=== PATIENT | male | born 1955 | race Caucasian/White ===

== ENCOUNTER 2018-01-04 15:51 | Outpatient (REF) | payer MEDICARE, SELFPAY | END 2018-01-04 16:11 | LOC: NCHCN 15:51 | PROVIDERS: Visit Provider Nurse Practitioner Family | DX: N31.9 Neuromuscular dysfunction of bladder, unspecified (principal); I10 Essential (primary) hypertension; D64.9 Anemia, unspecified; Z87.440 Personal history of urinary (tract) infections | CPT/HCPCS: 87077; 87086; 87186 ==

== ENCOUNTER 2018-03-19 14:40 | Outpatient (REF) | payer MEDICARE, SELFPAY | END 2018-03-19 15:00 | LOC: NCHCN 14:40 | PROVIDERS: Visit Provider Nurse Practitioner Family | DX: R31.9 Hematuria, unspecified (principal); N31.9 Neuromuscular dysfunction of bladder, unspecified; Z87.448 Personal history of other diseases of urinary system | CPT/HCPCS: 87077; 87086; 87186 ==

== ENCOUNTER 2018-03-26 13:24 | Outpatient (REF) | payer MEDICARE, SELFPAY | END 2018-03-26 13:44 | LOC: NCHCN 13:24 | PROVIDERS: PCP Nurse Practitioner Family; Visit Provider Nurse Practitioner Family | DX: R31.9 Hematuria, unspecified (principal) | CPT/HCPCS: 87077; 87086; 87186 ==

== ENCOUNTER 2018-04-10 11:49 | Outpatient (REF) | payer MEDICARE, SELFPAY | END 2018-04-10 12:09 | LOC: NCHCN 11:49 | PROVIDERS: PCP Nurse Practitioner Family; Visit Provider Nurse Practitioner Family | DX: R31.9 Hematuria, unspecified (principal); D69.6 Thrombocytopenia, unspecified; I10 Essential (primary) hypertension; E11.9 Type 2 diabetes mellitus without complications; E78.5 Hyperlipidemia, unspecified; N31.9 Neuromuscular dysfunction of bladder, unspecified; G89.21 Chronic pain due to trauma | CPT/HCPCS: 87086 ==

== ENCOUNTER 2018-11-05 15:34 | Outpatient (REF) | payer MEDICARE, SELFPAY ==
[2018-11-05 21:33] LABS: ALT 40 U/L (12-78); AST 25 U/L (15-37); Albumin 4.2 g/dL (3.4-5.0); Alkaline Phosphatase 123 U/L (46-116); Anion Gap 10.8 mmol/L (3-11); BUN 19 mg/dL (7-18); Bilirubin, Total 0.3 mg/dL (0.2-1.0); CO2 26.2 mmol/L (21.0-32.0); CREATININE 1.02 mg/dL (0.70-1.30); Calcium 9.4 mg/dL (8.5-10.1); Chloride 101 mmol/L (98-107); Glucose 98 mg/dL (70-100); Potassium 4.5 mmol/L (3.5-5.1); Sodium 138 mmol/L (136-145); Total Protein 8.5 g/dL (6.4-8.2)
== END 2018-11-05 15:54 ==
LOC: NCHCN 15:34
PROVIDERS: PCP Nurse Practitioner Family; Visit Provider Nurse Practitioner Family
DX: I10 Essential (primary) hypertension (principal); E11.9 Type 2 diabetes mellitus without complications; E78.5 Hyperlipidemia, unspecified; I51.7 Cardiomegaly; G89.21 Chronic pain due to trauma
CPT/HCPCS: 80053

== ENCOUNTER 2019-05-07 15:35 | Outpatient (REF) | payer MEDICARE, SELFPAY ==
[2019-05-07 22:04] LABS: ALT 53 U/L (16-63); AST 30 U/L (15-37); Albumin 4.3 g/dL (3.4-5.0); Alkaline Phosphatase 121 U/L (46-116); Bilirubin, Direct 0.05 mg/dL (0.00-0.20); Bilirubin, Total 0.2 mg/dL (0.2-1.0); Total Protein 8.1 g/dL (6.4-8.2)
[2019-05-07 22:11] LABS: GGT 63 U/L (15-85)
== END 2019-05-07 15:55 ==
LOC: NCHCN 15:35
PROVIDERS: PCP Nurse Practitioner Family; Visit Provider Nurse Practitioner Family
DX: I10 Essential (primary) hypertension (principal); E11.9 Type 2 diabetes mellitus without complications; E78.5 Hyperlipidemia, unspecified; N31.9 Neuromuscular dysfunction of bladder, unspecified; R74.8 Abnormal levels of other serum enzymes; I51.7 Cardiomegaly; G89.21 Chronic pain due to trauma; E66.9 Obesity, unspecified
CPT/HCPCS: 80076; 82977

== ENCOUNTER 2019-11-05 14:25 | Outpatient (REF) | payer MEDICARE, SELFPAY ==
[2019-11-05 21:58] LABS: ALT 46 U/L (16-63); AST 25 U/L (15-37); Albumin 4.2 g/dL (3.4-5.0); Alkaline Phosphatase 116 U/L (46-116); Anion Gap 10.1 mmol/L (3-11); BUN 18 mg/dL (7-18); Bilirubin, Total 0.3 mg/dL (0.2-1.0); CO2 26.9 mmol/L (21.0-32.0); Calcium 9.8 mg/dL (8.5-10.1); Chloride 103 mmol/L (98-107); Glucose 87 mg/dL (74-106); Potassium 4.5 mmol/L (3.5-5.1); Sodium 140 mmol/L (136-145)
[2019-11-07 05:15] LABS: Vitamin D 25 Total 19.6 ng/ml (30-100)
== END 2019-11-05 14:45 ==
LOC: NCHCN 14:25
PROVIDERS: PCP Nurse Practitioner Family; Visit Provider Nurse Practitioner Family
DX: E11.9 Type 2 diabetes mellitus without complications (principal); E55.9 Vitamin D deficiency, unspecified; R74.8 Abnormal levels of other serum enzymes; I10 Essential (primary) hypertension; I51.7 Cardiomegaly; E66.9 Obesity, unspecified
CPT/HCPCS: 80053; 82306

== ENCOUNTER 2020-01-13 15:06 | Inpatient (IN) | payer MEDICARE, SELFPAY ==
[2020-01-13 15:31] VITALS: BP 133/59; PULSE 106; RESP 20; TEMP 38; O2SAT 92
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
[2020-01-13 16:27] LABS: Absolute Basophil Count 0.05 10^3/uL (0.0-0.2); Absolute Eosinophil Count 0.15 10^3/uL (0.0-0.7); Absolute Monocyte Count 1.05 10^3/uL (0.1-0.8); Basophils % 0.3; Eosinophils % 0.9; HCT 36.9 % (40.0-50.0); Immature Grans % 0.6; Lymphocytes % 5.5; MCH 30.4 pg (27.0-33.0); MCHC 32.5 % (32.0-36.0); MCV 93.4 fL (80-95); MPV 9.2 fL (8.0-11.0); Monocytes % 6.4; Neutrophils % 86.3; Nucleated RBC 0 %; Platelet Count 180 10^3/uL (130-400); RBC 3.95 10^6/uL (4.36-5.78); RDW 13.2 % (11.8-14.1); RDW-SD 45.2 fL; WBC 16.34 10^3/uL (4.4-10.8)
[2020-01-13] MEDS: Normal Saline 1,000 ML 1000 ML IV (16:36)
[2020-01-13] MEDS: Acetaminophen 500 MG TAB 1000 MG PO (16:36)
[2020-01-13 16:41] LABS: ALT 33 U/L (16-63); AST 24 U/L (15-37); Albumin 3.6 g/dL (3.4-5.0); Alkaline Phosphatase 88 U/L (46-116); Anion Gap 6.7 mmol/L (3-11); BUN 36 mg/dL (7-18); Bilirubin, Total 0.3 mg/dL (0.2-1.0); CO2 28.3 mmol/L (21.0-32.0); Calcium 9.2 mg/dL (8.5-10.1); Chloride 97 mmol/L (98-107); Estimated GFR 32.16 (mL/min/1.73m2); Glucose 147 mg/dL (74-106); Potassium 4.9 mmol/L (3.5-5.1); Sodium 132 mmol/L (136-145); Total Protein 8.1 g/dL (6.4-8.2)
--- NOTE | 2020-01-13 16:41 | NUR.NOTE ---
Nursing Note:attempted 2nd BC, unable to obtain. Provider aware, states initiate antibiotic therapy.
[2020-01-13] MEDS: diazePAM 5 MG TAB PO (17:01)
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
[2020-01-13 19:38] VITALS: BP 106/48; PULSE 94; RESP 18; TEMP 36.7; O2SAT 94
[2020-01-13 21:03] VITALS: BP 124/77; PULSE 96; RESP 19; TEMP 36.8; O2SAT 96
[2020-01-13] MEDS: DULoxetine 30 MG CAP PO (21:23)
[2020-01-13] MEDS: oxyCODONE 10 MG TAB PO (21:23)
[2020-01-13] MEDS: Lactated Ringers 1,000 ML 100 ML IV (21:23)
[2020-01-13] MEDS: Baclofen 10 MG TAB PO (21:23)
[2020-01-13] MEDS: Gabapentin 600 MG TAB 1200 MG PO (21:32)
[2020-01-14 00:27] VITALS: BP 116/74; PULSE 97; RESP 18; TEMP 37.5; O2SAT 92
[2020-01-14] MEDS: Zolpidem 5 MG TAB PO ×2 (00:54→23:50)
[2020-01-14] MEDS: Acetaminophen 325 MG TAB 650 MG PO ×3 (00:54→23:49)
[2020-01-14 01:38] LABS: COVID-19 RT-PCR UVMMC Result Negative (Negative)
[2020-01-14 07:00] LABS: HCT 37.5 % (40.0-50.0); MCH 30.1 pg (27.0-33.0); MPV 9.3 fL (8.0-11.0); Platelet Count 164 10^3/uL (130-400); RBC 3.99 10^6/uL (4.36-5.78); RDW 13.4 % (11.8-14.1); RDW-SD 46.3 fL; WBC 11.07 10^3/uL (4.4-10.8)
[2020-01-14 07:34] LABS: Anion Gap 5.6 mmol/L (3-11); BUN 24 mg/dL (7-18); CO2 29.4 mmol/L (21.0-32.0); Calcium 9.1 mg/dL (8.5-10.1); Chloride 102 mmol/L (98-107); Estimated GFR 55.94 (mL/min/1.73m2); Glucose 144 mg/dL (74-106); Potassium 4.7 mmol/L (3.5-5.1); Sodium 137 mmol/L (136-145)
[2020-01-14 08:10] VITALS: BP 141/85; PULSE 99; RESP 17; TEMP 37; O2SAT 93
[2020-01-14] MEDS: Gabapentin 600 MG TAB PO (08:16)
[2020-01-14] MEDS: DULoxetine 30 MG CAP PO ×2 (08:16→20:02)
[2020-01-14] MEDS: Lisinopril 10 MG TAB PO (08:16)
[2020-01-14] MEDS: oxyCODONE 10 MG TAB PO ×3 (08:16→20:03)
[2020-01-14] MEDS: Baclofen 10 MG TAB PO ×3 (08:17→20:02)
[2020-01-14] MEDS: Lactated Ringers 1,000 ML 100 ML IV ×2 (09:11→20:04)
[2020-01-14] MEDS: ceFAZolin 1 GM/50 ML BAG IVPB ×3 (11:34→21:42)
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
[2020-01-14] MEDS: Heparin 5,000 UNITS/ML VIAL 5000 UNITS SC ×2 (13:12→20:02)
[2020-01-14 14:30] LABS: Bilirubin Negative (Negative); Blood Moderate (Negative); Clarity Clear (Clear); Glucose Negative (Negative); Ketones Negative (Negative); Leukocyte Esterase Negative (Negative); Nitrite Negative (Negative); Urobilinogen 0.2 EU/dL (Up TO 0.2); pH 5.5 (5-8)
[2020-01-14 14:40] LABS: RBC 20-50 HPF (0-2)
[2020-01-14 14:41] LABS: Bacteria Few HPF (Negative); C & S Indicated? No; Casts Negative LPF (Negative); Crystals Negative HPF (Negative); Epithelial Cells Few HPF (Negative); Mucus Negative (Negative); Other Cells Negative (Negative)
--- NOTE | 2020-01-14 14:52 | PHA.REVIEW ---
Pharmacy Admission Review - Admission Clinical Review (Last Reviewed 01/13/20 @ 18:31 by Vivek Subramanian MD) Acute kidney injury (Acute) Discharge planning issues (Acute) Hyperlipidemia (Acute) Neurogenic bladder (Acute) Cellulitis (Acute) No Known Allergies Allergy (Unverified 01/13/20 15:36) Height 5 ft 9 in Weight 110.679 kg - Renal Dosing Renal Dosing: BUN 24 mg/dL (7-18) H D 01/14/20 06:35 Creatinine 1.30 mg/dL (0.70-1.30) D 01/14/20 06:35 Medications needing adjustments: Reviewed (Crcl ~72.2 using adjusted body weight. Current meds okay.) - Anticoagulation Anticoagulation: Hgb 12.0 g/dL (13.5-17.5) L 01/14/20 06:35 Hct 37.5 % (40.0-50.0) L 01/14/20 06:35 Plt Count 164 10^3/uL (130-400) 01/14/20 06:35 Creatinine 1.30 mg/dL (0.70-1.30) D 01/14/20 06:35 DVT Prohphylaxis: Reviewed Medications: Heparin Therapeutic Anticoagulation: N/A - Opiate Usage Evaluate Pain Scale/Pains Meds: Reviewed Scheduled Bowel Reg ordered if on Opiates?: No (will mention to provider) - Relevant Labs Sodium 137 mmol/L (136-145) 01/14/20 06:35 Potassium 4.7 mmol/L (3.5-5.1) 01/14/20 06:35 Chloride 102 mmol/L (98-107) 01/14/20 06:35 Electrolytes, C-Reactive P, ESR: Reviewed - DM Control DM Control: Glucose 144 mg/dL (74-106) H 01/14/20 06:35 Insulin Dosing: Intervened (elevated, A1c from 10/06/17 was 6.5 will mention to provider) - Heart Failure/SC EF%, HARSH's, B-Blockers, Diuretics: N/A - BP Control BP Control: Blood Pressure 141/85 If elevated: Reviewed (was elevated before morning BP meds were given) - Qtc Review If Elevated: N/A - IV to PO Switch IV Medications: Reviewed - Home Meds Home Med List reviewed: Reviewed (Multiple MEDICAL AUTHORIZATION SPECIALIST depressants: baclofen, gabapentin, morphine, oxycodone) Relevent Home Meds Not ordered & why?: ascorbic acid, pravastatin - Current meds Current Medication Order Review: Reviewed (asked provider about baclofen as it is scheduled vs. PRN, pt having lots of spasms, continue scheduled for now. Progress note mentions continuing statin, but med not currently ordered, mentioned to provider.) - Comments Comments/Follow Ups: Watch BP, BG, and for med changes (BM meds, baclofen to PRN?, resuming some home meds?). Antibiotic Activity - Pharmacy Antibiotic Review Pharmacy Antibiotic Activity: Reviewed, no change (cefazolin continues (day 2) for cellulitis)
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
[2020-01-14 16:21] VITALS: BP 108/69; PULSE 103; RESP 18; TEMP 37.9; O2SAT 93
[2020-01-14 16:26] VITALS: BP 108/69; PULSE 103
[2020-01-14] MEDS: Pravastatin 20 MG TAB PO (20:03)
[2020-01-14] MEDS: Gabapentin 600 MG TAB 1200 MG PO (21:41)
[2020-01-14 23:20] VITALS: BP 127/77; PULSE 100; RESP 19; TEMP 38.8; O2SAT 94
[2020-01-15] MEDS: Baclofen 10 MG TAB PO ×4 (01:12→20:01)
[2020-01-15] MEDS: oxyCODONE 10 MG TAB PO ×4 (01:12→20:01)
[2020-01-15] MEDS: Heparin 5,000 UNITS/ML VIAL 5000 UNITS SC ×3 (03:21→20:02)
[2020-01-15] MEDS: ceFAZolin 1 GM/50 ML BAG IVPB ×4 (03:22→23:24)
[2020-01-15] MEDS: Acetaminophen 325 MG TAB 650 MG PO ×3 (05:57→16:50)
[2020-01-15] MEDS: diazePAM 2 MG TAB PO (06:12)
[2020-01-15] MEDS: Lactated Ringers 1,000 ML 100 ML IV (06:42)
[2020-01-15 07:09] LABS: Abs Immature Grans 0.05 10^3/uL (0.0-0.06); Absolute Basophil Count 0.03 10^3/uL (0.0-0.2); Absolute Eosinophil Count 0.46 10^3/uL (0.0-0.7); Absolute Lymphocyte Count 1.03 10^3/uL (1.2-3.4); Absolute Monocyte Count 0.73 10^3/uL (0.1-0.8); Absolute Neutrophil Count 4.95 10^3/uL (1.2-6.7); Basophils % 0.4; Eosinophils % 6.3; HCT 36.4 % (40.0-50.0); HGB 11.8 g/dL (13.5-17.5); Immature Grans % 0.7; Lymphocytes % 14.2; MCH 30.5 pg (27.0-33.0); MCHC 32.4 % (32.0-36.0); MCV 94.1 fL (80-95); MPV 9.3 fL (8.0-11.0); Monocytes % 10.1; Neutrophils % 68.3; Nucleated RBC 0 %; Platelet Count 155 10^3/uL (130-400); RBC 3.87 10^6/uL (4.36-5.78); RDW 13.3 % (11.8-14.1); RDW-SD 45.9 fL; WBC 7.25 10^3/uL (4.4-10.8)
[2020-01-15 07:16] LABS: Anion Gap 5.8 mmol/L (3-11); BUN 16 mg/dL (7-18); CO2 29.2 mmol/L (21.0-32.0); CREATININE 1.07 mg/dL (0.70-1.30); Calcium 9.2 mg/dL (8.5-10.1); Chloride 101 mmol/L (98-107); Glucose 134 mg/dL (74-106); Sodium 136 mmol/L (136-145)
[2020-01-15 07:36] LABS: Hemoglobin A1C 6.8 % (<5.7)
[2020-01-15] MEDS: DULoxetine 30 MG CAP PO ×2 (08:49→20:01)
[2020-01-15] MEDS: Ascorbic Acid 500 MG TAB PO (08:50)
[2020-01-15] MEDS: Gabapentin 600 MG TAB PO (08:50)
[2020-01-15] MEDS: Lisinopril 10 MG TAB PO (08:50)
[2020-01-15 10:43] VITALS: BP 130/76; PULSE 96; RESP 16; TEMP 37.4; O2SAT 94
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
[2020-01-15] MEDS: Silver sulfaDIAZINE 1% 25 GM TUBE TP ×2 (11:14→20:02)
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
[2020-01-15 15:42] VITALS: BP 106/67; PULSE 95; RESP 22; TEMP 38.7; O2SAT 95
[2020-01-15] MEDS: Normal Saline Flush 10 ML SYR IVP ×2 (16:51→23:27)
[2020-01-15] MEDS: Docusate Sodium 100 MG CAP PO (16:51)
[2020-01-15] MEDS: Milk of Magnesia 30 ML CUP PO (16:51)
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
[2020-01-15] MEDS: Pravastatin 20 MG TAB PO (20:01)
[2020-01-15] MEDS: Gabapentin 600 MG TAB 1200 MG PO (20:02)
[2020-01-15 23:25] VITALS: BP 135/84; PULSE 90; RESP 20; TEMP 37.8; O2SAT 95
[2020-01-15] MEDS: Zolpidem 5 MG TAB PO (23:26)
[2020-01-16] MEDS: diazePAM 2 MG TAB PO (01:36)
[2020-01-16] MEDS: ceFAZolin 1 GM/50 ML BAG IVPB ×2 (04:39→10:53)
[2020-01-16] MEDS: Heparin 5,000 UNITS/ML VIAL 5000 UNITS SC ×3 (04:40→19:58)
[2020-01-16 06:17] LABS: Abs Immature Grans 0.05 10^3/uL (0.0-0.06); Absolute Basophil Count 0.05 10^3/uL (0.0-0.2); Absolute Eosinophil Count 0.32 10^3/uL (0.0-0.7); Absolute Lymphocyte Count 1.45 10^3/uL (1.2-3.4); Absolute Monocyte Count 1.02 10^3/uL (0.1-0.8); Absolute Neutrophil Count 3.75 10^3/uL (1.2-6.7); Basophils % 0.8; Eosinophils % 4.8; Immature Grans % 0.8; Lymphocytes % 21.8; MCH 30.2 pg (27.0-33.0); MCHC 33.3 % (32.0-36.0); MCV 90.7 fL (80-95); MPV 8.9 fL (8.0-11.0); Monocytes % 15.4; Neutrophils % 56.4; Nucleated RBC 0 %; Platelet Count 176 10^3/uL (130-400); RBC 3.97 10^6/uL (4.36-5.78); WBC 6.64 10^3/uL (4.4-10.8)
[2020-01-16 06:23] LABS: Anion Gap 6.8 mmol/L (3-11); BUN 13 mg/dL (7-18); CO2 29.2 mmol/L (21.0-32.0); Calcium 9.1 mg/dL (8.5-10.1); Chloride 99 mmol/L (98-107); Glucose 136 mg/dL (74-106); Sodium 135 mmol/L (136-145)
[2020-01-16 07:51] VITALS: BP 187/105; PULSE 85; RESP 19; TEMP 37; O2SAT 94
[2020-01-16] MEDS: DULoxetine 30 MG CAP PO ×2 (08:01→19:04)
[2020-01-16] MEDS: Milk of Magnesia 30 ML CUP PO (08:01)
[2020-01-16] MEDS: Normal Saline Flush 10 ML SYR IVP ×2 (08:01→10:54)
[2020-01-16] MEDS: Baclofen 10 MG TAB PO ×3 (08:01→19:04)
[2020-01-16] MEDS: Gabapentin 600 MG TAB PO (08:02)
[2020-01-16] MEDS: Ascorbic Acid 500 MG TAB PO (08:02)
[2020-01-16] MEDS: Lisinopril 10 MG TAB PO (08:02)
[2020-01-16] MEDS: oxyCODONE 10 MG TAB PO ×3 (08:02→19:04)
[2020-01-16] MEDS: Docusate Sodium 100 MG CAP PO (08:03)
--- NOTE | 2020-01-16 08:42 | PDOC.CMDIS ---
LACE Index Scoring Tool - Questions: Length of Stay (in days): 3 Acuity (Admit via E.D.?): Yes E.D. Visits: 1 - Answers: Total Score: 7 Risk of Readmission: Low Risk Care Management Discharge Reason for Hospitalization: Cellulitis Discharge Plan: Toe will return home with new orders of [facility] RN for wound care. He will be staying with his daughter, Ebonie Pearce# [phone] [place] [address] in [place], [place]. [phone]. He will be transported via private vehicle by family when ready. He will follow up with his PCP and discharge plan of care. CM also faxed referral to [facility] for options counseling. Patient/Family Education Needs: Review discharge instructions, discuss Ask Me Three. Services Needed at Discharge: Home Health Care Services (medicare contact specialist)
--- NOTE | 2020-01-16 09:26 | PT.INTREAT ---
Date of service: 01/16/20 Time of Service: 09:26 PT Notes Visit Reasons: Cellulitis Inpatient Physical Therapy Treatment Note [facility] Date: 01/16/2020 PRECAUTIONS:Fall, NWB L SUBJECTIVE: Teo states that he has not slept well, his L LE bothers him and makes it difficult to rest. OBJECTIVE: PAIN: No c/o pain BED MOBILITY/TRANSFERS Supine-sit: I Sit-stand: I Stand-sit: I Bed-Chair: S Chair-bed: S GAIT Assistive Device: FWW Weight bearing: NWB L Assist: SBA Distance: ~100' Deviation: Maintained NWB precautions ASSESSMENT: Patient tolerated session well without complaint. He was able to demonstrate independence with bed mobility and transfers at this time. PLAN: Continue with gait training for improved mobility. TREATMENT CODE/TIME: 20 minutes; 00774
[2020-01-16] MEDS: Silver sulfaDIAZINE 1% 25 GM TUBE TP ×2 (11:09→20:03)
--- NOTE | 2020-01-16 13:07 | DI.RAD_ITS ---
EXAM: XR FOOT LT COMPLETE CLINICAL HISTORY: infection, necrosis, ? osteo TECHNIQUE: COMPARISON: No exams were available for comparison FINDINGS: Three views were obtained and show soft tissue swelling of the forefoot and midfoot. Apart from mild degenerative changes of the joints of the foot no focal bony abnormality is seen. If there is a clinical suspicion of osteomyelitis, additional evaluation with MRI may be considered. IMPRESSION: RADIATION DOSE DELIVERED: Total DLP
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
[2020-01-16] MEDS: Polyethylene Glycol 3350 17 GM PACKET PO (13:18)
[2020-01-16 13:44] LABS: C-Reactive Protein 6.76 mg/dL (0.0-0.3)
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
[2020-01-16 14:26] LABS: ESR 87 mm/hr (1-20)
[2020-01-16 15:33] VITALS: BP 113/78; PULSE 85; RESP 18; TEMP 37.1; O2SAT 95
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
[2020-01-16] MEDS: Pravastatin 20 MG TAB PO (19:04)
[2020-01-16] MEDS: Collagenase 30 GM TUBE TP (20:02)
[2020-01-16] MEDS: Gabapentin 600 MG TAB 1200 MG PO (21:11)
[2020-01-16] MEDS: Acetaminophen 325 MG TAB 650 MG PO (23:11)
[2020-01-16] MEDS: Zolpidem 5 MG TAB PO (23:11)
[2020-01-16 23:40] VITALS: BP 123/83; PULSE 86; RESP 18; TEMP 36.6; O2SAT 92
--- NOTE | 2020-01-17 | DI.MRI_ITS ---
EXAM: MR LOWER EXTREMITY LT WO/W CLINICAL HISTORY: ? osteomyelitis,infection, necrosis. TECHNIQUE: Multiplanar multisequence MRI was performed. COMPARISON: CR XR FOOT LT COMPLETE from 01/16/2020 FINDINGS: MR examination of foot was performed according to the usual protocol with additional pre and post con trast T1 fat sat imaging. There are marked degenerative changes at the tibiotalar and talofibular joints with areas of cysts cy stic signal and deformity of the adjacent joint surfaces.. There are vertical linear areas of abnorm al signal in the talus raising the possibility of a nondisplaced talar fracture extending through the with mild deformity of the articular surface. There is little if any marrow edema associated with t his finding, however, and this could represent an old injury. No other significant bony signal abnormality seen foot or ankle. There is no enhancement of the bone s following administration of contrast material to suggest the presence of osteomyelitis. Specifical ly, the areas mentioned on the requisition including the calcaneus, lateral malleolus, and 5th MTP janusz int are unremarkable in bony signal and show no enhancement. There are mild changes of Achilles tendinosis. Medial and lateral tendons of the ankle poorly visual ized due to motion. No other significant ligamentous or tendinous abnormality seen. IMPRESSION: No evidence of osteomyelitis. Question subacute or old vertical fracture of the talus, marked degene rative changes at the tibiotalar joint. Additional evaluation with CT of the ankle recommended. DATA REPOSITORY:
[2020-01-17] MEDS: Normal Saline Flush 10 ML SYR IVP ×6 (01:53→20:13)
[2020-01-17 04:15] VITALS: BP 121/90; PULSE 82; RESP 18; TEMP 36.2; O2SAT 91
[2020-01-17] MEDS: Heparin 5,000 UNITS/ML VIAL 5000 UNITS SC ×3 (04:18→20:13)
[2020-01-17 06:36] LABS: Absolute Basophil Count 0.06 10^3/uL (0.0-0.2); Absolute Eosinophil Count 0.45 10^3/uL (0.0-0.7); Absolute Monocyte Count 0.88 10^3/uL (0.1-0.8); Absolute Neutrophil Count 2.93 10^3/uL (1.2-6.7); Eosinophils % 7.2; HCT 40.4 % (40.0-50.0); HGB 13.2 g/dL (13.5-17.5); Immature Grans % 1.6; Lymphocytes % 28.9; MCHC 32.7 % (32.0-36.0); MCV 91.8 fL (80-95); MPV 8.8 fL (8.0-11.0); Monocytes % 14.1; Neutrophils % 47.2; Nucleated RBC 0 %; Platelet Count 193 10^3/uL (130-400); RDW-SD 43.8 fL; WBC 6.22 10^3/uL (4.4-10.8)
[2020-01-17 06:53] LABS: ALT 41 U/L (16-63); AST 39 U/L (15-37); Albumin 3.1 g/dL (3.4-5.0); Alkaline Phosphatase 88 U/L (46-116); Anion Gap 6.2 mmol/L (3-11); BUN 17 mg/dL (7-18); Bilirubin, Total 0.3 mg/dL (0.2-1.0); CO2 29.8 mmol/L (21.0-32.0); CREATININE 1.05 mg/dL (0.70-1.30); Calcium 9.4 mg/dL (8.5-10.1); Chloride 101 mmol/L (98-107); Glucose 138 mg/dL (74-106); Potassium 4.1 mmol/L (3.5-5.1); Sodium 137 mmol/L (136-145); Total Protein 7.8 g/dL (6.4-8.2)
[2020-01-17 07:53] VITALS: O2SAT 94
[2020-01-17] MEDS: oxyCODONE 10 MG TAB PO ×3 (08:31→20:12)
[2020-01-17] MEDS: DULoxetine 30 MG CAP PO ×2 (08:31→20:12)
[2020-01-17] MEDS: Ascorbic Acid 500 MG TAB PO (08:32)
[2020-01-17] MEDS: Gabapentin 600 MG TAB PO (08:32)
[2020-01-17] MEDS: Baclofen 10 MG TAB PO ×3 (08:32→20:12)
[2020-01-17] MEDS: Docusate Sodium 100 MG CAP PO (08:32)
[2020-01-17] MEDS: Lisinopril 10 MG TAB PO (08:32)
[2020-01-17] MEDS: Gadoterate meglumine 20 ML VIAL IVP (09:11)
[2020-01-17] MEDS: Silver sulfaDIAZINE 1% 25 GM TUBE TP ×3 (12:16→20:15)
[2020-01-17] MEDS: Collagenase 30 GM TUBE TP ×3 (12:16→20:14)
[2020-01-17] MEDS: VANCOMYCIN/WATER (PEG) 1.25 GM/250 ML BAG IVPB (12:16)
[2020-01-17] MEDS: Normal Saline 500 ML 30 ML IV (12:17)
--- NOTE | 2020-01-17 12:29 | PT.INTREAT ---
Date of service: 01/17/20 Time of Service: 12:29 PT Notes Visit Reasons: Cellulitis Inpatient Physical Therapy Treatment Note [facility] Date: 01/17/2020 PRECAUTIONS: Fall, NWB L SUBJECTIVE: Teo states that he is feeling pretty good. He states that he may go home today depending on the results of his MRI. OBJECTIVE: PAIN: No c/o pain BED MOBILITY/TRANSFERS Sit-stand: I Stand-sit: I Bed-chair: I Chair-bed: I GAIT Assistive Device: FWW Weight bearing: NWB L Assist: SBA-S Distance: 75' STAIRS: Up/down 3x4 using B rails and a hop-to pattern with supervision; up/down 3x4 using B axillary crutches and a hop-to pattern with CGA ASSESSMENT: Patient tolerated session without complaint. He was able to tolerate the addition of stair training with B axillary crutches, although he requires CGA for safety. PLAN: Continue with gait training and stair training for improved safety with mobility TREATMENT CODE/TIME: 20 minutes; [id number]
--- NOTE | 2020-01-17 13:02 | W.PM.PROGNOT ---
Date of Service Date of service: 01/17/20 Time of Service: 13:03 Assessment and Plan Assessment and plan (1) Cellulitis: Status: Acute Assessment and plan: Cellulitis from burn, perhaps from debridement as well. white count normalized. no temps overnight. MRI negative for osteomyelitis. podiatry debrided wound yesterday and gave wound care instructions, will follow outpatient. antibiotic selection discussed with Dr Gamez and plan to change to zosyn through weekend and downstep to augmentin at discharge. (2) Acute kidney injury: Status: Acute Assessment and plan: returned to baseline. avoid nephrotoxic drugs, renal dosing. straight caths regularly so likely prerenal (3) Neurogenic bladder: Status: Acute Assessment and plan: continue straight cath (4) Hyperlipidemia: Status: Acute Assessment and plan: continue statin (5) Chronic pain: Status: Chronic Assessment and plan: stable, continue home medications (6) DVT (deep venous thrombosis): Status: Chronic Assessment and plan: heparin in setting of D[place] (7) Discharge planning issues: Status: Acute Assessment and plan: anticipate discharge to home next week with home health for wound care. case management following discusses with DR Xie who is in agreement. Subjective Subjective Patient reports: no new complaints, tolerating liquids well, tolerating a regular diet, bowel movement and afebrile Interval history since last seen: continues to self-cath Exam Const General: cooperative, healthy appearing, comfortable and no acute distress Nutritional Appearance: overweight Orientation: alert, awake and oriented x3 HENMT Head: normal to inspection, normocephalic and atraumatic Mouth: oral mucosae normal Resp Effort & Inspection: normal respiratory effort Auscultation: clear to auscultation bilaterally Cardio Rate: regular rate Rhythm: regular rhythm GI Inspection: normal to inspection and obesity Palpation: soft Auscultation: normal bowel sounds Skin Lesions: lesion noted Rashes: rashes noted Neuro General: patient alert, patient awake and patient oriented x3 Cognition: normal cognition Speech: speech normal Extrem Right lower extremity: edema Objective Last Vital Signs Temp 36.2 C L 01/17/20 04:15 Pulse 82 01/17/20 04:15 Resp 18 01/17/20 04:15 BP 121/90 01/17/20 04:15 Pulse Ox 94 01/17/20 07:53 Laboratory Results - last 24 hr 01/16/20 01/16/20 01/17/20 13:26 13:26 06:30 WBC RBC Hgb Hct MCV MCH MCHC RDW Plt Count MPV Immature Gran % Neutrophils % Lymphocytes % Monocytes % Eosinophils % Basophils % Nucleated RBC % Absolute Neutrophils Absolute Lymphocytes Absolute Monocytes Absolute Eosinophils Absolute Basophils ESR 87 H Sodium 137 Potassium 4.1 Chloride 101 Carbon Dioxide 29.8 Anion Gap 6.2 BUN 17 Creatinine 1.05 Estimated GFR/1.73 m2 >= 60.00 Glucose 138 H Calcium 9.4 Total Bilirubin 0.3 AST 39 H ALT 41 Alkaline Phosphatase 88 C-Reactive Protein 6.76 H Total Protein 7.8 Albumin 3.1 L 01/17/20 06:30 WBC 6.22 RBC 4.40 Hgb 13.2 L Hct 40.4 MCV 91.8 MCH 30.0 MCHC 32.7 RDW 13.0 Plt Count 193 MPV 8.8 Immature Gran % 1.6 Neutrophils % 47.2 Lymphocytes % 28.9 Monocytes % 14.1 Eosinophils % 7.2 Basophils % 1.0 Nucleated RBC % 0 Absolute Neutrophils 2.93 Absolute Lymphocytes 1.80 Absolute Monocytes 0.88 H Absolute Eosinophils 0.45 Absolute Basophils 0.06 ESR Sodium Potassium Chloride Carbon Dioxide Anion Gap BUN Creatinine Estimated GFR/1.73 m2 Glucose Calcium Total Bilirubin AST ALT Alkaline Phosphatase C-Reactive Protein Total Protein Albumin
--- NOTE | 2020-01-17 14:04 | W.PM.PROGNOT ---
Date of Service Date of service: 01/17/20 Time of Service: 14:04 Subjective Subjective Patient reports: no new complaints and feels better Exam Narrative Exam Narrative: Teo is seen in his room resting comfortably in his chair watching TV. He denies any new pain in general he is feeling better. His vitals were reviewed current labs were reviewed. He did undergo an MRI earlier today and there were no signs of osteomyelitis in his left foot. We continue to treat his infection presumptively as staph aureus, MSSA. Due to the extensive nature of the injuries and complexity of the wound I did ask the hospitalist to expand antibiotic coverage with Zosyn for the weekend. Dressings were removed from his left lower extremity. The wound overlying the fifth MPJ is looking card cleaner than yesterday without recurrent necrotic tissue noted, the blister overlying the lateral malleolus is flaccid, the heel wound looks less angry with a very dense eschar remaining. Cellulitis appears to be slowly improving and his clinical picture overall appears to be stabilizing. Impression: Multiple thermal injuries to the left foot as above Plan: Teo is going to remain in house over the weekend for continued IV antibiotics for another 36 to 48 hours then transition to p.o. meds with potential discharge Monday. He needs ongoing wound care as previously ordered. Teo states that he plans on living with his daughter so he will no longer be alone. I did discuss this case with the hospitalist who concers.. Objective Last Vital Signs Temp 36.2 C L 01/17/20 04:15 Pulse 82 01/17/20 04:15 Resp 18 01/17/20 04:15 BP 121/90 01/17/20 04:15 Pulse Ox 94 01/17/20 07:53 Laboratory Results - last 24 hr 01/16/20 01/17/20 01/17/20 13:26 06:30 06:30 WBC 6.22 RBC 4.40 Hgb 13.2 L Hct 40.4 MCV 91.8 MCH 30.0 MCHC 32.7 RDW 13.0 Plt Count 193 MPV 8.8 Immature Gran % 1.6 Neutrophils % 47.2 Lymphocytes % 28.9 Monocytes % 14.1 Eosinophils % 7.2 Basophils % 1.0 Nucleated RBC % 0 Absolute Neutrophils 2.93 Absolute Lymphocytes 1.80 Absolute Monocytes 0.88 H Absolute Eosinophils 0.45 Absolute Basophils 0.06 ESR 87 H Sodium 137 Potassium 4.1 Chloride 101 Carbon Dioxide 29.8 Anion Gap 6.2 BUN 17 Creatinine 1.05 Estimated GFR/1.73 m2 >= 60.00 Glucose 138 H Calcium 9.4 Total Bilirubin 0.3 AST 39 H ALT 41 Alkaline Phosphatase 88 Total Protein 7.8 Albumin 3.1 L
[2020-01-17] MEDS: PIPERACILLIN/TAZO 3.375 GM in Normal Saline 50 ML IVPB ×2 (14:26→20:13)
--- NOTE | 2020-01-17 16:19 | CMPROGNOTE_ITS ---
Care Management Progress Note S/O: Teo had a podiatry consult today, Dr. Back recommended expanding antibiotic coverage with Zosyn for the weekend. No change to overall plan at this time; discharge was delayed for the weekend. CM continues to follow. A: A: Teo is a 64 year old male admitted to [facility] on 01/13/20 with cellulitis. P: Teo will return home with new orders of VNA RN for wound care. He will be staying with his daughter, Ebonie P# [phone] [place] [address] in [place], [place]. [phone]. He will be transported via private vehicle by family when ready. He will follow up with his PCP and discharge plan of care. CM also faxed referral to [facility] for options counseling and will need to update referral with Ebonie's contact information upon discharge.
[2020-01-17 17:16] VITALS: BP 121/74; PULSE 84; RESP 16; TEMP 36.4; O2SAT 96
[2020-01-17] MEDS: Pravastatin 20 MG TAB PO (20:12)
[2020-01-17 20:42] VITALS: BP 106/64; PULSE 90; RESP 20; TEMP 36.7; O2SAT 95
[2020-01-17] MEDS: Gabapentin 600 MG TAB 1200 MG PO (21:30)
[2020-01-18] MEDS: PIPERACILLIN/TAZO 3.375 GM in Normal Saline 50 ML IVPB ×3 (01:35→14:29)
[2020-01-18] MEDS: Normal Saline Flush 10 ML SYR IVP ×4 (01:36→20:40)
[2020-01-18] MEDS: Heparin 5,000 UNITS/ML VIAL 5000 UNITS SC ×3 (03:51→20:42)
[2020-01-18 04:45] VITALS: BP 120/72; PULSE 79; RESP 15; TEMP 36.5; O2SAT 94
[2020-01-18 07:25] VITALS: BP 123/77; PULSE 76; RESP 19; TEMP 37.2; O2SAT 93
[2020-01-18] MEDS: DULoxetine 30 MG CAP PO ×2 (08:59→20:41)
[2020-01-18] MEDS: oxyCODONE 10 MG TAB PO ×3 (08:59→20:41)
[2020-01-18] MEDS: Lisinopril 10 MG TAB PO (09:00)
[2020-01-18] MEDS: Baclofen 10 MG TAB PO ×3 (09:00→20:42)
[2020-01-18] MEDS: Ascorbic Acid 500 MG TAB PO (09:00)
[2020-01-18] MEDS: Gabapentin 600 MG TAB PO (09:00)
[2020-01-18] MEDS: Collagenase 30 GM TUBE TP ×2 (09:24→22:14)
[2020-01-18] MEDS: Silver sulfaDIAZINE 1% 25 GM TUBE TP ×2 (09:25→22:13)
--- NOTE | 2020-01-18 09:47 | PDOC.CMPRO ---
- If Service Date Differs Date of service: 01/18/20 Time of Service: 09:47 Care Management Progress Note S/O: No change in plan. Teo was witnessed to have sleep apnea by nursing staff last night. An overnight oximetry is ordered for tonight. Per [facility] note, Teo was seen by Dr. Back for wound debridement on 01/16/20. He is remaining inpatient over the weekend for continued IV antibiotics with a plan to change his antibiotic to PO Monday evening. He will be reevaluated by podiatry on Monday and potentially discharged at that time. CM will contniue to follow. A: Teo is a 64 year old male admitted to [facility] on 01/13/20 with cellulitis. P: Plan remains for Teo to return home with new orders of [facility] RN for wound care. He will be staying with his daughter, Ebonie P# [phone] [place] [address] in [place], [place]. JOHN Lux, faxed referral to [facility] F#[phone]. He will be transported via private vehicle by family when ready. He will follow up with his PCP, an outpatient sleep study, and discharge plan of care. JOHN also faxed referral to [facility] for options counseling and will need to update referral with Ebonie's contact information upon discharge. JOHN will continue to follow.
--- NOTE | 2020-01-18 10:57 | W.PM.PROGNOT ---
Date of Service Date of service: 01/18/20 Time of Service: 10:57 Assessment and Plan Assessment and plan (1) Sleep related hypoxia: Status: Acute Assessment and plan: reports of sats 89-93 last night while sleeping, will order overnight oximetry tonight. (2) Cellulitis: Status: Acute Assessment and plan: Cellulitis from burn improving. white count normalized. no further temps. MRI negative for osteomyelitis. s/p wound debridement by podiatry, continue wound care instructions, Podiatry will re-evaluate on Monday and continue to follow outpatient. Continue zosyn through and downstep to augmentin Monday night. (3) Acute kidney injury: Status: Acute Assessment and plan: returned to baseline. avoid nephrotoxic drugs, renal dosing. straight caths regularly so likely prerenal (4) Neurogenic bladder: Status: Acute Assessment and plan: continue straight cath (5) Hyperlipidemia: Status: Acute Assessment and plan: continue statin (6) Chronic pain: Status: Chronic Assessment and plan: stable, continue home medications (7) DVT (deep venous thrombosis): Status: Chronic Assessment and plan: heparin in setting of [place] (8) Discharge planning issues: Status: Acute Assessment and plan: anticipate discharge to home next week, likely Monday, with home health for wound care. case management following discusses with Dr Alvarez who is in agreement. Subjective Subjective Patient reports: no new complaints, tolerating liquids well, tolerating a regular diet, bowel movement and afebrile Interval history since last seen: straight cath with no issues. wound care continues as instructed by podiatry. no new active issues, no further fevers, max temp 37.2 Exam Const General: cooperative, healthy appearing, comfortable and no acute distress Nutritional Appearance: overweight Orientation: alert, awake and oriented x3 HENWI Head: normal to inspection, normocephalic and atraumatic Mouth: oral mucosae normal Resp Effort & Inspection: normal respiratory effort Auscultation: clear to auscultation bilaterally Cardio Rate: regular rate Rhythm: regular rhythm GI Inspection: normal to inspection and obesity Palpation: soft Auscultation: normal bowel sounds Skin Lesions: lesion noted Rashes: rashes noted Neuro General: patient alert, patient awake and patient oriented x3 Cognition: normal cognition Speech: speech normal Extrem Right lower extremity: edema Objective Last Vital Signs Temp 37.2 C 01/18/20 07:25 Pulse 76 10/31/20 07:25 Resp 19 01/18/20 07:25 BP 123/77 01/18/20 07:25 Pulse Ox 93 01/18/20 07:25
--- NOTE | 2020-01-18 12:39 | PT.INTREAT ---
PT Notes Visit Reasons: Cellulitis Inpatient Physical Therapy Treatment Note [facility] Date: 01/18/20 SUBJECTIVE: Teo reports that he is due to go to his daughters home on Monday. He offers no complaints. OBJECTIVE: [] BED MOBILITY/TRANSFERS Sit-stand: I Stand-sit: I GAIT Assistive Device:FWW Weight bearing: NWB L Assist: S Distance: approx 75' STAIRS:ascended/ descended 3x4 steps and 2x6 steps using B rails and hop to pattern. SBA ASSESSMENT: tolerated session well. Is fairly independent with stairs. Independent with transfers and ambulation. PLAN:continue following PT POC TREATMENT CODE/TIME: 20 min. [id number]
[2020-01-18 16:22] VITALS: BP 100/63; PULSE 62; RESP 19; TEMP 36.3; O2SAT 95
[2020-01-18] MEDS: Acetaminophen 325 MG TAB 650 MG PO (19:18)
[2020-01-18] MEDS: Pravastatin 20 MG TAB PO (20:41)
[2020-01-18] MEDS: Amoxicillin 875/Clav. 125 TAB PO (22:14)
[2020-01-18] MEDS: Gabapentin 600 MG TAB 1200 MG PO (22:14)
[2020-01-19 00:05] VITALS: BP 137/81; PULSE 83; RESP 18; TEMP 36.1; O2SAT 95
[2020-01-19] MEDS: diazePAM 2 MG TAB PO (02:45)
[2020-01-19] MEDS: Acetaminophen 325 MG TAB 650 MG PO (02:46)
[2020-01-19] MEDS: Heparin 5,000 UNITS/ML VIAL 5000 UNITS SC ×3 (03:45→20:51)
[2020-01-19 07:33] LABS: Abs Immature Grans 0.33 10^3/uL (0.0-0.06); Absolute Basophil Count 0.06 10^3/uL (0.0-0.2); Absolute Eosinophil Count 0.51 10^3/uL (0.0-0.7); Absolute Lymphocyte Count 2.32 10^3/uL (1.2-3.4); Absolute Monocyte Count 0.67 10^3/uL (0.1-0.8); Absolute Neutrophil Count 4.45 10^3/uL (1.2-6.7); Basophils % 0.7; Eosinophils % 6.1; HCT 39.7 % (40.0-50.0); HGB 13.1 g/dL (13.5-17.5); Lymphocytes % 27.8; MCH 30.6 pg (27.0-33.0); MCV 92.8 fL (80-95); MPV 8.9 fL (8.0-11.0); Neutrophils % 53.4; Nucleated RBC 0 %; Platelet Count 230 10^3/uL (130-400); RBC 4.28 10^6/uL (4.36-5.78); RDW 12.8 % (11.8-14.1); RDW-SD 43.6 fL; WBC 8.34 10^3/uL (4.4-10.8)
[2020-01-19] MEDS: Baclofen 10 MG TAB PO ×3 (08:11→20:52)
[2020-01-19] MEDS: Amoxicillin 875/Clav. 125 TAB PO ×2 (08:11→20:51)
[2020-01-19] MEDS: Gabapentin 600 MG TAB PO (08:11)
[2020-01-19] MEDS: Ascorbic Acid 500 MG TAB PO (08:12)
[2020-01-19] MEDS: DULoxetine 30 MG CAP PO ×2 (08:12→20:51)
[2020-01-19] MEDS: oxyCODONE 10 MG TAB PO ×3 (08:12→20:52)
[2020-01-19] MEDS: Lisinopril 10 MG TAB PO (08:12)
[2020-01-19] MEDS: Silver sulfaDIAZINE 1% 25 GM TUBE TP ×2 (08:13→20:53)
[2020-01-19] MEDS: Collagenase 30 GM TUBE TP ×2 (08:13→20:52)
[2020-01-19 08:15] VITALS: BP 126/80; PULSE 74; RESP 18; TEMP 36.5; O2SAT 94
--- NOTE | 2020-01-19 09:40 | RESPIRATORY ---
Noc ox done last night shows desat events to qualify pt for home o2. Dr. Mcarthur requests pt is placed on o2 tonight and titrated accordingly for o2 order tomorrow. Rn to use continuous pulse ox t/o Noc and RT to place order in the morning
--- NOTE | 2020-01-19 10:54 | W.PM.PROGNOT ---
Date of Service Date of service: 01/19/20 Time of Service: 10:54 Assessment and Plan Assessment and plan (1) Sleep related hypoxia: Status: Acute Assessment and plan: reports of sats 89-93 last night while sleeping, will order overnight oximetry tonight. (2) Cellulitis: Status: Acute Assessment and plan: Cellulitis improving. white count normalized. no further fevers IV infiltrated overnight, switched to augmentin day 6 of antibiotics. MRI negative for osteomyelitis. s/p wound debridement by podiatry, continue wound care instructions, Podiatry will re-evaluate on Monday and continue to follow outpatient. (3) Acute kidney injury: Status: Resolved Assessment and plan: returned to baseline. avoid nephrotoxic drugs, renal dosing. straight caths regularly so likely prerenal (4) Neurogenic bladder: Status: Acute Assessment and plan: continue straight cath (5) Hyperlipidemia: Status: Acute Assessment and plan: continue statin (6) Chronic pain: Status: Chronic Assessment and plan: stable, continue home medications (7) DVT (deep venous thrombosis): Status: Chronic Assessment and plan: heparin sq (8) Discharge planning issues: Status: Acute Assessment and plan: anticipate discharge to home next week, likely Monday, with home health for wound care. case management following discusses with Dr Alvarez who is in agreement. Subjective Subjective Patient reports: no new complaints, feels better and afebrile Interval history since last seen: numerous desat events on overnight oximetry. Exam Const General: cooperative, healthy appearing, comfortable and no acute distress Nutritional Appearance: overweight Orientation: alert, awake and oriented x3 HENMT Head: normal to inspection, normocephalic and atraumatic Mouth: oral mucosae normal Resp Effort & Inspection: normal respiratory effort Auscultation: clear to auscultation bilaterally Cardio Rate: regular rate Rhythm: regular rhythm GI Inspection: normal to inspection and obesity Palpation: soft Auscultation: normal bowel sounds Skin Lesions: lesion noted Rashes: rashes noted Neuro General: patient alert, patient awake and patient oriented x3 Cognition: normal cognition Speech: speech normal Extrem Right lower extremity: edema Objective Last Vital Signs Temp 36.5 C 01/19/20 08:15 Pulse 74 01/19/20 08:15 Resp 18 01/19/20 08:15 BP 126/80 01/19/20 08:15 Pulse Ox 94 01/19/20 08:15 Laboratory Results - last 24 hr 01/19/20 07:15 WBC 8.34 RBC 4.28 L Hgb 13.1 L Hct 39.7 L MCV 92.8 MCH 30.6 MCHC 33.0 RDW 12.8 Plt Count 230 MPV 8.9 Immature Gran % 4.0 Neutrophils % 53.4 Lymphocytes % 27.8 Monocytes % 8.0 Eosinophils % 6.1 Basophils % 0.7 Nucleated RBC % 0 Absolute Neutrophils 4.45 Absolute Lymphocytes 2.32 Absolute Monocytes 0.67 Absolute Eosinophils 0.51 Absolute Basophils 0.06
--- NOTE | 2020-01-19 13:04 | PT.INTREAT ---
PT Notes Visit Reasons: Cellulitis Inpatient Physical Therapy Treatment Note [facility] Date: 01/19/20 SUBJECTIVE: Teo reports that he is doing well. He is due to go to his daughters tomorrow. OBJECTIVE: [] BED MOBILITY/TRANSFERS Supine-sit: I Sit-supine: I Sit-stand: I Stand-sit: I GAIT Assistive Device: B axillary crutches Weight bearing:NWB L Assist: SBA/S Distance: 200' STAIRS:up and down 3x4 steps and 2x6 steps with hip to pattern, bilateral rails. SBA. ASSESSMENT: tolerated session well. No LOB noted. Is independent functionally. PLAN: continue POC TREATMENT CODE/TIME: 20 min [id number]
[2020-01-19 15:56] VITALS: BP 129/86; PULSE 85; RESP 18; TEMP 36.4; O2SAT 94
--- NOTE | 2020-01-19 17:07 | PDOC.CMPRO ---
- If Service Date Differs Date of service: 01/19/20 Time of Service: 17:07 Care Management Progress Note S/O: No change in plan. Per chart review, Teo feels better and remains afebrile. Overnight oximetry revealed numerous desat events. Will continue to monitor his O2 overnight. CM will continue to follow. A: Teo is a 64 year old male admitted to [facility] on 01/13/20 with cellulitis. P: Plan remains for Teo to return home with new orders of [facility] RN for wound care. He will be staying with his daughter, Ebonie P# [phone] [place] [address] in [place], [place]. JOHN Lux, faxed referral to [facility] F#[phone]. He will be transported via private vehicle by family when ready. He will follow up with his PCP, an outpatient sleep study, and discharge plan of care. JOHN also faxed referral to [facility] for options counseling and will need to update referral with Ebonie's contact information upon discharge. JOHN will continue to follow.
[2020-01-19] MEDS: Gabapentin 600 MG TAB 1200 MG PO (20:51)
[2020-01-19] MEDS: Pravastatin 20 MG TAB PO (20:51)
[2020-01-19 22:00] VITALS: RESP 17
[2020-01-20 00:16] VITALS: BP 130/73; PULSE 78; RESP 17; TEMP 37; O2SAT 92
[2020-01-20] MEDS: Heparin 5,000 UNITS/ML VIAL 5000 UNITS SC (03:53)
[2020-01-20 03:59] VITALS: RESP 14
--- NOTE | 2020-01-20 07:37 | W.PM.PROGNOT ---
Date of Service Date of service: 01/20/20 Time of Service: 07:37 Subjective Subjective Patient reports: no new complaints and feels better Interval history since last seen: He is looking forward to going home. Exam Narrative Exam Narrative: Teo is seen in his room resting comfortably in his bed. He denies any new pain, he is feeling better. His vitals were reviewed current labs were reviewed. Dressings were removed from his left lower extremity. The wound overlying the fifth MPJ is clean with signs of infection. The blister overlying the lateral malleolus remains flaccid and dry, the heel wound has dense eschar but the periphery appears to be granulating around the edges. Cellulitis has completely resolved and there is no active signs of infection. His clinical picture has significantly improved. Impression: Multiple thermal injuries to the left foot as above Plan: Teo is going to to be discharged to home with home health today and oral antibiotics.. He needs ongoing wound care which should continue as currently written in his MAR. I would recommend daily home health visits until Teo is able to perform some wound care duties. He will need to remain with limited ambulation preferably toe-touch to his left foot when ambulating. I will see him in the office in approximately 1 week's time for ongoing wound care. He knows to call the office if there is any questions or problems related to his foot. I will discussed the case with the hospitalist. Objective Last Vital Signs Temp 37.0 C 01/20/20 00:16 Pulse 78 01/20/20 00:16 Resp 17 01/20/20 00:16 BP 130/73 01/20/20 00:16 Pulse Ox 92 01/20/20 00:16 Laboratory Results - last 24 hr 01/19/20 07:15 WBC 8.34 RBC 4.28 L Hgb 13.1 L Hct 39.7 L MCV 92.8 MCH 30.6 MCHC 33.0 RDW 12.8 Plt Count 230 MPV 8.9 Immature Gran % 4.0 Neutrophils % 53.4 Lymphocytes % 27.8 Monocytes % 8.0 Eosinophils % 6.1 Basophils % 0.7 Nucleated RBC % 0 Absolute Neutrophils 4.45 Absolute Lymphocytes 2.32 Absolute Monocytes 0.67 Absolute Eosinophils 0.51 Absolute Basophils 0.06
[2020-01-20 07:54] VITALS: BP 141/82; PULSE 84; RESP 18; TEMP 36.5; O2SAT 96
[2020-01-20] MEDS: DULoxetine 30 MG CAP PO (08:11)
[2020-01-20] MEDS: oxyCODONE 10 MG TAB PO (08:11)
[2020-01-20] MEDS: Amoxicillin 875/Clav. 125 TAB PO (08:11)
[2020-01-20] MEDS: Baclofen 10 MG TAB PO (08:11)
[2020-01-20] MEDS: Gabapentin 600 MG TAB PO (08:12)
[2020-01-20] MEDS: Ascorbic Acid 500 MG TAB PO (08:12)
[2020-01-20] MEDS: Lisinopril 10 MG TAB PO (08:12)
--- NOTE | 2020-01-20 10:57 | CMDISCH_ITS ---
LACE Index Scoring Tool - Questions: Length of Stay (in days): 4 - 6 Acuity (Admit via E.D.?): Yes Comorbidities: Mild Liver/Renal Disease E.D. Visits: 1 - Answers: Total Score: 10 Risk of Readmission: High Risk Care Management Discharge Reason for Hospitalization: Cellulitis Discharge Plan: Teo will return home with new orders of VNA RN for wound care. He will be staying with his daughter, Ebonie P# [phone] [place] [address] in [place], [place]. CM[phone]. Teo will be transported via private vehicle by family when ready. He will follow up with his PCP, have an outpatient sleep study, and follow the discharge plan of care. CM provided catheters for home use as well. CM updated [facility] options counseling referral with Ebonie's contact information as well. Patient/Family Education Needs: Review discharge instructions, discuss Ask Me Three. Services Needed at Discharge: Home Health Care Services ([facility] child care development specialist )
--- NOTE | 2020-01-20 11:37 | DSE_ITS ---
Date of service: 01/20/20 Time of Service: 11:37 DS: Diagnosis Discharge Diagnosis (1) Sleep related hypoxia: Status: Acute (2) Cellulitis: Status: Acute (3) Acute kidney injury: Status: Resolved (4) Neurogenic bladder: Status: Acute (5) Hyperlipidemia: Status: Acute (6) Chronic pain: Status: Chronic Discharge Plan Disposition Patient Disposition: HOME W/HOME HEALTH SERVICE Condition: Poor Discharge Details Reason For Visit: CELLULITIS Admit Date/Time: 01/13/20 18:36 Admit Provider: Vivek Subramanian Attending Provider: Vivek Subramanian Primary Care Provider: Yen Diamond [facility] Course Hospital Course: Mr. Arenas is a 64yo M with a history of HTN and chronic neuropathic leg pains (on chronic opiate therapy) who presented to the ED with non- circumferential basurto (some areas with full-thickness basurto) on his left foot. Three days prior to admissionm he had placed a heating pad on his foot, left it there for several hours, and then noticed the basurto. He attempted wound care at home but eventually came to the ED for treatment. An MRI was negative for osteomyelitis. He was given piperacillin-tazobactam and then switched to Augmentin. Podiatry was consulted and provided wound care. He improved steadily and was ready for discharge to home by hospital day #8. His presentation and hospital were complicated by acute kidney injury (with Cr = 2.1) which resolved by hosp day #2 with supportive care, renal dosing of medications, and avoidance of nephrotoxic medications. Home Meds and New Rx's Prescriptions: New amoxicillin-pot clavulanate 875-125 mg Tablet 1 tab PO BID Qty: 16 RF: 0 Continued gabapentin 600 MG tablet 600 mg PO DIRECTED RF: 0 ascorbic acid (vitamin C) [Vitamin C] 500 MG tablet 500 mg PO DAILY RF: 0 baclofen 10 MG tablet 10 mg PO TID PRN PRNRF: 0 lisinopril 10 MG tablet 10 mg PO DAILY RF: 0 morphine 15 MG tablet extended release 15 mg PO BID RF: 0 pravastatin [Pravachol] 20 MG tablet 20 mg PO HS RF: 0 duloxetine [Cymbalta] 30 MG capsule,delayed release(DR/EC) 30 mg PO BID RF: 0 oxycodone 10 MG tablet 10 mg PO TID RF: 0 Discharge Instructions Instructions: Cellulitis (DC) Additional Instructions: You are going to to be discharged to home with home health nursing for daily wound care and medication oversight, will will continue on oral antibiotics for 8 more days. Wound care instructions daily: CLEAN WOUND with soap and water, rinse well, PAT DRY. Apply collagenase Santyl to the left heel wound using a wet dry ns; APPLY 1/16 SILVADENE TO THE WOUND BEDs (the 5th mpj and lateral malleolus).. COVER WITH 3x3 STERILE GAUZE. SECURE WITH KERLIX and flex net.. QD. No tape on skin please. You will need to remain with limited ambulation, preferably toe-touch to left foot when ambulating. call the office if there is any questions or problems related to your foot. You will wear oxygen at night, 1 liter by nasal cannula, for sleep related hypoxia that was observed in the hospital. please follow up outpatient with formal sleep study as per your primary care provider. Referrals: Yen Diamond [Primary Care Provider] - Geovanny Back DPM [[facility] STAFF PHYSICIAN] - (one week) Activity:: toe touch limited to left Equipment/Supplies:: 1 liter at night Diet:: As Tolerated Discharge Orders Discharge Orders: Discharge Order (Routine); Ordered 01/20/20 Ordered By: Leatha Holland DS: Summary Status at Discharge Functional status at discharge: uses cane/walker Overall status at discharge: patient is progressing back to baseline Mental Status: mental status grossly normal Speech and Movement: speech and movement normal Mood: congruent mood Affect: normal affect Exam Const General: cooperative, healthy appearing, comfortable and no acute distress Nutritional Appearance: overweight Orientation: alert, awake and oriented x3 HENMT Head: normal to inspection, normocephalic and atraumatic Mouth: oral mucosae normal Resp Effort & Inspection: normal respiratory effort Auscultation: clear to auscultation bilaterally Cardio Rate: regular rate Rhythm: regular rhythm GI Inspection: normal to inspection and obesity Palpation: soft Auscultation: normal bowel sounds Skin Lesions: other (evaluated earlier today by podiatry, dressing is clean dry and intact) Rashes: no rashes Neuro General: patient alert, patient awake and patient oriented x3 Cognition: normal cognition Speech: speech normal Psych Mental Status: mental status grossly normal Speech and Movement: speech and movement normal Mood: congruent mood Affect: normal affect DS: Data Vitals/I&O Vitals and I&O: Vital Signs Temperature 36.5 C 01/20/20 07:54 Temperature Source Skin 01/20/20 07:54 Pulse 84 01/20/20 07:54 Pulse Rhythm Regular 01/20/20 03:38 Pulse 103 H 01/14/20 16:26 Respiratory Rate 18 01/20/20 07:54 Respiratory Effort 01/20/20 03:38 Respiratory Depth Normal 01/20/20 03:38 Respiratory Pattern Normal 01/20/20 03:38 Blood Pressure 141/82 H 01/20/20 07:54 Pulse Oximetry 96 01/20/20 07:54 Oxygen Delivery Method Nasal Cannula 01/20/20 07:54 Oxygen Flow Rate 2 01/20/20 07:54 Pain Level 0 01/20/20 08:11 Comment 01/18/20 07:25 Intake & Output 01/19/20 01/19/20 01/20/20 11:59 23:59 11:59 Intake Total 640 / 1140 740 / 740 Output Total 550 / 1000 940 / 940 Balance 90 / 140 -200 / -200 Intake: Oral 640 / 1140 740 / 740 Output: Urine 550 / 1000 940 / 940 Other: Urine Color Light Nahomi Straw Urine Appearance Clear Clear Urine Odor Normal Normal Comment Void x1 in the urinal. Stool Size Large Voiding Methods Urinal Urinal [facility] Social History Smoking/Tobacco Use Status: Former Tobacco Use Smoking risk assessment performed?: Yes Alcohol Intake: former Substance use type: does not use Details: quit tobacco 11 years ago has not had a drink in over 10 years Do you feel safe at home: Yes Do you feel safe in your relationship?: Yes
--- NOTE | 2020-01-20 13:41 | PT.INTREAT ---
Date of service: 01/20/20 Time of Service: 10:30 PT Notes Visit Reasons: Cellulitis Inpatient Physical Therapy Treatment Note [facility] Date: 01/20/2020 PRECAUTIONS: Fall SUBJECTIVE: Teo is pleasant and agreeable to participating in PT. He reports that he is happy that he will be discharged later today. OBJECTIVE: PAIN: No c/o pain BED MOBILITY/TRANSFERS Sit-stand: I Stand-sit: I Bed-Chair: I Chair-bed: I GAIT Assistive Device: B axillary crutches Weight bearing: NWB on L heel Assist: SBA Distance: 50' x2 Deviation: Cues for decreased pacing, cues for crutches mechanics STAIRS: Up/down 3x4 and 2x6 using B rails and a hop-to pattern with supervision TOILETING: Patient toileted with assist for set up for toileting. ASSESSMENT: Patient tolerated session well, although requires cueing for safety with gait training with B axillary crutches. PLAN: Continue with progression toward baseline level of function via PT. TREATMENT CODE/TIME: 20 minutes; [id number]
--- NOTE | 2020-01-20 16:00 | PDOC.HHF2F ---
Home Health Certification Home Health Certification: 1. Encounter Date and Reason I certify that LAUREL BLANCO was seen by Leatha Holland on 01/20/20 and that I had a [id number] encounter with this patient that meets the physician face to face encounter requirements. 2. Clinical Findings Supporting Skilled Need and Homebound Status I certify that home health services are medically necessary, include either intermittent intermediate and/or physical/speech therapy, and that this patient is homebound in that absences from the home require considerable and taxing effort and are infrequent or of short duration, or are attributable to the need to receive medical care. [X] (a) Attached documentation from encounter provides clinical findings supporting skilled need and homebound status (including what assistance patient requires to leave the home). The encounter with the patient was in whole, or in part, for the following medical condition, which is the primary reason for home health care: CELLULITIS Halfway: wound care per Dr Back: 01/20/2020 CLEAN WOUND with soap and water, rinse well, PAT DRY. Apply collagenase Santyl to the left heel wound using a wet dry ns; APPLY /16 SILVADENE TO THE WOUND BEDs (the 5th mpj and lateral malleolus).. COVER WITH 3x3 STERILE GAUZE. SECURE WITH KERLIX and flex net.. QD. No tape on skin please. Homebound: patient is minimally weight bearing and walking is restricted d/t wounds on left foot. 3. Certification and Authentication I certify that I composed the above information based on my clinical judgement relating to this patient's medical condition and, if applicable, clinical findings communicated to me by the NPP or inpatient physician who performed the Home Health Referral. All further orders will be obtained through (Community Based Physician - PCP)
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
== END 2020-01-20 13:49 | disposition home health service (06) | DRG 603 ==
LOC: ER 19:10 → MS 19:47
PROVIDERS: Internal Medicine; Nurse Practitioner Acute Care; Physician Assistant; Admitting Provider General Practice; Emergency Provider Physician Assistant; PCP Nurse Practitioner Family; Visit Provider General Practice
DX: L03.115 Cellulitis of right lower limb (principal); N17.9 Acute kidney failure, unspecified; F11.20 Opioid dependence, uncomplicated; Z87.891 Personal history of nicotine dependence; N31.9 Neuromuscular dysfunction of bladder, unspecified; E78.5 Hyperlipidemia, unspecified; G62.89 Other specified polyneuropathies; T25.292A Burn of second degree of multiple sites of left ankle and foot, initial encounter; X16.XXXA Contact with hot heating appliances, radiators and pipes, initial encounter; G89.29 Other chronic pain; G47.34 Idiopathic sleep related nonobstructive alveolar hypoventilation
CPT/HCPCS: 97597; 36415; 80048; 80053; 85027; 85652; 87040; 87077; 90471; 96361; 96365; 96375; 97162; 97530; 99222; 99232; 99233; 99239; 99285; E0191; U0003; 73630; 73720; 81003; 81015; 83036; 85025; 86140; 87070; 87086; 87186; 87205; 94762; E0114; J0690; J1644; J2543; J3370

== ENCOUNTER 2020-01-24 11:43 | Outpatient (REF) | payer MEDICARE, SELFPAY ==
[2020-01-29 11:17] LABS: 2-OH-Ethyl-Flurazepam Negative ng/mL (Cutoff: 100); 7-NH-Clonazepam Negative ng/mL (Cutoff: 100); 7-NH-Flunitrazepam Negative ng/mL (Cutoff: 50); Alpha OH-Alprazolam Negative ng/mL (Cutoff: 100); Alpha-OH-Triazolam Negative ng/mL (Cutoff: 100); Benzodiazepines Interpretation Negative.; Lorazepam Negative ng/mL (Cutoff: 100); Temazepam Negative ng/mL (Cutoff: 100)
== END 2020-01-24 12:03 ==
LOC: NCHCN 11:43
PROVIDERS: PCP Nurse Practitioner Family; Visit Provider Nurse Practitioner Family
DX: Z51.81 Encounter for therapeutic drug level monitoring (principal); G89.21 Chronic pain due to trauma
CPT/HCPCS: 80346

== ENCOUNTER 2020-03-24 01:18 | Outpatient (CLI) | payer MEDICARE, SELFPAY ==
[2020-03-24] MEDS: Gadoterate meglumine 20 ML VIAL IVP (15:08)
[2020-03-24] MEDS: Normal Saline Flush 10 ML SYR IVP (15:12)
--- NOTE | 2020-03-24 15:35 | DI.MRI_ITS ---
EXAM: MR LOWER EXTREMITY LT WO/W CLINICAL HISTORY: CHRONIC ULCER LT HEEL,TRACKS TO BONE. TECHNIQUE: Multiplanar multisequence MRI was performed. CONTRAST MATERIAL: IV Contrast: 20 mL of Dotarem contrast administered. COMPARISON: MRI of the left foot from 01/17/2020. FINDINGS: BONES/JOINTS: The vertically oriented abnormal signal in the talus is unchanged. This may reflect po st-traumatic or postsurgical change. There is now hyperintense signal on the T2 weighted images invo lving the calcaneus particularly posteriorly and laterally. There again seen degenerative changes at the tibial talar joint and the talofibular joint. No joint effusion identified. LIGAMENTS: The medial and lateral collateral ligaments are intact. MUSCULOTENDINOUS STRUCTURES: Visualized portion of the plantar fascia is unremarkable. The Achilles tendon is grossly unremarkable. The medial and lateral ankle tendons are unremarkable. The visualiz ed intrinsic muscles and tendons of the foot are unremarkable. SOFT TISSUES: There is a soft tissue defect at the posterior lateral aspect of the heel consistent wi th the patient's known nonhealing ulcer. There is associated edema in the soft tissues of the foot p articularly the posterior lateral region. No focal fluid collection is seen to suggest an abscess. There is skin thickening along the posterior lateral foot. ENHANCEMENT: Following contrast administration there is enhancement of the marrow of the calcaneus in the subcutaneous tissues of the posterior lateral foot. The findings are suspicious for osteomyelit is of the calcaneus with cellulitis in the is adjacent soft tissues. No evidence of an abscess. OTHER FINDINGS: None. IMPRESSION: 1. Findings suspicious for osteomyelitis of the calcaneus with adjacent cellulitis without evidence o f abscess. 2. Soft tissue defect of the posterolateral aspect of the heel consistent with the patient's known th e nonhealing ulcer. DATA REPOSITORY:
== END 2020-03-24 01:38 ==
PROVIDERS: PCP Nurse Practitioner Family; Visit Provider Podiatrist
DX: L97.426 Non-pressure chronic ulcer of left heel and midfoot with bone involvement without evidence of necrosis (principal)
CPT/HCPCS: 73720

== ENCOUNTER 2020-04-17 11:13 | Day surgery (SDC) | payer MEDICARE, SELFPAY ==
[2020-04-17 12:10] VITALS: BP 113/72; PULSE 91; RESP 20; TEMP 36.1; O2SAT 100
[2020-04-17] MEDS: Normal Saline Flush 10 ML SYR IV (12:56)
--- NOTE | 2020-04-17 14:34 | W.PM.DSUDISC ---
Discharge Plan Disposition Patient Disposition: HOME Condition: Good Discharge Details Reason For Visit: debridement left heel wound/apligraf/lorna wound va Attending Provider: Geovanny Back Primary Care Provider: Yen Diamond Home Meds and New Rx's Prescriptions: Continued gabapentin 600 MG tablet 600 mg PO DIRECTED RF: 0 ascorbic acid (vitamin C) [Vitamin C] 500 MG tablet 500 mg PO DAILY RF: 0 baclofen 10 MG tablet 10 mg PO TID PRN PRNRF: 0 lisinopril 10 MG tablet 10 mg PO DAILY RF: 0 morphine 15 MG tablet extended release 15 mg PO BID RF: 0 pravastatin [Pravachol] 20 MG tablet 20 mg PO HS RF: 0 duloxetine [Cymbalta] 30 MG capsule,delayed release(DR/EC) 30 mg PO BID RF: 0 oxycodone 10 MG tablet 10 mg PO TID RF: 0 amoxicillin-pot clavulanate 875-125 mg Tablet 1 tab PO BID Qty: 16 RF: 0 Discharge Instructions Activity:: Elevate Remove Dressings/Wound Care:: Do Not Remove Shower/Bathe:: Cover Diet:: Normal Diet Discharge Orders Discharge Orders: Discharge Order (Routine); Ordered 04/17/20 Ordered By: Geovanny Back DS: Diagnosis Discharge Diagnosis (1) Ulcer of heel: Status: Acute
--- NOTE | 2020-04-17 14:37 | W.PM.OP ---
Date of service: 04/17/20 Time of Service: 14:37 Operative Note Operative Note DATE OF PROCEDURE: 04/17/20 PRE-OP DIAGNOSIS: Thermal injury with full-thickness ulceration left heel PROCEDURE: Debridement of wound partial thickness, wound prep for application of Apligraf, wound VAC lorna application SURGEON: Geovanny Back ANESTHESIA: none ESTIMATED BLOOD LOSS: 1 PATHOLOGY: none sent TOURNIQUET TIME: 0 COMPLICATIONS: None Patient was transported to: same day Patient's condition: stable Procedure Description: 65-year-old white male who sustained a thermal injury to his left heel being brought to the OR for wound debridement, wound prep for application of an Apligraf with wound VAC. Wound measures 5.5 cm x 6 cm x 4 mm deep. Granulation tissue is appreciated at the base of the wound, hypertrophy around the wound margin is appreciated there is some slough and a little slime on the surface of the wound. With a #10 scalpel the hypertrophic peripheral margin was sharply debrided partial thickness, the slough and slime was removed sharply from the base of the wound. Some free-flowing bleeding did occur which was treated with pressure dressing for several minutes. The foot and wounds were then subsequently washed with normal saline gently and patted dry. The second wound is noted on the lateral aspect of the fifth metatarsal head measuring 6 mm x 6 mm and is partial-thickness as well. Minimal hypertrophy minimal debris appreciated on the wound base. No undermining or active signs of infection are noted on either wound. Apligraf graft was removed from its packaging pH was verified. The graft was removed placed on a saline soaked sponge and pie crust perforated. A small piece was removed from the main graft for the wound over the fifth metatarsal head. The graft was subsequently applied to the base of the wound on the heel, Adaptic was applied over that and a lorna wound VAC placed securely. Good suction was identified once all components were secure and appropriate taping applied. Additional piece of Apligraf was then applied over the fifth metatarsal head and covered with Adaptic and 4 x 4 gauze sponges. The entire lower limb was then wrapped in 2 rolls of Kerlix rolling with care taken to avoid pressure on the skin from the wound VAC tubing. 3 rolls of 4 inch web well was then further applied to ensure that all bony prominences and pressure points were well-padded. A 5 x 30 fiberglass posterior splint was then applied onto the foot and secured with two 4 inch Amado wraps. The foot was held in neutral position while the fiberglass cured. Call left the OR vital signs stable vascular status intact wound VAC intact. He will continue to receive IV Rocephin as previously scheduled.
[2020-04-17] MEDS: cefTRIAXone 2 GM/50 ML BAG IVPB (14:59)
[2020-04-17 15:25] VITALS: BP 126/74; PULSE 85; RESP 18; TEMP 36.7; O2SAT 95
== END 2020-04-17 15:50 | disposition home or self-care (01) ==
PROVIDERS: PCP Nurse Practitioner Family; Visit Provider Podiatrist
PROC: (CPT 15271; principal; 2020-04-17 12:15)
DX: L97.421 Non-pressure chronic ulcer of left heel and midfoot limited to breakdown of skin (principal); T25.2 Burn of second degree of ankle and foot; X16.XXXS Contact with hot heating appliances, radiators and pipes, sequela
CPT/HCPCS: 15271; 15002; 15272; 96365; Q4101

== ENCOUNTER 2020-04-19 01:05 | Outpatient (RCR) | payer MEDICARE, SELFPAY ==
[2020-03-25] MEDS: cefTRIAXone 2 GM/50 ML BAG IVPB (11:55)
[2020-03-25] MEDS: Normal Saline Flush 10 ML SYR IVP (12:06)
[2020-03-25 12:33] LABS: Abs Immature Grans 0.05 10^3/uL (0.0-0.06); Absolute Basophil Count 0.05 10^3/uL (0.0-0.2); Absolute Eosinophil Count 0.37 10^3/uL (0.0-0.7); Absolute Lymphocyte Count 1.87 10^3/uL (1.2-3.4); Absolute Monocyte Count 0.58 10^3/uL (0.1-0.8); Absolute Neutrophil Count 4.41 10^3/uL (1.2-6.7); Basophils % 0.7; HCT 40.5 % (40.0-50.0); HGB 13.1 g/dL (13.5-17.5); Immature Grans % 0.7; Lymphocytes % 25.5; MCH 28.9 pg (27.0-33.0); MCHC 32.3 % (32.0-36.0); MCV 89.2 fL (80-95); MPV 9.1 fL (8.0-11.0); Monocytes % 7.9; Neutrophils % 60.2; Nucleated RBC 0 %; Platelet Count 248 10^3/uL (130-400); RBC 4.54 10^6/uL (4.36-5.78); RDW 12.8 % (11.8-14.1); RDW-SD 42.2 fL; WBC 7.33 10^3/uL (4.4-10.8)
[2020-03-25 12:53] LABS: C-Reactive Protein 2.15 mg/dL (0.0-0.3)
[2020-03-25 13:16] LABS: ESR 61 mm/hr (1-20)
[2020-03-26] MEDS: cefTRIAXone 2 GM/50 ML BAG IVPB (12:40)
[2020-03-26] MEDS: Normal Saline Flush 10 ML SYR IVP (12:42)
[2020-03-27] MEDS: Normal Saline Flush 10 ML SYR IVP (14:06)
[2020-03-27] MEDS: cefTRIAXone 2 GM/50 ML BAG IVPB (14:06)
[2020-03-28] MEDS: cefTRIAXone 2 GM/50 ML BAG IVPB (14:08)
[2020-03-28] MEDS: Normal Saline Flush 10 ML SYR IVP (14:08)
[2020-03-29] MEDS: Normal Saline Flush 10 ML SYR IVP (14:14)
[2020-03-29] MEDS: cefTRIAXone 2 GM/50 ML BAG IVPB (14:14)
[2020-03-30] MEDS: cefTRIAXone 2 GM/50 ML BAG IVPB (14:01)
[2020-03-30] MEDS: Normal Saline Flush 10 ML SYR IVP (14:04)
[2020-03-31] MEDS: Normal Saline Flush 10 ML SYR IVP (13:59)
[2020-03-31] MEDS: cefTRIAXone 2 GM/50 ML BAG IVPB (13:59)
[2020-04-02] MEDS: cefTRIAXone 2 GM/50 ML BAG IVPB (14:03)
[2020-04-02 14:20] LABS: Abs Immature Grans 0.04 10^3/uL (0.0-0.06); Absolute Basophil Count 0.04 10^3/uL (0.0-0.2); Absolute Eosinophil Count 0.65 10^3/uL (0.0-0.7); Absolute Lymphocyte Count 2.87 10^3/uL (1.2-3.4); Absolute Monocyte Count 0.77 10^3/uL (0.1-0.8); Absolute Neutrophil Count 5.64 10^3/uL (1.2-6.7); Basophils % 0.4; Eosinophils % 6.5; HCT 43.8 % (40.0-50.0); HGB 13.9 g/dL (13.5-17.5); Immature Grans % 0.4; Lymphocytes % 28.7; MCH 28.8 pg (27.0-33.0); MCHC 31.7 % (32.0-36.0); MCV 90.9 fL (80-95); Monocytes % 7.7; Neutrophils % 56.3; Nucleated RBC 0 %; Platelet Count 276 10^3/uL (130-400); RBC 4.82 10^6/uL (4.36-5.78); RDW 12.9 % (11.8-14.1); RDW-SD 42.3 fL; WBC 10.01 10^3/uL (4.4-10.8)
[2020-04-02] MEDS: Normal Saline Flush 10 ML SYR IVP (14:37)
[2020-04-02 15:13] LABS: ESR 48 mm/hr (1-20)
[2020-04-03] MEDS: cefTRIAXone 2 GM/50 ML BAG IVPB (13:56)
[2020-04-03] MEDS: Normal Saline Flush 10 ML SYR IVP (14:01)
[2020-04-04] MEDS: cefTRIAXone 2 GM/50 ML BAG IVPB (13:59)
[2020-04-04] MEDS: Normal Saline Flush 10 ML SYR IVP (13:59)
[2020-04-05] MEDS: cefTRIAXone 2 GM/50 ML BAG IVPB (13:57)
[2020-04-05] MEDS: Normal Saline Flush 10 ML SYR IVP (14:01)
[2020-04-05] MEDS: Silver Nitrate Stick 2 EACH TP (15:17)
[2020-04-06] MEDS: cefTRIAXone 2 GM/50 ML BAG IVPB (13:57)
[2020-04-06] MEDS: Normal Saline Flush 10 ML SYR IVP (14:34)
[2020-04-07] MEDS: cefTRIAXone 2 GM/50 ML BAG IVPB (14:10)
[2020-04-07] MEDS: Normal Saline Flush 10 ML SYR IVP (14:13)
[2020-04-08] MEDS: Normal Saline Flush 10 ML SYR IVP (14:17)
[2020-04-08] MEDS: cefTRIAXone 2 GM/50 ML BAG IVPB (14:17)
[2020-04-09] MEDS: cefTRIAXone 2 GM/50 ML BAG IVPB (14:29)
[2020-04-09] MEDS: Normal Saline Flush 10 ML SYR IVP (14:32)
[2020-04-09 14:42] LABS: Abs Immature Grans 0.03 10^3/uL (0.0-0.06); Absolute Basophil Count 0.07 10^3/uL (0.0-0.2); Absolute Eosinophil Count 0.56 10^3/uL (0.0-0.7); Absolute Lymphocyte Count 2.24 10^3/uL (1.2-3.4); Absolute Monocyte Count 0.78 10^3/uL (0.1-0.8); Absolute Neutrophil Count 5.25 10^3/uL (1.2-6.7); Basophils % 0.8; Eosinophils % 6.3; HCT 43.7 % (40.0-50.0); HGB 14.1 g/dL (13.5-17.5); Immature Grans % 0.3; Lymphocytes % 25.1; MCH 28.9 pg (27.0-33.0); MCHC 32.3 % (32.0-36.0); MCV 89.5 fL (80-95); MPV 8.8 fL (8.0-11.0); Monocytes % 8.7; Neutrophils % 58.8; Nucleated RBC 0 %; Platelet Count 265 10^3/uL (130-400); RBC 4.88 10^6/uL (4.36-5.78); RDW 13.1 % (11.8-14.1); WBC 8.93 10^3/uL (4.4-10.8)
[2020-04-09 14:53] LABS: C-Reactive Protein 1.21 mg/dL (0.0-0.3)
[2020-04-09 16:26] LABS: ESR 50 mm/hr (1-20)
[2020-04-10] MEDS: cefTRIAXone 2 GM/50 ML BAG IVPB (13:58)
[2020-04-10] MEDS: Normal Saline Flush 10 ML SYR IVP (13:59)
[2020-04-11] MEDS: cefTRIAXone 2 GM/50 ML BAG IVPB (13:59)
[2020-04-12] MEDS: cefTRIAXone 2 GM/50 ML BAG IVPB (14:14)
[2020-04-12] MEDS: Normal Saline Flush 10 ML SYR IVP (14:14)
[2020-04-13] MEDS: cefTRIAXone 2 GM/50 ML BAG IVPB (14:12)
[2020-04-13] MEDS: Normal Saline Flush 10 ML SYR IVP (14:15)
[2020-04-14] MEDS: cefTRIAXone 2 GM/50 ML BAG IVPB (13:19)
[2020-04-14] MEDS: Normal Saline Flush 10 ML SYR IVP (13:20)
[2020-04-15] MEDS: Normal Saline Flush 10 ML SYR IVP (13:58)
[2020-04-16] MEDS: Normal Saline Flush 10 ML SYR IVP (14:03)
[2020-04-16 14:18] LABS: Abs Immature Grans 0.04 10^3/uL (0.0-0.06); Absolute Basophil Count 0.07 10^3/uL (0.0-0.2); Absolute Eosinophil Count 1.03 10^3/uL (0.0-0.7); Absolute Lymphocyte Count 2.28 10^3/uL (1.2-3.4); Absolute Monocyte Count 0.66 10^3/uL (0.1-0.8); Absolute Neutrophil Count 4.19 10^3/uL (1.2-6.7); Basophils % 0.8; Eosinophils % 12.5; HCT 40.5 % (40.0-50.0); HGB 13.2 g/dL (13.5-17.5); Immature Grans % 0.5; Lymphocytes % 27.6; MCH 29.2 pg (27.0-33.0); MCHC 32.6 % (32.0-36.0); MCV 89.6 fL (80-95); MPV 8.7 fL (8.0-11.0); Neutrophils % 50.6; Nucleated RBC 0 %; Platelet Count 247 10^3/uL (130-400); RBC 4.52 10^6/uL (4.36-5.78); RDW 13.2 % (11.8-14.1); RDW-SD 43.5 fL; WBC 8.27 10^3/uL (4.4-10.8)
[2020-04-16 14:26] LABS: C-Reactive Protein 1.47 mg/dL (0.0-0.3)
[2020-04-16 15:02] LABS: ESR 39 mm/hr (1-20)
[2020-04-18] MEDS: Normal Saline Flush 10 ML SYR IVP (14:33)
== END 2020-04-19 23:59 | disposition home or self-care (01) ==
LOC: INF 01:05
PROVIDERS: Podiatrist; PCP Nurse Practitioner Family; Visit Provider Internal Medicine
DX: M86.9 Osteomyelitis, unspecified (principal); Z48.01 Encounter for change or removal of surgical wound dressing; Z45.2 Encounter for adjustment and management of vascular access device
CPT/HCPCS: 36415; 36573; 36592; 85652; 96365; 99211; E0191; 85025; 86140; J0696

== ENCOUNTER 2020-04-24 08:32 | Day surgery (SDC) | payer MEDICARE, SELFPAY ==
[2020-04-24 08:51] VITALS: BP 117/69; PULSE 91; RESP 20; TEMP 36.2; O2SAT 94
--- NOTE | 2020-04-24 12:06 | W.PM.DSUDISC ---
Discharge Plan Disposition Patient Disposition: HOME Condition: Good Discharge Details Reason For Visit: wound debridement left LE Attending Provider: Geovanny Back Primary Care Provider: Yen Diamond Home Meds and New Rx's Prescriptions: Continued ceftriaxone 2 gram Piggyback 2 g IV DAILY RF: 0 gabapentin 600 MG tablet 600 mg PO DIRECTED RF: 0 ascorbic acid (vitamin C) [Vitamin C] 500 MG tablet 500 mg PO DAILY RF: 0 baclofen 10 MG tablet 10 mg PO TID PRN PRNRF: 0 lisinopril 10 MG tablet 10 mg PO DAILY RF: 0 morphine 15 MG tablet extended release 15 mg PO BID RF: 0 pravastatin [Pravachol] 20 MG tablet 20 mg PO HS RF: 0 duloxetine [Cymbalta] 30 MG capsule,delayed release(DR/EC) 30 mg PO BID RF: 0 oxycodone 10 MG tablet 10 mg PO TID RF: 0 Discharge Instructions Activity:: Elevate Remove Dressings/Wound Care:: Do Not Remove Shower/Bathe:: Cover Diet:: Normal Diet Discharge Orders Discharge Orders: Discharge Order (Routine); Ordered 04/24/20 Ordered By: Geovanny Back
--- NOTE | 2020-04-24 12:08 | ROE_ITS ---
Date of service: 04/24/20 Time of Service: 12:09 Operative Note Operative Note DATE OF PROCEDURE: 04/24/20 PRE-OP DIAGNOSIS: Thermal ulceration left heel PROCEDURE: Wound debridement application Apligraf, wound VAC SURGEON: Geovanny Back ANESTHESIA: none ESTIMATED BLOOD LOSS: 1 PATHOLOGY: none sent TOURNIQUET TIME: 0 COMPLICATIONS: None Patient was transported to: same day Patient's condition: stable Indications: 65-year-old white male with neurologic deficit to the left lower extremity sustained thermal injury to the left heel for ongoing management of wound debridement, Apligraf application and wound VAC. Procedure Description: Teo was brought to the operative suite on a stretcher. The left foot was washed copiously with normal saline and dried. The wound on the plantar lateral left heel measures 5.5 cm x 3.6 cm and is 4 mm deep in a in the central defect area. A thin slime layer is appreciated overlying the wound which is producing moderate drainage. There is no erythema or cellulitis. Hypertrophy around the wound margin is appreciated. The wound overlying the lateral aspect of the foot at the fifth MPJ level is nearly healed and measures 3 mm x 4 mm 1 mm deep. No undermining or signs of infection. He has a blister formation overlying the medial aspect of the left foot just above the arch re gion. There is no drainage or signs of infection. The wound was sharply debrided with a #10 scalpel and further debrided with a dermal curette removing all hypertrophy, devitalized tissue as well as freshening the surface of the wound removing the slime layer and noting some active bleeding. This was controlled with pressure. The periwound area was then painted with Betadine solution and the Apligraf was cut to size and placed on the heel ulcer with proper orientation noted. Adaptic, lorna wound VAC applied good suction identified. An additional piece of the Apligraf was then applied over the wound at the fifth MPJ covered with Adaptic. The foot was subsequently dressed in 4 x 4's, Kerlix roll x2, web roll and a posterior fiberglass splint applied 5 inch x 30 inch secured with two 4 inch Amado wraps. Poor left the OR with vascular status intact.
[2020-04-24 12:58] VITALS: BP 131/78; PULSE 80; RESP 20; TEMP 36.4; O2SAT 95
[2020-04-24] MEDS: Normal Saline Flush 10 ML SYR IV (12:59)
== END 2020-04-24 13:25 | disposition home or self-care (01) ==
PROVIDERS: PCP Nurse Practitioner Family; Visit Provider Podiatrist
PROC: (CPT 15271; principal; 2020-04-24 10:15)
DX: L97.421 Non-pressure chronic ulcer of left heel and midfoot limited to breakdown of skin (principal); T25.2 Burn of second degree of ankle and foot; X16.XXXS Contact with hot heating appliances, radiators and pipes, sequela
CPT/HCPCS: 15271; 15002; 96365; J0696; Q4101

== ENCOUNTER 2020-05-01 08:53 | Day surgery (SDC) | payer MEDICARE, SELFPAY ==
[2020-05-01 08:57] VITALS: BP 142/71; PULSE 90; RESP 18; TEMP 36.1; O2SAT 97
--- NOTE | 2020-05-01 12:22 | W.PM.DSUDISC ---
Discharge Plan Disposition Patient Disposition: HOME Condition: Good Discharge Details Attending Provider: Geovanny Back Primary Care Provider: Yen Diamond Home Meds and New Rx's Prescriptions: Continued ceftriaxone 2 gram Piggyback 2 g IV DAILY RF: 0 gabapentin 600 MG tablet 600 mg PO DIRECTED RF: 0 ascorbic acid (vitamin C) [Vitamin C] 500 MG tablet 500 mg PO DAILY RF: 0 baclofen 10 MG tablet 10 mg PO TID PRN PRNRF: 0 lisinopril 10 MG tablet 10 mg PO DAILY RF: 0 morphine 15 MG tablet extended release 15 mg PO BID RF: 0 pravastatin [Pravachol] 20 MG tablet 20 mg PO HS RF: 0 duloxetine [Cymbalta] 30 MG capsule,delayed release(DR/EC) 30 mg PO BID RF: 0 oxycodone 10 MG tablet 10 mg PO TID RF: 0 aspirin 81 mg Tablet 81 mg PO DAILY RF: 0 Discharge Instructions Equipment/Supplies: Non-Weight Bearing Crutches Activity:: Elevate Remove Dressings/Wound Care:: Do Not Remove Shower/Bathe:: Cover Diet:: Normal Diet Discharge Orders Discharge Orders: Discharge Order (Routine); Ordered 05/01/20 Ordered By: Geovanny Back DS: Diagnosis Discharge Diagnosis (1) Chronic heel ulcer limited to breakdown of skin: Status: Acute
--- NOTE | 2020-05-01 12:29 | W.PM.OP ---
Date of service: 05/01/20 Time of Service: 12:29 Operative Note Operative Note DATE OF PROCEDURE: 05/01/20 PRE-OP DIAGNOSIS: cchronic ulcer left heel POST-OP DIAGNOSIS: same PROCEDURE: debridement, patrial thickness wound , left heel, 5.5cm x 3.1cm 1mm., Application of Apligraf and wound vac (MANISH). SURGEON: Geovanny Back ANESTHESIA: none ESTIMATED BLOOD LOSS: 1 PATHOLOGY: none sent TOURNIQUET TIME: 0 COMPLICATIONS: None Patient was transported to: same day Patient's condition: stable Procedure Description: Teo was brought to the operative suite, placed in the supine position with his left foot was copiously washed with normal saline and dried well. Chronic ulceration is appreciated over the plantar lateral aspect of his left heel. No active signs of cellulitis are appreciated although he continues to put out mild to moderate drainage. The lesion measures 5.5 cm x 3.1 cm and is 1 mm deep. A hypertrophic border is appreciated and a little slime is noted at the base of the wound towards the central region. Otherwise the tissue appears granular. There is no undermining appreciated. The ulcer was sharply debrided partial thickness with a #10 scalpel taking down the hypertrophic margin and removing any devitalized tissue from the base of the wound. Bleeding was controlled with compression. The Apligraf was removed from its packing, noted to be healthy and was cut to size to fit over the wound measuring 5.5 x 3.1 cm. The Apligraf was placed on the wound covered with an Adaptic cut to size and a manish wound VAC dressing applied. Suction was noted to be good, posterior splint was applied and poor left the OR with vital signs stable vascular status intact. Sharp and sponge counts were correct. He will continue to receive IV antibiotics and wound care.
[2020-05-01] MEDS: cefTRIAXone 2 GM/50 ML BAG IVPB (12:30)
[2020-05-01] MEDS: Normal Saline Flush 10 ML SYR IV (13:08)
== END 2020-05-01 13:10 | disposition home or self-care (01) ==
PROVIDERS: PCP Nurse Practitioner Family; Visit Provider Podiatrist
PROC: (CPT 15271; principal; 2020-05-01 09:30)
DX: L97.429 Non-pressure chronic ulcer of left heel and midfoot with unspecified severity (principal)
CPT/HCPCS: 15271; 15002; 96365; J2250; J2405; Q4101

== ENCOUNTER 2020-05-05 01:51 | Outpatient (RCR) | payer MEDICARE, SELFPAY ==
[2020-04-20] MEDS: Normal Saline Flush 10 ML SYR IVP (14:06)
[2020-04-21] MEDS: Normal Saline Flush 10 ML SYR IVP (14:04)
[2020-04-22] MEDS: Normal Saline Flush 10 ML SYR IVP (14:26)
[2020-04-23] MEDS: Normal Saline Flush 10 ML SYR IVP (13:57)
[2020-04-23 14:22] LABS: Abs Immature Grans 0.03 10^3/uL (0.0-0.06); Absolute Basophil Count 0.05 10^3/uL (0.0-0.2); Absolute Eosinophil Count 0.55 10^3/uL (0.0-0.7); Absolute Lymphocyte Count 1.87 10^3/uL (1.2-3.4); Absolute Monocyte Count 0.55 10^3/uL (0.1-0.8); Absolute Neutrophil Count 3.96 10^3/uL (1.2-6.7); Basophils % 0.7; Eosinophils % 7.8; HCT 42.3 % (40.0-50.0); HGB 13.5 g/dL (13.5-17.5); Immature Grans % 0.4; Lymphocytes % 26.7; MCH 28.7 pg (27.0-33.0); MCHC 31.9 % (32.0-36.0); MPV 8.8 fL (8.0-11.0); Monocytes % 7.8; Neutrophils % 56.6; Nucleated RBC 0 %; Platelet Count 214 10^3/uL (130-400); RDW 13.1 % (11.8-14.1); RDW-SD 43.1 fL; WBC 7.01 10^3/uL (4.4-10.8)
[2020-04-23 14:29] LABS: C-Reactive Protein 0.58 mg/dL (0.0-0.3)
[2020-04-24 09:07] LABS: ESR 45 mm/hr (<or=20)
[2020-04-25] MEDS: Normal Saline Flush 10 ML SYR IVP (14:24)
[2020-04-27] MEDS: Normal Saline Flush 10 ML SYR IVP (13:59)
[2020-04-28] MEDS: Normal Saline Flush 10 ML SYR IVP (14:00)
[2020-04-29] MEDS: Normal Saline Flush 10 ML SYR IVP (13:58)
[2020-04-30] MEDS: Normal Saline Flush 10 ML SYR IVP (14:12)
[2020-04-30 14:23] LABS: Abs Immature Grans 0.02 10^3/uL (0.0-0.06); Absolute Basophil Count 0.05 10^3/uL (0.0-0.2); Absolute Eosinophil Count 0.67 10^3/uL (0.0-0.7); Absolute Monocyte Count 0.58 10^3/uL (0.1-0.8); Absolute Neutrophil Count 3.71 10^3/uL (1.2-6.7); Basophils % 0.7; Eosinophils % 9.3; HCT 41.9 % (40.0-50.0); HGB 13.7 g/dL (13.5-17.5); Immature Grans % 0.3; Lymphocytes % 30.4; MCHC 32.7 % (32.0-36.0); MCV 88.8 fL (80-95); MPV 9.2 fL (8.0-11.0); Neutrophils % 51.3; Nucleated RBC 0 %; Platelet Count 203 10^3/uL (130-400); RBC 4.72 10^6/uL (4.36-5.78); RDW 13.4 % (11.8-14.1); RDW-SD 43.8 fL; WBC 7.23 10^3/uL (4.4-10.8)
[2020-04-30 14:39] LABS: C-Reactive Protein 0.42 mg/dL (0.0-0.3)
[2020-05-01 07:12] LABS: ESR 47 mm/hr (<or=20)
[2020-05-02] MEDS: Normal Saline Flush 10 ML SYR IVP (14:00)
[2020-05-03] MEDS: Normal Saline Flush 10 ML SYR IVP (14:13)
[2020-05-04] MEDS: Normal Saline Flush 10 ML SYR IVP (12:03)
[2020-05-05] MEDS: Normal Saline Flush 10 ML SYR IVP (14:18)
== END 2020-05-17 23:59 | disposition home or self-care (01) ==
LOC: INF 01:51
PROVIDERS: Podiatrist; PCP Nurse Practitioner Family; Visit Provider Internal Medicine
DX: M86.9 Osteomyelitis, unspecified (principal); Z45.2 Encounter for adjustment and management of vascular access device
CPT/HCPCS: 36592; 85652; 96365; 85025; 86140; J0696

== ENCOUNTER 2020-05-08 07:13 | Day surgery (SDC) | payer MEDICARE, SELFPAY ==
[2020-05-08 07:24] VITALS: BP 155/89; PULSE 91; RESP 18; TEMP 36.5; O2SAT 97
--- NOTE | 2020-05-08 11:37 | W.PM.DSUDISC ---
Discharge Plan Disposition Patient Disposition: HOME Condition: Good Discharge Details Reason For Visit: apligraf/debridement left heel Attending Provider: Geovanny Back Primary Care Provider: Yen Diamond Home Meds and New Rx's Prescriptions: Continued ceftriaxone 2 gram Piggyback 2 g IV DAILY RF: 0 gabapentin 600 MG tablet 600 mg PO DIRECTED RF: 0 ascorbic acid (vitamin C) [Vitamin C] 500 MG tablet 500 mg PO DAILY RF: 0 baclofen 10 MG tablet 10 mg PO TID PRN PRNRF: 0 lisinopril 10 MG tablet 10 mg PO DAILY RF: 0 morphine 15 MG tablet extended release 15 mg PO BID RF: 0 pravastatin [Pravachol] 20 MG tablet 20 mg PO HS RF: 0 duloxetine [Cymbalta] 30 MG capsule,delayed release(DR/EC) 30 mg PO BID RF: 0 oxycodone 10 MG tablet 10 mg PO TID RF: 0 aspirin 81 mg Tablet 81 mg PO DAILY RF: 0 Discharge Instructions Activity:: Elevate Remove Dressings/Wound Care:: Do Not Remove Shower/Bathe:: Cover Diet:: Normal Diet Discharge Orders Discharge Orders: Discharge Order (Routine); Ordered 05/08/20 Ordered By: Geovanny Back DS: Diagnosis Discharge Diagnosis (1) Chronic heel ulcer limited to breakdown of skin: Status: Acute
--- NOTE | 2020-05-08 11:39 | W.PM.OP ---
Date of service: 05/08/20 Time of Service: 11:39 Operative Note Operative Note Refer to Anesthesia Record Teo was brought to the operative suite placed in the supine position with the left foot was prepped in the usual fashion. Attention was directed to the left heel where the ulceration is visualized. The wound has a pink granular base which is nearly at surface level. The dimensions 4.4 cm x 2.7 cm. Hypertrophic margin is appreciated some slime debris noted in the central portion of the ulcer. No active signs of infection noted. The second wound that over the lateral aspect of the fifth metatarsal head has closed and has a dry scab over it. No erythema no signs of infection. Is a heel ulceration was curettaged in the hypertrophic and/or devitalized tissue removed. The sketchy areas at the base of the wound central aspect were debrided with a #15 scalpel as well as a dermal curette. Some bleeding was appreciated from the debridement which was controlled with pressure. The Apligraf graft was then cut to size and placed on the wound covered with a Adaptic and a lorna wound VAC applied. Multiple rolls of Kerlix and web well applied followed by a posterior splint with multiple Amado wraps. Teo left the OR with vital signs stable vascular status intact he will be followed by myself in the office next week.
== END 2020-05-08 12:00 | disposition home or self-care (01) ==
PROVIDERS: PCP Nurse Practitioner Family; Visit Provider Podiatrist
PROC: (CPT 15271; principal; 2020-05-08 08:45)
DX: L97.421 Non-pressure chronic ulcer of left heel and midfoot limited to breakdown of skin (principal)
CPT/HCPCS: 15271; 15002; Q4101

== ENCOUNTER 2020-05-22 06:15 | Day surgery (SDC) | payer MEDICARE, SELFPAY ==
[2020-05-22 06:28] VITALS: BP 127/84; PULSE 98; RESP 18; TEMP 36.6; O2SAT 100
--- NOTE | 2020-05-22 07:50 | W.PM.DSUDISC ---
Discharge Plan Disposition Patient Disposition: HOME Condition: Good Discharge Details Reason For Visit: debridement left heel wound Attending Provider: Geovanny Back Primary Care Provider: Yen Diamond Home Meds and New Rx's Prescriptions: Continued ceftriaxone 2 gram Piggyback 2 g IV DAILY RF: 0 gabapentin 600 MG tablet 600 mg PO DIRECTED RF: 0 ascorbic acid (vitamin C) [Vitamin C] 500 MG tablet 500 mg PO DAILY RF: 0 baclofen 10 MG tablet 10 mg PO TID PRN PRNRF: 0 lisinopril 10 MG tablet 10 mg PO DAILY RF: 0 morphine 15 MG tablet extended release 15 mg PO BID RF: 0 pravastatin [Pravachol] 20 MG tablet 20 mg PO HS RF: 0 duloxetine [Cymbalta] 30 MG capsule,delayed release(DR/EC) 30 mg PO BID RF: 0 oxycodone 10 MG tablet 10 mg PO TID RF: 0 aspirin 81 mg Tablet 81 mg PO DAILY RF: 0 Discharge Instructions Activity:: Activity as Tolerated Remove Dressings/Wound Care:: Do Not Remove Shower/Bathe:: Cover Diet:: Normal Diet Discharge Orders Discharge Orders: Discharge Order (Routine); Ordered 05/22/20 Ordered By: Geovanny Back DS: Diagnosis Discharge Diagnosis (1) Chronic heel ulcer limited to breakdown of skin: Status: Acute
--- NOTE | 2020-05-22 07:52 | ROE_ITS ---
Date of service: 05/22/20 Time of Service: 07:52 Operative Note Operative Note Teo is brought to the operative suite placed in the supine position with the left foot was prepped in the usual fashion. Timeout was performed for safety surgery. Attention was directed to the left heel where a wound is appreciated. The wound has actually enlarged since his prior examination he now has 2 adjacent wound on the posterior lateral plantar aspect of his heel the larger chronic wound now me asures 4.3 cm x 2 cm and the second wound directly plantar or inferior to the primary wound is 1.6 cm x 1.5 cm. Both wounds are partial thickness. There is no active sign of bacterial infection. There is no erythema cellulitis. There is a little slough around the margins of the wound a little bit of slime overlying the base of the wounds in need of debridement. With a #10 scalpel the devitalized tissue around the base of the wound as well as the periphery was sharply removed. A dermal curette was then further used to remove additional tissue and a round sure was then used to remove some friable tissue. Upon debridement the wound appeared healthy the surrounding tissue healthy and viable. Epifix dressings were then utilized to cover the wound. I used 2 grafts 2x4 to cover the wounds. Vaseline impregnated gauze was applied over the epifix dressings followed by fluffs, Kerlix rolls x2, web well, and a fiberglass posterior splint secured with two 4 inch Amado wrap. Teo left the OR with vital signs stable vascular status intact. The dressings are to remain intact until further notice. 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 I anticipate another round of epifix graft in the upcoming week.
== END 2020-05-22 08:13 | disposition home or self-care (01) ==
PROVIDERS: PCP Nurse Practitioner Family; Visit Provider Podiatrist
PROC: (CPT 15271; principal; 2020-05-22 07:30)
DX: L97.421 Non-pressure chronic ulcer of left heel and midfoot limited to breakdown of skin (principal)
CPT/HCPCS: 15271

== ENCOUNTER 2020-05-29 09:38 | Day surgery (SDC) | payer MEDICARE, SELFPAY ==
[2020-05-29 09:45] VITALS: BP 124/72; PULSE 93; RESP 20; TEMP 36.6; O2SAT 94
--- NOTE | 2020-05-29 11:41 | W.PM.DSUDISC ---
Discharge Plan Disposition Patient Disposition: HOME Condition: Good Discharge Details Reason For Visit: Debridement left foot, sesamoidectomy Attending Provider: Geovanny Back Primary Care Provider: Yen Diamond Home Meds and New Rx's Prescriptions: Continued ceftriaxone 2 gram Piggyback 2 g IV DAILY RF: 0 gabapentin 600 MG tablet 600 mg PO DIRECTED RF: 0 ascorbic acid (vitamin C) [Vitamin C] 500 MG tablet 500 mg PO DAILY RF: 0 baclofen 10 MG tablet 10 mg PO TID PRN PRNRF: 0 lisinopril 10 MG tablet 10 mg PO DAILY RF: 0 morphine 15 MG tablet extended release 15 mg PO BID RF: 0 pravastatin [Pravachol] 20 MG tablet 20 mg PO HS RF: 0 duloxetine [Cymbalta] 30 MG capsule,delayed release(DR/EC) 30 mg PO BID RF: 0 oxycodone 10 MG tablet 10 mg PO TID RF: 0 aspirin 81 mg Tablet 81 mg PO DAILY RF: 0 Discharge Instructions Activity:: Elevate Remove Dressings/Wound Care:: Do Not Remove Shower/Bathe:: Cover Diet:: Carb Counting Discharge Orders Discharge Orders: Discharge Order (Routine); Ordered 05/29/20 Ordered By: Geovanny Back DS: Diagnosis Discharge Diagnosis (1) Osteomyelitis of ankle or foot, left, acute: Status: Acute
--- NOTE | 2020-05-29 11:43 | W.PM.OP ---
Date of service: 05/29/20 Time of Service: 11:43 Operative Note Operative Note Teo was brought to the operative suite placed in the supine position with the left foot was cleansed with normal saline and a sterile field created. Ulceration is noted on the lateral aspect of his left heel measuring 3.6 cm x 1.6 cm and less than 1 mm deep. There is hypertrophy around the wound margin and a little bit of slough in the central portion of the wound. The second wound that had been noted last week which was just plantar and distal to the original has closed. With a #10 scalpel and pickup the hypertrophic margin and debris was sharply removed and a dermal curette then used to further clean up the wound base. Epifix graft was then applied to the wound, covered with Vaseline impregnated gauze, fluffs, Kerlix roll, Amado wraps x2 and a posterior splint applied. The epifix graft was a 2 x 4 cm, tissue ID [id number] expiration 01/18/2025 Teo left the OR with vital signs stable vascular status intact and will be followed by myself next week in the office
--- NOTE | 2020-05-29 13:07 | W.PM.DSUDISC ---
Discharge Plan Disposition Patient Disposition: HOME Condition: Good Discharge Details Reason For Visit: Debridement left foot,epifix application left heel Attending Provider: Geovanny Back Primary Care Provider: Yen Diamond Home Meds and New Rx's Prescriptions: Continued ceftriaxone 2 gram Piggyback 2 g IV DAILY RF: 0 gabapentin 600 MG tablet 600 mg PO DIRECTED RF: 0 ascorbic acid (vitamin C) [Vitamin C] 500 MG tablet 500 mg PO DAILY RF: 0 baclofen 10 MG tablet 10 mg PO TID PRN PRNRF: 0 lisinopril 10 MG tablet 10 mg PO DAILY RF: 0 morphine 15 MG tablet extended release 15 mg PO BID RF: 0 pravastatin [Pravachol] 20 MG tablet 20 mg PO HS RF: 0 duloxetine [Cymbalta] 30 MG capsule,delayed release(DR/EC) 30 mg PO BID RF: 0 oxycodone 10 MG tablet 10 mg PO TID RF: 0 aspirin 81 mg Tablet 81 mg PO DAILY RF: 0 Discharge Instructions Equipment/Supplies: Partial Weight Bearing Crutches Activity:: Elevate Remove Dressings/Wound Care:: Do Not Remove Shower/Bathe:: Cover Diet:: Normal Diet Discharge Orders Discharge Orders: Discharge Order (Routine); Ordered 05/29/20 Ordered By: Geovanny Back DS: Diagnosis Discharge Diagnosis (1) Osteomyelitis of ankle or foot, left, acute: Status: Acute
== END 2020-05-29 13:38 | disposition home or self-care (01) ==
PROVIDERS: PCP Nurse Practitioner Family; Visit Provider Podiatrist
PROC: (CPT 15271; principal; 2020-05-29 12:30)
DX: M86.172 Other acute osteomyelitis, left ankle and foot (principal)
CPT/HCPCS: 15271

== ENCOUNTER 2020-06-12 07:39 | Day surgery (SDC) | payer MEDICARE, SELFPAY ==
[2020-06-12 08:05] VITALS: BP 138/86; PULSE 95; RESP 16; TEMP 36.2; O2SAT 94
--- NOTE | 2020-06-12 10:31 | W.PM.DSUDISC ---
Discharge Plan Disposition Patient Disposition: HOME Condition: Good Discharge Details Reason For Visit: ULCER (L) HEEL Attending Provider: Geovanny Back Primary Care Provider: Yen Diamond Home Meds and New Rx's Prescriptions: Continued ceftriaxone 2 gram Piggyback 2 g IV DAILY RF: 0 gabapentin 600 MG tablet 600 mg PO DIRECTED RF: 0 ascorbic acid (vitamin C) [Vitamin C] 500 MG tablet 500 mg PO DAILY RF: 0 baclofen 10 MG tablet 10 mg PO TID PRN PRNRF: 0 lisinopril 10 MG tablet 10 mg PO DAILY RF: 0 morphine 15 MG tablet extended release 15 mg PO BID RF: 0 pravastatin [Pravachol] 20 MG tablet 20 mg PO HS RF: 0 duloxetine [Cymbalta] 30 MG capsule,delayed release(DR/EC) 30 mg PO BID RF: 0 oxycodone 10 MG tablet 10 mg PO TID RF: 0 aspirin 81 mg Tablet 81 mg PO DAILY RF: 0 Discharge Instructions Equipment/Supplies: Non-Weight Bearing Crutches Activity:: Elevate Remove Dressings/Wound Care:: Do Not Remove Shower/Bathe:: Cover Diet:: Normal Diet Discharge Orders Discharge Orders: Discharge Order (Routine); Ordered 06/12/20 Ordered By: Geovanny Back DS: Diagnosis Discharge Diagnosis (1) Ulcer of heel: Status: Acute
--- NOTE | 2020-06-12 10:33 | W.PM.OP ---
Date of service: 06/12/20 Time of Service: 10:33 Operative Note Operative Note Teo was brought to the operative suite placed in the supine position. Timeout was performed by protocol for safe surgery. The left foot was washed with normal saline and gently dried. Partial thickness ulceration is noted on the plantar lateral aspect of the left heel measuring 1 cm in width 2 cm in length and 1 mm in depth. Hypertrophy around the wound margin and a little bit of slough in the central portion of the wound is appreciated. With a #10 scalpel and pickup the margin of the wound was sharply debrided partial thickness to bleeding edges in the central slough curettaged free of the wound bed.. Bleeding was controlled with pressure. A epifix 2 x 3 cm graft was then applied to the left heel wound with correct orientation. Vaseline impregnated gauze, fluffs, gauze, Kerlix rolls x2 utilized to secure the graft over the foot. Fiberglass posterior below-knee splint was then applied. Post to leave the dressings intact. I did emphasize the importance of remaining nonweightbearing on the left lower extremity and he will be seen in the office in approximately 10 days.
== END 2020-06-12 10:58 | disposition home or self-care (01) ==
PROVIDERS: PCP Nurse Practitioner Family; Visit Provider Podiatrist
PROC: (CPT 15271; principal; 2020-06-12 10:00)
DX: L97.429 Non-pressure chronic ulcer of left heel and midfoot with unspecified severity (principal)
CPT/HCPCS: 15271

== ENCOUNTER 2020-09-14 01:58 | Outpatient (CLI) | payer MEDICARE, SELFPAY ==
--- NOTE | 2020-09-14 | DI.MRI_ITS ---
Exam(s) MR LOWER EXTREMITY LT WO/W EXAM: MR LOWER EXTREMITY LT WO/W CLINICAL HISTORY: CHRONIC ULCER LT HEEL, PRIOR + MRI 04/09 OSTEOMYELITIS FINDINGS TECHNIQUE: Multiplanar multisequence MRI was performed without and with intravenous contrast. 20 mL Dotarem injected intravenously COMPARISON: MR MR LOWER EXTREMITY LT WO/W from 03/24/2020 FINDINGS: SKIN: There is no ulcer over the lateral heel. Subjacent Mart mint noted but no abnormal signal luiza dent within the calcaneus to suggest osteomyelitis. There is no confluent hypo intense signal on the precontrast T1 weighted images. Also no intraosseous enhancement at this level. BONES/JOINTS: There is a fracture of the talus extending from the talar dome to the subtalar joint wh ich is probably subacute-chronic. There is also similar type fracture in the medial half of the raúl cular bone. There is intraosseous edema seen in these bones as well as within the cuboid but without a fracture of the cuboid evident. There are no fractures of the cuneiform bones nor of the visualiz ed metatarsals and main Lisfranc joint and ligament appear intact. There are advanced degenerative c hanges in the ankle-tibiotalar joint, more so anteriorly than posteriorly. No prominent ankle joint effusion. There is an of small effusion in the talonavicular joint and increase intraosseous signal within the talus and navicular. Also within the cuboid and medial cuneiform. Small inferior calcaneal spur. Plantar fascia appears intact. No tear nor nodularity. No gross thi ckening. SINUS TARSI: No significant findings. LISFRANC JOINT: Intact LIGAMENTS: Anterior talofibular ligament is attenuated-probable chronic tearing. Increased signal in the posterior talofibular ligament. Also some abnormal signal evident in the deltoid ligament on th e medial aspect foot MUSCULOTENDINOUS STRUCTURES: Tendinitis signal in the insertional Achilles. Trace fluid in the retro calcaneal bursa. SOFT TISSUES: Abundant soft tissue edema. No ring enhancing abscess evident. IMPRESSION: 1. Inferior lateral heel ulcer with abnormal subcutaneous deep signal but no evidence of osteomyeliti s of the subjacent calcaneus nor other bones of the ankle-foot. 2. Nonacute appearing fractures of the talus and navicular. Surrounding edema within these bones. J oint effusion in the talonavicular joint. Advanced degenerative changes in the tibiotalar joint. 3. Abundant soft tissue edema but no ring enhancing abscess. 4. Plantar arch is maintained. There is no evidence of midfoot collapse. DATA REPOSITORY:
[2020-09-14 14:13] LABS: BUN 13 mg/dL (7-18); CREATININE 1.2 mg/dL (0.70-1.30)
[2020-09-14] MEDS: Normal Saline Flush 10 ML SYR IVP (15:20)
[2020-09-14] MEDS: Gadoterate meglumine 20 ML VIAL IVP (15:21)
--- NOTE | 2020-09-14 16:41 | DI.VRAD_ITS ---
PROCEDURE INFORMATION: Exam: MR Left Lower Extremity Other Than Joint Without and With Contrast; Foot Exam date and time: 09/14/2020 3:27 PM Age: 65 years old Clinical indication: Other: Chronic ulcer lateral heel TECHNIQUE: Imaging protocol: MR of the Left lower extremity without and with intravenous contrast. Exam focused on the foot. Total images: 443 Contrast material: DOTAREM; Contrast volume: 20 ml; Contrast route: INTRAVENOUS (IV); COMPARISON: MR LOWER EXTREMITY LT WO/W 07/18/2020 14:12 FINDINGS: Bones and cartilage: There is a chronic fracture deformity of the talar dome with secondary degenerative changes/bone marrow edema in the tibiotalar joint. There are moderate midfoot degenerative changes. Marrow signal is otherwise preserved. Joint spaces: Unremarkable. No joint effusion. LIGAMENTS: Lisfranc ligament: Unremarkable. No evidence of tear. TENDONS: Flexor tendons of foot: Unremarkable. No evidence of tear. Tibialis posterior tendon: Unremarkable as visualized. Peroneal tendons: Unremarkable as visualized. Extensor tendons of foot: Unremarkable. No evidence of tear. Tibialis anterior tendon: Unremarkable as visualized. Tarsal canal (Sinus tarsi): Unremarkable. Tarsal tunnel: Unremarkable. Soft tissues: Small soft tissue defects are noted along the medial and lateral aspects of the heel consistent superficial ulcers. Plantar fascia: Unremarkable as visualized. IMPRESSION: 1. No evidence of acute osteomyelitis. 2. 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 Dictated and Authenticated by: Burton Blackmon MD. Ordering:ELSI Small MD
== END 2020-09-14 02:18 ==
PROVIDERS: PCP Nurse Practitioner Family; Visit Provider Podiatrist
DX: S92.102A Unspecified fracture of left talus, initial encounter for closed fracture (principal); M19.072 Primary osteoarthritis, left ankle and foot; M25.472 Effusion, left ankle; X58.XXXA Exposure to other specified factors, initial encounter
CPT/HCPCS: 84520; 73720; 82565

== ENCOUNTER 2020-09-25 07:15 | Day surgery (SDC) | payer MEDICARE, SELFPAY ==
[2020-09-25 07:32] VITALS: BP 122/77; PULSE 82; RESP 20; TEMP 36.1; O2SAT 92
[2020-09-25 09:40] VITALS: BP 107/37; PULSE 78; RESP 18; TEMP 36; O2SAT 94
--- NOTE | 2020-09-25 09:42 | W.PM.DSUDISC ---
Discharge Plan Disposition Patient Disposition: HOME Condition: Good Discharge Details Attending Provider: Geovanny Back Primary Care Provider: Yen Diamond Home Meds and New Rx's Prescriptions: Continued ceftriaxone 2 gram Piggyback 2 g IV DAILY RF: 0 gabapentin 600 MG tablet 600 mg PO DIRECTED RF: 0 ascorbic acid (vitamin C) [Vitamin C] 500 MG tablet 500 mg PO DAILY RF: 0 baclofen 10 MG tablet 10 mg PO TID PRN PRNRF: 0 lisinopril 10 MG tablet 10 mg PO DAILY RF: 0 morphine 15 MG tablet extended release 15 mg PO BID RF: 0 pravastatin [Pravachol] 20 MG tablet 20 mg PO HS RF: 0 duloxetine [Cymbalta] 30 MG capsule,delayed release(DR/EC) 30 mg PO BID RF: 0 oxycodone 10 MG tablet 10 mg PO TID RF: 0 aspirin 81 mg Tablet 81 mg PO DAILY RF: 0 Discharge Instructions Activity:: Elevate Remove Dressings/Wound Care:: Do Not Remove Shower/Bathe:: Cover Diet:: Normal Diet Discharge Orders Discharge Orders: Discharge Order (Routine); Ordered 09/25/20 Ordered By: Geovanny Back DS: Diagnosis Discharge Diagnosis (1) Ulcer of heel: Status: Acute
--- NOTE | 2020-09-25 09:46 | W.PM.OP ---
Date of service: 09/25/20 Time of Service: 09:46 Operative Note Operative Note DATE OF PROCEDURE: 09/25/20 PRE-OP DIAGNOSIS: Left heel wound chronic PROCEDURE: Sharp debridement left heel wound partial thickness, epifix application, lorna wound VAC application. SURGEON: Geovanny Back ANESTHESIA TYPE: Other Refer to Anesthesia Record ESTIMATED BLOOD LOSS: 1 TOURNIQUET TIME: 0 COMPLICATIONS: None Patient was transported to: same day Patient's condition: stable Implants: Epifix 2 x 4 cm Indications: 65-year-old male with chronic thermal wounds to the lateral posterior region of his left heel which fails to thrive for sharp debridement, epifix application with lorna wound VAC. He understands multiple debridements and applications of skin substitutes will be required. No promises were made to final outcome of surgery. Informed consents been obtained. Procedure Description: Teo was brought to the operative suite placed in the supine position with the left foot is prepped and draped in the usual sterile podiatric fashion. Timeout was performed by protocol for safe surgery. Attention was directed to the left heel where the wound is appreciated measuring 2.2 x 2.4 cm x 2 mm deep. There is granulation tissue appreciated at the base of the wound with some slime and slough noted over the central portion. Hypertrophic margin is appreciated in need of debridement. No undermining or signs of sepsis noted. No odor was detected. No cellulitis. With a #10 scalpel, The margin and base of the wound was sharply debrided partial thickness. Bleeding was controlled by compression. Once the wound appeared to be appropriately debrided, a 2 mm 2 cm x 4 cm epifix piece was trimmed and applied to the base of the wound. This was covered with Adaptic and a lorna wound VAC secured. Good suction was identified. A fiberglass posterior splint was applied. Teo left the OR vital signs stable vascular status intact
== END 2020-09-25 10:15 | disposition home or self-care (01) ==
PROVIDERS: PCP Nurse Practitioner Family; Visit Provider Podiatrist
PROC: (CPT 15271; principal; 2020-09-25 08:45)
DX: L97.428 Non-pressure chronic ulcer of left heel and midfoot with other specified severity (principal)
CPT/HCPCS: 15271; Q4186

== ENCOUNTER 2020-10-02 06:11 | Day surgery (SDC) | payer MEDICARE, SELFPAY ==
[2020-10-02 06:13] VITALS: BP 123/77; PULSE 75; RESP 19; TEMP 36; O2SAT 96
[2020-10-02 08:10] VITALS: BP 137/93; PULSE 72; RESP 17; TEMP 36.3; O2SAT 97
--- NOTE | 2020-10-02 08:10 | W.PM.DSUDISC ---
Discharge Plan Disposition Patient Disposition: HOME Condition: Good Discharge Details Reason For Visit: CHRONIC ULCER (L) HEEL Attending Provider: Geovanny Back Primary Care Provider: Yen Diamond Home Meds and New Rx's Prescriptions: Continued ceftriaxone 2 gram Piggyback 2 g IV DAILY RF: 0 gabapentin 600 MG tablet 600 mg PO DIRECTED RF: 0 ascorbic acid (vitamin C) [Vitamin C] 500 MG tablet 500 mg PO DAILY RF: 0 baclofen 10 MG tablet 10 mg PO TID PRN PRNRF: 0 lisinopril 10 MG tablet 10 mg PO DAILY RF: 0 morphine 15 MG tablet extended release 15 mg PO BID RF: 0 pravastatin [Pravachol] 20 MG tablet 20 mg PO HS RF: 0 duloxetine [Cymbalta] 30 MG capsule,delayed release(DR/EC) 30 mg PO BID RF: 0 oxycodone 10 MG tablet 10 mg PO TID RF: 0 aspirin 81 mg Tablet 81 mg PO DAILY RF: 0 Discharge Instructions Activity:: Activity as Tolerated Remove Dressings/Wound Care:: Do Not Remove Shower/Bathe:: Cover Diet:: Normal Diet Discharge Orders Discharge Orders: Discharge Order (Routine); Ordered 10/02/20 Ordered By: Geovanny Back DS: Diagnosis Discharge Diagnosis (1) Chronic heel ulcer limited to breakdown of skin: Status: Acute
--- NOTE | 2020-10-02 08:14 | W.PM.OP ---
Date of service: 10/02/20 Time of Service: 08:14 Operative Note Operative Note DATE OF PROCEDURE: 10/02/20 PRE-OP DIAGNOSIS: Chronic wound left heel PROCEDURE: Debridement partial thickness wound left heel with epi fix application and lorna wound VAC SURGEON: Geovanny Back ANESTHESIA TYPE: Other Refer to Anesthesia Record ESTIMATED BLOOD LOSS: 1 PATHOLOGY: none sent TOURNIQUET TIME: 0 COMPLICATIONS: None Patient was transported to: same day Patient's condition: stable Implants: Epifix graft Indications: 65-year-old male with chronic ulceration affecting the left lower extremity lateral heel for ongoing treatment of debridement, epifix application and wound VAC. This is a staged procedure. He understands that multiple procedures may still be required and the potential for ensuing infection and loss of tissue remains. All questions have been answered in detail. Informed consents been obtained. Procedure Description: Teo was brought to the operative suite, timeout was performed by protocol for safe surgery, placed in supine position with the left foot washed with Betadine solution rinse with normal saline. The wound is evaluated measuring 2 x 2.5 cm and is 1 mm deep. It has a good granular base with a little slime and slough as well as hypertrophic margin. There is no undermining no tunneling no active signs of infection. With a #10 scalpel the wound border and base of the wound was sharply debrided removing all slough and hypertrophy. The epifix graft was then removed from its packaging trimmed to size and placed into the wound. This was then covered with a piece of Vaseline impregnated gauze and a lorna wound VAC applied. Excellent suction was identified. Dressings consisting of Kerlix rolls, webwil, fiberglass posterior splint and Amado wraps applied. Teo left the OR with vital signs stable vascular status intact sponge and sharp counts were correct. He will be followed by myself next week.
== END 2020-10-02 08:30 | disposition home or self-care (01) ==
PROVIDERS: PCP Nurse Practitioner Family; Visit Provider Podiatrist
PROC: (CPT 15275; principal; 2020-10-02 07:30)
DX: L97.421 Non-pressure chronic ulcer of left heel and midfoot limited to breakdown of skin (principal)
CPT/HCPCS: 15275; Q4186

== ENCOUNTER 2020-10-09 09:38 | Day surgery (SDC) | payer MEDICARE, SELFPAY ==
[2020-10-09 09:52] VITALS: BP 140/87; PULSE 77; RESP 18; TEMP 36.4; O2SAT 96
--- NOTE | 2020-10-09 12:23 | W.PM.DSUDISC ---
Discharge Plan Disposition Patient Disposition: HOME Condition: Good Discharge Details Reason For Visit: Debridement left heel, epifix, lorna wound VAC Attending Provider: Geovanny Back Primary Care Provider: Yen Diamond Home Meds and New Rx's Prescriptions: Continued ceftriaxone 2 gram Piggyback 2 g IV DAILY RF: 0 gabapentin 600 MG tablet 600 mg PO DIRECTED RF: 0 ascorbic acid (vitamin C) [Vitamin C] 500 MG tablet 500 mg PO DAILY RF: 0 baclofen 10 MG tablet 10 mg PO TID PRN PRNRF: 0 lisinopril 10 MG tablet 10 mg PO DAILY RF: 0 morphine 15 MG tablet extended release 15 mg PO BID RF: 0 pravastatin [Pravachol] 20 MG tablet 20 mg PO HS RF: 0 duloxetine [Cymbalta] 30 MG capsule,delayed release(DR/EC) 30 mg PO BID RF: 0 oxycodone 10 MG tablet 10 mg PO TID RF: 0 aspirin 81 mg Tablet 81 mg PO DAILY RF: 0 Discharge Instructions Activity:: Activity as Tolerated Remove Dressings/Wound Care:: Do Not Remove Shower/Bathe:: Cover Diet:: Normal Diet Discharge Orders Discharge Orders: Discharge Order (Routine); Ordered 10/09/20 Ordered By: Geovanny Back DS: Diagnosis Discharge Diagnosis (1) Chronic heel ulcer limited to breakdown of skin: Status: Acute
--- NOTE | 2020-10-09 12:24 | W.PM.OP ---
Date of service: 10/09/20 Time of Service: 12:25 Operative Note Operative Note DATE OF PROCEDURE: 10/09/20 PRE-OP DIAGNOSIS: Chronic ulceration lateral aspect left heel PROCEDURE: Debridement of ulcer partial thickness with application 18 mm epifix graft and lorna wound VAC ANESTHESIA TYPE: Other Refer to Anesthesia Record ESTIMATED BLOOD LOSS: 1 PATHOLOGY: none sent TOURNIQUET TIME: 0 COMPLICATIONS: None Patient was transported to: same day Patient's condition: stable Implants: 18 mm epifix graft Indications: 65-year-old male who presents for serial debridements with epi fix application for management chronic ulceration left heel. He understands risk and complications of surgery pertaining to the potential for pain, scarring, infection, failure to thrive requiring additional surgical interventions. Procedure Description: Teo was brought to the operative suite placed in the supine position with the left foot was prepped and draped with normal saline in my typical podiatric fashion. With a #10 scalpel the maceration and hypertrophy was sharply debrided from around the wound. With a dermal curette the slime and slough was removed from the base of the wound. The wound is showing excellent granulation tissue and continues to contract. It now measured 1.8 x 1.6 cm and is partial-thickness. Hemostasis was acquired through pressure. Mastisol was applied in the periwound area for skin protection. The epifix graft was removed from its packaging and placed onto the wound with proper orientation noted. The 18 mm disc fit very well. This was covered with Adaptic and a lorna wound VAC applied. A good seal was identified. Kerlix roll x2, webwil and a fiberglass posterior splint was applied. Teo left the OR with vital signs stable vascular status intact.
[2020-10-09 12:28] VITALS: BP 130/86; PULSE 75; RESP 16; TEMP 36; O2SAT 97
== END 2020-10-09 12:45 | disposition home or self-care (01) ==
PROVIDERS: PCP Nurse Practitioner Family; Visit Provider Podiatrist
PROC: (CPT 15275; principal; 2020-10-09 11:00)
DX: L97.421 Non-pressure chronic ulcer of left heel and midfoot limited to breakdown of skin (principal)
CPT/HCPCS: 15275; Q4186

== ENCOUNTER 2020-10-16 07:09 | Day surgery (SDC) | payer MEDICARE, SELFPAY ==
[2020-10-16 07:29] VITALS: BP 106/62; PULSE 84; RESP 20; TEMP 36.1; O2SAT 97
--- NOTE | 2020-10-16 08:57 | W.PM.DSUDISC ---
Discharge Plan Disposition Patient Disposition: HOME Condition: Good Discharge Details Attending Provider: Geovanny Back Primary Care Provider: Yen Diamond Home Meds and New Rx's Prescriptions: Continued gabapentin 600 MG tablet 600 mg PO DIRECTED RF: 0 ascorbic acid (vitamin C) [Vitamin C] 500 MG tablet 500 mg PO DAILY RF: 0 baclofen 10 MG tablet 10 mg PO TID PRN PRNRF: 0 lisinopril 10 MG tablet 10 mg PO DAILY RF: 0 morphine 15 MG tablet extended release 15 mg PO BID RF: 0 pravastatin [Pravachol] 20 MG tablet 20 mg PO HS RF: 0 duloxetine [Cymbalta] 30 MG capsule,delayed release(DR/EC) 30 mg PO BID RF: 0 oxycodone 10 MG tablet 10 mg PO TID RF: 0 aspirin 81 mg Tablet 81 mg PO DAILY RF: 0 Discharge Instructions Activity:: Activity as Tolerated Remove Dressings/Wound Care:: Do Not Remove Shower/Bathe:: Cover Diet:: Normal Diet Discharge Orders Discharge Orders: Discharge Order (Routine); Ordered 10/16/20 Ordered By: Geovanny Back DS: Diagnosis Discharge Diagnosis (1) Chronic heel ulcer limited to breakdown of skin: Status: Acute
--- NOTE | 2020-10-16 08:59 | W.PM.OP ---
Date of service: 10/16/20 Time of Service: 09:00 Operative Note Operative Note DATE OF PROCEDURE: 10/16/20 PRE-OP DIAGNOSIS: chronic ulcer left heel POST-OP DIAGNOSIS: same PROCEDURE: partial thickness debridement of wound with a #10 scalpel, measuring 1.0cm x 1.4cm x 1mm and application of Epi Fix, posterior splint SURGEON: Geovanny Back ANESTHESIA TYPE: Other Refer to Anesthesia Record ESTIMATED BLOOD LOSS: 1 PATHOLOGY: none sent TOURNIQUET TIME: 0 COMPLICATIONS: None Patient was transported to: same day Patient's condition: stable Implants: epifix 18mm disc Indications: chronic ulcer left heel for serial debridement with epifix application and posterior splint, LLE Procedure Description: Teo was brought into the OR on a stretcher, the left heel was washed with NS and dried gently. Time out performed in the usual fashion. The wound was sharply debrided with a #10 scalpel partial thickness. Bleeding controlled with compression. A 18mm Disc Epifix as applied to the wound and covered with adaptic, kerlix roll x 2, webwil and a posterior splint. He tolerated the procedure well and left the OR with VSS, vascular status in tact. he will be seen in the office nect week.
[2020-10-16 09:01] VITALS: BP 106/64; PULSE 76; RESP 18; TEMP 36; O2SAT 94
[2020-10-16 09:17] VITALS: BP 107/58; PULSE 77; RESP 16; TEMP 36.5; O2SAT 94
[2020-10-16 09:34] VITALS: BP 107/56; PULSE 81; RESP 18; TEMP 36.5; O2SAT 95
== END 2020-10-16 09:35 | disposition home or self-care (01) ==
PROVIDERS: PCP Nurse Practitioner Family; Visit Provider Podiatrist
PROC: (CPT 15275; principal; 2020-10-16 08:30)
DX: L97.421 Non-pressure chronic ulcer of left heel and midfoot limited to breakdown of skin (principal)
CPT/HCPCS: 15275; Q4186

== ENCOUNTER 2021-01-31 13:40 | Inpatient (IN) | payer MEDICARE, SELFPAY ==
[2021-01-31] VITALS (54 sets, daily range): BP systolic 68–138; BP diastolic 45–106; PULSE 78–98; RESP 12–37; TEMP 37–38.7; O2SAT 89–100
--- NOTE | 2021-01-31 13:45 | RT.EKG_ITS ---
APPROVED REPORT Exam: Resting ECG Reason for Exam: ALTERED MENTAL STATUS Patient Location: E HR:89 bpm ECG Measurements Heart Rate 89 AXIS ND 148 P 25 QRSd 86 QRS 27 QT 428 T 59 QTc 521 Conclusion Sinus rhythm...normal P axis, V-rate 60- 99 Prolonged QT interval...QTc >500mS
--- NOTE | 2021-01-31 13:49 | NUR.NOTE ---
Nursing Note: Lashae/daughter [phone]
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
[2021-01-31] MEDS: Baclofen 10 MG TAB PO (14:36)
[2021-01-31 14:42] LABS: Source Nasal/Nares
[2021-01-31] MEDS: HYDROmorphone 2 MG/ML VIAL 1 MG IVP (14:45)
[2021-01-31] MEDS: Normal Saline Flush 10 ML SYR IVP (14:45)
[2021-01-31] MEDS: Normal Saline 1,000 ML 150 ML IV (14:45)
[2021-01-31 14:49] LABS: Abs Immature Grans 0.02 10^3/uL (0.0-0.06); Absolute Lymphocyte Count 0.85 10^3/uL (1.2-3.4); Absolute Monocyte Count 0.62 10^3/uL (0.1-0.8); Absolute Neutrophil Count 3.37 10^3/uL (1.2-6.7); HCT 40.5 % (40.0-50.0); HGB 13.3 g/dL (13.5-17.5); Immature Grans % 0.4; Lymphocytes % 17.5; MCH 29.2 pg (27.0-33.0); MCHC 32.8 % (32.0-36.0); MPV 9.3 fL (8.0-11.0); Monocytes % 12.8; Neutrophils % 69.3; Nucleated RBC 0 %; Platelet Count 162 10^3/uL (130-400); RBC 4.55 10^6/uL (4.36-5.78); RDW-SD 42.6 fL; WBC 4.86 10^3/uL (4.4-10.8)
[2021-01-31 15:03] LABS: ALT 54 U/L (16-63); AST 63 U/L (15-37); Albumin 3.8 g/dL (3.4-5.0); Alkaline Phosphatase 106 U/L (46-116); Anion Gap 9.2 mmol/L (3-11); BUN 16 mg/dL (7-18); Bilirubin, Total 0.4 mg/dL (0.2-1.0); CO2 29.8 mmol/L (21.0-32.0); CREATININE 1.1 mg/dL (0.70-1.30); Calcium 9.1 mg/dL (8.5-10.1); Chloride 94 mmol/L (98-107); Glucose 115 mg/dL (74-106); Magnesium 2.1 mg/dL (1.8-2.4); Potassium 3.6 mmol/L (3.5-5.1); Sodium 133 mmol/L (136-145); Total Protein 8.5 g/dL (6.4-8.2)
[2021-01-31 15:26] LABS: COVID-19 PCR POSITIVE (Negative)
--- NOTE | 2021-01-31 15:45 | DI.RAD_ITS ---
Exam(s) XR HEEL LT OS CALCIS EXAM: XR HEEL LT OS CALCIS CLINICAL HISTORY: Ulceration, erythema. TECHNIQUE: 2D digital imaging was performed. COMPARISON: CR RIGHT ANKLE COMPLETE from 05/19/2009 MR MR LOWER EXTREMITY LT WO/W from 09/14/2020 MR MR LOWER EXTREMITY LT WO/W from 09/14/2020 FINDINGS: No evidence of fracture. Inferior calcaneal spur is noted. Advanced degenerative changes in the ant erior aspect of the ankle joint. Recommend ankle films. Incidentally noted is a healed fracture sit e in the tibia. Also noted is some soft tissue swelling over the heel and abnormal density of the Ac hilles tendon which may indicate chronic tearing. IMPRESSION: DATA REPOSITORY: RADIATION DOSE DELIVERED:
[2021-01-31 15:55] LABS: ESR 42 mm/hr (0-20)
[2021-01-31 16:01] LABS: C-Reactive Protein 2.99 mg/dL (0.0-0.3)
[2021-01-31 16:39] LABS: Bilirubin Negative (Negative); Blood Negative (Negative); Clarity Clear (Clear); Glucose Negative (Negative); Ketones Negative (Negative); Leukocyte Esterase Negative (Negative); Nitrite Negative (Negative); Specific Gravity > 1.030 (1.005-1.025); Urobilinogen 0.2 EU/dL (Up TO 0.2)
--- NOTE | 2021-01-31 17:04 | NUR.NOTE ---
pt is resting in bed eating a sandwich . he is getting his MAB infusion. Nursing Note:
--- NOTE | 2021-01-31 17:12 | DI.VRAD_ITS ---
PROCEDURE INFORMATION: Exam: XR Left Calcaneus Exam date and time: 01/31/2021 3:52 PM Age: 65 years old Clinical indication: Pain; Heel; Left; Patient HX: Ulceration, erythema TECHNIQUE: Imaging protocol: XR of the Left calcaneus. Views: 2 or more views. COMPARISON: MR LOWER EXTREMITY LT WO/W 09/14/2020 2:51 PM FINDINGS: Bones/joints: Plantar and Achilles calcaneal spurs. Severe arthritic changes in the ankle mortise with resorptive changes of the anterior talus and anterior tibial plafond and adjacent heterotopic ossification. This appears similar to the MRI of 09/14/2020 Soft tissues: Thickening of the soft tissues posterior to the calcaneus. IMPRESSION: 1. Soft tissue thickening and swelling posterior to the calcaneus 2. Severe arthritic changes with resorptive changes in the anterior ankle mortise Dictated and Authenticated by: Cat Boyle MD. Ordering:ALBAN Natarajan MD
--- NOTE | 2021-01-31 17:17 | NUR.NOTE ---
pt gets spasms in his left leg each time he moves Nursing Note:
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
[2021-01-31] MEDS: AMPICILLIN/SULBACTAM 3 GM in Normal Saline 100 ML IVPB (18:12)
--- NOTE | 2021-01-31 18:30 | DI.RAD_ITS ---
Exam(s) XR PORTABLE CHEST AP EXAM: XR PORTABLE CHEST AP CLINICAL HISTORY: COVID +, leg pain. TECHNIQUE: 2D digital imaging was performed. COMPARISON: CR PORTABLE CHEST ONE VIEW from 01/20/2017 FINDINGS: Heart size is upper normal. Aortic graft is again noted, unchanged position. No abnormal mediastinal widening. Lungs are clear. No infiltrates nor obvious pleural effusions. IMPRESSION: No acute pulmonary findings on this single AP portable view of the chest. DATA REPOSITORY: RADIATION DOSE DELIVERED: All CT scans at this facility use at least one of these dose optimization techniques: automated exposure control; mA and/or kV adjustment per patient size (includes targeted e xams where dose is matched to clinical indication); or iterative reconstruction.
--- NOTE | 2021-01-31 19:40 | DI.VRAD_ITS ---
PROCEDURE INFORMATION: Exam: XR Chest Exam date and time: 01/31/2021 6:31 PM Age: 65 years old Clinical indication: Shortness of breath; Prior surgery; Surgery date: 6+ months; Surgery type: Ascending aorta repair; Patient HX: Covid +, leg pain TECHNIQUE: Imaging protocol: XR of the chest. Views: 1 view. COMPARISON: SC PORTABLE CHEST ONE VIEW 01/20/2017 11:11 PM FINDINGS: Lungs: Lung architecture is similar previous. Lung volumes are low. No specific consolidation. Pulmonary vessels are not congested. Pleural spaces: Unremarkable. No pleural effusion. No pneumothorax. Heart/Mediastinum: Mild cardiomegaly. Aortic stent material noted, stable in position. Bones/joints: Unremarkable. IMPRESSION: No acute cardiopulmonary abnormality. Dictated and Authenticated by: Javier Lewis MD. Ordering:ALBAN Natarajan MD
[2021-01-31] MEDS: Gabapentin 400 MG CAP 1200 MG PO (20:21)
[2021-01-31] MEDS: Acetaminophen 500 MG TAB 1000 MG PO (20:21)
[2021-01-31] MEDS: oxyCODONE 10 MG TAB PO (20:22)
[2021-01-31] MEDS: Enoxaparin 40 MG/0.4 ML SYR SC (20:23)
[2021-01-31] MEDS: DULoxetine 30 MG CAP PO (20:23)
[2021-02-01] VITALS (10 sets, daily range): BP systolic 100–117; BP diastolic 60–80; PULSE 73–93; RESP 12–19; TEMP 36.5–38.8; O2SAT 93–96
[2021-02-01] MEDS: AMPICILLIN/SULBACTAM 3 GM in Normal Saline 100 ML IVPB ×3 (00:30→12:58)
[2021-02-01] MEDS: Normal Saline 1,000 ML 150 ML IV (00:30)
[2021-02-01] MEDS: Normal Saline Flush 10 ML SYR IVP ×3 (00:31→23:29)
[2021-02-01] MEDS: Ibuprofen 600 MG TAB PO (01:15)
[2021-02-01] MEDS: Acetaminophen 500 MG TAB 1000 MG PO ×2 (02:55→17:10)
[2021-02-01] MEDS: oxyCODONE 10 MG TAB PO ×3 (08:12→20:04)
[2021-02-01] MEDS: Aspirin 81 MG CHEW PO (08:12)
[2021-02-01] MEDS: Gabapentin 600 MG TAB 1200 MG PO ×2 (08:12→13:17)
[2021-02-01] MEDS: Ascorbic Acid 500 MG TAB PO (08:13)
[2021-02-01] MEDS: DULoxetine 30 MG CAP PO ×2 (08:13→20:04)
[2021-02-01] MEDS: Lisinopril 10 MG TAB PO (08:13)
--- NOTE | 2021-02-01 12:21 | W.DIABETESNO ---
Date of service: 02/01/21 Time of Service: 12:21 Diabetes Note NOTE: Assessment: 65yo male +covid admitted with cellulitis of L foot/chronic heel ulcer. PMH significant for HLD, DVT prophylaxis, [place]. Meds: Ampicillin, vitamin C, aspirin, dexamethasone, diphenhydramine, duloxetine, enoxaparin, gabapentin, lisinopril, morphine, oxycodone with prn acetaminophen, albuterol, baclofen, derrick and epinephrine. Current BMI (35.5kg/m2) c/w stage II obesity. Bodyweight stable x1year. Unable to meet with Mr. Menezes today, however po intake appears fair/good per chart and nursing staff. Regular diet noted. A1C last year (01/15/20) was 6.8% and indicative of diabetes ? no dx in chart or home oral diabetic meds (noted ? ?impaired fasting glucose? 2018). Estimated nutrition needs: 2187kcals (REEx1.2), 84g protein (1.2g/kg IBW) and 2788mL fluid (adult obese pt method) Diagnosis: Stage II obesity AEB BMI 35-39.9. Intervention: Will encourage good sources of protein to aid in healing of chronic heel ulcer. Suggest follow up with PCP for elevated A1C and diabetes education referral when medically stable. Monitoring/evaluation: Will follow for nutrition related changes in weight, intake, labs and meds. Som Mendez NDTR ? Dog Or Animal Sitter Time Spent in Nutritional Counseling and Treatment: 0
--- NOTE | 2021-02-01 14:35 | PHA.REVIEW ---
Pharmacy Admission Review - Admission Clinical Review (Last Reviewed 01/31/21 @ 18:15 by Vivek Subramanian MD) Cellulitis (Acute) Chronic heel ulcer limited to breakdown of skin (Acute) Ulcer of heel (Acute) No Known Allergies Allergy (Verified 01/31/21 13:58) Resuscitation Status Full Code Height 5 ft 8 in Weight 105.9 kg - Renal Dosing Renal Dosing: BUN 16 mg/dL (7-18) 01/31/21 14:35 Creatinine 1.1 mg/dL (0.70-1.30) 01/31/21 14:35 Medications needing adjustments: Reviewed (Crcl ~81.1 mL/min current meds okay) - Anticoagulation Anticoagulation: Hgb 13.3 g/dL (13.5-17.5) L 01/31/21 14:35 Hct 40.5 % (40.0-50.0) 01/31/21 14:35 Plt Count 162 10^3/uL (130-400) 01/31/21 14:35 Creatinine 1.1 mg/dL (0.70-1.30) 01/31/21 14:35 DVT Prophylaxis: Reviewed Medications: Enoxaparin Therapeutic Anticoagulation: N/A - Opiate Usage Evaluate Pain Scale/Pains Meds: Intervened Scheduled Bowel Reg ordered if on Opiates?: No (will mention to provider.) - Relevant Labs ESR 42 mm/hr (0-20) H 01/31/21 14:35 Sodium 133 mmol/L (136-145) L 01/31/21 14:35 Potassium 3.6 mmol/L (3.5-5.1) 01/31/21 14:35 Chloride 94 mmol/L (98-107) L 01/31/21 14:35 Magnesium 2.1 mg/dL (1.8-2.4) 01/31/21 14:35 C-Reactive Protein 2.99 mg/dL (0.0-0.3) H 01/31/21 14:35 Electrolytes, C-Reactive P, ESR: Reviewed - DM Control DM Control: Glucose 115 mg/dL (74-106) H 01/31/21 14:35 Insulin Dosing: Reviewed (Bg mildly elevated, previous A1c 6.8 from 12/2019. Pt is not on any meds at home for this, will mention to provider.) - Heart Failure/[place] EF%, HARSH's, B-Blockers, Diuretics: N/A - BP Control BP Control: Blood Pressure 104/63 Blood Pressure 100/60 If elevated: Reviewed (Mostly within normal limits so far this admission.) - Qtc Review If Elevated: Reviewed (QTc 521 on admission, current med okay.) - IV to PO Switch IV Medications: Reviewed - Home Meds Home Med List reviewed: Reviewed (Per external med history gabapentin dosing 600 mg po QAM and 1200 mg QPM; PCP's office contacted, per their list pt takes 20 mg lisinopril and also takes loratadine and vitamin D. Will mention this to provider.) - Current meds Current Medication Order Review: Reviewed - Comments Comments/Follow Ups: Watch VS, BG, labs and for med changes (need of BM meds, avoid QT prolonging meds). Antibiotic Activity - Pharmacy Antibiotic Review Pharmacy Antibiotic Activity: C/S review (Unasyn ordered empirically for heel ulcer (cellulitis vs osteo per H&P). Blood culture pending, skin culture gowing scant gram positive shannon.)
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
[2021-02-01] MEDS: Baclofen 10 MG TAB PO (17:10)
[2021-02-01] MEDS: Potassium Chloride 20 MEQ TABCR 40 MEQ PO (17:48)
[2021-02-01] MEDS: Furosemide 20 MG/2 ML VIAL IVP (17:48)
[2021-02-01] MEDS: Cephalexin 500 MG CAP PO (20:04)
[2021-02-01] MEDS: Enoxaparin 40 MG/0.4 ML SYR SC (20:05)
[2021-02-01] MEDS: Normal Saline 500 ML 30 ML IV (20:05)
[2021-02-02] MEDS: Baclofen 10 MG TAB PO (02:00)
[2021-02-02] MEDS: Acetaminophen 500 MG TAB 1000 MG PO (02:00)
[2021-02-02] MEDS: Aspirin 81 MG CHEW PO (08:50)
[2021-02-02] MEDS: DULoxetine 30 MG CAP PO (08:50)
[2021-02-02] MEDS: Cephalexin 500 MG CAP PO ×3 (08:50→16:10)
[2021-02-02] MEDS: Ascorbic Acid 500 MG TAB PO (08:50)
[2021-02-02] MEDS: Gabapentin 600 MG TAB 1200 MG PO (08:51)
[2021-02-02] MEDS: Lisinopril 10 MG TAB PO (08:52)
[2021-02-02] MEDS: Normal Saline Flush 10 ML SYR IVP (08:52)
[2021-02-02] MEDS: oxyCODONE 10 MG TAB PO ×2 (08:52→13:52)
[2021-02-02 08:53] VITALS: BP 128/74; PULSE 72; RESP 12; TEMP 36.4; O2SAT 91
[2021-02-02 09:11] LABS: D-Dimer 941 ng/mlFEU (<500); Procalcitonin 0.1 ng/mL
[2021-02-02 11:32] LABS: Albumin 2.9 g/dL (3.4-5.0); Alkaline Phosphatase 81 U/L (46-116); BUN 12 mg/dL (7-18); Bilirubin, Total 0.2 mg/dL (0.2-1.0); CREATININE 0.9 mg/dL (0.70-1.30); Calcium 8.5 mg/dL (8.5-10.1); Chloride 105 mmol/L (98-107); Glucose 94 mg/dL (74-106); Potassium 3.8 mmol/L (3.5-5.1); Sodium 142 mmol/L (136-145); Total Protein 7.1 g/dL (6.4-8.2)
[2021-02-02 11:33] LABS: ALT 45 U/L (16-63); AST 50 U/L (15-37); Anion Gap 8.2 mmol/L (3-11); C-Reactive Protein 8.29 mg/dL (0.0-0.3); CO2 28.8 mmol/L (21.0-32.0); Ferritin 676 ng/mL (26-388); HCT 36.6 % (40.0-50.0); HGB 11.8 g/dL (13.5-17.5); RBC 4.03 10^6/uL (4.36-5.78); WBC 3.93 10^3/uL (4.4-10.8)
[2021-02-02 11:34] LABS: MCH 29.3 pg (27.0-33.0); MCHC 32.2 % (32.0-36.0); MCV 90.8 fL (80-95); MPV 9.3 fL (8.0-11.0); Platelet Count 132 10^3/uL (130-400); RDW 13.2 % (11.8-14.1); RDW-SD 44.5 fL
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
--- NOTE | 2021-02-02 15:32 | PDOC.CMDIS ---
- If Service Date Differs Date of service: 02/02/21 Time of Service: 15:32 LACE Index Scoring Tool - Questions: Length of Stay (in days): 2 Acuity (Admit via E.D.?): Yes E.D. Visits: 1 - Answers: Total Score: 6 Risk of Readmission: Low Risk Care Management Discharge Reason for Hospitalization: Heel ulcer, chronic pain, COVID positive Discharge Plan: Discharge home via private vehicle with family. Follow up with community providers (PCP and Dr. Back) and have repeat blood work in 1 week. Covid-19 vaccine is recommended in 4 weeks. Patient/Family Education Needs: Review discharge instructions, medications, limitations and plan of care as prescribed. ask me three.
[2021-02-03 09:30] LABS: HIV-1/2 Ag & Ab Screen Negative (Negative)
[2021-02-03 09:55] LABS: HBs Antibody, Qual Negative (See Note); HBs Antibody, Quant <3.1 mIU/mL (See Note); Hepatitis B Core Antibody Negative (Negative); Hepatitis B surface Ag Negative (Negative); Hepatitis C Ab w Rflx HCV PCR Negative (Negative)
== END 2021-02-02 16:00 | disposition home or self-care (01) | DRG 602 ==
LOC: ER 18:44 → MS 19:27
PROVIDERS: Internal Medicine; Admitting Provider General Practice; Emergency Provider Emergency Medicine; PCP Nurse Practitioner Family; Visit Provider General Practice
DX: L03.116 Cellulitis of left lower limb; U07.1 COVID-19; L97.421 Non-pressure chronic ulcer of left heel and midfoot limited to breakdown of skin; I10 Essential (primary) hypertension; E78.00 Pure hypercholesterolemia, unspecified; Z87.891 Personal history of nicotine dependence; G62.89 Other specified polyneuropathies; G89.21 Chronic pain due to trauma
CPT/HCPCS: 36415; 80053; 84145; 85027; 85652; 86704; 86706; 86803; 86850; 86900; 86901; 87040; 87077; 87340; 87389; 87635; 93005; 96361; 96365; 96375; 99285; J1650; 71045; 73650; 81003; 82728; 83735; 85025; 85379; 86140; 87070; 87186; 93010; 99222; 99232; 99238; J0295; J1941

== ENCOUNTER 2021-02-09 04:16 | Outpatient (CLI) | payer MEDICARE, SELFPAY ==
[2021-02-09 15:00] LABS: Anion Gap 7.9 mmol/L (3-11); BUN 21 mg/dL (7-18); CO2 27.1 mmol/L (21.0-32.0); CREATININE 1.7 mg/dL (0.70-1.30); Calcium 9.7 mg/dL (8.5-10.1); Chloride 96 mmol/L (98-107); Estimated GFR 40.91 (mL/min/1.73m2); Glucose 183 mg/dL (74-106); Potassium 4.4 mmol/L (3.5-5.1); Sodium 131 mmol/L (136-145)
== END 2021-02-09 04:17 | disposition home or self-care (01) ==
LOC: LBO 04:17
PROVIDERS: PCP Nurse Practitioner Family; Visit Provider Internal Medicine
DX: L03.90 Cellulitis, unspecified (principal); N17.9 Acute kidney failure, unspecified; U07.1 COVID-19; Z51.81 Encounter for therapeutic drug level monitoring
CPT/HCPCS: 36415; 80048

== ENCOUNTER 2021-02-24 11:12 | Outpatient (CLI) | payer MEDICARE, SELFPAY ==
[2021-02-24 13:03] LABS: Source Nasal/Nares
[2021-02-24 15:53] LABS: COVID-19 PCR Negative (Negative)
== END 2021-02-24 11:13 | disposition home or self-care (01) ==
PROVIDERS: PCP Nurse Practitioner Family; Visit Provider Podiatrist
DX: Z20.822 Contact with and (suspected) exposure to COVID-19 (principal)
CPT/HCPCS: 87635

== ENCOUNTER 2021-02-26 12:55 | Day surgery (SDC) | payer MEDICARE, SELFPAY ==
[2021-02-26 13:15] VITALS: BP 141/64; PULSE 86; RESP 16; TEMP 36.9; O2SAT 96
--- NOTE | 2021-02-26 14:31 | W.PM.DSUDISC ---
Discharge Plan Disposition Patient Disposition: HOME Condition: Good Discharge Details Reason For Visit: Debridement left heel wound, epifix application Attending Provider: Geovanny Back Primary Care Provider: Yen Diamond Home Meds and New Rx's Prescriptions: Continued loratadine 10 mg tablet 10 mg PO DAILY RF: 0 cholecalciferol (vitamin D3) 25 mcg (1,000 unit) tablet 1,000 unit PO BID RF: 0 gabapentin 600 MG tablet 1,200 mg PO BID Qty: 0 RF: 0 ascorbic acid (vitamin C) [Vitamin C] 500 MG tablet 500 mg PO DAILY RF: 0 baclofen 10 MG tablet 10 mg PO TID PRN PRNRF: 0 lisinopril 10 MG tablet 10 mg PO DAILY RF: 0 morphine 15 MG tablet extended release 15 mg PO BID RF: 0 pravastatin [Pravachol] 20 MG tablet 20 mg PO HS RF: 0 duloxetine [Cymbalta] 30 MG capsule,delayed release(DR/EC) 30 mg PO BID RF: 0 oxycodone 10 MG tablet 10 mg PO TID PRN PRNRF: 0 aspirin 81 mg Tablet 81 mg PO DAILY RF: 0 multivitamin Tablet 1 tab PO DAILY RF: 0 Discharge Instructions Activity:: Activity as Tolerated Remove Dressings/Wound Care:: Do Not Remove Shower/Bathe:: Cover Diet:: Normal Diet Discharge Orders Discharge Orders: Discharge Order (Routine); Ordered 02/26/21 Ordered By: Geovanny Back DS: Diagnosis Discharge Diagnosis (1) Ulcer of heel: Status: Acute
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
[2021-02-26 14:35] VITALS: BP 133/61; PULSE 83; RESP 16; TEMP 36.6; O2SAT 94
== END 2021-02-26 14:57 | disposition home or self-care (01) ==
PROVIDERS: PCP Nurse Practitioner Family; Visit Provider Podiatrist
PROC: (CPT 15275; principal; 2021-02-26 14:00)
DX: L97.429 Non-pressure chronic ulcer of left heel and midfoot with unspecified severity (principal)
CPT/HCPCS: 15275; Q4186

== ENCOUNTER 2021-03-03 01:00 | Outpatient (CLI) | payer MEDICARE, SELFPAY ==
[2021-03-03 11:30] LABS: Source Nasal/Nares
[2021-03-03 14:02] LABS: COVID-19 PCR Negative (Negative)
== END 2021-03-03 01:01 | disposition home or self-care (01) ==
LOC: LBO 01:00
PROVIDERS: PCP Nurse Practitioner Family; Visit Provider Podiatrist
DX: Z20.822 Contact with and (suspected) exposure to COVID-19 (principal)
CPT/HCPCS: 87635

== ENCOUNTER 2021-03-05 06:15 | Day surgery (SDC) | payer MEDICARE, SELFPAY ==
[2021-03-05 06:39] VITALS: BP 138/78; PULSE 68; RESP 18; TEMP 36.5; O2SAT 97
[2021-03-05 06:50] VITALS: BP 150/87; PULSE 77; RESP 18; TEMP 36.3; O2SAT 95
--- NOTE | 2021-03-05 07:53 | W.PM.DSUDISC ---
Discharge Plan Disposition Patient Disposition: HOME Condition: Good Discharge Details Reason For Visit: Debridement wound left heel with epi fix applicati Attending Provider: Geovanny Back Primary Care Provider: Yen Diamond Home Meds and New Rx's Prescriptions: Continued loratadine 10 mg tablet 10 mg PO DAILY RF: 0 cholecalciferol (vitamin D3) 25 mcg (1,000 unit) tablet 1,000 unit PO BID RF: 0 gabapentin 600 MG tablet 1,200 mg PO BID Qty: 0 RF: 0 ascorbic acid (vitamin C) [Vitamin C] 500 MG tablet 500 mg PO DAILY RF: 0 baclofen 10 MG tablet 10 mg PO TID PRN PRNRF: 0 lisinopril 10 MG tablet 10 mg PO DAILY RF: 0 morphine 15 MG tablet extended release 15 mg PO BID RF: 0 pravastatin [Pravachol] 20 MG tablet 20 mg PO HS RF: 0 duloxetine [Cymbalta] 30 MG capsule,delayed release(DR/EC) 30 mg PO BID RF: 0 oxycodone 10 MG tablet 10 mg PO TID PRN PRNRF: 0 aspirin 81 mg Tablet 81 mg PO DAILY RF: 0 multivitamin Tablet 1 tab PO DAILY RF: 0 Discharge Instructions Activity:: Activity as Tolerated Remove Dressings/Wound Care:: Do Not Remove Shower/Bathe:: Cover Diet:: Normal Diet Discharge Orders Discharge Orders: Discharge Order (Routine); Ordered 03/05/21 Ordered By: Geovanny Back DS: Diagnosis Discharge Diagnosis (1) 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
--- NOTE | 2021-03-05 07:54 | W.PM.OP ---
Date of service: 03/05/21 Time of Service: 07:54 Operative Note Operative Note DATE OF PROCEDURE: 03/05/21 PRE-OP DIAGNOSIS: Chronic ulcer left heel POST-OP DIAGNOSIS: same PROCEDURE: Sharp debridement partial thickness ulceration lateral left heel with epi fix application SURGEON: Geovanny Back ANESTHESIA TYPE: Other Refer to Anesthesia Record ESTIMATED BLOOD LOSS: 1 PATHOLOGY: none sent TOURNIQUET TIME: 0 COMPLICATIONS: None Patient was transported to: same day Patient's condition: stable Procedure Description: Teo is a 65-year-old white male with a chronic wound affecting the lateral aspect of his left heel for serial debridements with epi fix application. The wound was evaluated it is partial thickness measuring 1.5 cm x 1 cm and is 0 to 1 mm deep. No active signs of infection. Biofilm is appreciated overlying the wound mild hypertrophy surrounding the border. There is no undermining no sinus tracking noted. This wound and wound he healing process is complicated due to his paralytic left lower extremity and cavovarus foot position the wound was now scrubbed clean with normal saline and a gauze sponge. 18 mm epifix graft was then applied to the wound with proper orientation identified. Adaptic fluffs Kerlix rolls applied followed by a well-padded posterior fiberglass splint. These dressings are to remain intact until he is followed by myself in the office in approximately 10 days. Teo left the OR vital signs stable vascular status intact sponge and sharp counts correct thank you
== END 2021-03-05 08:10 | disposition home or self-care (01) ==
PROVIDERS: PCP Nurse Practitioner Family; Visit Provider Podiatrist
PROC: (CPT 15275; principal; 2021-03-05 07:30)
DX: L97.421 Non-pressure chronic ulcer of left heel and midfoot limited to breakdown of skin (principal)
CPT/HCPCS: 15275; Q4186

== ENCOUNTER 2021-05-17 14:35 | Outpatient (REF) | payer MEDICARE, SELFPAY ==
[2021-05-17 21:17] LABS: ALT 42 U/L (16-63); AST 18 U/L (15-37); Albumin 4.1 g/dL (3.4-5.0); Alkaline Phosphatase 115 U/L (46-116); Anion Gap 6.6 mmol/L (3-11); BUN 16 mg/dL (7-18); Bilirubin, Total 0.2 mg/dL (0.2-1.0); CO2 31.4 mmol/L (21.0-32.0); CREATININE 0.9 mg/dL (0.70-1.30); Calcium 9.4 mg/dL (8.5-10.1); Chloride 101 mmol/L (98-107); Glucose 119 mg/dL (74-106); Potassium 4.3 mmol/L (3.5-5.1); Sodium 139 mmol/L (136-145); Total Protein 8.2 g/dL (6.4-8.2)
[2021-05-17 21:37] LABS: Vitamin D 25 Total 26.7 ng/mL (30-100)
[2021-05-17 22:10] LABS: GGT 55 U/L (15-85)
== END 2021-05-17 14:36 | disposition home or self-care (01) ==
LOC: NCHCN 14:35
PROVIDERS: PCP Nurse Practitioner Family; Visit Provider Nurse Practitioner Family
DX: N17.9 Acute kidney failure, unspecified (principal); E55.9 Vitamin D deficiency, unspecified
CPT/HCPCS: 80053; 82306; 82977

== ENCOUNTER → 2021-06-03 11:24 | Outpatient (BNVA) | payer MEDICARE, SELFPAY | PROVIDERS: PCP Nurse Practitioner Family; Referring Provider Nurse Practitioner Family; Visit Provider Physical Therapy Assistant | DX: R19.5 Other fecal abnormalities (principal) | CPT/HCPCS: 99214 ==

== ENCOUNTER 2021-06-07 02:45 | Outpatient (CLI) | payer MEDICARE, SELFPAY ==
[2021-06-07 11:19] LABS: Source Nasal/Nares
[2021-06-07 13:41] LABS: COVID-19 PCR Negative (Negative)
== END 2021-06-07 02:46 | disposition home or self-care (01) ==
PROVIDERS: PCP Nurse Practitioner Family; Visit Provider Surgery
DX: Z20.822 Contact with and (suspected) exposure to COVID-19 (principal); Z01.818 Encounter for other preprocedural examination
CPT/HCPCS: 87635; U0005

== ENCOUNTER 2021-06-08 09:25 | Day surgery (SDC) | payer MEDICARE, SELFPAY ==
--- NOTE | 2021-06-07 12:12 | COLE_ITS ---
Colonoscopy Report Date of procedure: 06/08/21 Pre-op diagnosis general: FIT + Post-op diagnosis procedure note: other (Diverticula) Surgeon: Jolie Márquez Anesthesia Type: General:No Airway Estimated blood loss (mL): 0 Pathology: none sent Complications: None Disposition: same day Prep: Miralax/Dulcolax Retraction Time: 9 mins Procedure Description: After informed consent was obtained the patient was taken to the procedure room and placed in a left decubitous position. Monitors were applied and a time out was done. The patients name, date of , procedure, allergies to medications and metal in their body was reviewed. The patient was then sedated. Once sedat ed and comfortable a rectal exam was done. External exam was normal. Internal exam revealed a normal sphincter tone and no palpable masses. The scope was then introduced and retrofelexed. no is internal hemorrhoids were identified. The scope was then advanced to the cecum w/out difficulty. The TI and appendiceal orifice were identified. The prep was BBPS- 3 in all segments for a total of 9. The scope was then slowly retracted over minutes back into the rectum. There are no AVMs, he does have minor diverticula confined to the sigmoid colon with no signs of active bleeding or infection. No Polyps, or masses noted. The scope was removed and the patient was woken up and taken back to Same day surgery in stable condition. The patient tolerated the procedure well and there were no immediate complications. Follow up: The patient should follow up in 10 years, provided he is still healthy for anesthesia,unless they develop changes in bowel habits or other new gastrointestinal complaints.
--- NOTE | 2021-06-07 12:13 | PDOC.DSDIS_ITS ---
Discharge Plan Disposition Patient Disposition: HOME Condition: Good Discharge Details Reason For Visit: colon scope Attending Provider: Jolie Márquez Primary Care Provider: Yen Diamond Home Meds and New Rx's Prescriptions: Continued hydroxyzine HCl 10 mg tablet 10 mg PO QHS 0RF lisinopril 10 mg tablet 30 mg PO DAILY 0RF loratadine 10 mg tablet 10 mg PO DAILY 0RF Label Comments: TAKE ONE TABLET BY MOUTH EVERY DAY cholecalciferol (vitamin D3) 25 mcg (1,000 unit) tablet 1,000 unit PO BID 0RF Label Comments: TAKE ONE TABLET BY MOUTH TWICE A DAY gabapentin 600 MG tablet 1,200 mg PO BID Qty: 0 0RF Label Comments: take one tab in am and two tabs pm ascorbic acid (vitamin C) [Vitamin C] 500 MG tablet 500 mg PO DAILY 0RF baclofen 10 MG tablet 10 mg PO TID PRN PRN0RF morphine 15 MG tablet extended release 15 mg PO BID 0RF pravastatin [Pravachol] 20 MG tablet 20 mg PO HS 0RF duloxetine [Cymbalta] 30 MG capsule,delayed release(DR/EC) 30 mg PO BID 0RF oxycodone 10 MG tablet 10 mg PO TID PRN PRN0RF aspirin 81 mg Tablet 81 mg PO DAILY 0RF multivitamin Tablet 1 tab PO DAILY 0RF Discontinued bisacodyl [Dulcolax (bisacodyl)] 5 mg tablet,delayed release (DR/EC) 5 mg PO ONCE Qty: 4 0RF Rx Instructions: Take according to provider's instructions for colonoscopy prep. polyethylene glycol 3350 17 gram/dose powder 17 g PO ONCE Qty: 238 0RF Rx Instructions: To be taken as directed by prescriber's office for colonoscopy prep. Discharge Instructions Additional Instructions: DSU Colonoscopy Post- Op Instructions Instructions for Everyone who is given Anest hesia: For your safety, please do the following for the next twenty-four (24) hours: *Do Not operate a motor vehicle (car, truck, motorcycle, etc.) *Do Not drink alcoholic beverages or use any recreational drugs for the first 24 hours or while taking pain medications. The medications in your body may have a reaction that can be dangerous. *Do Not make any important decisions or sign any important papers. Findings:diverticula No polyps or masses Follow up:Repeat scope in 10 yrs time, provided you are still healthy for anesthesia. 1. No lifting over 20 pounds or strenuous activity for the first 24 hours after your procedure. After 24 hours there are no restrictions on your activity but you may feel fatigued for a few days. 2. After you arrive home you may have a light meal and return to your normal diet as you can tolerate it without feeling sick to your stomach. 3. You may have a bloated, gaseous feeling in your belly (abdomen) after a colonoscopy. Passing gas and belching will help. Walking or lying down on your left side with your knees flexed may relieve the discomfort. Call the office at [phone] (Office) or [phone] (Hospital) right away if you notice any of the following: a.Vomiting of blood or ?coffee ground stools?. b.Rectal bleeding 1Tbsp, blood clots or continuous bleeding. c.Severe belly (abdominal) pain. d.A hard distended belly (abdomen) and an inability to pass gas. 4. Please don?t expect to have a normal BM (bowel movement) for 2-3 days after your procedure. 5. If there are questions regarding the findings of your procedure, please contact your doctor 6. If you are unable to contact your doctor with a problem, contact the hospital at [phone]. 7. Continue all your regular medications unless directed otherwise. I understand the above instructions and have no questions. Signature of Patient or Adult Escort Name of Responsible Adult Escort Signature of Nurse Date/Time Activity:: see above Diet:: see above Discharge Orders Discharge Orders: Discharge Order (Routine); Ordered 06/07/21 Ordered By: Jolie Márquez
[2021-06-08 09:42] VITALS: BP 128/77; PULSE 94; RESP 20; TEMP 36.6; O2SAT 96
[2021-06-08] MEDS: Lactated Ringers 1,000 ML 80 ML IV (10:00)
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
[2021-06-08 10:11] VITALS: BMI 34.4
--- NOTE | 2021-06-08 10:48 | W.ANESPOSTOP ---
Postoperative Evaluation Date, Time and Location Date Performed: 06/08/21 Time Performed: 10:48 Patient Location: Day Surgery Unit Vital Signs Most Recent Imported Vital Signs: Most Recent Vital Signs Temp Pulse Resp BP Pulse Ox 36.6 C 94 H 20 128/77 96 06/08/21 09:42 06/08/21 09:42 06/08/21 09:42 06/08/21 09:42 06/08/21 09:42 Most Recent Manually Entered Vital Signs: Adult Blood Pressure: 113/90 Heart Rate: 92 Respirations: 12 Oxygen Saturation (%): 98 Temperature (C): 36.3 C Pain Score (0-10 Scale): 0 Pain Score Most Recent Pain Score: Most Recent Pain Score Pain Level 0 06/08/21 09:42 Assessment Mental Status: Awake (Alert & Oriented to Patient Baseline) Airway and Respiratory Function: Patent airway with normal (patient baseline) respiratory exam Cardiovascular Function: Hemodynamically Stable Hydration Status: Adequately Hydrated Nausea & Vomiting: No Nausea or Vomiting Pain: Pt. Denies Any Pain Peripheral Nerve Block: Patient did not receive a nerve block
[2021-06-08 10:49] VITALS: BP 113/90; PULSE 91; RESP 18; TEMP 36.1; O2SAT 94
[2021-06-08 10:50] VITALS: BP 113/90; PULSE 92; RESP 12; TEMPC 36.3; O2SAT 98
[2021-06-08 11:18] VITALS: BP 112/70; PULSE 89; RESP 16; TEMP 36.8; O2SAT 94
== END 2021-06-08 11:55 | disposition home or self-care (01) ==
LOC: SUR 09:26
PROVIDERS: PCP Nurse Practitioner Family; Visit Provider Surgery
PROC: 0DJD8ZZ Inspection of Lower Intestinal Tract, Via Natural or Artificial Opening Endoscopic (ICD-10-PCS; CPT 45378; principal; 2021-06-08 10:15)
DX: R19.5 Other fecal abnormalities (principal); K57.30 Diverticulosis of large intestine without perforation or abscess without bleeding; G47.33 Obstructive sleep apnea (adult) (pediatric); E11.9 Type 2 diabetes mellitus without complications; E78.5 Hyperlipidemia, unspecified; I10 Essential (primary) hypertension
CPT/HCPCS: 45378; J2001

== ENCOUNTER 2021-06-29 02:16 | Outpatient (CLI) | payer MEDICARE, SELFPAY ==
--- NOTE | 2021-06-29 | DI.US_ITS ---
APPROVED REPORT EXAM: Comprehensive 2D, Doppler, and color-flow Echocardiogram Patient Location: Out-Patient Repair Clerk: Dora Peterson RDCS (AE) Indications: Cardiomegaly Other Information Study Quality: Adequate Conclusion Technically difficult but adequate study Normal left ventricular wall thickness and chamber size. Estimated ejection fraction is 60%. Wall m otion is normal Normal right ventricular size and systolic function Both atria are normal in size Aortic valve is trileaflet and sclerotic without stenosis or regurgitation Normal mitral valve with trace regurgitation Normal tricuspid valve with trace regurgitation. Estimated right ventricular systolic pressure is 38 mmHg Mildly dilated ascending aorta measuring 3.61 cm Wall motion Left Ventricle The left ventricle is normal size. The left ventricular systolic function is normal. The left ventric ular ejection fraction is within the normal range. There is normal left ventricular wall thickness. T here is normal LV segmental wall motion. There is no ventricular septal defect visualized. LVEF is 60 %. Right Ventricle The right ventricle is normal size. The right ventricular systolic function is normal. The RVSP is 37 .8 mmHg. Atria The left atrium size is normal. The right atrium size is normal. Right atrium size is normal. Right a trium is small. Right atrium is not well visualized. Right atrium is borderline dilated. The interatr ial septum is intact with no evidence for an atrial septal defect. Aortic Valve The Aortic valve is sclerotic. There is no aortic valvular stenosis. No aortic regurgitation is prese nt. Mitral Valve The mitral valve is normal in structure. No evidence of mitral valve stenosis. Trace mitral regurgita tion. Bioprosthetic mitral valve is present. Tricuspid Valve The tricuspid valve is normal in structure. There is no tricuspid valve stenosis. Trace tricuspid reg urgitation. Pulmonic Valve The pulmonary valve is normal in structure. There is no pulmonic valvular stenosis. There is no pulmo lyle valvular regurgitation. Great Vessels The aortic root is normal in size. The ascending aorta is mildly dilated. IVC is normal in size and c ollapses >50% with inspiration. Pericardium There is no pericardial effusion. 2D Dimensions IVSD d PLAX 0.97 cm M: 0.6-1.2 LV Vol A2C d MOD 103.1 mL LVPW d PLAX 0.96 cm M: 0.6 - 1.2 LV Vol A4C d MOD 105.9 mL LVID d PLAX 4.47 cm M: 4.2 - 5.8 LA vol/ BSA A2C s A-L 25.8 mL/m2 LVDs 3.05 cm M: 2.5 - 4.0 LA vol/ BSA A4C s A-L 13.8 mL/m2 Ao Root d 3.22 cm M: 3.1 - 3.7 LA Vol/ BSA Biplane s A-L 20.4 mL/m2 RA Area A4C 15.86 cm2 LA Area A4C s MOD 12.61 cm2 RA Vol/ BSA A4C s A-L 17.7 mL/m2 LA Area A2C s MOD 18.65 cm2 Ao Asc Diam d 3.61 cm M: 2.6 - 3.4 LV EF A4C MOD 58.9 % LV EF Teichholz 58.4 % LV EF A2C MOD 57.8 % LVEF (Baez's) 57.51 % M: 52 - 72 LV EF Biplane MOD 57.5 % LV Volume 76.30 mL M: 62 - 150 SV 60.44 mL LV Volume Index 34.52 mL/m2 M: 34 - 74 SV Index 27.32 mL/m2 LV Vol Biplane MOD 105.1 mL FS 30.65 % M-Mode TAPSE 1.96 cm (M/F) >1.7 LV Diastology MV E' medial 0.064 (>0.07 m/s) E/A Ratio 0.8 LV E/e MED 11.35 (<14) MV E Vmax 0.73 (0.4-1.3 m/s) MV E' lateral 0.090 (>0.1 m/s) MV A Vmax 0.95 (0.4-1.3 m/s) LV E/e LAT 8.10 (<14) MV E/A Ratio 0.74 MV E/E' medial 11.36 MV E/E' lateral 8.14 Aortic Valve LVOT Area 3.70 cm2 AoV Area Vmax 3.26 cm2 LVOT Vmax 1.46 m/s AoV Area/ BSA (Vmax) 1.47 cm2/m2 LVOT Mean Jean-Pierre. 0.90 m/s ERMELINDA Mean Jean-Pierre. 2.72 cm2 LVOT Peak Grad 8.5 mmHg ERMELINDA Mean Jean-Pierre. Index 1.23 cm2/m2 LVOT Mean Grad 3.9 mmHg LVOT VTI 0.291 m LVOT Diam s 2.15 cm AoV Vmax 1.66 m/s Velocity Ratio 0.87 AoV Mean Jean-Pierre. 1.22 m/s AoV Peak Grad 11.0 mmHg LVOT SV 107.76 mL AoV Mean Grad 6.6 mmHg AoV VTI 0.320 m AoV Area VTI 3.37 cm2 AoV Area/ BSA (VTI) 1.52 cm/m2 Mitral Valve MV DT 315 (160-240 msec) MV PHT 91 msec MV Area PHT 2.41 cm2 MV VTI 0.304 m MV VTI Annulus 0.313 m MV Area VTI 3.67 (4.0-6.0 cm2) Pulmonary Valve PV Vmax 1.29 (0.5-1.5 m/s) RVOT Peak Gr. 3.49 mmHg PV Peak Grad 6.7 mmHg RVOT Mean Gr. 1.85 mmHg PV Mean Grad 3.6 mmHg RVOT VTI 0.175 m PV VTI 0.228 m RVOT Vmax 0.93 m/s Tricuspid Valve TR Peak Grad 34.8 mmHg TR Vmax 2.95 m/s RA Pressure 3.00 mmHg RVSP (TR) 37.8 mmHg
== END 2021-06-29 02:36 ==
PROVIDERS: PCP Nurse Practitioner Family; Visit Provider Nurse Practitioner Family
DX: I51.7 Cardiomegaly (principal)
CPT/HCPCS: 93306

== ENCOUNTER 2021-07-02 18:51 | Outpatient (REF) | payer MEDICARE, SELFPAY ==
[2021-07-02 21:19] LABS: Abs Immature Grans 0.02 10^3/uL (0.0-0.06); Absolute Basophil Count 0.07 10^3/uL (0.0-0.2); Absolute Eosinophil Count 0.34 10^3/uL (0.0-0.7); Absolute Lymphocyte Count 2.51 10^3/uL (1.2-3.4); Absolute Neutrophil Count 3.93 10^3/uL (1.2-6.7); Basophils % 0.9; Eosinophils % 4.6; HCT 41.2 % (40.0-50.0); HGB 13.2 g/dL (13.5-17.5); Immature Grans % 0.3; Lymphocytes % 34.1; MCH 30.1 pg (27.0-33.0); MCV 93.8 fL (80-95); MPV 9.7 fL (8.0-11.0); Monocytes % 6.8; Neutrophils % 53.3; Platelet Count 223 10^3/uL (130-400); RBC 4.39 10^6/uL (4.36-5.78); RDW 13.1 % (11.8-14.1); WBC 7.37 10^3/uL (4.4-10.8)
[2021-07-02 21:24] LABS: ESR 29 mm/hr (0-20)
[2021-07-02 21:27] LABS: Anion Gap 9.2 mmol/L (3-11); BUN 27 mg/dL (7-18); C-Reactive Protein 0.66 mg/dL (0.0-0.3); CO2 26.8 mmol/L (21.0-32.0); CREATININE 1.2 mg/dL (0.70-1.30); Calcium 9.1 mg/dL (8.5-10.1); Chloride 106 mmol/L (98-107); Glucose 157 mg/dL (74-106); Potassium 4.3 mmol/L (3.5-5.1); Sodium 142 mmol/L (136-145)
== END 2021-07-02 18:52 | disposition home or self-care (01) ==
LOC: NCHCN 18:51
PROVIDERS: PCP Nurse Practitioner Family; Visit Provider Family Medicine
DX: M25.562 Pain in left knee (principal)
CPT/HCPCS: 80048; 85652; 85025; 86140

== ENCOUNTER 2022-04-07 12:48 | Outpatient (REF) | payer MEDICARE, SELFPAY ==
[2022-04-07 15:18] LABS: ALT 49 U/L (16-63); AST 29 U/L (15-37); Alkaline Phosphatase 128 U/L (46-116); Anion Gap 8.9 mmol/L (3-11); BUN 22 mg/dL (7-18); Bilirubin, Total 0.4 mg/dL (0.2-1.0); CO2 28.1 mmol/L (21.0-32.0); CREATININE 1.1 mg/dL (0.70-1.30); Calcium 9.3 mg/dL (8.5-10.1); Chloride 104 mmol/L (98-107); Glucose 198 mg/dL (74-106); Potassium 4.3 mmol/L (3.5-5.1); Sodium 141 mmol/L (136-145); Total Protein 7.9 g/dL (6.4-8.2)
[2022-04-14 11:28] LABS: Codeine Negative ng/mL (Cutoff: 25); Dihydrocodeine Negative ng/mL (Cutoff: 25); Hydrocodone Negative ng/mL (Cutoff: 25); Hydromorphone 101 ng/mL (Cutoff: 25); Morphine 19683 ng/mL (Cutoff: 25); Naloxone Negative ng/mL (Cutoff: 25); Norhydrocodone Negative ng/mL (Cutoff: 25); Noroxycodone 272 ng/mL (Cutoff: 25); Noroxymorphone 45 ng/mL (Cutoff: 25); Opiates Interpretation Positive.
== END 2022-04-07 12:49 | disposition home or self-care (01) ==
LOC: NCHCN 12:48
PROVIDERS: PCP Nurse Practitioner Family; Visit Provider Nurse Practitioner Family
DX: E55.9 Vitamin D deficiency, unspecified (principal); E11.9 Type 2 diabetes mellitus without complications; G89.21 Chronic pain due to trauma; I10 Essential (primary) hypertension; F11.20 Opioid dependence, uncomplicated
CPT/HCPCS: 80053; 80361; 80362; 80365; 82306

== ENCOUNTER 2022-04-28 01:08 | Outpatient (CLI) | payer MEDICARE, SELFPAY ==
--- NOTE | 2022-04-28 | DI.US_ITS ---
Exam(s) US AAA SCREENING EXAM: US AAA SCREENING CLINICAL HISTORY: SCREENING FOR AAA,Z13.6 COMPARISON: US US ECHOCARDIOGRAM from 06/29/2021 FINDINGS: Abdominal Aorta: There is no evidence of abdominal aortic aneurysm. Maximum diameter is 2.9 cm proxi riccardo in the distal aorta tapers to 2.2 cm. Common iliac arteries: Visualized common iliac arteries exhibit upper normal diameters. IMPRESSION: No evidence of significant abdominal aortic aneurysm on this ultrasound examination. DATA REPOSITORY:
== END 2022-04-28 01:28 ==
LOC: DI 01:09
PROVIDERS: PCP Nurse Practitioner Family; Visit Provider Nurse Practitioner Family
DX: Z13.6 Encounter for screening for cardiovascular disorders (principal)
CPT/HCPCS: 76706

== ENCOUNTER 2022-10-12 12:14 | Emergency (ER) | payer MEDICARE, SELFPAY ==
[2022-10-12 12:17] VITALS: BP 134/64; PULSE 100; RESP 20; TEMP 37; O2SAT 93
--- NOTE | 2022-10-12 12:45 | DI.US_ITS ---
Exam(s) US SCROTUM EXAM: US SCROTUM CLINICAL HISTORY: right testicular pain. TECHNIQUE: Scrotal ultrasound performed using grayscale, color-flow and spectral Doppler analysis. COMPARISON: No exams were available for comparison FINDINGS: Right testicle: 4.4 cm Echogenicity: Normal. Contour: Smooth. Mass: None seen. Microlithiasis: None. Hydrocele: There is a 0.9 x 1.4 x 2.2 hydrocele. Variocele: None. Hernia: No peristalsing bowel loop identified. Epididymis: Normal. Left testicle: 4.1 x 2.5 x 2.9 cm Echogenicity: Normal. Contour: Smooth. Mass: None seen. Microlithiasis: None. Hydrocele: None. Variocele: None. Hernia: No peristalsing bowel loop identified. Epididymis: Normal. DOPPLER: Color: Symmetric and uniform, no hyperemia. IMPRESSION: 1. Normal appearing bilateral testicles. 2. Small right hydrocele. DATA REPOSITORY:
[2022-10-12] MEDS: oxyCODONE 10 MG TAB PO (13:02)
[2022-10-12] MEDS: Normal Saline 1,000 ML 1000 ML IV (13:14)
--- NOTE | 2022-10-12 13:15 | DI.CT_ITS ---
Exam(s) CT ABDOMEN PELVIS WO EXAM: CT ABDOMEN PELVIS WO CLINICAL HISTORY: testicular pain, hematuria. TECHNIQUE: Imaging Protocol: Axial computed tomography images with coronal and sagittal reformatted images were created and reviewed. COMPARISON: No exams were available for comparison FINDINGS: ABDOMEN: Lung Bases: Coronary artery calcification is present. There are 3 nodules seen in the left lower lob e. The largest measures 8 mm. There is a 6 mm nodule in the posterior periphery. There is a 4 mm n odule at the diaphragmatic surface. Liver: There is fatty infiltration of the liver. No measurable mass. Gallbladder and biliary tract: Cholelithiasis. The common duct measures 7 mm. No intrahepatic bilia ry ductal dilatation is present. Pancreas: Normal density, no abnormal calcifications or inflammatory process. Spleen: Normal. Kidneys: Normal size, contour and axis.No radiodense stones or obstructive uropathy. No masses seen. Adrenal glands: No mass is seen. Lymph nodes: Within normal limits. Abdominal Aorta: There is a 3.1 x 2.9 cm infrarenal abdominal aortic aneurysm. Atherosclerosis is pr esent. IVC: There is an IVC filter in place. PELVIS: Bladder:Symmetric distention, no gross wall thickening. Bowel: No obstruction or bowel wall thickening. Appendix is unremarkable. Peritoneal cavity: No ascites, collection or mesenteric inflammatory response. No free air. Reproductive organs: Unremarkable as visualized. Bones: Within normal limits. There is a lytic lesion in the posterior right iliac bone. No associate d soft tissue mass is seen. This may be related to the patient's posterior spinal surgery. The katlin ent is status post L3 and L4 laminectomies with bone graft placement. Posterior spinal rods are seen at L3 and L4. Soft Tissues: There is a small fat containing midline supraumbilical hernia. There is a small fat co ntaining umbilical hernia. There are bilateral small fat containing inguinal hernias. There is fatt y atrophy seen in muscles in the left thigh. IMPRESSION: 1. No evidence of nephrolithiasis or hydronephrosis. 2. Three left lower lobe pulmonary nodules. In low risk patients, 6-12 month follow-up CT scan is re commended. In patients with high risk (history of smoking or other risk factors), 6-[address] scan follow-up by a CT scan in 18- 24 months is recommended. (Ganesh et al, 2017). 3. 3.1 x 2.9 cm infrarenal abdominal aortic aneurysm. 4. Cholelithiasis without evidence to suggest acute cholecystitis. RADIATION DOSE DELIVERED: 1,122.33mGy.cm Total DLP DATA REPOSITORY: All CT scans at this facility are submitted to the National Radiology Data Registry (NRDR) Dose Index Registry (DIR) with the [employer] (ACR). RADIATION OPTIMIZATION: All CT scans at this facility use at least one of these dose optimization te chniques: automated exposure control; mA and/or kV adjustment per patient size (includes targeted exa ms where dose is matched to clinical indication); or iterative reconstruction.
[2022-10-12 13:18] LABS: Abs Immature Grans 0.03 10^3/uL (0.0-0.06); Absolute Basophil Count 0.06 10^3/uL (0.0-0.2); Absolute Eosinophil Count 0.17 10^3/uL (0.0-0.7); Absolute Lymphocyte Count 1.65 10^3/uL (1.2-3.4); Absolute Monocyte Count 1.33 10^3/uL (0.1-0.8); Absolute Neutrophil Count 7.27 10^3/uL (1.2-6.7); Basophils % 0.6; Eosinophils % 1.6; HCT 40.4 % (40.0-50.0); HGB 13.2 g/dL (13.5-17.5); Immature Grans % 0.3; Lymphocytes % 15.7; MCH 29.7 pg (27.0-33.0); MCHC 32.7 % (32.0-36.0); MCV 91 fL (80-95); MPV 8.5 fL (8.0-11.0); Monocytes % 12.7; Neutrophils % 69.1; Platelet Count 222 10^3/uL (130-400); RBC 4.44 10^6/uL (4.36-5.78); RDW 12.4 % (11.8-14.1); RDW-SD 41.1 fL; WBC 10.51 10^3/uL (4.4-10.8)
[2022-10-12 13:39] LABS: ALT 41 U/L (16-63); AST 17 U/L (15-37); Albumin 3.5 g/dL (3.4-5.0); Alkaline Phosphatase 106 U/L (46-116); Anion Gap 9.1 mmol/L (3-11); BUN 20 mg/dL (7-18); Bilirubin, Total 0.2 mg/dL (0.2-1.0); CO2 28.9 mmol/L (21.0-32.0); CREATININE 1.1 mg/dL (0.70-1.30); Calcium 9.3 mg/dL (8.5-10.1); Chloride 102 mmol/L (98-107); Glucose 145 mg/dL (74-106); Potassium 4.1 mmol/L (3.5-5.1); Sodium 140 mmol/L (136-145); Total Protein 8.5 g/dL (6.4-8.2)
[2022-10-12 14:32] LABS: Bilirubin Negative (Negative); Blood Large (Negative); Clarity Cloudy (Clear); Glucose Negative (Negative); Ketones Negative (Negative); Leukocyte Esterase Small (Negative); Nitrite Positive (Negative); Specific Gravity 1.015 (1.005-1.025); pH 6.5 (5-8)
[2022-10-12 14:40] LABS: Bacteria Moderate HPF (Negative); Crystals Negative HPF (Negative); Epithelial Cells Rare HPF (Negative); RBC >50 HPF (0-2)
[2022-10-12 14:41] LABS: C & S Indicated? Yes; Casts Negative LPF (Negative); Mucus Trace (Negative)
[2022-10-12] MEDS: cefTRIAXone 1 GM/50 ML BAG IVPB (15:16)
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
[2022-10-12 15:32] VITALS: BP 121/72; PULSE 87; RESP 16; TEMP 37.7; O2SAT 95
--- NOTE | 2022-10-12 16:27 | NUR.NOTE ---
Nursing Note: uro referral
[2022-10-12 16:30] VITALS: BP 121/74; PULSE 80; RESP 18; O2SAT 97
== END 2022-10-12 16:36 | disposition home or self-care (01) ==
PROVIDERS: Emergency Provider Physician Assistant; PCP Nurse Practitioner Family
DX: N39.0 Urinary tract infection, site not specified (principal); R91.1 Solitary pulmonary nodule; K80.20 Calculus of gallbladder without cholecystitis without obstruction; N43.3 Hydrocele, unspecified; R31.9 Hematuria, unspecified
CPT/HCPCS: 80053; 87077; 96361; 96365; 99284; 74176; 76870; 81003; 81015; 85025; 87086; 87186; J0696

== ENCOUNTER → 2023-03-22 02:10 | Outpatient (CLI) | payer OTHER, SELFPAY ==
--- NOTE | 2023-03-22 | DI.CT_ITS ---
Exam(s) CT CHEST WO EXAM: CT CHEST WO CLINICAL HISTORY: PULMONARY NODULE R91.1. TECHNIQUE: Imaging protocol: Axial computed tomography images were obtained and coronal and sagittal reformatted images were created and reviewed. COMPARISON: CT CT ABDOMEN PELVIS WO from 10/12/2022 FINDINGS: Tracheobronchial tree: Patent where visualized. Pulmonary parenchyma: There is a stable 5 mm nodule in the left lower lobe (series 3, image 465.). T here is a stable 6 mm nodule in the left lower lobe (series 3, image 439). There is a stable 8 mm pe ripheral nodule in the left lower lobe (series 3, image 384). There is a 6 mm nodule in the right up per lobe (series 3, image 240). There is a 6 mm perifissural nodule in the right middle lobe (series 3, image 287. There is a 4 mm nodule in the right middle lobe (series 3, image 291). There is scar ring in the lungs. No focal consolidating infiltrate is seen. Mediastinum and Lilly: No dominant adenopathy or fluid collection. The esophagus is unremarkable. Thyroid gland: Unremarkable. Pleura: No effusion or pneumothorax. Heart: The heart is not dilated. Coronary artery calcification is present. No pericardial effusion. Aorta: Thoracic aorta non-dilated. There is a an endovascular stent in the distal thoracic arch and p roximal descending thoracic aorta. Atherosclerosis is present. Upper abdomen: Unremarkable. Lymph nodes: Within normal limits. Soft tissues: Bilateral gynecomastia. Bones:Within normal limits for the patient's age. IMPRESSION: Multiple pulmonary nodules. The largest measures 8 mm and is in the left lower lobe. This nodule is stable compared to the prior examination from 10/12/2022. A follow-up examination in 6 months is rec ommended to document stability of the nodules. RADIATION DOSE DELIVERED: Total DLP Total DLP DATA REPOSITORY: All CT scans at this facility are submitted to the National Radiology Data Registry (NRDR) Dose Index Registry (DIR) with the [employer] (ACR). RADIATION OPTIMIZATION: All CT scans at this facility use at least one of these dose optimization te chniques: automated exposure control; mA and/or kV adjustment per patient size (includes targeted exa ms where dose is matched to clinical indication); or iterative reconstruction.
== END ==
PROVIDERS: PCP Nurse Practitioner Family; Visit Provider Nurse Practitioner Family
DX: R91.8 Other nonspecific abnormal finding of lung field (principal)
CPT/HCPCS: 71250

== ENCOUNTER 2023-03-28 15:04 | Outpatient (REF) | payer OTHER, SELFPAY ==
[2023-03-28 21:26] LABS: Abs Immature Grans 0.03 10^3/uL (0.0-0.06); Absolute Basophil Count 0.04 10^3/uL (0.0-0.2); Absolute Eosinophil Count 0.31 10^3/uL (0.0-0.7); Absolute Lymphocyte Count 1.95 10^3/uL (1.2-3.4); Absolute Monocyte Count 0.62 10^3/uL (0.1-0.8); Absolute Neutrophil Count 4.23 10^3/uL (1.2-6.7); Basophils % 0.6; Eosinophils % 4.3; HCT 40.7 % (40.0-50.0); HGB 13.4 g/dL (13.5-17.5); Immature Grans % 0.4; Lymphocytes % 27.2; MCH 30.3 pg (27.0-33.0); MCHC 32.9 % (32.0-36.0); MCV 92 fL (80-95); Monocytes % 8.6; Neutrophils % 58.9; Platelet Count 249 10^3/uL (130-400); RBC 4.42 10^6/uL (4.36-5.78); RDW 12.7 % (11.8-14.1); RDW-SD 43.1 fL; WBC 7.18 10^3/uL (4.4-10.8)
[2023-03-28 21:40] LABS: ALT 33 U/L (16-63); AST 26 U/L (15-37); Alkaline Phosphatase 97 U/L (46-116); Anion Gap 7.8 mmol/L (3-11); BUN 25 mg/dL (7-18); Bilirubin, Total 0.2 mg/dL (0.2-1.0); CO2 29.2 mmol/L (21.0-32.0); CREATININE 0.9 mg/dL (0.70-1.30); Calcium 9.7 mg/dL (8.5-10.1); Calculated LDL 109 mg/dL (<100); Chloride 102 mmol/L (98-107); Cholesterol 209 mg/dL (<200); Estimated GFR 94.78 (mL/min/1.73m2); Glucose 99 mg/dL (74-106); HDL Cholesterol 37 mg/dL (40-60); Potassium 4.7 mmol/L (3.5-5.1); Sodium 139 mmol/L (136-145); Total Protein 8.2 g/dL (6.4-8.2); Triglyceride 318 mg/dL (<150)
[2023-04-01 02:12] LABS: 25-Hydroxy D Total 46 ng/mL; 25-Hydroxy D2 <4.0 ng/mL; 25-Hydroxy D3 46 ng/mL
== END 2023-03-28 15:05 | disposition home or self-care (01) ==
LOC: NCHCN 15:04
PROVIDERS: PCP Nurse Practitioner Family; Visit Provider Nurse Practitioner Family
DX: E78.5 Hyperlipidemia, unspecified (principal)
CPT/HCPCS: 80053; 80061; 82306; 85025

== ENCOUNTER → 2023-04-24 03:56 | Outpatient (CLI) | payer OTHER, SELFPAY ==
--- NOTE | 2023-04-24 13:45 | DI.US_ITS ---
APPROVED REPORT EXAM: Comprehensive 2D, Doppler, and color-flow Echocardiogram Patient Location: Out-Patient Ux Developer Designer: Mitch Green RDCS (AE) Indications: aneurysm of ascending aorta Conclusion 1. LA mildly dilated, other chambers normal sizes 2. Normal LV function, EF 65-70%. Normal RV function. 3. Anatomically normal valves. Mild TR without phtn 4. No intracardiac shunt. 5. No pericardial effusion. 6. Normal aortic root. Mildly dilated ascending aorta. Wall motion Left Ventricle The left ventricle is normal size. The left ventricular systolic function is normal. The left ventric ular ejection fraction is within the normal range. There is normal left ventricular wall thickness. T here is normal LV segmental wall motion. There is no ventricular septal defect visualized. LVEF is 55 -60%. Right Ventricle The right ventricle is normal size. Right ventricular systolic function is grossly normal. Atria Left atrium is mildly dilated. Right atrium is mildly dilated. The interatrial septum is intact with no evidence for an atrial septal defect. Aortic Valve Aortic valve is calcified. There is no aortic valvular stenosis. No aortic regurgitation is present. Mitral Valve The mitral valve is normal in structure. No evidence of mitral valve stenosis. Trace mitral regurgita tion. Tricuspid Valve The tricuspid valve is normal in structure. There is no tricuspid valve stenosis. Mild tricuspid regu rgitation. The RVSP is 31.2 mmHg. Pulmonic Valve The pulmonary valve is normal in structure. There is no pulmonic valvular stenosis. There is no pulmo lyle valvular regurgitation. Great Vessels The aortic root is normal in size. The ascending aorta is mildly dilated. Aortic arch is not well vis ualized. IVC is normal in size and collapses >50% with inspiration. Pericardium There is no pericardial effusion. 2D Dimensions IVSD d PLAX 0.82 cm M: 0.6-1.2 Ao Root d 3.20 cm M: 3.1 - 3.7 LVPW d PLAX 0.77 cm M: 0.6 - 1.2 Ao Asc Diam d 3.61 cm M: 2.6 - 3.4 LVID d PLAX 4.28 cm M: 4.2 - 5.8 LVDs 2.94 cm M: 2.5 - 4.0 LV EF Teichholz 59.5 % FS 31.36 % LV EDV (Teich) 82.4 mL LV ESV (Teich) 33.3 mL Stroke Vol Index (Teich) 22.08 M-Mode TAPSE 1.88 cm (M/F) >1.7 Auto EF LV EDV A4C 64.9 mL LV EDV A2C 104.4 mL LV EDV BP 83.6 mL LV ESV A4C 28.7 mL LV ESV A2C 45.6 mL LV ESV BP 37.1 mL LVEF(%) A4C 55.8 % LVEF(%) A2C 56.3 % LVEF(%) BP 55.6 % LV SV A4C 36.2 ml LV SV A2C 58.7 ml LV SV BP 46.5 ml LV CO A4C 2.8 L/min LV CO A2C 4.7 L/min LV CO BP 3.8 L/min HR A4C 78.10 BPM HR A2C 79.83 BPM LV EDV Index (BP) LA Volume LA Length A4C 4.2 cm LA Length A2C 5.0 cm LA Area A4C s 12.24 cm2 LA Area A2C s 15.19 cm2 LA Vol A4C A-L 30.59 mL LA Vol A2C A-L 39.17 mL LA Vol Biplane A-L 38.0 mL LA Vol/BSA A4C A-L LA Vol/BSA A2C A-L LA Vol/BSA BP A-L 17.1 mL/m2 LA Vol A4C MOD 29.3 mL LA Vol A2C MOD 37.1 mL LA Vol BP MOD 35.7 mL RA Volume RA Area A4C 10.8 cm2 RA ESV A4C (A-L) 19.6mL RA Vol/BSA A4C A-L RA Length A4C 5.1 cm RA ESV A4C (MOD) 18.9mL LV Diastology MV E' medial 0.070 (>0.07 m/s) MV E Vmax 0.79 (0.4-1.3 m/s) MV E/E' MED 11.33 (<14) MV A Vmax 1.00 (0.4-1.3 m/s) MV E' lateral 0.096 (>0.1 m/s) E/A Ratio 0.8 MV E/E' LAT 8.18 (<14) MV E' Average 0.083 m/s MV E/E'(average) 9.50 Aortic Valve AoV Vmax 1.46 m/s LVOT Vmax 1.38 m/s AoV Peak Grad 8.5 mmHg LVOT Peak Grad 7.7 mmHg AoV Area (Vmax) 2.15 cm2 LVOT VTI 0.262 m AoV VTI 0.281 m LVOT Mean Grad 4.2 mmHg AoV Mean Jean-Pierre. 1.25 m/s LVOT SV 59.42 mL AoV Mean Grad 6.5 mmHg LVOT Diam s 1.70 cm AoV Area (VTI) 2.12 cm2 Velocity Ratio 0.95 Mitral Valve MV DT 293 (160-240 msec) Pulmonary Valve PV Vmax 1.21 (0.5-1.5 m/s) RVOT Vmax 0.98 m/s PV Peak Grad 5.9 mmHg RVOT Peak Gr. 3.8 mmHg PV Mean Jean-Pierre 0.81 m/s RVOT VTI 0.163 m PV Mean Grad 3.1 mmHg RVOT Mean Gr. 2.4 mmHg Tricuspid Valve RA Pressure 3.00 mmHg TR Vmax 2.66 m/s TR Peak Grad 28.2 mmHg RVSP (TR) 31.2 mmHg
== END ==
PROVIDERS: PCP Nurse Practitioner Family; Visit Provider Nurse Practitioner Family
DX: I71.40 Abdominal aortic aneurysm, without rupture, unspecified (principal)
CPT/HCPCS: 93306

== ENCOUNTER 2023-06-06 12:22 | Outpatient (REF) | payer OTHER, SELFPAY ==
[2023-06-06 15:52] LABS: Hemoglobin A1C 6.2 % (<5.7)
== END 2023-06-06 12:23 | disposition home or self-care (01) ==
LOC: NCHCN 12:22
PROVIDERS: PCP Nurse Practitioner Family; Visit Provider Nurse Practitioner Family
DX: E11.9 Type 2 diabetes mellitus without complications (principal)
CPT/HCPCS: 83036

== ENCOUNTER → 2023-06-19 12:49 | Outpatient (BNVA) | payer OTHER, SELFPAY | PROVIDERS: PCP Nurse Practitioner Family; Visit Provider Nurse Practitioner Gerontology | DX: N31.9 Neuromuscular dysfunction of bladder, unspecified (principal) | CPT/HCPCS: 99215 ==

== ENCOUNTER → 2023-10-06 00:26 | Outpatient (CLI) | payer OTHER, SELFPAY ==
--- NOTE | 2023-10-06 | DI.US_ITS ---
Exam(s) US ABDOMEN LIMITED EXAM: US ABDOMEN LIMITED CLINICAL HISTORY: Steatosis of liver, K76.0 TECHNIQUE: Ultrasound abdomen performed using standard protocol. COMPARISON: CT CT ABDOMEN PELVIS WO from 10/12/2022 FINDINGS: LIVER: Enlarged at 18 cm in length. Moderate hepatic steatosis. No focal liver lesions are seen. GALLBLADDER: No evidence of cholelithiasis. No evidence of wall thickening. No pericholecystic fluid identified. JACKSON'S SIGN: Negative. BILIARY SYSTEM: No intrahepatic or extrahepatic biliary ductal dilation. Right kidney: No evidence of renal calculi. No evidence of hydronephrosis. No renal mass or cyst iden tified. PANCREAS: Normal where visualized. SPLEEN: Not enlarged. ABDOMINAL AORTA AND IVC: Visualized portions normal caliber. ASCITES: None seen. IMPRESSION: Enlarged liver with moderate hepatic steatosis. DATA REPOSITORY:
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
--- OUTSIDE RECORDS SUMMARY | 2023-10-06 00:28 | XMS_ITS | Encounter Summary ---
Author Organization [facility] Address [address] [place] [address] Care Team Providers Care Pre Billing Specialist Name Role Phone Unknown, Provider Primary Care Provider [phone] Encounter Details Date Type Department Care Team (Late st Contact Info) Description 02/02/2021 Lab Requisition [facility] Pathology & Laboratory Medicine - [facility] [address] [place] [address] Outr Resulting Lab, Provider Social History Tobacco Use Types Packs/Day Years Used Date Smoking Tobacco: Former Cigarettes 1 30 0 09/23/1978 - 09/23/2008 Alcohol Use Standard Drinks/Week Comments Yes 1 (1 standard drink = 0.6 oz pur e alcohol) recreational Sex and Gender Information Value Date Recorded Sex Assigned at Not on file Gender Identity Not on file Sexual Orientation Not on file documented as of this encounter Plan of Treatment Not on file documented as of this encounter Procedures Procedure Name Priority Date/Time Associated Diagnosis Comments HIV 1/2 ANTIGEN AND ANTIBODY, 4TH GENERATION Routine 02/02/2021 7:15 EST documented in this encounter Results * HIV 1/2 ANTIGEN AND ANTIBODY, 4TH GENERATION (02/02/2021 7:15 EST) HIV 1 and 2 Antibody/p24 Antigen, 4th Generation Negative Negative 02/03/2021 9:25 EST [facility] Comment:If acute HIV-1 infec tion is suspected in a high risk patient, submit plasma specimen for HIV-1 RNA quantitation test. Blood VENOUS BLOOD / Unknown 02/02/2021 7:15 EST 02/02/2021 21:15 EST Narrative [facility] - 02/03/2021 9:25 EST Fourth Generation assay performed on the Siemens Centaur XPT. Provider Outr Resulting Lab IMMUNOLOGY A ND SEROLOGY ORDERABLES [facility] [address] [place] [address] documented in this encounter Visit Diagnoses Not on filedocumented in this encounter Care Teams Pre Billing Specialist Relationship Specialty Start Date End Date Unknown, Provider, PCP - General 10/23/08 documented as of this encounter
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
--- OUTSIDE RECORDS SUMMARY | 2023-10-06 00:28 | XMS_ITS | Encounter Summary ---
Author Organization [facility] Address [address] [place] [address] Care Team Providers Care Wardrobe Coordinator Name Role Phone Unknown, Provider Primary Care Provider [phone] Encounter Details Date Type Department Care Team (Late st Contact Info) Description 01/13/2020 Lab Requisition [facility] Pathology & Laboratory Medicine - [facility] [address] [place] [address] Outr Resulting Lab, Provider Social History Tobacco Use Types Packs/Day Years Used Date Smoking Tobacco: Never Assessed Sex and Gender Information Value Date Recorded Sex Assigned at Not on file Gender Identity Not on file Sexual Orientation Not on file documented as of this encounter Plan of Treatment Not on file documented as of this encounter Procedures Procedure Name Priority Date/Time Associated Diagnosis Comments ZZCOVID-19 TEST [facility] PCR Today 01/13/2020 17:11 EDT COVID-19 TESTING Routine 01/13/2020 17:1 1 EDT documented in this encounter Results * COVID-19 TEST [facility] PCR (01/13/2020 17:11 EDT) Swab ENTIRE NASOPHARYNX / Unknown 01/13/2020 17:11 EDT 01/13/2020 20:52 EDT Provider Outr Resulting Lab MICROBIOLOGY - GENERAL ORDERABLES [facility] [address] [place] [address] * COVID-19 TESTING (01/13/2020 17:11 EDT) COVID-19 rt-PCR Result Negative Negative 01/14/2020 0:17 EDT [facility] Comment: This test has not been FDA cleared or approved. This test has been authorized by FDA under an EUA for use by authorized laboratories. This test has been authorized only for detection of nucleic acid from 2019-nCoV, not for any other viruses or pathogens. This test is only authorized for the duration of the declaration that circumstances exist justifying the authorization of emergency use of in vitro diagnostic tests for detection and/or diagnosis of 2019-nCoV under section 564(b)(1) of Act, 21 U.S.C ?? 360bbb-3(b) (1), unless the authorization is terminated or revoked sooner. Negative results do not preclude 2019-nCoV infection and should not be used as the sole basis for treatment or other patient management decisions. Negative results must be combined with clinical observations, patient history, and epidemiological information. Performed on the [employer] Fusion instrument Performing Lab [place] [facility] 01/14/2020 0:17 EDT [facility] Swab 01/13/2020 17:1 1 EDT 01/13/2020 20:52 EDT Provider Outr Resulting Lab MICROBIOLOGY - GENERAL ORDERABLES [facility] [address] [place] [address] documented in this encounter Visit Diagnoses Not on filedocumented in this encounter Care Teams Wardrobe Coordinator Relationship Specialty Start Date End Date Unknown, Provider, PCP - General 10/23/08 documented as of this encounter
--- OUTSIDE RECORDS SUMMARY | 2023-10-06 00:28 | XMS_ITS | Encounter Summary ---
Author Organization [facility] Address [address] [place] [address] Care Team Providers Care Outside Physical Damage Appraiser Name Role Phone Unknown, Provider Primary Care Provider [phone] Encounter Details Date Type Department Care Team (Late st Contact Info) Description 02/02/2021 Lab Requisition [facility] Pathology & Laboratory Medicine - [address] [address] Outr Resulting Lab, Provider Social History Tobacco [...] Procedure Name Priority Date/Time Associated Diagnosis Comments CHRONIC HEPATITIS PROFILE, UNKNOWN TYPE Routine 02/02/2021 7:15 EST documented in this encounter Results * CHRONIC HEPATITIS PROFILE, UNKNOWN TYPE (02/02/2021 7:15 EST) Hep B Surface Ag Negative Negative 02/04/20 9:50 EST [facility] Hep B Surface Ab, Quantitative <3.1 See Note mIU/mL 02/03/2021 9:50 EST [facility] Comment: Reference Range for Hep B Surface Ab, Quant: Positive: >= 10.0 mIU/mL Negative: ??< 10.0 mIU/mL Patient is presumed to not be immune to infection with Hepatitis B Virus. Hep B Surface Ab, Qualitative Negative See Note 02/03/2021 9:50 EST [facility] Comment: Reference Range for Hep B Surface Ab, Qual: Unvaccinated: ??Negative Vaccinated: ??Positive Hepatitis B Core Ab, Total Negative Negative 02/03/2021 9:50 EST [facility] Hep C Antibody Negative Negative 02/03/2021 9:50 EST [facility] Blood VENOUS BLOOD / Unknown 02/02/2021 7:15 EST 02/02/2021 21:15 EST Provider Outr Resulting Lab CHEMISTRY & BLOOD GAS ORDERABLES [facility] [address] [place] [address] documented in this encounter Visit Diagnoses Not on filedocumented in this encounter Care Teams Outside Physical Damage Appraiser Relationship Specialty Start Date End Date Unknown, Provider, PCP - General 10/23/08 documented as of this encounter
--- OUTSIDE RECORDS SUMMARY | 2023-10-06 00:29 | XMS_ITS | Encounter Summary ---
Author Organization [facility] [place] [address] Care Team Providers Care Special Education Professional Name Role Phone Martha Dempsey MD Primary Care Provider [phone] Encounter Details Date Type Department Care Team (Late st Contact Info) Description 04/28/2022 Ancillary Procedure [place] [id number] Yen Diamond APRN [address] [place] [address] Social History Tobacco Use Types Packs/Day Years Used Date Smoking Tobacco: Former Cigarettes 1 40 0 09/23/1968 - 09/23/2008 Smokeless Tobacco: Never Alcohol Use Standard Drinks/Week Comments No 0 (1 standard drink = 0.6 oz pur e alcohol) Sex and Gender Information Value Date Recorded Sex Assigned at Not on file Gender Identity Not on file Sexual Orientation Not on file documented as of this encounter Plan of Treatment Not on file documented as of this encounter Procedures Procedure Name Priority Date/Time Associated Diagnosis Comments FILM LIBRARY STORAGE ONLY ULTRASOUND STUDY Routine 04/28/2022 12:00 AM EST documented in this encounter Results * Film Library- Storage Only Ultrasound Study (04/28/2022 12:00 AM EST) Narrative [facility] - 12/08/2022 3:02 PM EDT This exam is auto-finalizing. It's purpose is for storage only. Yen Diamond APRN IMG FILM LIBRARY ORDERABLES Performing Organization Address City/State/[facility] Co de Phone Number [place], [place] documented in this encounter Visit Diagnoses Not on filedocumented in this encounter Care Teams Special Education Professional Relationship Specialty Start Date End Date Martha Dempsey MD [address] [place] [address] PCP - General 02/09/10 10/16/22 documented as of this encounter
--- OUTSIDE RECORDS SUMMARY | 2023-10-06 00:29 | XMS_ITS | Encounter Summary ---
Author Organization [facility] [place] [address] Care Team Providers Care Lead Game Designer Name Role Phone Yen Diamond APRN Primary Care Provider [phone] Reason for Referral * Diagnostic Test (Routine) - Closed Specialty Diagnoses / Procedures Referred By Contac t Referred To Contact Radiology Diagnoses Infrarenal abdominal aortic aneurysm (AAA) without rupture Procedures CT Angiogram Abdomen & Pelvis w Contrast (Generic) Tisha Cardona MD [facility] [place] [address] [facility] [place] [address] Referral ID Status Reason Start Date Expiration Date V isits Requested Visits Authorized [id number] Closed Specialty Service Requested 12/08/2022 06/07/2024 1 1 Reason for Visit * Consultation (Routine) - Closed Specialty Diagnoses / Procedures Referred By Contac t Referred To Contact Vascular Surgery Diagnoses Abdominal aortic aneurysm (AAA) without rupture, unspecified part ROUTINE, , IMAGING IN CHART Yen Diamond APRN [address] [place] [address] [facility] [address] [place] [address] Referral ID Status Reason Start Date Expiration Date V isits Requested Visits Authorized [id number] Closed Consult, Test & Treat PCP Updated and/or Approved 10/25/2022 10/25/2023 1 1 Encounter Details Date Type Department Care Team (Late st Contact Info) Description 12/06/2022 3:30 PM EDT Office Visit Vascular Surgery at [facility] [place] [address] Tisha Cardona MD [facility] [place] [address] Infrarenal abdominal aortic aneurysm (AAA) without rupture Social History Tobacco Use Types Packs/Day Years [...] on file documented as of this encounter Last Filed Vital Signs Vital Sign Reading Time Taken Comments Blood Pressure 142/64 12/06/2022 3:09 PM EDT Pulse 89 12/06/2022 3:09 PM EDT Temperature - - Respiratory Rate - - Oxygen Saturation - - Inhaled Oxygen Concentration - - Weight 108.9 kg (240 lb) 12/06/2022 3:09 PM EDT Height 175.3 cm (5' 9) 12/06/2022 3:09 PM EDT Body Mass Index 35.44 12/06/2022 3:09 PM EDT documented in this encounter Progress Notes * Tisha Cardona MD - 12/06/2022 3:30 PM EDT Images from the original note were not included[place] [address] Name: Teo Areans Date: 12/06/2022 Time: 3:16 PM Primary Care Provider: Yen Diamond APRN Referring Provider: Yen Diamond APRN [address] [place] [address] Chief Complaint: AAA History of Present Illness: Teo Arenas is a 67 y.o. male referred for an opinion regarding management of an incidentallynoted 3.1 cm AAA. He reports strong family history of abdominal aortic aneurysms. He does report that a brother did of a ruptured AAA. He is a former smoker. He denies any recent episodes of abdominal pain. He underwent the CT scan in September 2022 evaluation for testicular pain and hematuria at which time the AAA was noted. Of note he did undergo a screening duplex in April 2022, this was reportedly negative for aneurysm. Past Medical History: Past Medical History: Diagnosis Date Arthritis Cardiac disease Cataract Depression 02/24/2011 Dry mouth Hyperlipidemia Hypertension Trauma Past Surgical History: Past Surgical History: Procedure Laterality Date ORBITAL SURGERY Right 2008 PRO ARTHROPLASTY KNEE CONDYLE & PLATEAU MEDIAL & LAT COMPARTMENTS 02/22/2011 ??TOTAL KNEE ARTHROPLASTY performed by MACRINA ARGUELLES at [facility] OR RETINAL LASER SURGERY Right 08/03/2018 PRP for BRVO - DM Family/Social History: Family History Problem Relation Age of Onset Amblyopia Sister Cataracts Neg Hx Diabetes Neg Hx Glaucoma Neg Hx Macular Degeneration Neg Hx Retinal Detachment Neg Hx Strabismus Neg Hx Thyroid Disease Neg Hx Social History Tobacco Use Smoking status: Former Packs/day: 1.00 Years: 40.00 Pack years: 40.00 Types: Cigarettes Quit date: 09/23/2008 Years since quittin.2 Smokeless tobacco: Never Substance Use Topics Alcohol use: No Drug use: No Outpatient Medications: Current Outpatient Medications Medication Sig Dispense Refill baclofen (LIORESAL) 10 mg Tablet 0 aspirin 81 mg Tablet, Chewable Take 81 mg by mouth daily. lisinopril (PRINIVIL;ZESTRIL) 10 mg Tablet Take 10 mg by mouth daily. oxyCODONE (ROXICODONE) 10 mg Tablet Take 10 mg by mouth as needed. 0 pravastatin (PRAVACHOL) 20 mg Tablet Take 20 mg by mouth nightly. 0 morphine (MSIR) 15 mg Tablet Take 15 mg by mouth every 4 hours as needed for Pain. ascorbic acid (VITAMIN C) 500 mg tablet Take 2 tablets by mouth daily. 30 tablet 3 DULoxetine (CYMBALTA) 30 mg capsule Take 30 mg by mouth daily. gabapentin (NEURONTIN) 600 mg tablet 300 MG = 1 Capsule(s), PO, Three times daily oxybutynin (DITROPAN) 5 mg tablet 5 MG = 1 Tablet(s) PO Three times daily No current facility-administered medications for this visit. Allergies No Known Allergies Physical exam BP 142/64 (BP Location (NBP): Left arm, Patient Position: Sitting, BP Cuff Sizes: Adult (25-34 cm)) Pulse 89 Ht 175.3 cm (5' 9) Wt 108.9 kg (240 lb) BMI 35.44 kg/m?? The patient appears comfortable, alert, oriented and in no distress. Lungs are clear, heart is regular and abdomen is nontender nondistended. Radiology: I have personally reviewed the available imaging/data CT scan 10/12/22 Impression: 1. No evidence of nephrolithiasis or hydronephrosis. 2. 3 left lower lobe pulmonary nodules. Low risk patients, 6 to 12-month follow- up CT scan is recommended. 3. 3.1 x 2.9 cm infrarenal abdominal aortic aneurysm. 4. Cholelithiasis without evidence to suggest acute cholecystitis. Impression: 67 y.o. male presenting with an incidentally noted 3.1 cm AAA. We did discuss the natural history of abdominal aortic aneurysms. It is somewhat unusual that his screening duplex in April was negative. He does have a larger body habitus with a BMI of 35, however I will work to obtain the duplex and CT imaging to better evaluate the morphology of his aneurysm. If the aneurysm does appear to be unusual in morphology on his CT, we will plan to repeat imaging in 3 months to evaluate the rate of progression. Alarm symptoms discussed. - will work to obtain his CT scan and duplex - pending imaging review, will plan for likely repeat CTA in 2-3 months to eval progression given no aneurysm seen on duplex in April Thank you for allowing me to participate in the care of your patient. Please do not hesitate to contact me with any questions or concerns. Tisha Cardona MD, MPH Division of Vascular Surgery [facility] [place] [address] e: [email or web address] o: [phone] F: [phone] 12/06/2022 3:16 PM documented in this encounter Plan of Treatment Not on file documented as of this encounter Results * CT Angiogram Abdomen & Pelvis w Contrast (Generic) (02/24/2023 1:38 PM EST) Anatomical Region Laterality Modality Abdomen, Pelvis Computed Tomogra phy Impressions 02/24/2023 4:36 PM EST 1. ??Unchanged infrarenal abdominal aortic aneurysm measuring 3.1 cm. 2. ??Unchanged appearance of an IVC filter with multiple struts extruding beyond the cruz of the inferior vena cava and at least one strut abutting the right lateral wall of the abdominal aorta. 3. ??Cholelithiasis without specific CT evidence of acute cholecystitis. However, the common bile duct does measure up to 1.2 cm in diameter, but there is no intrahepatic biliary dilatation, and the common bile duct tapers to the sphincter of Oddi.. Recommend correlation with any clinical signs and symptoms of cholecystitis or biliary obstruction. If there is concern for sphincter of Oddi dysfunction, HIDA scan can be considered for further evaluation. 4. ??Unchanged 7 mm pulmonary nodules of the left lower lobe. The current CT has been obtained approximately [address] abdomen and pelvis from September 2022. According to Fleischner guidelines, follow-up CT in 18-24 months after the initial September 2022 CT can be considered for low risk patients and is recommended for high-risk patients. Thank you for letting us participate in the care of this patient. ??If you are a health care provider and have any questions regarding this report, please contact the number below. ??For patients who have questions please contact the health healthcare insurance sales agent that requested your imaging first. ? Electronically signed by: Helena Ortiz MD, [facility] ([phone]), at 02/24/2023 4:36 PM Narrative 02/24/2023 4:36 PM EST EXAMINATION: CT ANGIOGRAM ABDOMEN AND PELVIS W CONTRAST (GENERIC) CLINICAL HISTORY: hx 3.1 cm AAA, eval for change (as entered by ordering provider in the order requisition) TECHNIQUE: Helical CT angiogram of the abdomen and pelvis following the intravenous administration of contrast. Administered 71.0 ml of OMNIPAQUE 350.00 mg/ml. Maximum intensity projection (MIP) were reformatted. Multiplanar images were reviewed and 3-D images were generated on an independent workstation. COMPARISON: CT abdomen and pelvis 10/12/2022. Ultrasound of the abdominal aorta 04/28/2022. FINDINGS: VASCULAR FINDINGS Abdominal aorta: Scattered atherosclerotic calcification of the abdominal aorta. There is an infrarenal abdominal aortic aneurysm measuring 3.1 x 2.9 cm, previously 3.2 x 3.0 cm, essentially unchanged, accounting for differences in slice selection for measurement. Celiac: No stenosis. SMA: No stenosis. Right renal artery: Single right renal artery. No stenosis. Left renal artery: There are 2 left renal arteries. There is a small focus of calcification at the origin of the more superior left renal artery, but there is no appreciable narrowing at its origin. RON: No stenosis. Right: Common iliac artery: No stenosis. Internal iliac artery: No stenosis. External iliac artery: No stenosis. Common femoral artery: No stenosis. Left: Common iliac artery: No stenosis. Internal iliac artery: No stenosis. External iliac artery: No stenosis. Common femoral artery: No stenosis. Other vascular: There is an IVC filter. One of the left-sided struts extends beyond the left lateral wall of the inferior vena cava and abuts the right lateral wall of the aorta (series 9, image 122). Other struts also extend beyond the cruz of the inferior vena cava (series 8, image 334). This appearance is unchanged when compared to 10/12/2022. NON-VASCULAR FINDINGS Lower chest: Unchanged 7 mm pleural-based nodule of the left lower lobe (series 8, image 41). Unchanged 7 mm subpleural nodule of the posterior left lower lobe (series 8, image 85). Liver: Normal. Bile ducts: The common bile duct measures up to 1.2 cm in the region of the pancreatic head and tapers towards the sphincter of Oddi. No appreciable intrahepatic biliary dilatation. Gallbladder: Partially decompressed with a radiodense gallstones near the gallbladder neck. No pericholecystic stranding or pericholecystic fluid. Pancreas: Normal parenchyma. Spleen: Probable small splenule in the splenic hilum. Adrenals: Normal. Kidneys: Normal. Urinary Bladder: Normal. Lymph Nodes: No enlarged lymph nodes. Bowel: Nondilated, no wall thickening. Normal appendix. There are postoperative changes in the small bowel with anastomosis in the right abdomen. This appearance is unchanged when compared to September 2022. Peritoneum and retroperitoneum: No hemorrhage. No pneumoperitoneum. No fluid collection or mesenteric inflammation. Abdominal wall: Bilateral fat-containing inguinal hernias. Reproductive organs: Normal contours. Osseous structures: There is a defect in the posterior right ilium presumably representing a site of bone graft harvesting. Associated lucency in the posterior right ilium measures fat attenuation and could represent focal fatty marrow or small intraosseous lipoma. Postoperative changes of L3-4 posterior decompression and fusion. Hardware is intact. No screw backout. There is solid bony fusion of the posterior lateral masses. 5 mm retrolisthesis of L3 on L4. There is disc space narrowing L3-4. There is disc space narrowing at T12-L1 and L1-L2. There is multilevel degenerative disc disease of the lower thoracic spine. This facet arthropathy L4-5 and L5-S1. Procedure Note Helena Ortiz MD - 02/24/2023 EXAMINATION: CT ANGIOGRAM ABDOMEN AND PELVIS W CONTRAST (GENERIC) CLINICAL HISTORY: hx 3.1 cm AAA, eval for change (as entered by ordering provider in the order requisition) TECHNIQUE: Helical CT angiogram of the abdomen and pelvis following the intravenous administration of contrast. Administered 71.0 ml of PNSWHGWVH503.00 mg/ml. Maximum intensity projection (MIP) were reformatted. Multiplanarimages were reviewed and 3-D images were generated on an independentworkstation. COMPARISON: CT abdomen and pelvis 10/12/2022. Ultrasound of the abdominalaorta 04/28/2022. FINDINGS: VASCULAR FINDINGS Abdominal aorta: Scattered atherosclerotic calcification of the abdominalaorta. There is an infrarenal abdominal aortic aneurysm measuring 3.1 x 2.9 cm, previously 3.2 x 3.0 cm, essentially unchanged, accounting for differencesin slice selection for measurement. Celiac: No stenosis. SMA: No stenosis. Right renal artery: Single right renal artery. No stenosis. Left renal artery: There are 2 left renal arteries. There is a small focusof calcification at the origin of the more superior left renal artery, butthere is no appreciable narrowing at its origin. RON: No stenosis. Right: Common iliac artery: No stenosis. Internal iliac artery: No stenosis. External iliac artery: No stenosis. Common femoral artery: No stenosis. Left: Common iliac artery: No stenosis. Internal iliac artery: No stenosis. External iliac artery: No stenosis. Common femoral artery: No stenosis. Other vascular: There is an IVC filter. One of the left-sided strutsextends beyond the left lateral wall of the inferior vena cava and abuts theright lateral wall of the aorta (series 9, image 122). Other struts also extendbeyond the cruz of the inferior vena cava (series 8, image 334). This appearanceis unchanged when compared to 10/12/2022. NON-VASCULAR FINDINGS Lower chest: Unchanged 7 mm pleural-based nodule of the left lower lobe(series 8, image 41). Unchanged 7 mm subpleural nodule of the posterior left lowerlobe (series 8, image 85). Liver: Normal. Bile ducts: The common bile duct measures up to 1.2 cm in the region ofthe pancreatic head and tapers towards the sphincter of Oddi. No appreciable intrahepatic biliary dilatation. Gallbladder: Partially decompressed with a radiodense gallstones nearthe gallbladder neck. No pericholecystic stranding or pericholecystic fluid. Pancreas: Normal parenchyma. Spleen: Probable small splenule in the splenic hilum. Adrenals: Normal. Kidneys: Normal. Urinary Bladder: Normal. Lymph Nodes: No enlarged lymph nodes. Bowel: Nondilated, no wall thickening. Normal appendix. There arepostoperative changes in the small bowel with anastomosis in the right abdomen. This appearance is unchanged when compared to September 2022. Peritoneum and retroperitoneum: No hemorrhage. No pneumoperitoneum. Nofluid collection or mesenteric inflammation. Abdominal wall: Bilateral fat-containing inguinal hernias. Reproductive organs: Normal contours. Osseous structures: There is a defect in the posterior right iliumpresumably representing a site of bone graft harvesting. Associated lucency in the posterior right ilium measures fat attenuation and could represent focalfatty marrow or small intraosseous lipoma. Postoperative changes of L3-4posterior decompression and fusion. Hardware is intact. No screw backout. There issolid bony fusion of the posterior lateral masses. 5 mm retrolisthesis of L3 onL4. There is disc space narrowing L3-4. There is disc space narrowing [id number] and L1-L2. There is multilevel degenerative disc disease of the lowerthoracic spine. This facet arthropathy L4-5 and L5-S1. IMPRESSION 1. Unchanged infrarenal abdominal aortic aneurysm measuring 3.1 cm. 2. Unchanged appearance of an IVC filter with multiple struts extrudingbeyond the cruz of the inferior vena cava and at least one strut abutting theright lateral wall of the abdominal aorta. 3. Cholelithiasis without specific CT evidence of acute cholecystitis.However, the common bile duct does measure up to 1.2 cm in diameter, but there isno intrahepatic biliary dilatation, and the common bile duct tapers to the sphincter of Oddi.. Recommend correlation with any clinical signs andsymptoms of cholecystitis or biliary obstruction. If there is concern for sphincterof Oddi dysfunction, HIDA scan can be considered for further evaluation. 4. Unchanged 7 mm pulmonary nodules of the left lower lobe. The currentCT has been obtained approximately [address] abdomen and pelvis fromSeptember 2022. According to Fleischner guidelines, follow-up CT in 18-24 monthsafter the initial September 2022 CT can be considered for low risk patients and isrecommended for high-risk patients. Thank you for letting us participate in the care of this patient. If youare a health care provider and have any questions regarding this report,please contact the number below. For patients who have questions please contactthe health healthcare insurance sales agent that requested your imaging first. Tisha Cardona MD IMG CT ORDERABLES * Creatinine (02/24/2023 12:49 PM EST) Creatinine 0.80 0.80 - 1.50 mg/dL [facility] Estimated GFR 98 >=60 mL/min/1. 73 m?? [facility] Comment: This patient's estimated GFR was calculated using the 2020 CKD-EPI equation. The estimated GFR can vary from the measured GFR by up to 30% in the absence of rapidly changing kidney function. Assessment of the estimated GFR is not appropriate when creatinine concentrations are rapidly changing. For clinical situations in which a more precise estimate of GFR is necessary, consider alternative methods of GFR estimation such as a 24-hour urine creatinine clearance. Assignment of CKD stage 1-5 for patients with an eGFR near the transition point between stages may be based on clinical assessment of muscle mass and symptoms in addition to eGFR. Blood 02/24/2023 12:4 9 PM EST 02/24/2023 1:01 PM EST Narrative Resulting Agency Comment Spec In Lab Tisha Cardona MD CHEMISTRY ORDERABLES Performing Organization Address City/State/[facility] Co de Phone Number [facility] [place] [address] documented in this encounter Visit Diagnoses Diagnosis Infrarenal abdominal aortic aneurysm (AAA) without rupture Infrarenal abdominal aortic aneurysm (AAA) without rupture documented in this encounter Care Teams Lead Game Designer Relationship Specialty Start Date End Date Yen Diamond APRN [address] [place] [address] PCP - General Family Medicine 10/17/22 documented as of this encounter
--- OUTSIDE RECORDS SUMMARY | 2023-10-06 00:29 | XMS_ITS | Encounter Summary ---
[place] [address] Care Team Providers Care Basket Maker Name Role Phone Yen Diamond APRN Primary Care Provider [phone] Reason for Referral * Consultation (Routine) - Closed Specialty Diagnoses / Procedures Referred By Contmichael t Referred To Contact Gastroenterology Diagnoses Chronic cutaneous venous stasis ulcer Fatty liver Elevated alkaline phosphatase level liver- fatty liver elevated alkaline phosphatase Yen Diamond APRN [address] [place] [address] [facility] [address] [place] [address] Referral ID Status Reason Start Date Expiration Date V isits Requested Visits Authorized [id number] Closed Consult, Test & Treat PCP Updated and/or Approved 10/18/2022 10/18/2023 12 12 Encounter Details Date Type Department Care Team (Latest Contact Info) Description 10/18/2022 Transcribe Orders eDH Incoming Referrals [phone] Yen Diamond APRN [address] [place], [place] [id number] Chronic cutaneous venous stasis ulcer; Fatty liver; Elevated alkaline phosphatase level Social History Tobacco Use Types Packs/Day Years [...] as of this encounter Plan of Treatment Scheduled Referrals Name Type Priority Associated Diagnoses Order Schedule Referral to Gastroenterology Outpatient Referral Routine Chronic cutaneous venous stasis ulcer Fatty liver Elevated alkaline phosphatase level Ordered: 10/18/2022 documented as of this encounter Visit Diagnoses Diagnosis Chronic cutaneous venous stasis ulcer Fatty liver Other chronic nonalcoholic liver disease Elevated alkaline phosphatase level Other nonspecific abnormal serum enzyme levels documented in this encounter Care Teams Basket Maker Relationship Specialty Start Date End Date Yen Diamond APRN [address] [place] [address] PCP - General Family Medicine 10/17/22 documented as of this encounter
--- OUTSIDE RECORDS SUMMARY | 2023-10-06 00:29 | XMS_ITS | Encounter Summary ---
Author Organization [facility] Address [facility] [place] [address] Care Team Providers Care Lactation Coordinator Name Role Phone Martha Dempsey MD Primary Care Provider [phone] Encounter Details Date Type Department Care Team (Late st Contact Info) Description 08/23/2016 4:30 PM EDT - 08/23/2016 11:59 PM EDT Hospital Encounter XRay at [address] [place] [address] Shea Asencio APRN [facility] [place] [address] S/P left knee arthroscopy Discharge Disposition: Home Social History Tobacco Use Types Packs/Day Years [...] on file documented as of this encounter Medications at Time of Discharge Medication Sig Dispensed Refills Start Date End Date lisinopril (PRINIVIL;ZESTRIL) 10 mg Tablet Take 10 mg by mouth daily. oxyCODONE (ROXICODONE) 10 mg Tablet Take 10 mg by mouth as needed. 0 06/21/2015 pravastatin (PRAVACHOL) 20 mg Tablet Take 20 mg by mouth nightly. 0 06/15/2015 morphine (MSIR) 15 mg Tablet Take 15 mg by mouth every 4 hours as needed for Pain. ascorbic acid (VITAMIN C) 500 mg tablet Take 2 tablets by mouth daily. 30 tablet 3 02/24/2011 DULoxetine (CYMBALTA) 30 mg capsule Take 30 mg by mouth daily. gabapentin (NEURONTIN) 600 mg tablet 300 MG = 1 Capsule(s), PO, Three times daily 10/01/2009 oxybutynin (DITROPAN) 5 mg tablet 5 MG = 1 Tablet(s) PO Three times daily 10/01/2009 documented as of this encounter Plan of Treatment Not on file documented as of this encounter Procedures Procedure Name Priority Date/Time Associated Diagnosis Comments XR KNEE AP & LAT LEFT Routine 08/23/2016 5:08 PM EDT S/P left knee arthroscopy documented in this encounter Results * XR Knee 1-2 Views Left (Generic) (08/23/2016 5:08 PM EDT) Anatomical Region Laterality Modality Knee Left Digital Radiogra phy Impressions 08/23/2016 5:10 PM EDT Stable appearance of the left knee joint prosthesis Narrative 08/23/2016 5:10 PM EDT EXAMINATION: XR KNEE 1-2 VIEWS LEFT (GENERIC) CLINICAL HISTORY: lt tka TECHNIQUE: 2 views of the left knee COMPARISON: 07/13/2015 FINDINGS: The components of the left knee joint prosthesis appear intact, stable compared with the prior exam. There are no changes to suggest loosening or instability. Ossicle adjacent to the medial femoral condyle and several ossicles posteriorly and laterally at the joint line are unchanged. Procedure Note Mateusz Merlos MD - 08/23/2016 EXAMINATION: XR KNEE 1-2 VIEWS LEFT (GENERIC) CLINICAL HISTORY: lt tka TECHNIQUE: 2 views of the left knee COMPARISON: 07/13/2015 FINDINGS: The components of the left knee joint prosthesis appear intact, stablecompared with the prior exam. There are no changes to suggest loosening orinstability. Ossicle adjacent to the medial femoral condyle and several ossiclesposteriorly and laterally at the joint line are unchanged. IMPRESSION Stable appearance of the left knee joint prosthesis Shea Asencio APRN IMG DX ORDER CLAUDIA documented in this encounter Visit Diagnoses Diagnosis S/P left knee arthroscopy Other postprocedural status documented in this encounter Care Teams Lactation Coordinator Relationship Specialty Start Date End Date Martha Dempsey MD [address] [place] [address] PCP - General 02/09/10 10/16/22 documented as of this encounter
--- OUTSIDE RECORDS SUMMARY | 2023-10-06 00:29 | XMS_ITS | Encounter Summary ---
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 1. 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 Posterior vitreous detachment, left eye Main Ophthalmology Exam External Exam Right Left External Normal Normal Slit Lamp Exam Right Left Lids/Lashes Normal Normal Conjunctiva/Sclera White and quiet White and quiet Cornea Clear Clear Anterior Chamber Deep and quiet Deep and quiet Iris Round and reactive Round and reactive Lens 1+ Nuclear sclerosis 1+ Nuclear sclerosis Fundus Exam Right Left Vitreous PVA PVD Disc Normal Normal C/D Ratio 0.1 0.1 Macula Normal Normal Vessels Collaterals superiorly Normal Periphery small NVEs ST, 1+ DBHs superiorly, Microaneurysms, DBHs, CDR 0.2, macula, Attrached 1. BRVO OD (Dx 06/2018) Teo Arenas is here today for 4 week follow up for BRVO. - today's exam and imaging reveals new NVEs ST OD. Recommended PRP ST OD 2. PVD OS - observe at this time 3. NS OU - monitor Fu 1wk MSO PRP PD Follow up 4-5 weeks for DFE, OCT OU Sooner PRN I, Osmany Cha, have performed the documentation for this encounter in the presence of, and acting as a scribe for Constanza Toro MD. I performed the services which were documented by the scribe, and I agree with the accuracy of the documentation in this encounter. 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 Mid/Late phase findings include delayed filling. Choroidal neovascularization is not present. Left Eye Early phase findings include normal observations. Mid/Late phase findings include normal observations. Choroidal neovascularization is not present. Notes OD: non perfusion, collaterals and NVEs ST Constanza Toro MD OPHTHALMOLOGY SERVICES ORDERABLES * OCT Oqargc-II-UZJI EYES (07/26/2018 1:45 PM EDT) Anatomical Region Laterality Modality Other Narrative 07/26/2018 1:45 PM EDT Right Eye Quality was good. Scan locations included subfoveal. Progression has been stable. Findings include normal observations, normal foveal contour. Left Eye Quality was good. Scan locations included subfoveal. Progression has been stable. Findings include normal foveal contour, normal observations. 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
--- OUTSIDE RECORDS SUMMARY | 2023-10-06 00:29 | XMS_ITS | Encounter Summary ---
Author Organization [facility] Address [facility] [place] [address] Care Team Providers Care Mental Health Assistant Name Role Phone Martha Dempsey MD Primary Care Provider [phone] Reason for Visit * Reason Comments Retinal Vein Occlusion Encounter Details Date Type Department Care Team (Latest Contact Info) Description 10/18/2018 1:00 PM EDT [facility] [place] [address] Constanza Toro MD [facility] [place] [address] BRVO and NVE s/p PRP OD (Dx 06/2018); 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 1. BRVO and NVE s/p PRP OD (Dx 06/2018) Visual Acuity Visual Acuity (Snellen) Right Left Dist cc 20/20 -2 20/20 -1 Near cc 20/20 20/20 1. BRVO OD (Dx 06/2018) - s/p PRP OD 08/03/18 - today's exam showed resolution of the NVEs ST OD. There's no CME. No treatment today, observationrecommended. 2. PVD OS - observe at this time 3. 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 Scan locations included subfoveal. Progression has been stable. Findings include normal observations, normal foveal contour. Left Eye Quality was good. Scan locations included subfoveal. Progression has been stable. Findings include normal foveal contour, normal observations. Constanza Toro MD OPHTHALMOLOGY SERVICES ORDERABLES documented in this encounter Visit Diagnoses Diagnosis BRVO and NVE s/p PRP OD (Dx 06/2018) documented in this encounter Care Teams Mental Health Assistant Relationship Specialty Start Date End Date Martha Dempsey MD [address] [place] [address] PCP - General 02/09/10 10/16/22 documented as of this encounter
--- OUTSIDE RECORDS SUMMARY | 2023-10-06 00:29 | XMS_ITS | Encounter Summary ---
Author Organization [facility] [place] [address] Care Team Providers Care Programming Intern Name Role Phone Martha Dempsey MD Primary Care Provider [phone] Encounter Details Date Type Department Care Team (Latest Contact Info) Description 07/04/2016 1:00 PM EDT [place] [id number] Preop cardiovascular exam; Neurogenic bladder Social History Tobacco Use Types Packs/Day Years [...] Sign Reading Time Taken Comments Blood Pressure 120/82 07/04/2016 1:13 PM EDT Pulse 78 07/04/2016 1:13 PM EDT Temperature 36.4 ??C (97.5 ??F) 07/04/2016 1:13 PM ED T Respiratory Rate - - Oxygen Saturation 97% 07/04/2016 1:13 PM EDT Inhaled Oxygen Concentration - - Weight - - Height - - Body Mass Index - - documented in this encounter Progress Notes * Shea Silva MD - 07/04/2016 1:00 PM EDT Teo Arenas IS A male 61 y.o. who is here for Urodynamics. HPI Mr. Arenas has a history of neurogenic bladder 2ary to an accident. This is his repeat Study. Last one was 2 yr ago. Currently cathing. States he leaks if he goes 8 hours in between. Objective: Well looking male in no acute distress. PVR: 250 ml with the cathter. Dipstick Urinalysis:neg. Urodynamics/Injection of Contrast The patient was filled at a rate of 50 mL/min via a 10 Fr urodynamic catheter with an abdominal catheter in place and EMG patches. Contrast was used 250 ml of iohexol (omnipaque) 350mg/ml in 750 of sterile water. In this patient we used: Solution Ml of contrast 1000 250 500 125 - bill for 130 ml 400 100 300 75 - bill for 65 ml 250 62.5 -bill for 60 ml 200 50 100 25 50 12.5 Cystogram: MGy13.6 ; mGym0.244; fluoro time 0.5 minutes. Indications: neurogenic bladder Findings: Adequate views of the bladder at rest, during filing, at capacity and after emptying wereobtained with floroscopy. Imaging revealed a smooth bladder with the bladder neck closed at rest. There was not reflux. Interpretation: neurogenic bladder I supervised the above listed procedure and interpreted the findings. Thermodynamics Engineer imaging was saved. Complex Cystometrogram: The detrusor (bladder minus abdominal) pressure was stable to 500 ml. The DLPP was not measured. Compliance was normal. Filling sensation was normal Bladder capacity: 500 ml. EMG: The pelvic floor was appropriately relaxed during filling I was present for the pertinent portions of the urodynamics. I reviewed the results with the patient following the procedure. I reviewed and edited the final report which is in the chart. Impression: Neurogenic bladder. Plan: Re-discussed the importance of continued cathing Follow up 2 yr. documented in this encounter Plan of Treatment Not on file documented as of this encounter Visit Diagnoses Diagnosis Preop cardiovascular exam Pre-operative cardiovascular examination Neurogenic bladder Neurogenic bladder, NOS documented in this encounter Care Teams Programming Intern Relationship Specialty Start Date End Date Martha Dempsey MD [address] [place] [id number] PCP - General 02/09/10 10/16/22 documented as of this encounter
--- OUTSIDE RECORDS SUMMARY | 2023-10-06 00:29 | XMS_ITS | Encounter Summary ---
Author Organization [facility] [place] [address] Care Team Providers Care Traffic Maintenance Officer Name Role Phone Yen Diamond APRN Primary Care Provider [phone] Encounter Details Date Type Department Care Team (Latest Contact Info) Description 02/24/2023 Travel Social History Tobacco Use Types Packs/Day Years [...] documented as of this encounter Visit Diagnoses Not on filedocumented in this encounter Care Teams Traffic Maintenance Officer Relationship Specialty Start Date End Date Yen Diamond APRN [address] [place] [address] PCP - General Family Medicine 10/17/22 documented as of this encounter
--- OUTSIDE RECORDS SUMMARY | 2023-10-06 00:29 | XMS_ITS | Encounter Summary ---
Author Organization [facility] [place] [address] Care Team Providers Care Boilermaker Apprentice Name Role Phone Yen Diamond APRN Primary Care Provider [phone] Encounter Details Date Type Department Care Team (Latest Contact Info) Description 05/05/2023 Travel Social History Tobacco Use Types Packs/Day [...] on filedocumented in this encounter Care Teams Boilermaker Apprentice Relationship Specialty Start Date End Date Yen Diamond APRN [address] [place] [address] PCP - General Family Medicine 10/17/22 documented as of this encounter
--- OUTSIDE RECORDS SUMMARY | 2023-10-06 00:29 | XMS_ITS | Encounter Summary ---
[place] [address] Care Team Providers Care Sales Representative Consultant Name Role Phone Yen Diamond APRN Primary Care Provider [phone] Reason for Referral * Consultation (Routine) - Canceled Specialty Diagnoses / Procedures Referred By Samina t Referred To Contact Vascular Surgery Diagnoses Fatty liver Elevated alkaline phosphatase level Ascending aorta dilation Yen Diamond APRN [address] [place] [address] [facility] S[facility] [address] [place] [address] Referral ID Status Reason Start Date Expiration Date Visits Requested Visits Authorized [id number] Canceled Consult, Test & Treat PCP Updated and/or Approved 10/17/2022 10/17/2023 12 12 Encounter Details Date Type Department Care Team (Latest Contact Info) Description 10/17/2022 Transcribe Orders eDH Incoming Referrals [phone] Yen Diamond APRN [address] [place] [address] Fatty liver; Elevated alkaline phosphatase level; Ascending aorta dilation Social History Tobacco Use Types Packs/Day Years [...] Scheduled Referrals Name Type Priority Associated Diagnoses Orde r Schedule Referral to Vascular Surgery Outpatient Referral Routine Fatty liver Elevated alkaline phosphatase level Ascending aorta dilation Ordered: 10/17/2022 documented as of this encounter Visit Diagnoses Diagnosis Fatty liver Other chronic nonalcoholic liver disease Elevated alkaline phosphatase level Other nonspecific abnormal serum enzyme levels Ascending aorta dilation Thoracic aortic ectasia documented in this encounter Care Teams Sales Representative Consultant Relationship Specialty Start Date End Date Yen Diamond APRN [address] [place] [address] PCP - General Family Medicine 10/17/22 documented as of this encounter
--- OUTSIDE RECORDS SUMMARY | 2023-10-06 00:29 | XMS_ITS | Encounter Summary ---
[place] [address] Care Team Providers Care Education Technician Name Role Phone Lobo Yen Gentry COELLO Primary Care Provider [phone] Encounter Details Date Type Department Care Team (Latest Contact Info) Description 02/24/2023 1:00 PM EST Laboratory Appointment Lab [address] [place] [phone] Infrarenal abdominal aortic aneurysm (AAA) without rupture [...] Procedure Name Priority Date/Time Associated Diagnosis Comments HC VENIPUNCTURE Routine 02/24/2023 12:49 PM EST Infrarenal abdominal aortic aneurysm (AAA) without rupture documented in this encounter Results * Creatinine (02/24/2023 12:49 PM EST) Creatinine 0.80 0.80 - 1.50 mg/dL [facility] Estimated GFR 98 >=60 mL/min/1. 73 m?? [facility] Comment: This patient's estimated GFR was [...] Cardona MD CHEMISTRY ORDERABLES Performing Organization Address City/State/[place] [address] documented in this encounter Visit Diagnoses Diagnosis Infrarenal abdominal aortic aneurysm (AAA) without rupture documented in this encounter Care Teams Education Technician Relationship Specialty Start Date End Date Yen Diamond APRN [address] [place] [address] PCP - General Family Medicine 10/17/22 documented as of this encounter
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
--- OUTSIDE RECORDS SUMMARY | 2023-10-06 00:29 | XMS_ITS | Encounter Summary ---
[place] [address] Care Team Providers Care Loan Specialist Name Role Phone Yen Diamond APRN Primary Care Provider [phone] Reason for Referral * Consultation (Routine) - Closed Specialty Diagnoses / Procedures Referred By Contac t Referred To Contact Vascular Surgery Diagnoses Abdominal aortic aneurysm (AAA) without rupture, unspecified part ROUTINE, MD, IMAGING IN CHART Yen Diamond APRN [address] [place] [address] [facility] [address] [place] [address] Referral ID Status Reason Start Date Expiration Date V isits Requested Visits Authorized [id number] Closed Consult, Test & Treat PCP Updated and/or Approved 10/25/2022 10/25/2023 1 1 Encounter Details Date Type Department Care Team (Latest Contact Info) Description 10/25/2022 Transcribe Orders eDH Incoming Referrals [phone] Yen Diamond APRN [address] [place] [address] Abdominal aortic aneurysm (AAA) without rupture, unspecified part Social History Tobacco Use Types Packs/Day Years [...] Referral to Vascular Surgery Outpatient Referral Routine Abdominal aortic aneurysm (AAA) without rupture, unspecified part Ordered: 10/25/2022 documented as of this encounter Visit Diagnoses Diagnosis Abdominal aortic aneurysm (AAA) without rupture, unspecified part documented in this encounter Care Teams Loan Specialist Relationship Specialty Start Date End Date Yen Diamond, INDIAN TRADER [address] [place] [address] PCP - General Family Medicine 10/17/22 documented as of this encounter
--- OUTSIDE RECORDS SUMMARY | 2023-10-06 00:29 | XMS_ITS | Encounter Summary ---
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 1:19 PM * ElizabethYara Mary, PT - 11/07/2008 1243 EDT Rehab Therapies Physical Therapy Progress Note Site: Inpatient Rehab Subjective: I have so much to do at home.If I get closer it will be better 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 Problem: Major multitrauma-Impaired mobility Objective/Examination: This Progress note covers Physical Therapy services provided from 10/31/08 to 11/07/08. The patient was seen for Physical Therapy services byPT at a frequency of:BID. Interventions completed: Therapeutic Exercise Therapeutic Activities Wheelchair Training Education Precautions: TLSO on for transfers OOB due to lumbar fusion w/ Incomplete SCI Bilateral LE short leg casts in place- NWB through bilateral Lower extremities ACL braces on and locked in full extension Other Examinations: nta Time & duration of today's treatment:Scheduled time duration: 10:00-11:00 and Reason not seen full scheduled time: Originally scheduled to complete RAYNA w/ OT at this time. Patient already out ofbed. OT took over the treatment for UE exercises. Treatment Provided Today: Treatment Times Treatment Time: [id number] (11/07/081429) Treatment Duration: 30 (11/07/081429) Scheduled Treatment Time: 10:00-11:00 (11/07/08 1000) Vital Signs Vital Signs: Stable VS with interventions (10/26/081299) Pulse: pre supine: 79 post sitting in w/c: 82 (10/26/08 1300) BP: pre supine: 127/78 post sittin/70 (10/26/08 1300) Activity Level: w/c mobility (10/26/081299) Response to activity: fatigue with w/c mobility (10/26/081299) Pain & Tenderness Pain & Tenderness: Yes (11/07/081429) Location: All OVER (11/07/081429) Frequency: intermittent (11/07/081429) Quality: achey (11/07/081429) Intensity: 3-6/10 (11/07/081429) Alleviating Factors: resting and pain meds (11/07/081429) Aggravating Factors: moving in and out of bed (08/21/09 1430) Therapeutic Exercise Exercises: gentle AAROM (11/07/08 1430) Range of Motion: Bilateral hip ROM (11/07/08 1430) Endurance training: Played ball this afternoon w/ beach ball sitting up in w/c (10/30/08 1400) Other Exercise: Inspirometer (11/07/08 1000) Therapeutic Activities Bed Mobility: rolling side to side w/ assist to move legs side to side (11/07/08 1430) Transfers: Ceiling lift (11/07/08 1430) Ambulation: n/a (11/07/08 1430) Stairs: n/a (11/06/08 1100) Other Therapeutic Activity: Wheeled into the Dining room and got himself some ice water at the ice machine independently- used cup perez on the w/c for support (11/03/08 1100) Gait Training Ambulation: n/a (11/07/08 1430) Neuromuscular Re-education Motor Control: continues to show slightly better muscle contractions RLE>LLE (11/06/08 1100) Other Neuromuscular Education: cotx w/OT to work on dELiAs.-Impaired sensation to dull and pin prick LLE (11/06/08 1330) Wheelchair Training Wheelchair Mobility: Propelling on the unit in reclining w/c w/ bilateral LE's>100-200' (11/07/08 1000) Wheelchair Parts Management: cues to remember the brakes when he stops, especially outside on uneven terrain.Dependent w/ LE leg rests (11/07/08 1000) Other Wheelchair Training: discussed gloves for better associate [employer] down the road (10/30/08 1100) Other Training or Therapies Home Management: Discussed vendor choice: Pt. feels it is [facility]. OT to f/u with [facility]. to confirm. Educ. pt. and brother, Margarito, re: rehab goals, plan of care, d/c planning, healing process. Pt./family issued SCI pt. education binder. (10/27/08 1100) Patient Education Topics Patient Education Topics: Protocol/Precautions;Safety (11/07/08 143) Other :patient education topics : Other (comment) (11/07/08 143) Education Method: Verbal;Handout (11/07/081429) Taught to: Patient;Family (11/07/081429) Barriers to Learning: None Noted (11/07/081429) Patient Outcomes: Needs Practice (11/07/081429) Assessment/Evaluation: The patient does not currently have 90 min of intensive skilled therapy needs due to restrictions of TLSO brace, bilateral ACL braces and short leg casts bilateral lower extremities, and NWB Bilateral LE's. I anticipate the patient will need a few weeks at a sub acute level until these restrictionsare lifted in order to be able to tolerate a full SCI program here at Rehab. He is definitely goingto be an active, highly motivated patient at that time. 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 Physical Therapy Prognosis:Given improvement in motor function we are hopeful that he will be able to ambulate to some extent down the road, but no doubt he require an active light weight w/c as his primary means of independent w/c level mobility brett to dusk. Short-term Goals: 11/07/08: These initial goals are not appropriate as patient is now subacute level-he has bed offer for Monday next week. The caregiver will be able to consistently don/doff TLSO brace and ACLbraces and monitor skin tolerance w/ mod assist. CURRENT The caregiver will demonstrate the ability to safely assist the patient with bed mobility and dependent donna lift transfers and management of home mobility equipment.with mod assist Partially met w/brother Margarito assisting with ceiling lift transfers The patient and/or caregiver will be able to recall and demonstrate precautions with verbal cues. MET The patient or caregiver will be able to perform an effective passive range of motion home exerciseprogram with verbal cues and min contact assist . CURRENT The patient /caregiver will demonstrate the ability to manage wheelchair seating brakes and parts with min assist assist. MET The patient /caregiver will be able to provide adequate pressure relief techniques w/ mod assist (Partially met with brother Margarito providing assist w/ repositioning and pressure relief), Long-term Goals: The caregiver will be able to consistently don/doff TLSO brace and ACLbraces and monitor skin tolerance w/ mod assist. CURRENT The caregiver will demonstrate the ability to safely assist the patient with bed mobility and dependent donna lift transfers and management of home mobility equipment.with mod assist Partially met w/brother Margarito assisting with ceiling lift transfers The patient and/or caregiver will be able to recall and demonstrate precautions with verbal cues. MET The patient or caregiver will be able to perform an effective passive range of motion home exerciseprogram with verbal cues and min contact assist . CURRENT The patient /caregiver will demonstrate the ability to manage wheelchair seating brakes and parts with cues only. MET The patient /caregiver will be able to provide adequate pressure relief techniques w/ mod assist (Partially met with brother Margarito providing assist w/ repositioning and pressure relief), Plan/Intervention: Physical Therapy to be provided by PT or WAIST PRESSER Duration: 3 more days Treatment Intervention: Therapeutic Exercise Therapeutic Activities Education Patient Education: Protocol/Precautions, Safety, Transfer Training and Nature of injury Recommended Discharge Location: Subacute Rehabilitation YARA JOHNSON, STEPHANIE 11/07/2008 5:34 PM * Saritha Romo - 11/07/2008 0634 EDT Very restless and uncomfortable at start of shift. Medicated with very good results; slept well remainder of night. Turns self frequently. Bilateral casts to lower extremities on; good CTSM. * Oracio Rahman MD - 11/07/2008 0000 EDT INPATIENT PROGRESS NOTE Service Date: 11/07/2008 PT LOC: F001 Mr Arenas is a 53-year-old rehabilitating status post severe multiple trauma. Medical issues include respiratory status given pulmonary contusion with rib fractures. 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 He had subarachnoid and subdural hemorrhages. Today, temperature is 35.9, pulse 70, respiration 16. Blood pressure is 108/66. Medical status is suitable for continued therapy activities at this time. Continue monitoring respiratory status. Oracio Rahman MD - Oracio Rahman MD P - jm Job ID: [id number] Document ID: [id number] cc: * Yvon Mcginnis MD - 11/07/2008 0000 EDT INPATIENT PROGRESS NOTE Service Date: 11/07/2008 PT LOC: F001 Mr Duran is a 53-year-old gentleman status post major multiple trauma. Chief complaint today is ongoing inconsistent bowel program. He reports generally adequate pain control with current pain medications. G-tube has been removed without complication. There has been some leakage of stomach contents. Occlusive dressings will continue. Vitals are stable. He is afebrile. Chest is clear. Heart is regular. Abdomen is soft. Bowel sounds positive. G-tube site demonstrates no evidence of infection. As above, so stomach contents leakage continues. Lower extremities are stable. Casts will be removed on Monday. Continue Coumadin for DVT prophylaxis. Continue pain management bowel and bladder management. Yvon Mcginnis MD - Yvon Mcginnis MD A - mlw Job ID: [id number] Document ID: [id number] cc: * Yara Johnson, PT - 11/06/2008 1634 EDT PT Encounter Note Site: Inpatient Rehab Subjective: It feels good to sit in the w/c without the front of that brace. You have no idea! Objective/Examination: UPDATE: Dr Mcginnis has talked to the Mr Arenas's Ortho team and Spine team at [facility]. Mr Arenas does not need to go to the [facility] appointmentt on Monday. We will remove the casts here on Monday, x-ray both lower leg fx sites, and then put him in Bilateral 3 D boots. We will forward the films to [facility]. Spine has advised us that he can now sit in the w/c without TLSO- just need to wear the TLSO for the transfer. Patient Treatment Times in the past 12 hrs: Treatment Time Treatment Duration Scheduled Treatment Time 11/06/081099 11:00-12:00 60 - No data found. Patient Pain & Tenderness in the past 12 hrs: Pain & Tenderness Location Frequency Quality Intensity Alleviating Factors Aggravating Factors 11/06/081099 Yes LBP and R side rib pain intermittent varies, but generally achey and numb 4-6 rest in bed moving out of bed, and sitting up w/ TLSO Patient Therapeutic Exercise in the past 12 hrs: Exercises Range of Motion Endurance training Other Exercise 11/06/081099 gentle AAROM BLE's - - Inspirometer-now up to 1500 ml x 5 w/ good technique Patient Therapeutic Activities in the past 12 hrs: Bed Mobility Transfers Ambulation Stairs Other Therapeutic Activity 11/06/081099 rolls side to side w/ 1 person assist (max) w/ LE's and at hip dependent ceiling lifttransfers n/a n/a - No data found. Patient Neuromuscular Re-education in the past 12 hrs: Motor Control Balance Coordination Other Neuromuscular Education 11/06/08 1330 - - - cotx w/OT to work on RAYNA scale.-Impaired sensation to dull and pin prick LLE 11/06/081099 continues to show slightly better muscle contractions RLE>LLE - - - No data found. Patient Wheelchair Training in the past 12 hrs: Wheelchair Mobility Wheelchair Parts Management Other Wheelchair Training 11/06/081099 Propelling on the unit in reclining w/c w/ bilateral LE's>100-200' cues to remember the brakes when he stops, especially outside on uneven terrain.Dependent w/ LE leg rests - No data found. Patient Patient Education Topics in the past 12 hrs: Patient Education Topics Other :patient education topics Education Method Taught to Barriers to Learning Patient Outcomes 11/06/081099 Transfer Training;Positioning;Nature of injury Home Program Verbal;Handout;Demonstration Patient;Family None Noted Needs Practice Assessment/Evaluation: Mr Arenas is working well in PT within his abilities. He is getting OOB at least 3 x/day for meals, and is tolerating time OOB a little longer- up to 1 1/2 hrs at a time. He is able to shift his weight in the w/c a little better. Encouraged by notable increase in muscle contractions on his weaker left LE. Plan/Intervention: Plan for next treatment session: Daily ther exer, bed mobility, transfers and w/c mobility. Complete last part of RAYNA tomorrow w/ BK YARA JOHNSON, PT 11/06/2008 4:35 PM * Danica Guerrero, OT - 11/06/2008 1528 EDT Rehabilitation Therapies Occupational Therapy Encounter Note Site: Inpatient Rehab Subjective: I am leaving Monday Objective: atient Treatment Times in the past 12 hrs: Treatment Time Treatment Duration Scheduled Treatment Time 11/06/08 1528 [id number] co tx 30 mins 30 mins 11/06/08 1500 [id number] 60 mins 60 mins Patient Therapeutic Exercise in the past 12 hrs: Exercises Other Exercise 11/06/08 1500 Pt. completed fine motor exercises manipulating small screws on board . Pt. able to complete with mild fatigue 9 hole peg test - Right-38 seconds, Left-26 seconds [employer] strength- right 37.1 Left-65.7# Tip pinch-right 4# left 8# 3 jaw fabiana-right 5# left 12# Lateral pinch- Right 7#, Left 13# Patient Therapeutic Activities in the past 12 hrs: Transfers W/C Mobility Other Therapeutic Activity 11/06/08 1528 - - RAYNA testing near completion showing S1-5 sensory/motor impairments, more testingneeded. Decrease left sensation more then right. When RAYNA test is complete report will be posted and findings recorded. 11/06/08 1500 Ceiling lift transfer to w/c Pt. propelled w/c in uni kitchen able to fix ice water with assist to get cup within reach. New orders for TLSO on only when transferring. Can be off when in w/c. Patient Cognition in the past 12 hrs: Cognition (other) 11/06/08 1500 Pt. was able to read long article in newspaper with increase time and summarize article. Pt. does still experience blurry vision but reports it appears to have improved. Patient W/C Management/Training in the past 12 hrs: W/C Positioning Parts Management Self propulsion 11/06/08 1500 Pt. able to re-position self with no reminders. Pt. require total assist to adjust elevating leg rests supervision for w/c mobility Assessment/Evaluation: Pt. Increase right UE strength and coordination as indicated by 9 hole peg test and associate [employer]/pinch strength. Plan/Intervention: Plan for next treatment session: Complete RAYNA testing DANICA GUERRERO OT 11/06/2008 3:31 PM * Nereida Kern RN - 11/06/2008 1341 EDT Pt's peg tube has green drainage around it, it has been cleaned 2 times today with large amount of drainage each time. MD Mcginnis notified. Pt is due to get the peg tube out soon. Placed a drain sponge around peg tune @ 1330 today * Oracio Rahman MD - 11/06/2008 0000 EDT INPATIENT PROGRESS NOTE Service Date: 11/06/2008 PT LOC: F001 Mr Arenas is a 53-year-old male rehabilitating status post severe multiple trauma with injuriesincluding spinal cord injury and incomplete paraplegia. He also required endovascular repair for anaortic rupture. He is status post subarachnoid hemorrhage and subdural hemorrhage as well as liver laceration. Medical issues include hypertension. The patient denies chills, sweats or chest pain. Temperature today is 35.9, pulse 80, respiration 18. Blood pressure 98/60. Cardiac rhythm is regular. Lung teresa are clear. Respiratory effort is normal. Abdomen is soft. JVD is not visible. ASSESSMENT AND PLAN: 1. Multiple trauma including paraplegia. Continue comprehensive therapy activities. 2. Status post subarachnoid and subdural hemorrhages. Cognitive status is stable at this time. 3. Liver laceration. No evidence of recurrent bleeding. 4. Hypertension with current low blood pressures. Decrease lisinopril from 5 mg daily to 2.5 mg daily. The patient will continue on metoprolol. 5. Continue DVT prophylaxis with warfarin. Oracio Rahman MD - Oracio Rahman MD A - jm Job ID: [id number] Document ID: [id number] cc: * Yvon Mcginnis MD - 11/06/2008 0000 EDT INPATIENT PROGRESS NOTE Service Date: 11/06/2008 PT LOC: F001 Mr Arenas is a 53-year-old gentleman status post major multiple trauma with incomplete spinal cord injury, bilateral severe knee injuries, left talar fracture, right tibial pilon fracture as wellas multiple organ injuries and facial fractures. He still has had a G tube in place. He is about 6 weeks out. I will be coordinating care with his general surgeon to see if I can remove the G tube button. We are planning on removing casts after the weekend and getting repeat x-rays. We continue working on discharge planning. Mr Arenas continues to report general pain from multiple injuries. He continues neurogenic bowel and bladder management. Vitals are stable. He is afebrile. Chest is clear. Heart regular rate and rhythm. Abdomen soft. G tube site intact. Lower extremities continue to have ACL braces in place. Casts on distally. Vascularly intact. He is demonstrating some movements in the lower extremities. He remains functionally paraplegic; however. In summary, Mr Arenas is a 53-year-old gentleman with major multiple trauma. G tube will be removed. He has continued pain management ongoing. He will continue Coumadin for DVT prophylaxis. He will continue ACL bracing. We are looking to get him to [facility] subacute rehab facility next week. Yvon Mgcinnis MD - Yvon Mcginnis MD A - [facility] Job ID: [id number] Document ID: [id number] cc: * Rachael Sawyer - 11/05/2008 2209 EDT Phan score on weekly skin rounds was 18.Coccyx is pink but blanches.He is active in turning side to side in bed.No pressure sores. * Yara Johnson, PT - 11/05/2008 1646 EDT PT Encounter Note Site: Inpatient Rehab Subjective: I sure have a lot going on at home and with my girlfriend now. She called to tell me she was . Objective/Examination: Patient Treatment Times in the past 12 hrs: Treatment Time Treatment Duration Scheduled Treatment Time 11/05/08 1400 [id number] 30 - 11/05/08 1100 11:30-1215 45 - No data found. Patient Pain & Tenderness in the past 12 hrs: Pain & Tenderness Location Frequency Quality Intensity Alleviating Factors Aggravating Factors 11/05/08 1400 Yes LBP, R rib cage constant aching 6/10 reposition, meds twisting or sitting up too long, and wearing the TLSO 11/05/08 1100 Yes LBP, R rib cage constant aching 6/10 reposition, meds twisting or sitting up too long, and wearing the TLSO Patient Therapeutic Exercise in the past 12 hrs: Exercises Range of Motion Endurance training Other Exercise 11/05/08 1400 gentle PROM LLE, AAROM RLE - - IS 11/05/08 1100 gentle PROM LLE, AAROM RLE - - IS Patient Therapeutic Activities in the past 12 hrs: Bed Mobility Transfers Ambulation Stairs Other Therapeutic Activity 11/05/08 1400 max assist of 1 rolling side to side, ceiling lift required for safe transfers- todaywith 1 person assist-patient handling the control to raise and lower himself in the sling once it was applied n/a - - 11/05/08 1100 max assist of 1 rolling side to side, ceiling lift required for safe transfers- todaywith 1 person assist-patient handling the control to raise and lower himself in the sling once it was applied n/a - - Patient Gait Training in the past 12 hrs: Ambulation Stairs Gait Pattern Deviations Other Gait Training 11/05/08 1400 n/a - - - 11/05/08 1100 n/a - - - Patient Neuromuscular Re-education in the past 12 hrs: Motor Control Balance Coordination Other Neuromuscular Education 11/05/08 1400 positive glutes,hip flexors/adductors, quads, and toe flexors in RLE, now seeing positive hip adductors in LLE! - - - 11/05/08 1100 positive glutes,hip flexors/adductors, quads, and toe flexors in RLE, now seeing positive hip adductors in LLE! - - - No data found. Patient Wheelchair Training in the past 12 hrs: Wheelchair Mobility Wheelchair Parts Management Other Wheelchair Training 11/05/08 1400 Propelling himself on the unit increased distances as tolerated, exploring the unit > 250' at a time, with cues on the push and glide technique.. I w/ brakes with extensions - 11/05/08 1100 Propelling himself on the unit increased distances as tolerated, exploring the unit > 250' at a time, with cues on the push and glide technique.. I w/ brakes with extensions - No data found. Patient Patient Education Topics in the past 12 hrs: Patient Education Topics Other :patient education topics Education Method Taught to Barriers to Learning Patient Outcomes 11/05/08 1400 Home Program;Safety;Nature of injury-SCI education w/ topics of skin protection/pressure reliefs etc - Verbal;Handout;Demonstration Patient;Family - Needs Practice 11/05/08 1100 Home Program;Safety;Nature of injury - Verbal;Handout;Demonstration Patient;Family - Needs Practice Assessment/Evaluation: Teo is moving self in bed w/ less pain overall and is also showing increase muscle function in RLE! Await final decision re' appts in [facility] next week. Dr Ward to call [facility] to talk to his physicians to see whether he needs to go there for the follow up... Plan/Intervention: Plan for next treatment session: Continue to do daily ther exer BLE's, w/c mobility, pressure reliefs and IS YARA JOHNSON, PT 11/05/2008 5:02 PM * Leonela Mulligan - 11/05/2008 1550 EDT [employer] O[employer] Tender Note Code Code: Pastoral Care Visit no f/u Core Oven Tender Note Raquel Tradition: Pent[employer]ism ( ) [facility] Reason for visit: Regular Visit Assessment Services Provided Services Provided Care Level: Level 1 - Meeting & Greeting Only Continued Spiritual Care?: yes Plan Plan Plan: Follow as needed Comments: Volunteer visit Notes Leonela Mulligan 11/05/2008 3:50 PM * Danica Guerrero OT - 11/05/2008 1234 EDT Rehabilitation Therapies Occupational Therapy Encounter Note Site: Inpatient Rehab Subjective: I will get up if my butt will tolerate it. Objective: Patient Treatment Times in the past 12 hrs: Treatment Time Treatment Duration Scheduled Treatment Time 11/05/08 1200 [id number] 30 mins 30 mins Patient Therapeutic Exercise in the past 12 hrs: Exercises Other Exercise 11/05/08 1200 Completed 2 sets 15 reps. green theraband, shoulder, biceps, triceps Fine motor exercises with right hand large peg board. Pt. able to put pegs in and take out but required rest breaks due to right hand fatigue. Patient Therapeutic Activities in the past 12 hrs: Bed Mobility Transfers W/C Mobility Other Therapeutic Activity 11/05/08 1200 With TLSO brace on pt. was able to use rail and turn with min. A for LE managemement Donna lift transfer Pt. able to propel w/c around unit with supervision only pt's brother able to assist with putting on brace and use ceiling lift with therapist and min. cues. Patient W/C Management/Training in the past 12 hrs: W/C Positioning Parts Management Self propulsion 11/05/08 1200 Pt. able to re-position self in w/c with no assist Pt. able to manage brakes, needs assist to manage leg rests supervision on unit Assessment/Evaluation: Tolerated treatment well in w/c. No complaint of pain in w/c. Pt. Stayed up in w/c x30 mins. Pt. Verbalized going subacute facility on Monday. Plan/Intervention: Plan for next treatment session: UE exercises, commode transfer DANICA GUERRERO OT 11/05/2008 12:38 PM * Kathya Madera, RN - 11/05/2008 1151 EDT Social Work: Spoke with the Broadcast Operations Director at [facility], [place] [employer] they are doing no admissions for the next few days and/or until further notice. Patient hasbeen clinically accepted; patient will not be admitted before his follow up appointments at [facility] early next week. CELSO Babin * Rachael Sawyer - 11/05/2008 0620 EDT Slept more tonight than last.Martinez patent for clear yellow urine.No unsafe behavior. * Yvon Mcginnis MD - 11/05/2008 0000 EDT INPATIENT PROGRESS NOTE Service Date: 11/05/2008 PT LOC: F001 Mr Arenas is a 53-year-old gentleman status post severe multiple trauma. Spinal cord injury. Lower extremity fractures and ligamentous injuries. Mr Arenas reports chief complaint of ongoing inconsistency with bowel program. Nursing staff and I have been discussing this and making adjustments. His daughter has been trying to clarify spine precautions. I have made phone calls to clarify all of that today. At this time he needs the TLSO onfor transfers only. He still needs to be in the knee PCL braces with no range of motion right now. I clarified that I can have the casts removed on Monday and do some repeat x-rays and then put him in some 3D boots or similar splints. He does not need to go down for orthopaedic followup as long as I follow through with these measures. Vital signs are stable. He is afebrile. His chest is clear to auscultation. Heart regular rate and rhythm. Abdomen soft, bowel sounds are positive. Bilateral lower extremities have splints in place as well as casts. Vascularly intact distally. Neurologic exam reveals slight increase in left proximal thigh movement. In summary, Mr Arenas with continue acute level therapy services for his spinal cord injury andmultitrauma. Orthopaedic interventions as discussed will be followed through on Monday. Continue monitoring wound healing. Continue current bowel and bladder programs. Yvon Mcginnis MD - Yvon Mcginnis MD A [facility] Job ID: [id number] Document ID: [id number] cc: * Yvon Mcginnis MD - 11/04/2008 0000 EDT INPATIENT PROGRESS NOTE Service Date: 11/04/2008 PT LOC: F002 Mr Arenas is a 53-year-old gentleman status post major multiple trauma with incomplete paraplegia. He is still having some issues with bowel management. Intermittent catheterization is going well. We have been monitoring and making adjustments to his bowel medications. His chief complaint is constipation. Vitals were stable today. He is afebrile. Chest is clear. Heart regular. Abdomen soft. Bowel soundsare positive. Lower extremity cast in place. He is vascularly intact distally. Correction to yesterdays note when I said he had a cervical collar on. That has been discontinued. PT INR Is pending. He is trending upward. Coumadin remains for DVT prophylaxis. In summary, Mr Arenas is a 53-year-old gentleman status post multitrauma, incomplete spinal cord injury, multiple fractures. He will continue acute level services. We will be reviewing discharge planning. He will continue DVT prophylaxis. Monitor neurogenic bowel and bladder issues. Yvon Mcginnis MD - Yvon Mcginnis MD A [facility] Job ID: [id number] Document ID: [id number] cc: * Yara Johnson, PT - 11/03/2008 1710 EDT PT Encounter Note Site: Inpatient Rehab Subjective: I just want to know more about the [facility] appointments next week. I don't know anything! Objective/Examination: Patient Treatment Times in the past 12 hrs: Treatment Time Treatment Duration Scheduled Treatment Time 11/03/08 1400 [id number] 45 - 11/03/08 1100 [id number] 30 - No data found. Patient Pain & Tenderness in the past 12 hrs: Pain & Tenderness Location Frequency Quality Intensity Alleviating Factors Aggravating Factors 11/03/08 1400 Yes LBP constant aching not rated pain meds twisting or sitting up too long 11/03/08 1100 Yes LBP constant aching not rated rest in bed getting oob and putting on the brace Patient Therapeutic Exercise in the past 12 hrs: Exercises Range of Motion Endurance training Other Exercise 11/03/08 1400 same - - IS reminded 11/03/08 1100 sadi CHASE LLESRI RLE - - IS encouraged Patient Therapeutic Activities in the past 12 hrs: Bed Mobility Transfers Ambulation Stairs Other Therapeutic Activity 11/03/08 1400 max assist of 1-2 rolling side to side, ceiling lift required for safe transfers- today with 1 person assist-patient handling sarah control to rqise and lower himself in the sling once itwas applied - - - 11/03/08 1100 max assist of 1-2 rolling side to side, ceiling lift required for safe transfers- today with 1 person assist-patient handling the control to raise and lower himself in the sling once itwas applied n/a n/a Wheeled into the Dining room and got himself some ice water at the ice machine independently- used cup perez on the w/c Patient Wheelchair Training in the past 12 hrs: Wheelchair Mobility Wheelchair Parts Management Other Wheelchair Training 11/03/08 1400 Propelling himself on the unit > 100' at a time, with cues on the push and glide technique.Also shown how to palm the edge of a doorway for a tighter turn. It was difficult due to long levers (his legs out straight) same - 11/03/08 1100 Instructed him to propell on the unit and ask for assistance to reposition him every 10-15 min I w/ brakes with extensions - Patient Patient Education Topics in the past 12 hrs: Patient Education Topics Other :patient education topics Education Method Taught to Barriers to Learning Patient Outcomes 11/03/08 1400 - - - Patient;Family - Needs Practice 11/03/08 1100 Safety;Transfer Training;Positioning;Nature of injury Other (comment) Verbal;Demonstration Patient - Needs Practice Assessment/Evaluation: Pt seems to be rolling easier and is able to use rail to help roll him over for brace application and to put the sling under him for transfers. Pain appears less and he is starting to be able to sit up a little longer each day. We will need to connect w/ [facility] re' follow up appts and when spineprecautions and splints can be removed. Plan/Intervention: Plan for next treatment session: Continue daily exercise, PROM LLE, SCI education , w/c mobility skills YARA JOHNSON, PT 11/03/2008 5:10 PM * Joseluis Bedoya - 11/03/2008 0122 EDT [facility] CLINICAL RECORD PSYCHOLOGICAL SERVICES - TREATMENT NOTE DIAGNOSIS 309.0 DURATION OF VISIT: 45 minutes CHIEF COMPLAINT. Adjustment s/p multi trauma, sci THERAPEUTIC INTERVENTION. 1:1 visit MENTAL STATUS / FINDINGS. There's a lot of stuff I've got to get going. 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 He indicates feeling in limbo while here in the hospital, and wondering how he'llmanagement site supervision given his functional limitations. Affect appears contained, with quiet concern noted. Discussed family dynamics, coping strategies, sources of internal adaptation and strength. PLAN / RECOMMENDATIONS. I'll continue to see Teo on the order of 2 times per week while he's on acute Rehab, as needed. RATIONALE - THERAPY / DURATION / FREQUENCY. Multi trauma, spinal cord injury, multiple biopsychosocial stressors. PROGRESS SINCE LAST SESSION. Increased affective containment noted this visit. EXPECTATIONS OF NEXT SESSION. Continue full participation in acute Rehab program. PROVIDER. Robin Bedoya, Ph.D. Pager # [phone]. * Luz Roberts, OT - 11/03/2008 1537 EDT Rehabilitation Therapies Occupational Therapy Encounter Note Site: Inpatient Rehab Subjective: I couldn't do this the other day. regarding writing with L hand Objective: Patient Treatment Times in the past 12 hrs: Treatment Time Treatment Duration Scheduled Treatment Time 11/03/08 144 [id number] 30 30 11/03/08899 900-1000 60 mins 60 mins No data found. No data found. Patient Therapeutic Exercise in the past 12 hrs: Exercises Range of Motion Endurance training Other Exercise 11/03/081444 Completed R hand strengthening and fine motor coordination exercises with blue theraputty. Completed strengthening exercises for BUE pronation/supination, wrist flex/ext, and shoulder ext rotation (isometric) with red therabar. Pt completed 10 reps each, required demonstration of eachexercise and, verbal and visual cues for correct technique. - - - Patient Therapeutic Activities in the past 12 hrs: Bed Mobility Transfers Functional Mobility W/C Mobility Balance Other Therapeutic Activity 11/03/081444 - - - - - Pt's brother present for session. Reviewed spine precautions. 11/03/08899 Pt required vcues to avoid A with logroll without TLSO. Reinforced spine precautions,need for total A logroll without brace. Pt able to roll with LE A using bedrail with TLSO on. Ceiling lift tx bed-W/C with total A x 2. Encouraged pt participation in directing sling placement. - - -Pt was able to hold a pencil and write legible with left hand. Pt reports impaired vision has been impacting writing and reading. No data found. Patient Self-Care/Home Management in the past 12 hrs: Grooming Bathing/Showering Toileting/Hygiene Dressing Eating/Feeding Meal Preparation Safety Procedures Instruction in use of: 11/03/08899 Pt washed face and completed oral care from W/C with set-up A - Cued pt to fill out bowel program tracking sheet for bowel program completed previous day. Pt was unaware of results of program. Encouraged pt to ask nursing for that information during bowel program to increase his understanding of bowel program. Bowel program has been moved to AM, every other day. Pt donned pullover with mod A, vcues to avoid active logroll without TLSO - - - - No data found. No data found. No data found. No data found. No data found. No data found. No data found. No data found. No data found. No data found. No data found. Assessment/Evaluation: Pt continues to need reinforcement of spine precautions and further education regarding bowel mgmt.Pt reporting blurry vision since accident. Need vision screen. Plan/Intervention: Plan for next treatment session: BUE strengthening, continue SCI education, vision screen LUZ ROBERTS OT 11/03/2008 3:37 PM * Yvon Mcginnis MD - 11/03/2008 0000 EDT INPATIENT PROGRESS NOTE Service Date: 11/03/2008 PT LOC: F002 Mr Arenas is a 53-year-old gentleman with major multiple trauma, this including spinal cord injury, aortic rupture, multiple fractures. Chief complaint today is general pain from multiple injuries. He was reviewed at team conference today. We have discussed that need for transfer to subacute facility when weightbearing restrictions have changed may be necessary. He remains on Lovenox and Coumadin for DVT prophylaxis. INR is still subtherapeutic. We will be following up these results this week. Vital are stable. He is afebrile. His chest is generally clear. Cervical collar remains in place. Abdomen is soft. Lower extremities demonstrate trace edema. He has some movement in the legs. In summary, Mr Arenas is a 53-year-old gentleman with major multiple trauma, extensive bony andsoft tissue and organ injuries. He will continue therapy services. We will review potential subacute placement with him, the timing of which is unclear right now. He will continue DVT prophylaxis with Lovenox and Coumadin. Continue pain management with narcotic analgesics and Neurontin. Continue bowel and bladder management. Yvon Mcginnis MD - Yvon Mcginnis MD A - [facility] Job ID: [id number] Document ID: [id number] cc: * Damaris Garcia RN - 11/02/2008 1440 EDT Pt had multiple family visitors.Brother clipped mustache. Dtr.assisted pt with lunch-needs to be set and fed, can hold and drink fluids on own. Consumed 75% both breakfast and lunch. Bowel program done @ 0920 with suppository and lift to commode w/ x2.Moderate soft results. Pt declined to sit in wheelchair. Pt has brief on. Had small formed incontinent BM in brief in after lunch. Martinez draining large amounts of light yellow urine. Requested 1000 Tylenol/15mg Oxy IR @ 1145 w/ good effect. Casts on bilateral legs intact with knee braces on. Comfortable in bed with dtr, at bedside. * Brigette Stephens RN - 11/02/2008 0321 EDT Pt. found awake at most hourly checks says pain is fine. Martinez is patent, turns q2h tolerated well. Pt is able to participate in turning. * Valerie Burton MD - 11/02/2008 0000 EDT INPATIENT PROGRESS NOTE Service Date: 11/02/2008 PT LOC: F002 SUBJECTIVE: Patient is seen for status post multisystem trauma with paraparesis. He has not noticedany change in his lower extremity function. Still slight improvement with improved right toe sensation. Neurogenic bladder still being managed by a Martinez and urgency to void has passed since treatment started for his UTI. OBJECTIVE: Vital signs are stable. Affect is bright. Respiratory exam is stable. Lower extremity sensory exam stable. ASSESSMENT: Patient is doing better on antibiotic in terms of bladder urgency. Pain control has been much better with adjustment of the dosing and timing of meds made yesterday as far as his low backpain, chest and rib fracture pain. PLAN 1. Continue with present full regimen. 2. INR planned for tomorrow for Coumadin dosing for DVT prophylaxis. Valerie Burtno MD - Valerie Burton MD A - [facility] Job ID: [id number] Document ID: [id number] cc: * Robyn Pope, XANDER - 11/01/2008 2303 EDT Pt had trouble settling down this evening to rest due to numbness in buttocks and being unable to find a comfortable position. Repositioned 4x before pt was able to say that he was somewhat comfortable. Pt's peg site cleaned with saline soaked gauze and swabs for slightly yellow drainage and some crusty exudate, slightly pink edges- Bacitracin applied and left JACOBO. Continue to monitor pt's peg site. Lamar Pope RN 11/01/2008 11:04 PM * Mali Calderon, PT - 11/01/2008 1605 EDT PT Encounter Note Site: Inpatient Rehab Subjective: n/a Objective/Examination: Reason if patient not treated for full scheduled time: x 30 min. due to toiletting Patient Treatment Times in the past 12 hrs: Treatment Time Treatment Duration Scheduled Treatment Time 11/01/08 1400 - 0 [id number] Team communication: w/ OT re: precautions for dependent logrolling and concern re: pressure relief in bed Assessment/Evaluation: Nothing to assess Plan/Intervention: Continue per Plan of Care MALI CALDERON, STEPHANIE 11/01/2008 4:05 PM * Damaris Garcia RN - 11/01/2008 1441 EDT Pt A&Ox3. Denied pain at breakfast. Pt later c/o 6/10 pain @ 1345 and administered 1000mg Tylenol and 20 mg Oxy IR. Appetite good for meals today.Needs assist to feed d/t blindness. Martinez draining light yellow urine. Peg site dried areas. Pt tolerated therapy well. Family in to see pt and assist as needed.Pt had OT @ 0830 when just finishing breakfast. Talked with OT about scheduling for bowel program in am. Pt had urge to have BM- TME given and lifted to commode.Moderate soft @ 1430. * RobertsLuz, OT - 11/01/2008 1211 EDT Rehabilitation Therapies Occupational Therapy Encounter Note Site: Inpatient Rehab Subjective: I have no idea. regarding whether bowel program is daily or every other day Objective: Scheduled time (if treatment time does not match total scheduled time): 830-900 No data found. No data found. No data found. No data found. No data found. No data found. Patient Self-Care/Home Management in the past 12 hrs: Grooming Bathing/Showering Toileting/Hygiene Dressing Eating/Feeding Meal Preparation Safety Procedures Instruction in use of: 11/01/08 0830 - Pt washed front of UB from bed (HOB 30 degrees) with set-up A, unable to depress pump of soap bottle with R hand secondary to hand weakness, able to do with L hand. Pt requesting AM bowel program. Pt unaware of current schedule for bowel program (daily vs every other day), was able to identify that nursing has been using a suppository. Provided education regarding purpose of bowelprogram, impact of SCI on bowel function, and process for establishing bowel program at rehab. Educated pt regarding bowel/bladder mgmt chapter in SCI education manual and bowel program tracking sheet. Bowel incontinence evident with attempt to complete pant hike - pt unaware, required total A x 2 people to complete clean-up and don Attends - - - - - No data found. No data found. No data found. No data found. No data found. No data found. No data found. No data found. No data found. No data found. No data found. Assessment/Evaluation: Pt was receptive to education regarding bowel program, need reinforcement of education including review of chapter in SCI education manual, reminders to use bowel program tracking sheet. Pt prefers AM bowel program. Plan/Intervention: Plan for next treatment session: Continue pt education regarding bowel mgmt, R hand strengthening LUZ ROBERTS OT 11/01/2008 12:11 PM * Valerie Burton MD - 11/01/2008 0000 EDT INPATIENT PROGRESS NOTE Service Date: 11/01/2008 PT LOC: F002 SUBJECTIVE: Teo is seen for his multisystem trauma issues and paraparesis. Today is going smootherfor him in terms of pain control for his back fractures. Catheter placed for her neurogenic bladderis tolerating and is not getting a strong sense of need to void. He was started on an antibiotic yesterday. His sleep was improved last night. OBJECTIVE: Vital signs are stable, afebrile. Abdomen is benign, nontender. Affect is bright. Speechis fine, slightly soft, but content is appropriate. No significant swelling in his lower extremities. He is able to sense pressure and touch in his right toes, not in his left. LABS: INR 1.1. ASSESSMENT: Patient is status post severe multiple trauma with paraparesis. Pain control for his multiple injuries is improved with the increased OxyContin as well as adjustment of times to 6 a.m. inthe morning. He needs DVT prophylaxis and has been on 4 mg Coumadin and is still not yet therapeutic. PLAN Continue Lovenox 40 mg subcutaneous. Increase Coumadin to 5 mg. Check on INR in 2 days. Maintain increased OxyContin dose and monitor bowel program carefully. Valerie Burton MD - Valerie Burton MD P - mlw Job ID: [id number] Document ID: [id number] cc: * Yara Johnson, PT - 10/31/2008 1717 EDT Rehab Therapies Physical Therapy Progress Note Site: Inpatient Rehab Subjective: The days are so long, especially when my nights are bad. Last night was a bad one. i just hurt all over. Problem: Multitrauma w/ Incomplete SCI, multiple fx's w/ impaired mobility Objective/Examination: This Progress note covers Physical Therapy services provided from 10/24/08 to10/31/08 The patient was seen for Physical Therapy services byPT at a frequency of:6 Times/Week and BID. Interventions completed: Therapeutic Exercise Therapeutic Activities Wheelchair Training Education Patient and family have the Yes You Can Book and are reading chapters on SCI. Precautions: TLSO on when OOB or supine with HOB > 30 degrees Other Examinations: RAYNA eval begun- Time & duration of today's treatment:Scheduled time duration: See below Treatment Provided Today: Treatment Times Treatment Time: 2214-3296 (10/31/081399) Treatment Duration: 60 (10/31/081399) Scheduled Treatment Time: 11:00-12:00 (10/31/081099) Vital Signs Vital Signs: Stable VS with interventions (10/26/081299) Pulse: pre supine: 79 post sitting in w/c: 82 (10/26/081299) BP: pre supine: 127/78 post sittin/70 (10/26/081299) Activity Level: w/c mobility (10/26/081299) Response to activity: fatigue with w/c mobility (10/26/081299) Pain & Tenderness Pain & Tenderness: Yes (10/31/081399) Location: LBP, B LE's (10/31/081399) Frequency: constant (10/31/081099) Quality: achey, burning (10/31/081099) Intensity: 6/10 (10/31/081099) Alleviating Factors: pain meds, repostioning, resting in bed without brace (10/31/081099) Aggravating Factors: sitting up in w/c in theTLSO (10/31/081099) Therapeutic Exercise Exercises: sitting up in reclining w/c -theraband exer's, bicep curls- 4 lbs on left/2 1/2 on right10 x each (10/31/081399) Range of Motion: leg ROM limited to hips only, due to B ACL braces locked in extension, and casted ankles bilaterally (10/25/08 1200) Endurance training: Played ball this afternoon w/ beach ball sitting up in w/c (10/30/08 1400) Other Exercise: IS 500-750 ml x 5, cues on technique (10/30/08 1100) Therapeutic Activities Bed Mobility: 1-2 person assist w/ repositioning in bed and rolling side to side (10/31/08 1400) Transfers: dependent ceiling lift transfers w/ 1-2 person assist (10/31/08 1400) Ambulation: n/a (10/31/08 1400) Stairs: n/a (10/25/08 1200) Other Therapeutic Activity: max assist of 2 to reposition hips in w/c. Pt brushed teeth at side of sink while in w/c. Dghter present for treatment. Discussed hand out provided by primary PT regardingequip for d/c. They are still trying to decide on a vendor. Dghter is working on getting caregiversset up. She would like to be called with an update of the d/c date after rounds. Discussed and reviewed pt precautions ( with pt and dghter) (10/26/08 1300) Neuromuscular Re-education Motor Control: essentially flaccid LLE, 2- range strength in right hip flexor, hip adductor, trace toe flexors on right intermiitent (10/31/08 1400) Other Neuromuscular Education: RAYNA: Light touch and pin prick initiated for upper body, see form in clinical record (10/28/08 1000) Wheelchair Training Wheelchair Mobility: Propells w/c w/ BUE's 100' w/ tubing on the rims for better associate [employer] (10/31/08 1400) Wheelchair Parts Management: dependent w/ elevating legrests, cues w/ brakes w/ brake extensions (10/31/08 1400) Other Wheelchair Training: discussed gloves for better associate [employer] down the road (10/30/08 1100) Other Training or Therapies Home Management: Discussed vendor choice: Pt. feels it is [employer]. OT to f/u with dgtr. to confirm. Educ. pt. and brother, Margarito, re: rehab goals, plan of care, d/c planning, healing process. Pt./family issued SCI pt. education binder. (10/27/08 1100) Patient Education Topics Patient Education Topics: Nature of injury (10/31/081399) Other :patient education topics : Positioning (10/31/081399) Education Method: Verbal;Handout (10/31/08 1100) Taught to: Patient (10/31/081399) Barriers to Learning: None Noted (10/31/081399) Patient Outcomes: Needs Practice (10/31/081399) Assessment/Evaluation: The patient is medically appropriate for intensive physical therapy and requires interdisciplinary coordination of care in order to address the patient's diagnosis of multi trauma w/ spinal fusion w/TLSO, incomplete SCI, aortic repair, multiple rib fractures, bilateral knee ligament injuries w/ surgical repairs w/ bilateral ACL braces locked in extension, and ankle fx's w/ lower leg cast on right and posterior splint on the left. The patient's primary impairments include debility, decreased sitting tolerance w/ TLSO on in reclining w/c, decreased motor control throughout B LE's w/ essentially flaccid LLE, decreased balance, mild TBI, . These impairments contribute to the functional limitations of being essentially dependentw/ all bed mobilty, transfers and self care due to precautions w. TLSO and B ACL braces and casts- NWB BLE's. He is understandably discouraged over present situation and the possibility that he will need to goto a Subacute facility due to limited ability to participate in our SCI program due to all his limitations. Once his precautions are lifted he will be an excellent fit for our program. He was previously active and independent in his community and has excellent family support and a network of friends in his community. Physical Therapy Prognosis: Anticipate that in the long run he will be an active w/c user and regain independence at w/c level. He just needs time to heal his fractures and surgical sites, and then be able to participate in our SCI program. Short-term Goals:1 week The caregiver will be able to consistently don/doff TLSO brace and ACLbraces and monitor skin tolerance w/ mod assist. CURRENT The caregiver will demonstrate the ability to safely assist the patient with bed mobility and dependent donna lift transfers and management of home mobility equipment.with mod assist Partially met w/brother Margarito assisting with ceiling lift transfers The patient and/or caregiver will be able to recall and demonstrate precautions with verbal cues. MET The patient or caregiver will be able to perform an effective passive range of motion home exerciseprogram with verbal cues and min contact assist . CURRENT The patient /caregiver will demonstrate the ability to manage wheelchair seating brakes and parts with min assist assist. PARTIALLY MET The patient /caregiver will be able to provide adequate pressure relief techniques w/ mod assist (Partially met with brothmiranda Pimentel providing assist w/ repositioning and pressure relief), 10/31/08-These goals are no longer applicable due to family unable to provide 24 hour care. Long-term Goals:2 weeks The caregiver will be able to consistently don/doff TLSO brace and ACLbraces and monitor skin tolerance. CURRENT The caregiver(s) will demonstrate the ability to safely assist the patient with bed mobility and dependent donna lift transfers and management of home mobility equipment. CURRENT The patient and/or caregiver will be able to recall and demonstrate precautions. CURRENT The patient or caregiver will be able to perform an effective passive range of motion home exerciseprogram. CURRENT The patient will demonstrate the ability to manage wheelchair seating brakes and parts with min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 CHEMISTRY & BLOOD GAS ORDERABLES Performing Organization Address [facility] de Phone Number [facility] [address] [place] [address] * (ABNORMAL) GLUCOSE, SERUM (10/27/2008 6:15 EDT) Pathologist [facility] [place] Glucose, Serum 103(H) 70 - 100 mg/dl [facility] Comment:Performed at [place], [place] Blood specimen (specimen) 10/27/2008 6:15 EDT 10/27/2008 6:59 EDT Oracio Rahman MD CHEMISTRY & BLOOD GAS ORDERABLES Performing Organization Address [facility] Phone Number [facility] [address] [place] [address] * PREALBUMIN (10/27/2008 6:15 EDT) Prealbumin 23 18 - 38 mg/dl [facility] Blood specimen (specimen) 10/27/2008 6:15 EDT 10/27/2008 6:59 EDT Oracio Rahman MD CHEMISTRY & BLOOD GAS ORDERABLES Performing Organization Address [facility] Phone Number [facility] [address] [place] [id number] * BUN (10/27/2008 6:15 EDT) BUN 18 10 - 26 mg/dl [facility] Comment:Performed at [place], [place] Blood specimen (specimen) 10/27/2008 6:15 EDT 10/27/2008 6:59 EDT Oracio Rahman MD CHEMISTRY & BLOOD GAS ORDERABLES Performing Organization Address [facility] de Phone Number [facility] [address] [place] [address] * (ABNORMAL) CREATININE (10/27/2008 6:15 EDT) Creatinine 0.63(L) 0.7 - 1.5 mg/dl [facility] GFR, Calculated >60 ml/min/1.7 3m2 [facility] Comment:Performed at [place], [place] Blood specimen (specimen) 10/27/2008 6:15 EDT 10/27/2008 6:59 EDT Oracio Rhaman MD CHEMISTRY & BLOOD GAS ORDERABLES Performing Organization Address [facility] de Phone Number [facility] [address] [place] [address] * (ABNORMAL) ELECTROLYTES (10/27/2008 6:15 EDT) Sodium 135(L) 136 - 145 mEq/L [facility] Potassium 4.8 3.5 - 5.0 mEq/L [facility] Chloride 97 96 - 110 mEq/L [facility] CO2 30 24 - 32 mEq/L [facility] Comment:Performed at [facility] [place], [place] Blood specimen (specimen) 10/27/2008 6:15 EDT 10/27/2008 6:59 EDT Oracio Rahman MD CHEMISTRY & BLOOD GAS ORDERABLES Performing Organization Address [facility] de Phone Number [facility] [address] [place] [address] * (ABNORMAL) GLUCOSE, GLUCOMETER (10/26/2008 7:28 EDT) Glucose, Fingerstick 102(H) 70 - 100 mg/dl [facility] Rate Manager [place] [id number] Test Performed by Nursing Services [facility] 10/26/2008 7:28 EDT 10/26/2008 7:32 EDT Valerie Burton MD CHEMISTRY & BLOOD GA S ORDERABLES Performing Organization Address [facility] de Phone Number [facility] [address] [place] [address] * (ABNORMAL) GLUCOSE, GLUCOMETER (10/25/2008 22:33 EDT) Glucose, Fingerstick 105(H) 70 - 100 mg/dl [facility] Rate Manager ID [id number] Test Performed by Nursing Services [facility] 10/25/2008 22:3 3 EDT 10/26/2008 7:31 EDT Valerie Burton MD CHEMISTRY & BLOOD GA S ORDERABLES Performing Organization Address [facility] de Phone Number [facility] [address] [place] [address] * (ABNORMAL) GLUCOSE, GLUCOMETER (10/25/2008 16:52 EDT) Glucose, Fingerstick 139(H) 70 - 100 mg/dl [facility] Rate Manager ID [id number] Test Performed by Nursing Services [facility] 10/25/2008 16:5 2 EDT 10/25/2008 20:48 EDT Valerie Burton MD CHEMISTRY & BLOOD GA S ORDERABLES Performing Organization Address [facility] Phone Number [facility] [address] [place] [address] * (ABNORMAL) GLUCOSE, GLUCOMETER (10/25/2008 12:11 EDT) Glucose, Fingerstick 103(H) 70 - 100 mg/dl [facility] Rate Manager ID [id number] Test Performed by Nursing Services [facility] 10/25/2008 12:1 1 EDT 10/25/2008 12:12 EDT Valerie Burton MD CHEMISTRY & BLOOD GA S ORDERABLES Performing Organization Address [facility] de Phone Number [facility] [address] [place] [address] * (ABNORMAL) GLUCOSE, GLUCOMETER (10/25/2008 7:33 EDT) Glucose, Fingerstick 111(H) 70 - 100 mg/dl [facility] Rate Manager ID [id number] Test Performed by Nursing Services [facility] 10/25/2008 7:33 EDT 10/25/2008 7:56 EDT Valerie Burton MD CHEMISTRY & BLOOD GA S ORDERABLES Performing Organization Address [facility] Co de Phone Number [facility] [address] [place] [address] * (ABNORMAL) GLUCOSE, GLUCOMETER (10/24/2008 21:39 EDT) Glucose, Fingerstick 104(H) 70 - 100 mg/dl [facility] Rate Manager [place] [id number] Test Performed by Nursing Services [facility] 10/24/2008 21:3 9 EDT 10/24/2008 22:12 EDT Valerie Burton MD CHEMISTRY & BLOOD GA S ORDERABLES Performing Organization Address [facility] Co de Phone Number [facility] [address] [place] [address] * GLUCOSE, GLUCOMETER (10/24/2008 16:45 EDT) Glucose, Fingerstick 97 70 - 100 mg/dl [facility] Rate Manager ID [id number] Test Performed by Nursing Services [facility] 10/24/2008 16:4 5 EDT 10/24/2008 16:57 EDT Valerie Burton MD CHEMISTRY & BLOOD GA S ORDERABLES Performing Organization Address [facility] Co de Phone Number [facility] [address] [place] [address] * (ABNORMAL) GLUCOSE, GLUCOMETER (10/24/2008 13:55 EDT) Glucose, Fingerstick 130(H) 70 - 100 mg/dl [facility] Rate Manager ID [id number] Test Performed by Nursing Services [facility] 10/24/2008 13:5 5 EDT 10/24/2008 16:47 EDT Valerie Burton MD CHEMISTRY & BLOOD GA S ORDERABLES Performing Organization Address City/[facility] Co de Phone Number [facility] [address] [place] [address] * INPATIENT ADD-ON (10/24/2008 11:10 EDT) Tests to be added 25 (OH) Vit.D2D3 [facility] Number for problems [id number] [facility] Accession number [id number] [facility] 10/24/2008 11:1 0 EDT 10/24/2008 11:16 EDT Valerie Burton MD HEMATOLOGY & PF4 ORD ERABLES Performing Organization Address [facility] de Phone Number [facility] [address] [place] [address] * (ABNORMAL) GLUCOSE, GLUCOMETER (10/24/2008 7:56 EDT) Glucose, Fingerstick 123(H) 70 - 100 mg/dl [facility] Rate Manager ID [id number] Test Performed by Nursing Services [facility] 10/24/2008 7:56 EDT 10/24/2008 8:09 EDT Valerie Burton MD CHEMISTRY & BLOOD GA S ORDERABLES Performing Organization Address [facility] de Phone Number [facility] [address] [place] [address] * (ABNORMAL) 25 OH VITAMIN D2 D3 (10/24/2008 6:10 EDT) Pathologist [facility] [place] 25-Hydroxy D2 4.1Unit: ng/mL [facility] 25-Hydroxy D3 15Unit: ng/mL [facility] 25-Hydroxy D Total 19Unit: ng/mL Interpretatio n: 10-24 (mild to moderate deficiency) ? -- REFERENCE VALUE -- ? 25-HYDROXY D TOTAL (D2+D3) ? Optimum levels in the normal ? population are 25-80 ? Performed or Referred by: [facility] Dpt of Lab Med and Path, [address] ? [address] [facility], [place] [address], Lab Dir: Hiram Fonseca III, ? MD ?(L) [facility] 10/24/2008 6:10 EDT 10/24/2008 6:51 EDT Oracio Rahman MD CHEMISTRY & BLOOD GAS ORDERABLES Performing Organization Address City/State/[facility] Co de Phone Number [facility] [address] [place] [address] * (ABNORMAL) URINE MICROSCOPIC ONLY (10/24/2008 6:10 EDT) WBC, UA 10 to 50 0 - 5 /HPF [facility] RBC, UA 5 to 10 0 - 5 /HPF [facility] Squam Epithel, UA Few(A) NS /HPF [facility] Renal Epithel, UA None seen NS /HPF [facility] Bacteria, UA Rare(A) NS /HPF [facility] Crystals, UA 1 to 10 /HPF [facility] Comment:Calcium Oxalate Hyaline Casts, UA Rare Hyaline /LPF [facility] Comment Microscopic results are unreliable on urines unrefrig >2hrs or refrig >8hrs. Performed at [facility], [place], [place] [facility] Mucus, UA Present [facility] 10/24/2008 6:10 EDT 10/24/2008 7:30 EDT Oracio Rahman MD URINALYSIS ORDERA BLES Performing Organization Address City/[facility]/ZIP Co de Phone Number [facility] [address] [place] [address] * (ABNORMAL) HEMAGRAM (10/24/2008 6:10 EDT) WBC 6.78 4.0 - 10.4 K/cmm [facility] RBC 3.52(L) 4.36 - 5.78 M/cmm [facility] Hemoglobin 10.2(L) 13.8 - 17.3 gm/dl [facility] HCT 31.1(L) 39.5 - 50.2 % [facility] MCV 88 81 - 95 fl [facility] MCH 29.0 27.6 - 33.0 pg [facility] MCHC 32.8 32.8 - 36.4 gm/dl [facility] PLT 526(H) 141 - 320 K/cmm [facility] RDW-CV 15.1(H) 11.8 - 14.1 % [facility] Blood specimen (specimen) 10/24/2008 6:10 EDT 10/24/2008 6:51 EDT Oracio Rahman MD HEMATOLOGY & PF4 ORDERABLES Performing Organization Address City/[facility]/ZIP Co de Phone Number [facility] [address] [place] [address] * CALCIUM (10/24/2008 6:10 EDT) Calcium 8.9 8.5 - 10.5 mg/dl [facility] Calculated Calcium 10.2 8.5 - 10.5 mg/dl [facility] Blood specimen (specimen) 10/24/2008 6:10 EDT 10/24/2008 6:51 EDT Oracio Rahman MD CHEMISTRY & BLOOD GAS ORDERABLES Performing Organization Address [facility] de Phone Number [facility] [address] [place] [address] * (ABNORMAL) GLUCOSE, SERUM (10/24/2008 6:10 EDT) Glucose, Serum 135(H) 70 - 100 mg/dl [facility] Blood specimen (specimen) 10/24/2008 6:10 EDT 10/24/2008 6:51 EDT Oracio Rahman MD CHEMISTRY & BLOOD GAS ORDERABLES Performing Organization Address [facility] Phone Number [facility] [address] [place] [address] * (ABNORMAL) CREATININE (10/24/2008 6:10 EDT) Creatinine 0.56(L) 0.7 - 1.5 mg/dl [facility] GFR, Calculated >60 ml/min/1.7 3m2 [facility] Blood specimen (specimen) 10/24/2008 6:10 EDT 10/24/2008 6:51 EDT Oracio Rahman MD CHEMISTRY & BLOOD GAS ORDERABLES Performing Organization Address [facility] de Phone Number [facility] [address] [place] [address] * BUN (10/24/2008 6:10 EDT) BUN 18 10 - 26 mg/dl [facility] Blood specimen (specimen) 10/24/2008 6:10 EDT 10/24/2008 6:51 EDT Oracio Rahman MD CHEMISTRY & BLOOD GAS ORDERABLES Performing Organization Address [facility] de Phone Number [facility] [address] [place] [address] * (ABNORMAL) ELECTROLYTES (10/24/2008 6:10 EDT) Sodium 134(L) 136 - 145 mEq/L [facility] Potassium 4.5 3.5 - 5.0 mEq/L [facility] Chloride 95(L) 96 - 110 mEq/L [facility] CO2 31 24 - 32 mEq/L [facility] Blood specimen (specimen) 10/24/2008 6:10 EDT 10/24/2008 6:51 EDT Oracio Rahman MD CHEMISTRY & BLOOD GAS ORDERABLES Performing Organization Address [facility] Co de Phone Number [facility] [address] [place] [address] * (ABNORMAL) PHOSPHORUS (10/24/2008 6:10 EDT) Phosphorus 4.9(H) 2.5 - 4.5 mg/dl [facility] Blood specimen (specimen) 10/24/2008 6:10 EDT 10/24/2008 6:51 EDT Oracio Rahman MD CHEMISTRY & BLOOD GAS ORDERABLES Performing Organization Address [facility] Co de Phone Number [facility] [address] [place] [address] * MAGNESIUM (10/24/2008 6:10 EDT) Magnesium 1.8 1.7 - 2.8 mg/dl [facility] Blood specimen (specimen) 10/24/2008 6:10 EDT 10/24/2008 6:51 EDT Oracio Rahman MD CHEMISTRY & BLOOD GAS ORDERABLES Performing Organization Address [facility] Co de Phone Number [facility] [address] [place] [address] * PREALBUMIN (10/24/2008 6:10 EDT) Prealbumin 21 18 - 38 mg/dl [facility] Blood specimen (specimen) 10/24/2008 6:10 EDT 10/24/2008 6:51 EDT Oracio Rahman MD CHEMISTRY & BLOOD GAS ORDERABLES Performing Organization Address [facility] de Phone Number [facility] [address] [place] [address] * (ABNORMAL) GLUCOSE, GLUCOMETER (10/23/2008 20:59 EDT) Glucose, Fingerstick 130(H) 70 - 100 mg/dl [facility] Rate Manager ID [id number] Test Performed by Nursing Services [facility] 10/23/2008 20:5 9 EDT 10/23/2008 22:24 EDT Valerie Burton MD CHEMISTRY & BLOOD GA S ORDERABLES Performing Organization Address [facility] de Phone Number [facility] [address] [place] [address] * (ABNORMAL) GLUCOSE, GLUCOMETER (10/23/2008 17:00 EDT) Glucose, Fingerstick 117(H) 70 - 100 mg/dl [facility] Rate Manager ID [id number] Test Performed by Nursing Services [facility] 10/23/2008 17:0 0 EDT 10/23/2008 17:11 EDT Valerie Burton MD CHEMISTRY & BLOOD GA S ORDERABLES Performing Organization Address [facility] de Phone Number [facility] [address] [place] [address] documented in this encounter Visit Diagnoses Diagnosis Multiple system trauma victim- Primary Injury, other and unspecified, other specified sites, including multiple Subarachnoid hemorrhage (HCC-CMS) Subarachnoid hemorrhage Subdural hematoma (HCC-CMS) Subdural hemorrhage Right Orbital Fracture Other facial bones, closed fracture Right Mandibular Fracture Closed fracture of unspecified site of mandible Right Eyelid Skin and Periocular Area Laceration Laceration of skin of eyelid and periocular area Chin laceration Open wound of jaw, without mention of complication Aortic Rupture, traumatic Aortic aneurysm of unspecified site, ruptured Pulmonary contusion Lung contusion without mention of open wound into thorax Right Pneumothorax Other pneumothorax Fx mult ribs NOS-closed Closed fracture of multiple ribs, unspecified Liver laceration, grade I Liver laceration, minor, without mention of open wound into cavity Paraplegia (HCC-CMS) Paraplegia 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, unspecified L3-L4 fracture dislocation Closed fracture of lumbar spine with spinal cord injury Fracture of Transverse Process of Lumbar Vertebra, Left L2,3,4 Closed fracture of lumbar vertebra without mention of spinal cord injury L4 Right anterior superior end plate fx Closed fracture of lumbar vertebra without mention of spinal cord injury Traumatic Dislocation of Right Knee Pathological dislocation of lower leg joint Tear of Anterior Cruciate Ligament of Knee, bilateral Sprain of cruciate ligament of knee Tear of LCL (Lateral Collateral Ligament) of Knee, bilateral Sprain of lateral collateral ligament of knee Tear of PCL (Posterior Cruciate Ligament) of Knee, Right Sprain of cruciate ligament of knee Right tibial pilon fx,Fracture of Shaft of Tibia Closed fracture of shaft of tibia Fracture of Left Talus, Open (Hyatt 2) Open fracture of astragalus Tongue laceration Microglossia S/P Insertion of IVC (Inferior Vena Caval) Filter, 10-01-08 Other postprocedural status HTN (hypertension) Unspecified essential hypertension documented in this encounter Administered Medications Inactive Administered Medications - up to 3 most recent administrations Medication Order MAR Action Action Date Dose Rate Site acetaminophen (TYLENOL) tablet 500-1,000 mg 500 mg (500-1,000 mg), oral, 4 TIMES DAILY PRN, Starting on Mon10/27/08 at 1237, Until Mon11/12/08 at 1644, Pain, Routine Given 11/12/2008 13:18 EDT 500 mg Given 11/11/2008 0:59 EDT 1,000 mg Given 11/10/2008 17:07 EDT 500 mg Amino Acids-Protein Hydrolys (PRO-STAT) 15-72 gram-kcal/30 mL Liqd 1 Packet 1 Packet, oral, 3 TIMES DAILY WITH MEALS, First dose on Mon11/07/08 at 0900, Until Discontinued, Routine Given 11/12/2008 12:59 EDT 1 Packet Given 11/12/2008 8:15 EDT 1 Packet Given 11/11/2008 17:00 EDT 1 Packet bacitracin Zinc 500 unit/g ointment topical (top), 2 TIMES DAILY, First dose on Mon10/23/08 at 2100, Until Discontinued Given 11/12/2008 8:15 EDT Given 11/11/2008 21:00 EDT Given 11/11/2008 8:21 EDT bisacodyl (DULCOLAX) suppository 10 mg 10 mg, rectal, DAILY PRN, Starting on Mon10/23/08 at 1551, Until Mon11/12/08 at 1644, Constipation, Routine Given 11/10/2008 9:23 EDT 10 mg Given 11/02/2008 9:21 EDT 10 mg cefpodoxime (VANTIN) tablet 100 mg 100 mg, oral, EVERY 12 HOURS (2 times per day), 14 doses, First dose on Mon10/31/08 at 0915, Last dose on Mon11/06/08 at 2100, Routine Given 11/06/2008 20:56 EDT 100 mg Given 11/06/2008 8:30 EDT 100 mg Given 11/05/2008 21:00 EDT 100 mg Cholecalciferol (Vitamin D3) tablet 5,000 Units 5,000 Units, oral, DAILY, First dose on Mon10/27/08 at 1700, Until Discontinued, Routine Given 11/11/2008 17:00 EDT 5,000 Units Given 11/10/2008 17:08 EDT 5,000 Units Given 11/09/2008 17:00 EDT 5,000 Units docusate sodium (ENEMEEZ) enema 1 Enema 1 Enema, rectal, DAILY PRN, Starting on Mon10/23/08 at 1551, Until Mon11/12/08 at 1644, Constipation, Routine Given 11/01/2008 14:01 EDT 1 Enema enoxaparin (LOVENOX) injection 30 mg 30 mg, subcutaneous, EVERY 12 HOURS (2 times per day), First dose on Mon10/23/08 at 2100, Until Discontinued, Routine Given 10/28/2008 9:00 EDT 30 mg Given 10/27/2008 21:18 EDT 30 mg Given 10/27/2008 9:00 EDT 30 mg Abdom inal Tissue enoxaparin (LOVENOX) injection 40 mg 40 mg, subcutaneous, AT BEDTIME, First dose (after last modification) on Mon10/28/08 at 2100, Until Discontinued, Routine Given 11/11/2008 21:00 EDT 40 mg Given 11/10/2008 20:14 EDT 40 mg Given 11/09/2008 21:00 EDT 40 mg gabapentin (NEURONTIN) capsule 300 mg 300 mg, oral, 3 TIMES DAILY, First dose on Lexi 10/23/08 at 1615, Until Discontinued, Routine Given 11/12/2008 8:15 EDT 300 mg Given 11/11/2008 21:00 EDT 300 mg Given 11/11/2008 14:15 EDT 300 mg lisinopril (PRINIVIL, ZESTRIL) tablet 2.5 mg 2.5 mg, oral, DAILY, First dose (after last modification) on Mon11/07/08 at 0900, Until Discontinued, Routine Given 11/12/2008 8:15 EDT 2.5 mg Given 11/11/2008 8:22 EDT 2.5 mg Given 11/10/2008 9:00 EDT 2.5 mg lisinopril (PRINIVIL, ZESTRIL) tablet 5 mg 5 mg, oral, DAILY, First dose on Mon10/26/08 at 1315, Until Discontinued, Routine Given 11/06/2008 8:30 EDT 5 mg Given 11/05/2008 9:00 EDT 5 mg Given 11/03/2008 8:01 EDT 5 mg metoprolol (LOPRESSOR) tablet 50 mg 50 mg, oral, 2 TIMES DAILY, First dose on Lexi 10/23/08 at 2100, Until Discontinued, Routine Given 11/12/2008 8:15 EDT 50 mg Given 11/11/2008 21:00 EDT 50 mg Given 11/11/2008 8:22 EDT 50 mg miconazole (MICOTIN) 2 % cream topical (top), 2 TIMES DAILY, First dose on Lexi 10/23/08 at 2100, Until Discontinued Given 11/12/2008 8:15 EDT Given 11/11/2008 21:00 EDT Given 11/11/2008 8:22 EDT Multivitamins with Minerals tablet 1 Tab 1 Tablet, oral, DAILY, First dose on Lexi 10/23/08 at 1615, Until Discontinued, Routine Given 11/12/2008 8:15 EDT 1 T ablet Given 11/11/2008 8:22 EDT 1 Tablet Given 11/10/2008 9:00 EDT 1 Tablet oxycodone (OXYCONTIN) CR tablet 10 mg 10 mg, oral, EVERY 12 HOURS (2 times per day), First dose on Mon10/25/08 at 2100, Until Discontinued, Routine Given 10/26/2008 9:00 EDT 10 mg Given 10/25/2008 21:00 EDT 10 mg oxycodone (OXYCONTIN) CR tablet 10 mg 10 mg, oral, EVERY 12 HOURS (2 times per day), 1 dose, First dose on Mon10/26/08 at 1000, Routine Given 10/26/2008 1 1:25 EDT 10 mg oxycodone (OXYCONTIN) CR tablet 20 mg 20 mg, oral, EVERY 12 HOURS (2 times per day), First dose (after last modification) on Mon10/26/08 at 2100, Until Discontinued, Routine Given 10/31/2008 9:00 EDT 20 mg Given 10/30/2008 21:10 EDT 20 mg Given 10/30/2008 8:59 EDT 20 mg oxycodone (OXYCONTIN) CR tablet 30 mg 30 mg, oral, EVERY 12 HOURS (2 times per day), First dose (after last modification) on Mon10/31/08 at 1800, Until Discontinued, Routine Given 11/12/2008 6:00 EDT 30 mg Given 11/11/2008 18:00 EDT 30 mg Given 11/11/2008 4:57 EDT 30 mg oxycodone (ROXICODONE) 5 mg/5 mL solution 1 dose, Starting on Mon10/23/08 at 1606, Until Mon10/23/08 at 2016 oxycodone (ROXICODONE) immediate release tablet 5-15 mg 5-15 mg, oral, EVERY 3 HOURS PRN, Starting on Mon10/24/08 at 1053, Until Mon11/12/08 at 1644, Pain, Routine Given 11/12/2008 13:18 EDT 15 mg Given 11/11/2008 23:17 EDT 15 mg Given 11/11/2008 15:53 EDT 15 mg oxycodone (ROXICODONE) solution 5-15 mg 5-15 mg, oral, EVERY 3 HOURS PRN, Starting on Mon10/23/08 at 1551, Until Mon10/24/08 at 1054, Pain, Routine Given 10/24/2008 9:18 EDT 15 mg Given 10/24/2008 1:52 EDT 15 mg Given 10/23/2008 20:16 EDT 10 mg Pro-Stat 64-Protein Hydrolys (Pro-Stat 64) 15-60 gram-kcal/30 mL Liqd 1 Packet 1 Packet, oral, 3 TIMES DAILY WITH MEALS, First dose on Mon10/27/08 at 1300, Until Discontinued, Routine Given 11/07/2008 8:27 EDT 1 Packet Given 11/06/2008 16:17 EDT 1 Packet Given 11/06/2008 12:30 EDT 1 Packet ramelteon (ROZEREM) tablet 8 mg 8 mg, oral, AT BEDTIME, First dose on Mon10/27/08 at 2100, Until Discontinued, Routine Given 11/01/2008 21:22 EDT 8 mg Given 10/31/2008 21:00 EDT 8 mg Given 10/30/2008 21:10 EDT 8 mg tramadol (ULTRAM) tablet 50-100 mg 50-100 mg, oral, 4 TIMES DAILY PRN, Starting on Mon10/27/08 at 1237, Until Mon11/12/08 at 1644, Pain, Routine Given 11/07/2008 9:57 EDT 100 mg Given 10/30/2008 8:59 EDT 100 mg Given 10/27/2008 21:15 EDT 50 mg trazodone (DESYREL) tablet 75 mg 75 mg, oral, AT BEDTIME, First dose on 11/02/08 at 2100, Until Discontinued, Routine Given 11/11/2008 21:00 EDT 7 5 mg Given 11/10/2008 20:17 EDT 75 mg Given 11/09/2008 21:00 EDT 75 mg warfarin (COUMADIN) tablet 4 mg 4 mg, oral, AT BEDTIME, First dose on 10/28/08 at 2100, Until Discontinued, Routine Given 10/31/2008 21:00 EDT 4 mg Given 10/30/2008 21:10 EDT 4 mg Given 10/29/2008 20:16 EDT 4 mg warfarin (COUMADIN) tablet 5 mg 5 mg, oral, AT BEDTIME, First dose (after last modification) on 11/01/08 at 2100, Until Discontinued, Routine Given 11/09/2008 21:00 EDT 5 mg Given 11/08/2008 21:00 EDT 5 mg Given 11/07/2008 21:00 EDT 5 mg warfarin (COUMADIN) tablet 7 mg 7 mg, oral, AT BEDTIME, First dose (after last modification) on 11/10/08 at 2100, Until Discontinued, Routine Given 11/11/2008 21:00 EDT 7 mg Given 11/10/2008 20:17 EDT 7 mg documented in this encounter Historical Medications * This list may reflect changes made after this encounter. Medication Sig Dispensed Refills Start Date End Date trazodone (DESYREL) 50 mg tablet Take 50 mg by mouth at bedtime as needed for Sleep. Acetaminophen 167 mg/5 mL Liqd Take 650 mg by mouth every 6 hours as needed. oxycodone (ROXICODONE) 5 mg/5 mL solution Take 5-15 mg by mouth every 3 hours as needed. PO or g tube bisacodyl (DULCOLAX) 5 mg EC tablet Take 5 mg by mouth 2 times daily as needed for Constipation. bisacodyl (DULCOLAX) [address] 10 mg rectally daily as needed. PEG 3350-Electrolytes (MIRALAX) 17 gram (100 %) packet Take 17 g by mouth daily as needed. Lactulose 10 gram/15 mL Syrp Take 30 mL by mouth daily as needed. MAGNESIUM CITRATE ORAL Take 300 mL by mouth daily as needed. metoprolol (LOPRESSOR) 25 mg tablet Take 25 mg by mouth 3 times daily. insulin aspart (NOVOLOG FLEXPEN) 100 unit/mL InPn Inject into the skin 3 times daily as needed. bacitracin ophthalmic ointment Apply to eye 3 times daily. Apply around eyelid incision senna-docusate (PERICOLACE) 8.6-50 mg per tablet Take 1 Tab by mouth 2 times daily. TRYPSIN/BALSAM MARIA DEL ROSARIO/CASTOR OIL (XENADERM TOP) Apply topically 2 times daily. Multivitamins with Minerals Tab Take 1 Tab by mouth daily. enoxaparin (LOVENOX) 30 mg/0.3 mL injection Inject 30 mg into the skin every 12 hours. gabapentin (NEURONTIN) 300 mg capsule Take 300 mg by mouth 3 times daily. miconazole (MICOTIN) 2 % cream Apply topically 2 times daily. added in this encounter Active and Recently Administered Medications Times are shown in EDT. Scheduled Medication Order 11/10/2008 11/11/2008 11/12/2008 Amino Acids-Protein Hydrolys (PRO-STAT) 15-72 gram-kcal/30 mL Liqd 1 Packet 1 Packet, oral, 3 TIMES DAILY WITH MEALS, First dose on Mon11/07/08 at 0900, Until Discontinued, Routine 0800 (Given - Provider: Ino Terry)1200 (Given - Provider: Ino Terry)1707 (Given - Provider: Abelardo Byrd RN) 0821 (Given - Provider: Nereida Kern RN)1240 (Given - Provider: Nereida Kern RN)1700 (Given - Provider: Tiffanie Hoang, XANDER) 0815 (Given - Provider: Mali Ford, XANDER)1259 (Given - Provider: Mali Ford, XANDER) bacitracin Zinc 500 unit/g ointment (CANCELED) topical (top), 2 TIMES DAILY, First dose on Mon10/23/08 at 2100, Until Discontinued 0900 (Given - Provider: Ino Terry)2013 (Given - Provider: Abelardo Byrd RN) 0821 (Given - Provider: Nereida Kern, XANDER)2100 (Given - Provider: Tiffanie Hoang, XANDER) 0815 (Given - Provider: Mali Ford, XANDER) Cholecalciferol (Vitamin D3) tablet 5,000 Units 5,000 Units, oral, DAILY, First dose on Mon10/27/08 at 1700, Until Discontinued, Routine 1708 (Given - Provider: Abelardo Byrd RN) 1700 (Given - Provider: Tiffanie Hoang, XANDER) enoxaparin (LOVENOX) injection 40 mg 40 mg, subcutaneous, AT BEDTIME, First dose (after last modification) on Mon10/28/08 at 2100, Until Discontinued, Routine 2013 (Given - Provider: Abelardo Byrd RN) 2100 (Given - Provider: Tiffanie Hoang, XANDER) gabapentin (NEURONTIN) capsule 300 mg (CANCELED) 300 mg, oral, 3 TIMES DAILY, First dose on Mon10/23/08 at 1615, Until Discontinued, Routine 0900 (Given - Provider: Ino Terry)1400 (Given - Provider: Ino Terry)2014 (Given - Provider: Abelardo Byrd RN) 08 (Given - Provider: Nereida Kern RN)141 (Given - Provider: Nereida Kern RN)2099 (Given - Provider: Tiffanie Hoang, XANDER) 08 (Given - Provider: Mali Ford, XANDER) lisinopril (PRINIVIL, ZESTRIL) tablet 2.5 mg 2.5 mg, oral, DAILY, First dose (after last modification) on Mon11/07/08 at 0900, Until Discontinued, Routine 0900 (Given - Provider: Ino Terry) 08 (Given - Provider: Nereida Kern RN) 08 (Given - Provider: Mali Ford, XANDER) metoprolol (LOPRESSOR) tablet 50 mg 50 mg, oral, 2 TIMES DAILY, First dose on Mon10/23/08 at 2100, Until Discontinued, Routine 0900 (Given - Provider: Ino Terry)2015 (Given - Provider: Abelardo Byrd RN) 08 (Given - Provider: Nereida Kern RN)2099 (Given - Provider: Tiffanie Hoang, XANDER) 08 (Given - Provider: Mali Ford, XANDER) miconazole (MICOTIN) 2 % cream (CANCELED) topical (top), 2 TIMES DAILY, First dose on Mon10/23/08 at 2100, Until Discontinued 0900 (Given - Provider: Ino Terry)2016 (Given - Provider: Abelardo Byrd RN) 08 (Given - Provider: Nereida Kern RN)2099 (Given - Provider: Tiffanie Hoang RN) 08 (Given - Provider: Mali Ford, XANDER) Multivitamins with Minerals tablet 1 Tab (CANCELED) 1 Tablet, oral, DAILY, First dose on Mon10/23/08 at 1615, Until Discontinued, Routine 0900 (Given - Provider: Ino Terry) 08 (Given - Provider: Nereida Kern RN) 08 (Given - Provider: Mali Ford RN) oxycodone (OXYCONTIN) CR tablet 30 mg 30 mg, oral, EVERY 12 HOURS (2 times per day), First dose (after last modification) on Mon10/31/08 at 1800, Until Discontinued, Routine 0717 (Given - Provider: Brenna Alvarado, RN)1708 (Given - Provider: Abelardo Byrd RN) 0455 (Canceled Entry - Provider: Brenna Alvarado RN)0457 (Given - Provider: Brenna Alvarado RN)1800 (Given - Provider: Tiffanie Hoang, XANDER) 0600 (Given - Provider: Saritha Romo) trazodone (DESYREL) tablet 75 mg 75 mg, oral, AT BEDTIME, First dose on Mon11/02/08 at 2100, Until Discontinued, Routine 2016 (Given - Provider: Abelardo Byrd RN) 2100 (Given - Provider: Tiffanie Hoang RN) warfarin (COUMADIN) tablet 7 mg 7 mg, oral, AT BEDTIME, First dose (after last modification) on Mon11/10/08 at 2100, Until Discontinued, Routine 2016 (Given - Provider: Abeladro Byrd RN) 2100 (Given - Provider: Tiffanie Hoang RN) PRN Medication Order 11/10/2008 11/11/2008 11/12/2008 acetaminophen (TYLENOL) tablet 500-1,000 mg 500 mg (500-1,000 mg), oral, 4 TIMES DAILY PRN, Starting on Mon10/27/08 at 1237, Until Mon11/12/08 at 1644, Pain, Routine 1707 (Given - Provider: Abelardo Byrd RN) 0059 (Given - Provider: Brenna Alvarado RN) 1318 (Given - Provider: Mali Ford RN) aluminum & magnesium hydroxide-simethicone (MYLANTA-DS) 400-400-40 mg/5 mL suspension 30 mL 30 mL, oral, EVERY 4 HOURS PRN, Starting on Lexi 10/23/08 at 1551, Until Mon11/12/08 at 1644, Indigestion, Routine bisacodyl (DULCOLAX) suppository 10 mg 10 mg, rectal, DAILY PRN, Starting on Lexi 10/23/08 at 1551, Until Mon11/12/08 at 1644, Constipation, Routine 0923 (Given - Provider: Ino Terry) docusate sodium (COLACE) capsule 200 mg 200 mg, oral, 2 TIMES DAILY PRN, Starting on Lexi 10/23/08 at 1551, Until Mon11/12/08 at 1644, Constipation, Routine oxycodone (ROXICODONE) immediate release tablet 5-15 mg 5-15 mg, oral, EVERY 3 HOURS PRN, Starting on Mon10/24/08 at 1053, Until Mon11/12/08 at 1644, Pain, Routine 0055 (Given - Provider: Brenna Alvarado, RN)0454 (Given - Provider: Brenna Alvarado, XANDER)1240 (Given - Provider: Nereida Kern RN)1553 (Given - Provider: Tiffanie Hoang, XANDER)2317 (Given - Provider: Tiffanie Hoang, RN) 1318 (Given - Provider: Mali Ford RN) senna (SENOKOT) tablet 1-3 Tab 1-3 Tablet, oral, DAILY PRN, Starting on Lexi 10/23/08 at 1551, Until Mon11/12/08 at 1644, Constipation, Routine tramadol (ULTRAM) tablet 50-100 mg 50-100 mg, oral, 4 TIMES DAILY PRN, Starting on 10/27/08 at 1237, Until Mon11/12/08 at 1644, Pain, Routine documented in this encounter Orders Medications Ordered That Javier ht Not Have Been Administered Count Last Ordered Date First Ordered Date acetaminophen (TYLENOL) 325 mg tablet 1 oxycodone (ROXICODONE) immed iate release tablet 20 mg 1 10/31/2008 sulfamethoxazole-trimethopri m (BACTRIM DS) 160-800 mg per tablet 1 Tab 1 10/31/2008 lidocaine (XYLOCAINE) 2 % jelly 2 9 10/27/2008 oxycodone (ROXICODONE) 5 mg immediate release tablet 1 10/24/2008 acetaminophen (TYLENOL) 160 mg/5 mL solution 1 10/23/2008 acetaminophen (TYLENOL) solution 650 mg 1 0 10/23/2008 Acetaminophen Liqd 650 mg 1 10/23/2008 aluminum & magnesium hydroxi de-simethicone (MYLANTA-DS) 400-400-40 mg/5 mL suspension 30 mL 1 10/23/2008 bisacodyl (DULCOLAX) EC tablet 5 mg 1 10/23 dextrose 50 % solution 12.5 g 1 10/23/2008 docusate sodium (COLACE) capsule 200 mg 1 0 10/23/2008 glucagon (human recombinant) injection 1 mg 1 10/23/2008 insulin aspart (NOVOLOG FlexPen) injection 1 10/23/2008 lactulose (CHRONULAC) 10 gra m/15 mL solution 30 mL 1 10/23/2008 Lactulose Syrp 30 mL 1 10/23/2008 PEG 3350-Electrolytes (SHARATH AX) packet 17 g 1 10/23/2008 senna (SENOKOT) tablet 1-3 Tab 1 10/23/2008 trazodone (DESYREL) tablet 50 mg 1 10/24/19 09 zinc oxide (DESITIN) 40 % ointment 1 2008 Lab Orders Without Results Count Last Ordered D ate First Ordered Date POCT GLUCOSE 2 10/24/2008 Diet Count Last Ordered Date First Orde red Date DIET DYSPHAGIA 1 11/05/2008 Nursing Count Last Ordered Date First Orde red Date CATHETER CARE 1 10/30/2008 BLADDER PROGRAM 1 10/27/2008 NON WEIGHT BEARING 1 10/24/2008 Consult Count Last Ordered Date First Orde red Date CONSULT MEDICAL PSYCHOLOGY 1 10/23/2008 CONSULT NUTRITION 1 10/23/2008 OT Count Last Ordered Date First Orde red Date OT EVALUATION AND TREAT 1 10/23/2008 PT Count Last Ordered Date First Orde red Date PT EVALUATION AND TREAT 1 10/23/2008 GENERAL PASSENGER AGENT Count Last Ordered Date First Orde red Date GENERAL PASSENGER AGENT CLINICAL SWALLOW EVALUATION AND TREAT 1 10/23/2008 GENERAL PASSENGER AGENT COMMUNICATION EVALUATION AND TREAT 1 Admission Count Last Ordered Date First Orde red Date NOTIFY PPS OF DISCHARGE COMPLETE 1 11/13/19 NOTIFY PPS OF ROOM CHANGE COMPLETE 3 200810/30/2008 ADMIT TO INPATIENT 1 10/23/2008 ADMITTING CONDITION 1 10/23/2008 NON-TEACHING SERVICE 1 10/23/2008 Precaution Count Last Ordered Date First Orde red Date ORTHOPEDIC SPINAL PRECAUTIONS 1 11/06/2008 PRECAUTIONS: SURGERY/BRACE 1 10/23/2008 Consult to Social Work Count Last Ordered Date First Ordered Date CONSULT SOCIAL WORK 1 10/23/2008 documented in this encounter Care Teams Infantry Weapons Crewmember Relationship Specialty Start Date End Date Unknown, Provider, PCP - General 10/23/08 documented as of this encounter
--- OUTSIDE RECORDS SUMMARY | 2023-10-06 00:29 | XMS_ITS | Encounter Summary ---
Author Organization [facility] Address [facility] [place] [address] Care Team Providers Care Punching Machine Operator Name Role Phone Martha Dempsey MD Primary Care Provider [phone] Reason for Visit * Reason Comments Retinal Vein Occlusion Encounter Details Date Type Department Care Team (Latest Contact Info) Description 02/19/2019 2:00 PM EST Office Visit Ophthalmology at [facility] [place] [address] Constanza Toro MD [facility] [place] [address] BRVO and NVE s/p PRP OD (Dx [...] Progress Notes * Constanza Toro MD - 02/19/2019 2:00 PM EST ASSESSMENT/PLAN: ?? 1. BRVO and NVE s/p PRP OD (Dx 06/2018) 2. 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 BRVO with NVE OD (Dx 06/2018) - s/p PRP OD 08/03/18 Today 02/19/2019 - today's exam showed regressed NVEs OD. There's no CME. Observation recommended again. Also recommended good BP control. 2. PVD OS - observe at this time 3. NS OU - monitor Follow up 1 year for DFE, OCT OU I, Armando Flores, have performed the documentation for this encounter in the presence of, and acting as a scribe for Constanza Toro MD. I performed the services which were documented by the scribe, and I agree with the accuracy of the documentation in this encounter. Constanza Toro MD, PhD Extended Ophthalmoscopy and drawing: Technique: 20D with scleral depression and 78D with the slit lamp Findings: Main Ophthalmology Exam External Exam Right Left [...] Normal Normal Vessels Collaterals superiorly Normal Periphery PRP ST, 1+ DBHs superiorly Normal Plan: See assessment and plan (exam note) documented in this encounter Plan of Treatment Not on file documented as of this encounter Procedures Procedure Name Priority Date/Time Associated Diagnosis Comments OCT RETINA - OU - BOTH EYES Routine 02/19/2019 3:25 PM EST Branch retinal vein occlusion of right eye with retinal neovascularization documented in this encounter Results * OCT Retina - OU - Both Eyes (02/19/2019 3:25 PM EST) Anatomical Region Laterality Modality Other Narrative 02/19/2019 3:25 PM EST Right Eye Quality was good. Scan locations [...] 06/2018) documented in this encounter Care Teams Punching Machine Operator Relationship Specialty Start Date End Date Martha Dempsey MD [address] [place] [address] PCP - General 02/09/10 10/16/22 documented as of this encounter
--- OUTSIDE RECORDS SUMMARY | 2023-10-06 00:29 | XMS_ITS | Encounter Summary ---
Author Organization [place] [address] Care Team Providers Care Outside Maintenance Worker Name Role Phone Lobo Yenjaskaran Rinaldi APRN Primary Care Provider [phone] Reason for Referral * Diagnostic Test (Routine) - Closed Specialty Diagnoses / Procedures Referred By Contac t Referred To Contact Radiology Diagnoses Infrarenal abdominal aortic aneurysm (AAA) without rupture Procedures CT Angiogram Abdomen & Pelvis w Contrast (Generic) Tisha Cardona MD [facility] [place] [address] [facility] [place] [address] Referral ID Status Reason Start Date Expiration Date V isits Requested Visits Authorized [id number] Closed Specialty Service Requested 12/08/2022 06/07/2024 1 1 Reason for Visit * Diagnostic Test (Routine) - Closed Specialty Diagnoses / Procedures Referred By Contac t Referred To Contact Radiology Diagnoses Infrarenal abdominal aortic aneurysm (AAA) without rupture Procedures CT Angiogram Abdomen & Pelvis w Contrast (Generic) Tisha Cardona MD [facility] [place] [address] [facility] [place] [address] Referral ID Status Reason Start Date Expiration Date V isits Requested Visits Authorized [id number] Closed Specialty Service Requested 12/08/2022 06/07/2024 1 1 Encounter Details Date Type Department Care Team (Latest Contact Info) Description 02/24/2023 12:59 PM EST - 02/24/2023 11:59 PM EST Hospital [place] [address] Tisha Cardona MD [facility] [place] [address] Infrarenal abdominal aortic aneurysm (AAA) without rupture Discharge Disposition: Home Social History Tobacco Use [...] Sig Dispensed Refills Start Date End Date baclofen (LIORESAL) 10 mg Tablet 0 01/24/2019 aspirin 81 mg Tablet, Chewable Take 81 [...] Procedure Name Priority Date/Time Associated Diagnosis Comments CT ANGIOGRAM ABDOMEN AND PELVIS W CONTRAST Routine 02/24/2023 1:38 PM EST Infrarenal abdominal aortic aneurysm (AAA) without rupture documented in this encounter Results * CT Angiogram Abdomen [...] who have questions please contact the health personal care home administrator that requested your imaging first. ? Narrative 02/24/2023 4:36 PM EST EXAMINATION: CT [...] administration of contrast. Administered 71.0 ml of [id number] mg/ml. Maximum intensity projection (MIP) were reformatted. [...] narrowing L3-4. There is disc space narrowing [id number] and L1-L2. There is multilevel degenerative disc [...] months after the CT abdomen and pelvis fromJuly 2022. According to Fleischner guidelines, follow-up CT [...] patients who have questions please contactthe health personal care home administrator that requested your imaging first. Tisha Cardona MD IM CT ORDERABLES documented in this encounter Visit Diagnoses Diagnosis Infrarenal abdominal aortic aneurysm (AAA) without rupture documented in this encounter Administered Medications Inactive Administered Medications - up to 3 most recent administrations Medication Order MAR Action Action Date Dose Rate Site iohexoL (Omnipaque) (350 mg/mL) solution 0-200 mL 0-200 mL, Intravenous, ONCE PRN, 1 dose, Starting on Mon02/24/23 at 1337, Until Mon02/24/23 at 1337, Per Protocol, Warning Vesicant/Irritant Medication , Radiology Contrast, Routine Given 02/24/2023 1:37 PM EST 71 mLs documented in this encounter Care Teams Outside Maintenance Worker Relationship Specialty Start Date End Date Yen Diamond APRN [address] [place] [address] PCP - General Family Medicine 10/17/22 documented as of this encounter
--- OUTSIDE RECORDS SUMMARY | 2023-10-06 00:29 | XMS_ITS | Encounter Summary ---
Author Organization [place] [address] Care Team Providers Care Rougher Helper Name Role Phone Yen Diamond APRN Primary Care Provider [phone] Reason for Referral * Consultation (Routine) - Closed Specialty Diagnoses / Procedures Referred By Contac t Referred To Contact Cardiology Diagnoses Ascending aorta dilation (StJ/LIT?) ABDOMINAL AORTIC ANEURYSM, RECENT CT MEASURES 3.1 X 2.9 CM. HTN,OBESE, DM2, VIT D INSUFF, MARCELO-SEVERE. Yen Diamond APRN [address] [place] [address] [facility] [address] [place] [id number] Referral ID Status Reason Start Date Expiration Date V isits Requested Visits Authorized [id number] Closed Consult, Test & Treat PCP Updated and/or Approved 10/20/2022 10/20/2023 1 1 Encounter Details Date Type Department Care Team (Latest Contact Info) Description 10/20/2022 Transcribe Orders eDH Incoming Referrals [phone] Yen Diamond APRN [address] [place], [place] [id number] Ascending aorta dilation Social History Tobacco Use [...] Priority Associated Diagnoses Order Schedule Referral to Cardiology Outpatient Referral Routine Ascending aorta dilation Ordered: 10/20/2022 documented as of this encounter Visit Diagnoses Diagnosis Ascending aorta dilation Thoracic aortic ectasia documented in this encounter Care Teams Rougher Helper Relationship Specialty Start Date End Date Yen Diamond APRN [address] [place] [address] PCP - General Family Medicine 10/17/22 documented as of this encounter
--- OUTSIDE RECORDS SUMMARY | 2023-10-06 00:29 | XMS_ITS | Encounter Summary ---
Author Organization [facility] [place] [address] Care Team Providers Care Pipe Fittings Molder Name Role Phone Martha Dempsey MD Primary Care Provider [phone] Encounter Details Date Type Department Care Team (Late st Contact Info) Description 10/12/2022 Ancillary Procedure [place] [address] Yen Diamond APRN [address] [place] [address] Social History Tobacco Use Types Packs/Day Years [...] Associated Diagnosis Comments FILM LIBRARY STORAGE ONLY CT ABDOMEN AND PELVIS Routine 10/12/2022 12:00 AM EDT documented in this encounter Results * Film Library- Storage Only CT Abdomen & Pelvis (10/12/2022 12:00 AM EDT) Narrative [facility] - 12/08/2022 3:03 PM EDT This exam is auto-finalizing. It's purpose is for storage only. Yen Diamond APRN IMG FILM LIBRARY ORDERABLES [place], [place] documented in this encounter Visit Diagnoses Not on filedocumented in this encounter Care Teams Pipe Fittings Molder Relationship Specialty Start Date End Date Martha Dempsey MD [address] [place] [address] PCP - General 02/09/10 10/16/22 documented as of this encounter
--- OUTSIDE RECORDS SUMMARY | 2023-10-06 00:29 | XMS_ITS | Encounter Summary ---
[place] [address] Care Team Providers Care Absorber Operator Name Role Phone Yen Diamond APRN Primary Care Provider [phone] Encounter Details Date Type Department Care Team (Latest Contact Info) Description 05/05/2023 2:00 PM EST Laboratory Appointment Lab [address] [place] [id number] HERRERA (nonalcoholic steatohepatitis); Hepatic fibrosis Social History Tobacco Use Types Packs/Day Years [...] Procedure Name Priority Date/Time Associated Diagnosis Comments HEMOGRAM Routine 05/05/2023 1:58 PM EST HERRERA (nonalcoholic steatohepatitis) Hepatic fibrosis DIFFERENTIAL, AUTOMATED Routine 05/05/2023 1:58 PM EST HERRERA (nonalcoholic steatohepatitis) Hepatic fibrosis HC HEPATITIS C ANTIBODY Routine 05/05/2023 1:58 PM EST HERRERA (nonalcoholic steatohepatitis) Hepatic fibrosis HC IRON BINDING CAPACITY Routine 05/05/2023 1:58 PM EST HERRERA (nonalcoholic steatohepatitis) Hepatic fibrosis HC A1AT (ALPHA-1 ANTITRYPSIN) Routine 05/05/2023 1:58 PM EST HERRERA (nonalcoholic steatohepatitis) Hepatic fibrosis HC PCH MITOCHONDRIAL ANTIBODY Routine 05/05/2023 1:58 PM EST HERRERA (nonalcoholic steatohepatitis) Hepatic fibrosis HC VENIPUNCTURE Routine 05/05/2023 1:58 PM EST HERRERA (nonalcoholic steatohepatitis) Hepatic fibrosis HC HEPATITIS B CORE AB Routine 1:58 PM EST HERRERA (nonalcoholic steatohepatitis) Hepatic fibrosis HC PCH SMOOTH MUSCLE AB SCREEN, SMAT Routine 05/05/2023 1:58 PM EST HERRERA (nonalcoholic steatohepatitis) Hepatic fibrosis HC HEPATITIS B SURFACE AB Routine 05/05/2023 1:58 PM EST HERRERA (nonalcoholic steatohepatitis) Hepatic fibrosis HC HEPATITIS B SURFACE AG Routine 05/05/2023 1:58 PM EST HERRERA (nonalcoholic steatohepatitis) Hepatic fibrosis HC PROTHROMBIN TIME Routine 05/05/2023 1 :58 PM EST HERRERA (nonalcoholic steatohepatitis) Hepatic fibrosis HC CBC,PLT & AUTO DIFF Routine 1:58 PM EST HERRERA (nonalcoholic steatohepatitis) Hepatic fibrosis HC DNA AB DS (BIG PINE RESERVATION) Routine 05/05/2023 1:58 PM EST HERRERA (nonalcoholic steatohepatitis) Hepatic fibrosis HC IGG, SERUM Routine 05/05/2023 1:58 PM EST HERRERA (nonalcoholic steatohepatitis) Hepatic fibrosis HC FERRITIN, SERUM Routine 05/05/2023 1: 58 PM EST HERRERA (nonalcoholic steatohepatitis) Hepatic fibrosis COMPREHENSIVE METABOLIC PANEL (NON-FASTING) Routine 05/05/2023 1:58 PM EST HERRERA (nonalcoholic steatohepatitis) Hepatic fibrosis documented in this encounter Results * Differential, Automated (05/05/2023 1:58 PM EST) Neutrophils % 55.7 % [facility] Neutr Abs (ANC) 4.09 1.70 - 6.10 x10(3)/[facility] Lymphocytes % 31.0 % [facility] Lymphocytes Abs 2.3 0.9 - 3.2 x10(3)/[facility] Monocytes % 8.2 % [facility] Monocyte Abs 0.6 0.3 - 0.9 x10(3)/[facility] Eosinophils % 4.0 % [facility] Eosinophils Abs 0.3 0.0 - 0.4 x10(3)/[facility] Basophils % 0.7 % [facility] Basophils Abs 0.0 0.0 - 0.1 x10(3)/[facility] Immature Gran % 0.40 % [facility] Comment: Immature granulocytes(IG's)percentage and absolute count will include metamyelocytes, myelocytes, and promyelocytes. Blood smears from CBCs yielding IG's will be scanned manually for concordance. If this scan disagrees with the automated IG or if promyelocytes are noted, a manual differential will be performed. Mai Gran Abs 0.03 0.00 - 0.04 x10(3)/[facility] Blood 05/05/2023 1:58 PM EST 05/05/2023 2:18 PM EST Narrative Resulting Agency Comment Spec In Lab Mayelin Perez [employer] HEMATOLOGY ORDERAB LES [facility] [place] [address] * Hemogram (05/05/2023 1:58 PM EST) Pathologist [facility] WBC 7.3 4.0 - 9.5 x10(3)/[facility] RBC 4.68 4.58 - 5.54 x10(6)/[facility] Hemoglobin 14.4 13.7 - 16.5 g/dL [facility] Hematocrit 42.9 40.5 - 48.5 % [facility] MCV 91.7 82.9 - 93.1 [facility] MCH 30.8 27.5 - 32.1 pg [facility] MCHC 33.6 32.0 - 35.7 g/dL [facility] Platelets 246 145 - 357 x10(3)/[facility] RDWSD 41.8 36.0 - 45.0 [facility] RDWCV 12.6 11.4 - 13.8 % [facility] MPV 9.2 7.6 - 12.9 [facility] nRBC % Auto 0.0 % [facility] nRBC Abs Auto 0.000 0.000 - 0.000 x10(3)/[facility] Blood 05/05/2023 1:58 PM EST 05/05/2023 2:18 PM EST Narrative Resulting Agency Comment Spec In Lab Mayelin Perez [employer] HEMATOLOGY ORDERAB LES Performing Organization Address City/State/[facility] Co de Phone Number [facility] [place] [address] * (ABNORMAL) Comprehensive metabolic panel (non-fasting) (05/05/2023 1:58 PM EST) Pathologist [facility] Glucose Lvl 85 65 - 199 mg/dL [facility] Comment:Diabetes: >=200 mg/d L plus symptoms BUN 20 10 - 20 mg/dL [facility] Creatinine 0.78(L) 0.80 - 1.50 mg/dL [facility] Sodium 140 135 - 145 mmol/L [facility] Potassium 4.4 3.5 - 5.0 mmol/L [facility] Comment: Please note: ??Patients with WBC >100,000 may have falsely elevated Potassium levels. ??For accurate Potassium quantification in these patients send serum separator tube (gold top) for subsequent determinations. ??Contact the Clinical Chemistry Laboratory if there are any questions. Chloride 102 98 - 107 mmol/L [facility] CO2 27 22 - 31 mmol/L [facility] Anion Gap 11 5 - 15 mmol/L [facility] Calcium 10.4 8.5 - 10.5 mg/dL [facility] Total Protein 8.1(H) 6.1 - 8.0 g/dL [facility] Albumin 4.8 3.2 - 5.2 g/dL [facility] AST 21 0 - 39 unit/L [facility] ALT 24 0 - 55 unit/L [facility] Alk Phos 106 40 - 130 unit/L [facility] Total Bilirubin <0.2(L) 0.2 - 1.3 mg/dL [facility] Estimated GFR 98 >=60 mL/min/1. 73 m?? [facility] Comment: This patient's estimated [...] Agency Comment Spec In Lab Mayelin Perez [employer] CHEMISTRY ORDERABL ES [facility] [place] [address] * Prothrombin Time (05/05/2023 1:58 PM EST) PT 12.1 9.4 - 12.5 sec [facility] INR 1.1 [facility] Comment: An INR <2.0 indicates adequate procoagulant activity for hemostasis in most patients without underlying bleeding disorders, though the INR may not adequately reflect hemostatic capacity in patients with liver disease and synthetic impairment. The recommended target INR range for therapeutic anticoagulation is 2.0 ? 3.0 for most applications, though lower and higher ranges may be appropriate depending on clinical circumstances. Blood 05/05/2023 1:58 PM EST 05/05/2023 2:18 PM EST Narrative Resulting Agency Comment Spec In Lab Mayelin Perez [employer] HEMATOLOGY ORDERAB LES Performing Organization Address [facility] Co de Phone Number [facility] [place] [address] * A1AT Serum Concentration (05/05/2023 1:58 PM EST) A1AT 149 90 - 200 mg/dL [facility] Blood 05/05/2023 1:58 PM EST 05/05/2023 2:18 PM EST Narrative Resulting Agency Comment Spec In Lab Mayelin Perez [employer] CHEMISTRY ORDERABL ES Performing Organization Address [facility] Co de Phone Number [facility] [place] [address] * WAQAS Antibody Screen (05/05/2023 1:58 PM EST) Antinuclear Ab Negative Negative [facility] Comment: This antinuclear antibody (WAQAS) screen is a qualitative test performed using a fluoroenzyme immunoassay on the Toodalu 250 analyzer. This screen is designed to detect antibodies to U1RNP, SS-A/Ro, SS-B/La, centromere B, Scl-70, Janki-1, and Sm(Suresh) proteins in serum samples. Antibodies to other nuclear antibodies will not be detected with this assay. This WAQAS screen is also performed in concert with a quantitative for IgG antibodies to dsDNA. Please note that as of 01/11/2022 that this testing is performed by the Special Chemistry Laboratory at [facility]. This change in testing location is associated with a change is testing method and reference intervals. Please review the results of this test in association with the posted reference intervals. dsDNA Ab 1.2 <=15.0 IU/mL [facility] Comment: <10 negative 10-15 equivocal >15 positive This dsDNA antibody result was generated using a fluoroenzyme immunoassay on the Toodalu 250 analyzer. This quantitative test is designed to detect IgG antibodies directed against double stranded DNA in human serum. The presence of antibodies that recognize dsDNA is a highly specific marker for systemic lupus erythematosus. Please note that as of 01/11/2022 that this testing is performed by the Special Chemistry Laboratory at [facility]. This change in testing location is associated with a change is testing method and reference intervals. Please review the results of this test in association with the posted reference intervals. Blood 05/05/2023 1:58 PM EST 05/08/2023 7:17 AM EST Narrative Resulting Agency Comment Spec In Lab Mayelin Perez APRN IMMUNOLOGY ORDERAB LES [facility] [place] [address] * Smooth Muscle Antibody (05/05/2023 1:58 PM EST) Sm Muscle Ab Negative Negative [facility] Comment: Negative: No further testing will be performed ADDITIONAL INFORMATION This test was developed and its performance characteristics determined by [facility] in a manner consistent with CLIA requirements. This test has not been cleared or approved by the U.S. Food and Drug Administration. Test Performed by: [facility] [address] [address] Transportation Officer: Laron Perez M.D. Ph.D.; CLIA# [id number] Blood 05/05/2023 1:58 PM EST 05/08/2023 6:14 AM EST Narrative Resulting Agency Comment Spec In Lab Mayelin Yuan [place] [employer] IMMUNOLOGY ORDERAB LES Performing Organization Address [facility] Co de Phone Number [facility] [place] [address] * Ferritin (05/05/2023 1:58 PM EST) Pathologist [facility] Ferritin 354 31 - 409 ng/mL [facility] Comment: Please note that as of 02/22/2023, the reference intervals for Ferritin have been updated. Blood 05/05/2023 1:58 PM EST 05/05/2023 2:18 PM EST Narrative Resulting Agency Comment Spec In Lab Mayelin Yuan [place] [employer] CHEMISTRY ORDERABL ES Performing Organization Address [facility] de Phone Number [facility] [place] [address] * Hepatitis B Core Antibody, Total (05/05/2023 1:58 PM EST) Pathologist [facility] Hep B Core Ab Negative Negative [facility] Blood 05/05/2023 1:58 PM EST 05/05/2023 2:18 PM EST Narrative Resulting Agency Comment Spec In Lab Mayelin Yuan [place] [employer] CHEMISTRY ORDERABL ES Performing Organization Address [facility] de Phone Number [facility] [place] [address] * Hepatitis B Surface Antibody (05/05/2023 1:58 PM EST) HepB Surface Ab Quant <3.5 IU/L [facility] Comment: HepB Surface Ab Quant: Unvaccinated: < 8.5 IU/L Vaccinated: >= 11.5 IU/L HepB Surface Ab Negative [facility] Comment: Patient is presumed to be not vaccinated or immune to HBV infection. Expected Results: Vaccinated: Positive Unvaccinated: Negative Blood 05/05/2023 1:58 PM EST 05/05/2023 2:18 PM EST Narrative Resulting Agency Comment Spec In Lab Mayelin Perez [employer] IMMUNOLOGY ORDERAB LES Performing Organization Address [facility] de Phone Number [facility] [place] [address] * Hepatitis B Surface Antigen (05/05/2023 1:58 PM EST) HepB Surface Ag Negative Negative [facility] Blood 05/05/2023 1:58 PM EST 05/05/2023 2:18 PM EST Narrative Resulting Agency Comment Spec In Lab Mayelin Yuan [place] [employer] CHEMISTRY ORDERABL ES Performing Organization Address [facility] de Phone Number [facility] [place] [address] * Hepatitis C Antibody (05/05/2023 1:58 PM EST) Hepatitis C Ab Negative Negative [facility] Blood 05/05/2023 1:58 PM EST 05/05/2023 2:18 PM EST Narrative Resulting Agency Comment Spec In Lab Mayelin Perez [employer] IMMUNOLOGY ORDERAB LES Performing Organization Address [facility] de Phone Number [facility] [place] [address] * IgG (05/05/2023 1:58 PM EST) IgG 1,429 700 - 1,600 mg/dL [facility] Comment: Pediatric Reference Intervals obtained from the Caliper Reference Interval project. http://www.sickKitchfixds.ca/caliperproject/index.html Blood 05/05/2023 1:58 PM EST 05/05/2023 2:18 PM EST Narrative Resulting Agency Comment Spec In Lab Mayelin Yuan [place] [employer] IMMUNOLOGY ORDERAB LES Performing Organization Address [facility] Co de Phone Number [facility] [place] [address] * (ABNORMAL) Iron and TIBC (05/05/2023 1:58 PM EST) Iron 69 45 - 160 mcg/dL [facility] TIBC 358 250 - 450 mcg/dL [facility] Iron Saturation 19(L) 20 - 50 % [facility] Blood 05/05/2023 1:58 PM EST 05/05/2023 2:18 PM EST Narrative Resulting Agency Comment Spec In Lab Mayelin Yuan [place] [employer] CHEMISTRY ORDERABL ES Performing Organization Address [facility] Phone Number [facility] [place] [address] * Mitochondrial Antibody, M2 (05/05/2023 1:58 PM EST) Pathologist [facility] Mitochon Ab <0.1 <0.1 (Negative) U [facility] Comment: Test Performed by: [address] [address] Transportation Officer: Laron Perez M.D. Ph.D.; CLIA# [id number] Blood 05/05/2023 1:58 PM EST 05/08/2023 6:14 AM EST Narrative Resulting Agency Comment Spec In Lab Mayelin Kwabena Perez [employer] IMMUNOLOGY ORDERAB LES Performing Organization Address [facility] Co de Phone Number [facility] [place] [address] * Tissue transglutaminase, IgA (05/05/2023 1:58 PM EST) TTG IgA Ab 0.6 <=10.0 u/ml [facility] Comment: Negative: ??<7 units/mL Indeterminate: 7-10 units/mL Positive: ??>10 units/mL Blood 05/05/2023 1:58 PM EST 05/08/2023 7:17 AM EST Narrative Resulting Agency Comment Spec In Lab Mayelin Perez [employer] IMMUNOLOGY ORDERAB LES [facility] [place] [address] documented in this encounter Visit Diagnoses Diagnosis HERRERA (nonalcoholic steatohepatitis) Other chronic nonalcoholic liver disease Hepatic fibrosis Cirrhosis of liver without mention of alcohol documented in this encounter Care Teams Absorber Operator Relationship Specialty Start Date End Date Yen Diamond APRN [address] [place] [address] PCP - General Family Medicine 10/17/22 documented as of this encounter
--- OUTSIDE RECORDS SUMMARY | 2023-10-06 00:29 | XMS_ITS | Encounter Summary ---
Author Organization [facility] Address [facility] [place] [address] Care Team Providers Care Nurse Midwife/Clinical Instructor Name Role Phone Martha Dempsey MD Primary Care Provider [phone] Reason for Visit * Reason Comments Retinal Vein Occlusion Encounter Details Date Type Department Care Team (Latest Contact Info) Description 05/13/2020 2:45 PM EST Office Visit Ophthalmology at [facility] [place] [address] Constanza Tor[place] [address] BRVO and NVE s/p PRP OD (Dx [...] Progress Notes * Constanza Toro MD - 05/13/2020 2:45 PM EST ASSESSMENT/PLAN: ?? 1. BRVO and NVE s/p PRP OD (Dx 06/2018) 2. Branch retinal vein occlusion of right eye with retinal neovascularization Visual Acuity Visual Acuity (Snellen - Linear) Right Left Dist cc 20/50 +2 20/30 +2 Dist ph cc 20/30 -2 Near cc 20/20 20/20 1. BRVO with NVE OD (Dx 06/2018) - s/p PRP OD 08/03/18 Today 05/13/2020 - Again, the exam today showed regressed NVEs OD. There is no CME today. Continued observation recommended. Also recommended good BP control. 2. PVD OS - observe at this time 3. NS OU - monitor 4. Refractive error Recommend MRx Follow up 1 year for DFE, OCT OU I, Radha Bran, have performed the documentation for this encounter in the presence of, and actingas a scribe for Constanza Toro MD. I [...] RETINA - OU - BOTH EYES Routine 05/13/2020 3:35 PM EST Branch retinal vein occlusion of right eye with retinal neovascularization documented in this encounter Results * OCT Retina - OU - Both Eyes (05/13/2020 3:35 PM EST) Anatomical Region Laterality Modality Other Narrative 05/13/2020 3:35 PM EST Right Eye Quality was good. Scan locations included subfoveal. Progression has been stable. Findings include normal foveal contour, intraretinal fluid. Left Eye Quality was good. Scan locations included subfoveal. Progression has been stable. Findings include normal foveal contour, normal observations. Constanza Troo MD OPHTHALMOLOGY SERVICES ORDERABLES documented in this encounter Visit Diagnoses Diagnosis BRVO and NVE s/p PRP OD (Dx 06/2018) documented in this encounter Care Teams Nurse Midwife/Clinical Instructor Relationship Specialty Start Date End Date Martha Dempsey MD [address] [place] [address] PCP - General 02/09/10 10/16/22 documented as of this encounter
--- OUTSIDE RECORDS SUMMARY | 2023-10-06 00:29 | XMS_ITS | Encounter Summary ---
Author Organization [facility] Address [facility] [place] [address] Care Team Providers Care Supervisory Cbp Officer Name Role Phone Martha Dempsey MD Primary Care Provider [phone] Reason for Visit * Reason Comments Retinal Vein Occlusion Encounter Details Date Type Department Care Team (Late st Contact Info) Description 09/04/2018 1:15 PM EDT Office Visit Ophthalmology at [facility] [place] [address] Constanza Tor[place] [address] BRVO and NVE s/p PRP OD (Dx 06/2018) Social History Tobacco Use Types Packs/Day Years [...] Progress Notes * Constanza Toro MD - 09/04/2018 1:15 PM EDT ASSESSMENT/PLAN: ?? 1. BRVO and NVE s/p PRP OD (Dx 06/2018) Main Ophthalmology Exam External Exam Right Left [...] Periphery PRP ST, 1+ DBHs superiorly Normal 1. BRVO OD (Dx 06/2018) - today's exam showed resolution of the NVEs ST OD. There's no CME. Observation recommended 2. PVD OS - observe at this time 3. NS OU - monitor Follow up 4-5 weeks for DFE, OCT OU Sooner PRN Constanza Toro MD, PhD documented in this encounter Plan of Treatment Not on file documented as of this encounter Procedures Procedure Name Priority Date/Time Associated Diagnosis Comments OCT RETINA - OU - BOTH EYES Routine 09/04/2018 2:34 PM EDT BRVO and NVE s/p PRP OD (Dx 06/2018) documented in this encounter Results * OCT [id number] EYES (09/04/2018 2:34 PM EDT) Anatomical Region Laterality Modality Other Narrative 09/04/2018 2:34 PM EDT Right Eye Quality was good. [...] 06/2018) documented in this encounter Care Teams Supervisory Cbp Officer Relationship Specialty Start Date End Date Martha Dempsey MD [address] [place] [address] PCP - General 02/09/10 10/16/22 documented as of this encounter
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
--- OUTSIDE RECORDS SUMMARY | 2023-10-06 00:29 | XMS_ITS | Encounter Summary ---
Author Organization [facility] [place] [address] Care Team Providers Care Concrete Inspector Name Role Phone Martha Dempsey MD Primary Care Provider Encounter Details Date Type Department Care Team (Late st Contact Info) Description 02/24/2022 [place] [phone] Clinic, Dr Brown Team None Social History Tobacco Use Types Packs/Day Years [...] on file documented as of this encounter Miscellaneous Notes * Telephone Encounter - Neha Velazquez - 02/24/2022 8:41 AM EST We have been unable to contact patient to schedule reminder appointment for L TKA with KINDRA. Recall bumped out to 03/11 documented in this encounter Plan of Treatment Not on file documented as of this encounter Visit Diagnoses Not on filedocumented in this encounter Care Teams Concrete Inspector Relationship Specialty Start Date End Date Martha Dempsey MD [address] [place] [address] PCP - General 02/09/10 10/16/22 documented as of this encounter
--- OUTSIDE RECORDS SUMMARY | 2023-10-06 00:29 | XMS_ITS | Encounter Summary ---
Author Organization [facility] Address [facility] [place] [address] Care Team Providers Care Theater Company Producer Name Role Phone Martha Dempsey MD Primary Care Provider [phone] Reason for Visit * Reason Comments Retinal Vein Occlusion BRVO OD * Consultation (Urgent) - Closed Specialty Diagnoses / Procedures Referred By Samina donahue Referred To Contact Ophthalmology Diagnoses BRVO Jadyn Alberto, OD [address] [place] [address] Constanza Toro MD [facility] [place] [address] Referral ID Status Reason Start Date Expiration Date V isits Requested Visits Authorized [id number] Closed Consult, Test & Treat 06/22/2018 06/22/2019 1 1 Encounter Details Date Type Department Care Team (Late st Contact Info) Description 06/28/2018 1:00 PM EDT Office Visit Ophthalmology at [facility] [place] [address] Constanza Toro MD [facility] [place] [address] Stable branch retinal vein occlusion of right eye Social History Tobacco Use Types Packs/Day [...] Progress Notes * Constanza Toro MD - 06/28/2018 1:00 PM EDT ASSESSMENT/PLAN: ?? 1. Stable branch retinal vein occlusion of right eye Main Ophthalmology Exam External Exam Right Left External Normal Normal Slit Lamp Exam Right Left Lids/Lashes Normal Normal Conjunctiva/Sclera White and quiet White and quiet Cornea Clear Clear Anterior Chamber Deep and quiet Deep and quiet Iris Round and reactive Round and reactive Lens 1+ Nuclear sclerosis 1+ Nuclear sclerosis Fundus Exam Right Left Vitreous PVA PVA Disc Normal Normal C/D Ratio 0.2 0.2 Macula Normal Normal Vessels Collaterals superiorly Normal Periphery 1+ DBHs superiorly Normal 1. BRVO OD (Dx 06/2018) Teo Arenas presents with BRVO OD. Fortunately, there are no NVs or DME for which treatment would be recommended. Discussed the systemic risk factors and the risk for ocular complications. 2. NS OU - monitor Follow up 4-5 weeks for DFE, OCT OU Sooner PRN Constanza Toro MD, PhD documented in this encounter Plan of Treatment Not on file documented as of this encounter Procedures Procedure Name Priority Date/Time Associated Diagnosis Comments OCT RETINA - OU - BOTH EYES Routine 06/28/2018 3:39 PM EDT Stable branch retinal vein occlusion of right eye documented in this encounter Results * OCT [id number] EYES (06/28/2018 3:39 PM EDT) Anatomical Region Laterality Modality Other Narrative 06/28/2018 3:39 PM EDT Right Eye Quality was good. Scan locations included subfoveal. Findings include normal observations, normal foveal contour. Left Eye Quality was good. Scan locations included subfoveal. Findings include normal foveal contour, normal observations. Constanza Toro MD OPHTHALMOLOGY SERVICES ORDERABLES documented in this encounter Visit Diagnoses Diagnosis Stable branch retinal vein occlusion of right eye documented in this encounter Care Teams Theater Company Producer Relationship Specialty Start Date End Date Martha Dempsey MD [address] [place] [address] PCP - General 02/09/10 10/16/22 documented as of this encounter
--- OUTSIDE RECORDS SUMMARY | 2023-10-06 00:29 | XMS_ITS | Encounter Summary ---
Author Organization [facility] Address [facility] [place] [address] Care Team Providers Care Freelance Digital Project Manager Name Role Phone Lobo Yenjaskaran Rinaldi APRN Primary Care Provider [phone] Reason for Referral * Diagnostic Test (Routine) - Pending Review Specialty Diagnoses / Procedures Referred By Contac t Referred To Contact Diagnoses Abdominal aortic aneurysm (AAA) without rupture, unspecified part Procedures AAA Duplex, Complete/Bilateral Tisha Cardona MD [facility] [place] [address] [facility] [address] [place] [id number] Referral ID Status Reason Start Date Expiration Date Visits Requested Visits Authorized [id number] Pending Review Specialty Service Requested 03/24/2023 03/23/2024 1 1 Encounter Details Date Type Department Care Team (Late st Contact Info) Description 02/24/2023 3:30 PM EST Office Visit [place] [address] Tisha Cardona MD [facility] [place] [address] Abdominal aortic aneurysm (AAA) without rupture, unspecified [...] Sign Reading Time Taken Comments Blood Pressure 182/94 02/24/2023 3:32 PM EST Pulse 81 02/24/2023 3:32 PM EST Temperature - - Respiratory Rate - - Oxygen Saturation - - Inhaled Oxygen Concentration - - Weight 108.9 kg (240 lb) 02/24/2023 3:32 PM EST Height 175.3 cm (5' 9) 02/24/2023 3:32 PM EST Body Mass Index 35.44 02/24/2023 3:32 PM EST documented in this encounter Progress Notes * Tisha Cardona MD - 02/24/2023 3:30 PM EST Images from the original note were not included. [facility] [place] [address] Name: Teo Arenas Date: 02/24/2023 Time: 3:21 PM Primary Care Provider: Yen Diamond APRN Referring Provider: No referring provider defined for this encounter. Chief Complaint: AAA History of Present Illness: Teo Arenas is a 67 y.o. male referred for an opinion regarding management of an incidentallynoted 3.1 cm AAA. Returns today following repeat imaging. CTA today with stable 3.1 cm AAA. Past Medical History: Past Medical History: Diagnosis Date Arthritis Cardiac disease Cataract Depression 02/24/2011 Dry mouth Hyperlipidemia Hypertension Trauma Past Surgical History: Past Surgical History: Procedure Laterality Date ORBITAL SURGERY Right 2008 PRO ARTHROPLASTY KNEE CONDYLE & PLATEAU MEDIAL & LAT COMPARTMENTS 02/22/2011 ??TOTAL KNEE ARTHROPLASTY performed by MACIRNA ARGUELLES at [facility] OR RETINAL LASER SURGERY Right 08/03/2018 PRP for BRVO - DM Family/Social History: Family History Problem Relation Age of Onset Amblyopia Sister Cataracts Neg Hx Diabetes Neg Hx Glaucoma Neg Hx Macular Degeneration Neg Hx Retinal Detachment Neg Hx Strabismus Neg Hx Thyroid Disease Neg Hx Social History Tobacco Use Smoking status: Former Packs/day: 1.00 Years: 40.00 Additional pack years: 0.00 Total pack years: 40.00 Types: Cigarettes Quit date: 09/23/2008 Years since quittin.4 Smokeless tobacco: Never Substance Use Topics Alcohol [...] visit. Allergies No Known Allergies Physical exam There were no vitals taken for this visit. The patient appears comfortable, alert, oriented and in no distress. Lungs are clear, heart is regular and abdomen is nontender nondistended. Radiology: I have personally reviewed the available imaging/data CT scan 02/24/23 IMPRESSION 1. Unchanged infrarenal abdominal aortic aneurysm measuring 3.1 cm. 2. Unchanged appearance of an IVC filter with multiple struts extruding beyond the cruz of the inferior vena cava and at least one strut abutting the right lateral wall of the abdominal aorta. 3. Cholelithiasis without specific CT evidence of acute cholecystitis. [...] patients and is recommended for high-risk patients. Impression: 67 y.o. male presenting with an incidentally noted 3.1 cm AAA, repeat imaging today stable. Alarm symptoms discussed. - will plan to repeat a duplex in 1 year Thank you for allowing me to participate in the care of your patient. Please do not hesitate to contact me with any questions or concerns. Tisha Cardona MD, MPH Division of Vascular Surgery [facility] [place] [address] e: [email or web address] o: [phone] F: [phone] 02/24/2023 3:21 PM documented in this encounter Plan of Treatment Not on file documented as of this encounter Visit Diagnoses Diagnosis Abdominal aortic aneurysm (AAA) without rupture, unspecified part documented in this encounter Care Teams Freelance Digital Project Manager Relationship Specialty Start Date End Date Yen Diamond APRN [address] [place] [address] PCP - General Family Medicine 10/17/22 documented as of this encounter
--- OUTSIDE RECORDS SUMMARY | 2023-10-06 00:29 | XMS_ITS | Encounter Summary ---
Author Organization [facility] Address [facility] [place] [address] Care Team Providers Care Dramatic Arts Historian Name Role Phone Martha Dempsey MD Primary Care Provider [phone] Reason for Visit * Reason Comments Procedure PRP for BRVO OD Encounter Details Date Type Department Care Team (Latest Contact Info) Description 08/03/2018 12:15 PM EDT Procedure visit [facility] [place] [address] Constanza Toro [place] [address] Branch retinal vein occlusion of right eye [...] Procedure Name Priority Date/Time Associated Diagnosis Comments DESTRUCTION PROG RETINOPATHY PHOTOCOAG - OD - RIGHT EYE Routine 08/03/2018 1:33 PM EDT Branch retinal vein occlusion of right eye with retinal neovascularization documented in this encounter Results * Laser Panretinal Photocoagulation - OD - Right Eye (08/03/2018 1:33 PM EDT) Anatomical Region Laterality Modality Other Narrative 08/03/2018 1:33 PM EDT Pre-Op Patient understands the risks and benefits of the treatment as outlined on the consent. Anesthesia Subconjunctival anesthesia was used. Anesthesia medications included Proparacaine. Laser Information The type of laser was argon. Color was green. The duration in seconds was 80.0. Total spots was 588. Post-op The patient tolerated the procedure well. There were no complications. The patient received written and verbal post procedure care education. Constanza Toro MD OPHTHALMOLOGY SERVICES ORDERABLES documented in this encounter Visit Diagnoses Diagnosis Branch retinal vein occlusion of right eye with retinal neovascularization documented in this encounter Care Teams Dramatic Arts Historian Relationship Specialty Start Date End Date Martha Dempsey MD [address] [place] [address] PCP - General 02/09/10 10/16/22 documented as of this encounter
--- OUTSIDE RECORDS SUMMARY | 2023-10-06 00:29 | XMS_ITS | Encounter Summary ---
Author Organization [facility] Address [facility] [place] [address] Care Team Providers Care Seismograph Recorder Name Role Phone Martha Dempsey MD Primary Care Provider [phone] Encounter Details Date Type Department Care Team (Latest Contact Info) Description 07/13/2015 12:35 PM EDT - 07/13/2015 11:59 PM EDT Hospital Encounter XRay at [address] [place] [address] Javier Brown MD [facility] [place] [address] History of total knee arthroplasty, left Discharge Disposition: Home Social History Tobacco Use [...] Sig Dispensed Refills Start Date End Date oxyCODONE (ROXICODONE) 10 mg Tablet Take 10 [...] Priority Date/Time Associated Diagnosis Comments XR KNEE DIAGNOSTIC 1 OR 2 VIEW LEFT Routine 07/13/2015 1:00 PM EDT History of total knee arthroplasty, left documented in this encounter Results * XR Knee Diagnostic 1 Or 2 View Left (NR GENERIC) (07/13/2015 1:00 PM EDT) Anatomical Region Laterality Modality Knee Left Digital Radiogra phy Impressions 07/13/2015 5:19 PM EDT IMPRESSION: 1. ??Total left knee constrained arthroplasty, with widening of the lateral joint space consistent with collateral ligament laxity. 2. ??Osteoarthropathy of the right knee 3. ??Unchanged soft tissue ossifications, consistent with old ligamentous injury. I have personally reviewed the image(s) and the residents interpretation and agree with the findings, Wilber Jensen at 07/13/2015 5:19 PM Narrative 07/13/2015 5:19 PM EDT EXAMINATION: XR KNEE DIAGNOSTIC 1 OR 2 VIEW LEFT CLINICAL HISTORY: annual check s/p left total knee arthroplasty TECHNIQUE: AP standing radiograph of both knees and lateral radiograph of the left knee. COMPARISON: Radiographs of the knees dated 06/21/2013 and 04/07/2011 FINDINGS: Left knee: As seen on previous studies a constrained total knee arthroplasty is in place. Progressive lateral joint space widening is seen when comparison is made to previous studies. There is minimal change in this there is deformity when compared to the most recent previous exam. I do not see component loosening. No effusion is identified. Right knee: Unchanged osteoarthropathy of the right knee characterized by medial compartment joint space narrowing. Ossification is again seen at the origin of the medial collateral ligament and at the proximal aspect of the fibular collateral ligament consistent with remote trauma. Procedure Note Wilber Jensen MD - 07/13/2015 EXAMINATION: XR KNEE DIAGNOSTIC 1 OR 2 VIEW LEFT CLINICAL HISTORY: annual check s/p left total knee arthroplasty TECHNIQUE: AP standing radiograph of both knees and lateral radiograph ofthe left knee. COMPARISON: Radiographs of the knees dated 06/21/2013 and 04/07/2011 FINDINGS: Left knee: As seen on previous studies a constrained total knee arthroplasty is inplace. Progressive lateral joint space widening is seen when comparison is madeto previous studies. There is minimal change in this there is deformitywhen compared to the most recent previous exam. I do not see componentloosening. No effusion is identified. Right knee: Unchanged osteoarthropathy of the right knee characterized by medialcompartment joint space narrowing. Ossification is again seen at the origin of themedial collateral ligament and at the proximal aspect of the fibular collateral ligament consistent with remote trauma. IMPRESSION IMPRESSION: 1. Total left knee constrained arthroplasty, with widening of the lateraljoint space consistent with collateral ligament laxity. 2. Osteoarthropathy of the right knee 3. Unchanged soft tissue ossifications, consistent with old ligamentousinjury. I have personally reviewed the image(s) and the residents interpretationand agree with the findings, Wilber Jensen at 07/13/2015 5:19 PM Jvaier Brown MD IMG DX ORDERABLES documented in this encounter Visit Diagnoses Diagnosis History of total knee arthroplasty, left documented in this encounter Care Teams Seismograph Recorder Relationship Specialty Start Date End Date Martha Dempsey MD [address] [place] [id number] PCP - General 02/09/10 10/16/22 documented as of this encounter
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
--- OUTSIDE RECORDS SUMMARY | 2023-10-06 00:29 | XMS_ITS | Encounter Summary ---
Author Organization [facility] [place] [address] Care Team Providers Care Other Sports Coach Or Instructor Name Role Phone Martha Dempsey MD Primary Care Provider [phone] Reason for Visit * Reason Onset Date Comments Bumped Appointment 02/14/2020 Encounter Details Date Type Department Care Team (Late st Contact Info) Description 02/14/2020 Telephone Ophthalmology at [facility] [place] [address] Constanza Toro MD [facility] [place] [address] Bumped Appointment Social History Tobacco Use Types Packs/Day Years [...] encounter Miscellaneous Notes * Telephone Encounter - Brandi Cardoza - 02/14/2020 12:28 PM EST Patient scheduled * Telephone Encounter - Brandi Cardoza - 02/14/2020 11:40 AM EST LMOAM x 1 to reschedule 02/20 appointment with DM due to COVID restrictions. Please offer 2/24 open times documented in this encounter Plan of Treatment Not on file documented as of this encounter Visit Diagnoses Not on filedocumented in this encounter Care Teams Other Sports Coach Or Instructor Relationship Specialty Start Date End Date Martha Dempsey MD [address] [place] [address] PCP - General 02/09/10 10/16/22 documented as of this encounter
--- OUTSIDE RECORDS SUMMARY | 2023-10-06 00:29 | XMS_ITS | Encounter Summary ---
Author [facility] [place] [address] Care Team Providers Care Bilingual Spanish Inbound Sales Name Role Phone Yen Diamond APRN Primary Care Provider [phone] Encounter Details Date Type Department Care Team (Latest Contact Info) Description 12/06/2022 Travel Social History Tobacco Use Types Packs/Day [...] on filedocumented in this encounter Care Teams Bilingual Spanish Inbound Sales Relationship Specialty Start Date End Date Yen Diamond APRN [address] [place] [address] PCP - General Family Medicine 10/17/22 documented as of this encounter
--- OUTSIDE RECORDS SUMMARY | 2023-10-06 00:30 | XMS_ITS | Encounter Summary ---
Author Organization [facility] [place] [address] Care Team Providers Care Net Manager Name Role Phone Martha Dempsey MD Primary Care Provider [phone] Encounter Details Date Type Department Care Team (Late st Contact Info) Description 03/04/2011 Anti-Coag Telephone [place] [address] Amalia Akins RN Left knee DJD Social History Tobacco Use Types Packs/Day Years Used Date Smoking Tobacco: Former Smokeless Tobacco: Never Alcohol Use Standard Drinks/Week Comments No 0 (1 standard drink = 0.6 oz pur e alcohol) Sex and Gender Information Value Date Recorded Sex Assigned at Not on file Gender Identity Not on file Sexual Orientation Not on file documented as of this encounter Progress Notes * Amalia Akins RN - 03/04/2011 3:55 PM EST error documented in this encounter Plan of Treatment Not on file documented as of this encounter Procedures Procedure Name Priority Date/Time Associated Diagnosis Comments EXTERNAL LAB RESULTS Routine 03/04/2011 documented in this encounter Results * (ABNORMAL) External Lab Results (03/04/2011) POC INR 1.3(A) 0.9 - 1.1 Historical Provider CHEMISTRY ORDERAB LES documented in this encounter Visit Diagnoses Diagnosis Left knee DJD Osteoarthrosis, unspecified whether generalized or localized, lower leg documented in this encounter Care Teams Net Manager Relationship Specialty Start Date End Date Martha Dempsey MD [address] [place] [address] PCP - General 02/09/10 10/16/22 documented as of this encounter
--- OUTSIDE RECORDS SUMMARY | 2023-10-06 00:30 | XMS_ITS | Encounter Summary ---
Author Organization [facility] Address [facility] [place] [address] Care Team Providers Care Offset Press Operator Apprentice Name Role Phone Martha Dempsey MD Primary Care Provider [phone] Reason for Visit * Reason Onset Date Comments Medication Refill 02/01/2011 Encounter Details Date Type Department Care Team (Late st Contact Info) Description 02/01/2011 [place] [address] Javier Brown MD [facility] [place] [address] Social History Tobacco Use Types Packs/Day Years [...] on filedocumented in this encounter Care Teams Offset Press Operator Apprentice Relationship Specialty Start Date End Date Martha Dempsey MD [address] [place] [address] PCP - General 02/09/10 10/16/22 documented as of this encounter
--- OUTSIDE RECORDS SUMMARY | 2023-10-06 00:30 | XMS_ITS | Encounter Summary ---
Author Organization [facility] Address [facility] [place] [address] Care Team Providers Care Frame Nailer Name Role Phone Martha Dempsey MD Primary Care Provider [phone] Encounter Details Date Type Department Care Team (Late st Contact Info) Description 03/11/2011 Anti-Coag Telephone [place] [phone] Javier Brown MD [facility] [place] [address] Left knee DJD Social History Tobacco Use [...] Progress Notes * Amalia Akins RN - 03/11/2011 3:25 PM EST Anticoagulation Therapy Nurse Visit Teo Arenas Date of 1955 Indication: DVT Prophylaxis Duration of Treatment: 28 days ends:03/22/11 Monitored by: Orthopaedics Therapeutic Range: 2.0-3.0 INR: 1.2 Warfarin dose: x Increased Decreased Maintained Comments: Spoke with patient about changes in INR. He reports that the vna had some trouble with the machine a few times when they have come with the machine/test strips being cold. Pt denies any changes in diet, meds. Denies any herbal supplement/alcohol usage. Spoke with physical therapy at the a about concern of INR elevations and drops. After discussion they are going to try to see him first thing in the am before machine/strips has a chance to get cold to see if we can resolve spikes/drops with INR. Patient presents with no signs of bleeding or bruising or signs of thromboembolic events related toprimary diagnosis above. Follow-up for re- evaluation and safety of continuing anticoagulation. Bleeding: Epistaxis Black tarry stools Gingival bleeding Increased bruising Hematuria Other: Hemoptysis x No bleeding / bruising noted Comments: Symptoms of recurring primary event: Chest pain Dyspnea Palpitations Headache Dizziness Edema Confusion Slurred speech Weakness Visual changes Tender/Red/Swollen extremities x No symptoms reported Other: Comments: Recent Medication Changes: no Comments: Have you missed any dose of Coumadin this past week? No Comments: Any Illness/Cold SX/Diarrhea/Constipation> 48 hours: no Comments: Dietary Changes: No Comments: Have you increased or decreased alcohol consumption recently? No documented in this encounter Plan of Treatment Not on file documented as of this encounter Procedures Procedure Name Priority Date/Time Associated Diagnosis Comments EXTERNAL LAB RESULTS Routine 03/11/2011 documented in this encounter Results * (ABNORMAL) External Lab Results (03/11/2011) POC INR 1.2(A) 0.9 - 1.1 Historical Provider CHEMISTRY ORDERAB LES documented in this encounter Visit Diagnoses Diagnosis Left knee DJD Osteoarthrosis, unspecified whether generalized or localized, lower leg documented in this encounter Care Teams Frame Nailer Relationship Specialty Start Date End Date Martha Dempsey MD [address] [place] [address] PCP - General 02/09/10 10/16/22 documented as of this encounter
--- OUTSIDE RECORDS SUMMARY | 2023-10-06 00:30 | XMS_ITS | Encounter Summary ---
Author Organization [facility] [place] [address] Care Team Providers Care Licensed Clinical Psychologist Name Role Phone Martha Dempsey MD Primary Care Provider [phone] Encounter Details Date Type Department Care Team (Late st Contact Info) Description 02/28/2011 Anti-Coag [place]phone [place] [phone] Rebecca Roque RN Left knee DJD Social History Tobacco [...] as of this encounter Progress Notes * Rebecca Sandoval RN - 02/28/2011 1:22 PM EST Anticoagulation Therapy Nurse Visit Indication: DVT Prophylaxis Duration of Treatment: 28 days ends:03/22/11 Monitored by: Orthopaedics Therapeutic Range: 2.0-3.0 INR: 1.4 Warfarin dose: x Increased Decreased Maintained Comments: Pt on lovenox until INR over 1.7. Patient presents with no signs of bleeding [...] Associated Diagnosis Comments EXTERNAL LAB RESULTS Routine 02/28/2011 documented in this encounter Results * (ABNORMAL) External Lab Results (02/28/2011) POC INR 1.4(Externa l Lab) 0.9 - 1.1 Historical Provider CHEMISTRY ORDERAB LES documented in this encounter Visit Diagnoses Diagnosis Left knee DJD Osteoarthrosis, unspecified whether generalized or localized, lower leg documented in this encounter Care Teams Licensed Clinical Psychologist Relationship Specialty Start Date End Date Martha Dempsey MD [address] [place] [address] PCP - General 02/09/10 10/16/22 documented as of this encounter
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
--- OUTSIDE RECORDS SUMMARY | 2023-10-06 00:30 | XMS_ITS | Encounter Summary ---
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 x10(3)/mc L CERNER MILLENNIUM Immature Gran % 0.30 0.00 - 0.66 % CERNER MILLENNIUM Comment: Immature granulocytes(IG's)percentage and absolute count will include metamyelocytes, myelocytes, and promyelocytes. Blood smears from CBCs yielding IG's will be scanned manually for concordance. If this scan disagrees with the automated IG or if promyelocytes are noted, a manual differential will be performed. Mai Gran Abs 0.03 0.00 - 0.05 x10(3)/mc L CERNER MILLENNIUM Blood specimen (specimen) 02/24/2011 4:22 AM EST 02/24/2011 4:35 AM EST Macrina Brown MD HEMATOLOGY ORDERABLE S Performing Organization Address City/State/[facility] Co de Phone Number EVITA BURRELL * (ABNORMAL) Prothrombin Time (02/24/2011 4:22 AM EST) PT 17.8(H) 12.3 - 14.7 sec CERNER MILLENNIUM Comment: [facility] Transfusion Committee Guidelines: INR less than 2.0, PTT less than OR equal to 43.5 seconds, or Fibrinogen greater than or equal to 100 mg/dl indicate adequate procoagulant activity for hemostasis in patients without underlying bleeding disorders. INR 1.4(H) 0.9 - 1.1 CERNER MILLENNIUM Blood specimen (specimen) 02/24/2011 4:22 AM EST 02/24/2011 4:35 AM EST Macrina Brown MD HEMATOLOGY ORDERABLE S EVITA BURRELL * (ABNORMAL) Basic Metabolic Panel (non-fasting) (02/24/2011 4:22 AM EST) [facility] Glucose Lvl 104 60 - 199 mg/dL CERNER MILLENNIUM Comment:Diabetes: >=200 mg/d L plus symptoms BUN 17 10 - 20 mg/dL CERNER MILLENNIUM Creatinine 0.78(L) 0.80 - 1.50 mg/dL CERNER MILLENNIUM Sodium 138 135 - 145 mmol/L CERNER MILLENNIUM Potassium 3.9 3.5 - 5.0 mmol/L CERNER MILLENNIUM Comment: Please note: ??Patients with WBC >100,000 may have falsely elevated Potassium levels. ??For accurate Potassium quantification in these patients send serum separator tube (gold top) for subsequent determinations. ??Contact the Clinical Chemistry Laboratory if there are any questions. Chloride 102 98 - 107 mmol/L CERNER MILLENNIUM CO2 25 22 - 31 mmol/L CERNER MILLENNIUM Anion Gap 11 5 - 15 mmol/L CERNER MILLENNIUM Calcium 8.4(L) 8.5 - 10.5 mg/dL CERNER MILLENNIUM Estimated GFR >60 >=60 CERNER MILLENNIUM Comment: The National Kidney Disease Education Program (NKDEP) has recommended all laboratories report estimated GFR (eGFR) along with plasma creatinine measurements to assist you with recognition of early kidney disease. Caveats: ??Plasma creatinine should be at steady-state (unchanged within the past week). For patients multiply eGFR by 1.2.MDRD equation has not been validated for pediatric patients and is only valid for patients with age >= 18 years. At present, NKDEP does NOT recommend using the MDRD equation for drug dosing purposes and pharmacists should continue to use their current dosing methods. In addition, numerical eGFR values greater than 60 ml/min/1.73 square meters should be treated as > 60, and not an exact number due to greater inaccuracies at these higher values. Per NKDEP, they classify normal renal function as any GFR >60ml/min/1.73 square meters; chronic kidney disease when GFR <60, and renal failure when GFR <15. ??This calculation may not be valid for patients with atypical muscle mass (very lean or obese), acute renal failure, and in patients with diabetic kidney disease. References: http://nkdep.nih.gov/resources/NKDEP_Suggestn4Labs_0606_508.pdf http://www.kidney.org/professionals/kls/pdf/faq_gfr.pdf Blood specimen (specimen) 02/24/2011 4:22 AM EST 02/24/2011 4:35 AM EST Macrina Brown MD CHEMISTRY ORDERABLES CERNER MILLENNIUM * (ABNORMAL) CBC (with Diff) (02/24/2011 4:22 AM EST) WBC 10.7(H) 4.0 - 10.0 x10(3)/mcL CERNER MILLENNIUM RBC 3.29(L) 4.63 - 6.08 x10(6)/mcL CERNER MILLENNIUM Hemoglobin 10.0(L) 13.7 - 17.5 gm/dL CERNER MILLENNIUM Hematocrit 29.1(L) 40.0 - 51.0 % CERNER MILLENNIUM MCV 88.4 79.0 - 92.0 fL CERNER MILLENNIUM MCH 30.4 25.6 - 32.2 pg CERNER MILLENNIUM MCHC 34.4 32.0 - 36.5 gm/dL CERNER MILLENNIUM Platelets 177 145 - 370 x10(3)/mcL CERNER MILLENNIUM RDWSD 43.0 35.0 - 46.0 fL CERNER MILLENNIUM RDWCV 13.3 10.9 - 14.4 % CERNER MILLENNIUM MPV 9.1 9.0 - 12.0 fL CERNER MILLENNIUM Blood specimen (specimen) 02/24/2011 4:22 AM EST 02/24/2011 4:35 AM EST Macrina Brown MD HEMATOLOGY ORDERABLE S CERNER MILLENNIUM * (ABNORMAL) DIFFERENTIAL, AUTOMATED (02/23/2011 5:04 AM EST) Neutrophils % 83.3(H) 34.0 - 71.0 % CERNER MILLENNIUM Neutr Abs (ANC) 9.63(H) 1.50 - 6.30 x10(3)/mc L CERNER MILLENNIUM Lymphocytes % 11.9(L) 19.0 - 53.0 % CERNER MILLENNIUM Lymphocytes Abs 1.4 1.0 - 3.6 x10(3)/mc L CERNER MILLENNIUM Monocytes % 4.5 4.0 - 13.0 % CERNER MILLENNIUM Monocyte Abs 0.5 0.2 - 1.0 x10(3)/mc L CERNER MILLENNIUM Eosinophils % 0.0 0.0 - 7.0 % CERNER MILLENNIUM Eosinophils Abs 0.0 0.0 - 0.5 x10(3)/mc L CERNER MILLENNIUM Basophils % 0.1 0.0 - 2.0 % CERNER MILLENNIUM Basophils Abs 0.0 0.0 - 0.2 x10(3)/mc L CERNER MILLENNIUM Immature Gran % 0.20 0.00 - 0.66 % CERNER MILLENNIUM Comment: Immature granulocytes(IG's)percentage and absolute count will include metamyelocytes, myelocytes, and promyelocytes. Blood smears from CBCs yielding IG's will be scanned manually for concordance. If this scan disagrees with the automated IG or if promyelocytes are noted, a manual differential will be performed. Mai Gran Abs 0.02 0.00 - 0.05 x10(3)/mc L CERNER MILLENNIUM Blood specimen (specimen) 02/23/2011 5:04 AM EST 02/23/2011 5:10 AM EST Macrina Brown MD HEMATOLOGY ORDERABLE S EVITA BURRELL * Prothrombin Time (02/23/2011 5:04 AM EST) PT 14.5 12.3 - 14.7 sec CERNER MILLENNIUM Comment: [facility] Transfusion Committee Guidelines: INR less than 2.0, PTT less than OR equal to 43.5 seconds, or Fibrinogen greater than or equal to 100 mg/dl indicate adequate procoagulant activity for hemostasis in patients without underlying bleeding disorders. INR 1.1 0.9 - 1.1 CERNER MILLENNIUM Blood specimen (specimen) 02/23/2011 5:04 AM EST 02/23/2011 5:10 AM EST Macrina Brown MD HEMATOLOGY ORDERABLE S CERNER MILLENNIUM * Basic Metabolic Panel (non-fasting) (02/23/2011 5:04 AM EST) Glucose Lvl 130 60 - 199 mg/dL CERNER MILLENNIUM Comment:Diabetes: >=200 mg/d L plus symptoms BUN 16 10 - 20 mg/dL CERNER MILLENNIUM Creatinine 0.82 0.80 - 1.50 mg/dL CERNER MILLENNIUM Sodium 136 135 - 145 mmol/L CERNER MILLENNIUM Potassium 4.3 3.5 - 5.0 mmol/L CERNER MILLENNIUM Comment: Please note: ??Patients with WBC >100,000 may have falsely elevated Potassium levels. ??For accurate Potassium quantification in these patients send serum separator tube (gold top) for subsequent determinations. ??Contact the Clinical Chemistry Laboratory if there are any questions. Chloride 101 98 - 107 mmol/L CERNER MILLENNIUM CO2 24 22 - 31 mmol/L CERNER MILLENNIUM Anion Gap 11 5 - 15 mmol/L CERNER MILLENNIUM Calcium 8.6 8.5 - 10.5 mg/dL CERNER MILLENNIUM Estimated GFR >60 >=60 CERNER MILLENNIUM Comment: The National Kidney Disease Education Program (NKDEP) has recommended all laboratories report estimated GFR (eGFR) along with plasma creatinine measurements to assist you with recognition of early kidney disease. Caveats: ??Plasma creatinine should be at steady-state (unchanged within the past week). For patients multiply eGFR by 1.2.MDRD equation has not been validated for pediatric patients and is only valid for patients with age >= 18 years. At present, NKDEP does NOT recommend using the MDRD equation for drug dosing purposes and pharmacists should continue to use their current dosing methods. In addition, numerical eGFR values greater than 60 ml/min/1.73 square meters should be treated as > 60, and not an exact number due to greater inaccuracies at these higher values. Per NKDEP, they classify normal renal function as any GFR >60ml/min/1.73 square meters; chronic kidney disease when GFR <60, and renal failure when GFR <15. ??This calculation may not be valid for patients with atypical muscle mass (very lean or obese), acute renal failure, and in patients with diabetic kidney disease. References: http://nkdep.nih.gov/resources/NKDEP_Suggestn4Labs_0606_508.pdf http://www.kidney.org/professionals/kls/pdf/faq_gfr.pdf Blood specimen (specimen) 02/23/2011 5:04 AM EST 02/23/2011 5:10 AM EST Macrina Brown MD CHEMISTRY ORDERABLES Performing Organization Address City/State/[facility] Co de Phone Number EVITA LASSITERIUM * (ABNORMAL) CBC (with Diff) (02/23/2011 5:04 AM EST) WBC 11.6(H) 4.0 - 10.0 x10(3)/mcL CERNER MILLENNIUM RBC 3.65(L) 4.63 - 6.08 x10(6)/mcL CERNER MILLENNIUM Hemoglobin 10.9(L) 13.7 - 17.5 gm/dL CERNER MILLENNIUM Hematocrit 32.1(L) 40.0 - 51.0 % CERNER MILLENNIUM MCV 87.9 79.0 - 92.0 fL CERNER MILLENNIUM MCH 29.9 25.6 - 32.2 pg CERNER MILLENNIUM MCHC 34.0 32.0 - 36.5 gm/dL CERNER MILLENNIUM Platelets 185 145 - 370 x10(3)/mcL CERNER MILLENNIUM RDWSD 41.9 35.0 - 46.0 fL CERNER MILLENNIUM RDWCV 13.0 10.9 - 14.4 % CERNER MILLENNIUM MPV 9.0 9.0 - 12.0 fL CERNER MILLENNIUM Blood specimen (specimen) 02/23/2011 5:04 AM EST 02/23/2011 5:10 AM EST Macrina Brown MD HEMATOLOGY ORDERABLE S Performing Organization Address City/State/[facility] Co de Phone Number EVITA BURRELL * APTT (02/22/2011 7:12 PM EST) PTT 34 25 - 37 sec EVITA BURRELL Comment: Recommended therapeutic PTT range for full dose unfractionated heparin is 80-114 seconds. Blood specimen (specimen) 02/22/2011 7:12 PM EST 02/22/2011 7:23 PM EST Macrina Brown MD HEMATOLOGY ORDERABLE S Performing Organization Address [facility] Co de Phone Number EVITA BURRELL * Surgical Pathology Report (02/22/2011 4:13 PM EST) Surgical Pathology Report [id number] ? Location: [facility]; [facility]; The signing pathologist has (i) examined the relevant preparation(s) for the specimen(s) and (ii) rendered or confirmed the diagnosis(es). . ?Pathology Surgical Pathology Final Report Clinical Information Specimen Submitted: A - Bone and tissue left knee Clinical History/Diagnosis : Left knee traumatic dislocation Gross Description Labeled/Fixative: ? Bone and tissue, left knee; fresh. Qty/Size/Weight: ?Multiple fragments, aggregating 10.0 x 10.0 x 4.0 cm. Tissue Description: ?? Multiple fragments of articular cartilage and ?synovium. ??The articular cartilage demonstrates a surgically cut surface deep to the articular cartilage. ??The remaining fragments appear to be zelaya-pink synovium. Sections/Processi ng: ??(1-4) senior account representative sections of articular cartilage; ?(5-6) senior account representative sections of synovium. ?(R6, decal) ??aje/SHB Microscopic Description Slides reviewed, microscopic description not recorded. Diagnosis Bone and soft tissue, left knee, resection: ?? Normal articular cartilage, bone (fragments). ?? Pericapuslar fibromuscular adipose with degenerative change. 02/25/11 CCB 02/25/11 Verified by: ? Black DO, Alejandra C. ?Pathologist ?(Electronic Signature) The attending pathologist whose signature appears on this report has reviewed all diagnostic slides and has edited the gross and/or microscopic portion of the report in rendering the final pathologic diagnosis. EVITA BURRELL 02/22/2011 4:13 PM EST Macrina Brown MD PATHOLOGY/CYTOLOGY O SUSI Performing Organization Address City/State/[facility] Co de Phone Number ALECPANKAJ INDRA * Specimen to Pathology (surgical or derm) (02/22/2011 2:49 PM EST) AP Specimen 02/22/2011 2:49 PM EST 02/22/2011 2:49 PM EST Narrative EVITA BURRELL - 02/22/2011 2:49 PM EST Specimen requisition ordered. ??Separate Pathology report to follow Macrina Brown MD PATHOLOGY/CYTOLOGY O SUSI Performing Organization Address City/State/[facility] Co de Phone Number EVITA YAWOPALJASSI documented in this encounter Visit Diagnoses Not on filedocumented in this encounter Administered Medications Inactive Administered Medications - up to 3 most recent administrations Medication Order MAR Action Action Date Dose Rate Site ceFAZolin (ANCEF) 2g in dextrose 5% 100mL 2 g, Intravenous, ONCE, 1 dose, On Mon02/22/11 at 1230, Administer over 30 Minutes, To be administered upon arrival to the OR within one hour prior to incision. Given 02/22/2011 2:05 PM EST 2 g documented in this encounter Active and Recently Administered Medications Times are shown in EST. Scheduled Medication Order 02/22/2011 02/23/2011 02/24/2011 ceFAZolin (ANCEF) 1g in dextrose 5% 50mL (COMPLETED) 1,000 mg (1 g), Intravenous, EVERY 8 HOURS, 3 doses, First dose (after last reorder) on Mon02/23/11 at 0215, Last dose on Mon02/23/11 at 1815, Administer over 30 Minutes 0215 (Given - Provider: Leonela Hartley RN)0932 (Given - Provider: Shavon Begum RN)1848 (Given - Provider: Shavon Begum RN) ceFAZolin (ANCEF) 2g in dextrose 5% 100mL (COMPLETED) 2 g, Intravenous, ONCE, 1 dose, On Mon02/22/11 at 1230, Administer over 30 Minutes, To be administered upon arrival to the OR within one hour prior to incision. 1230 (Due)1405 (Given - Provider: Sandra Alcantara MD) DULoxetine (CYMBALTA) capsule 30 mg (CANCELED) 30 mg, Oral, DAILY, First dose on Mon02/22/11 at 1930, Until Discontinued, Routine 2154 (Given - Provider: Leonela Hartley RN) 2024 (Given - Provider: Leonela Hartley RN) enoxaparin (LOVENOX) injection 40 mg 40 mg, Subcutaneous, EVERY 24 HOURS SCHEDULED (Daily), First dose on Mon02/22/11 at 1930, Until Discontinued, To begin at 9AM on POD #1, july d/c when INR >1.5, Routine 1930 (Not Given - Provider: Leonela Hartley RN - Reason: Order parameters not met - Comment: to begin at 9 am pod #1 per MD order) 0932 (Given - Provider: Shavon Begum RN) 0831 (Given - Provider: Jolly De Los Santos RN) gabapentin (NEURONTIN) capsule 300 mg (CANCELED) 300 mg, Oral, 3 TIMES DAILY, First dose on Mon02/22/11 at 2100, Until Discontinued, Routine 2154 (Given - Provider: Leonela Hartley RN) 0932 (Given - Provider: Shavon Begum RN)1645 (Given - Provider: Shavon Begum RN)2024 (Given - Provider: Leonela Hartley RN) 0832 (Given - Provider: Jolly De Los Santos RN)144 (Given - Provider: Jolly De Los Santos RN) oxybutynin (DITROPAN) tablet 5 mg (CANCELED) 5 mg, Oral, 3 TIMES DAILY, First dose on Mon02/22/11 at 2100, Until Discontinued, Routine 2154 (Given - Provider: Leonela Hartley RN) 0932 (Given - Provider: Shavon Begum RN)1644 (Given - Provider: Shavon Begum RN)2025 (Given - Provider: Leonela aHrtley RN) 0832 (Given - Provider: Jolly De Los Santos RN)144 (Given - Provider: Jolly De Los Santos RN) OXYcodone (oxyCONTIN) CR tablet 10 mg (CANCELED) 10 mg, Oral, EVERY 12 HOURS SCHEDULED (2 times per day), First dose on Mon02/22/11 at 2100, Until Discontinued 2154 (Given - Provider: Leonela Hartley RN) 0932 (Given - Provider: Shavon Begum RN)2025 (Given - Provider: Leonela Hartley RN) 0832 (Given - Provider: Jolly De Los Santos RN) senna-docusate (PERICOLACE) 8.6-50 mg per tablet 1-4 tablet 1-4 tablet, Oral, 2 TIMES DAILY, First dose on Mon02/22/11 at 2099, Until Discontinued, Start with 1 tablet or liquid equivalent orally twice daily and titrate up to achieve: 1. One bowel movement at least every 48 hours, AND 2. Without straining, Routine 2154 (Given - Provider: Leonela Hartley RN) 0932 (Given - Provider: Shavon Begum RN)2025 (Given - Provider: Leonela Hartley RN) 0832 (Given - Provider: Jolly De Los Santos RN) sodium chloride 0.9 % flush 5 mL (CANCELED) 5 mL, Intravenous, EVERY 12 HOURS, First dose on Mon02/22/11 at 1930, Until Discontinued 1929 (Given - Provider: Leonela Hartley RN) 0841 (Given - Provider: Shavon Begum RN)184 (Given - Provider: Shavon Begum RN) 0730 (Given - Provider: Jolly E Filiberto, RN) warfarin (COUMADIN) tablet 5 mg (COMPLETED) 5 mg, Oral, ONCE, 1 dose, On Mon02/22/11 at 1930, Routine 2159 (Given - Provider: Leonela Hartley RN) warfarin (COUMADIN) tablet 5 mg (COMPLETED) 5 mg, Oral, ONCE, 1 dose, On Mon02/23/11 at 1700, Routine 1645 (Given - Provider: Shavon Begum, XANDER) Continuous Medication Order 02/22/2011 02/23/2011 02/24/2011 HYDROmorphone (DILAUDID) 1 mg/mL ARCHITECT INTERN 30 mL (CANCELED) Intravenous, ARCHITECT INTERN ONLY, Starting on Mon02/22/11 at 1630, Until Mon02/23/11 at 0553 1630 (New Syringe/Cartridge - Provider: Lily Iyer, XANDER) ROpivacaine (NAROPIN) 2 mg/mL for AmbIT (CANCELED) Perineural, CONTINUOUS, Starting on Mon02/22/11 at 1345, Until Lexi 02/24/11 at 1737 1643 (New Bag - Provider: Lily Iyer, XANDER - Comment: Infusion started per dr. Jean Baptiste) PRN Medication Order 02/22/2011 02/23/2011 02/24/2011 OXYcodone (ROXICODONE) immediate release tablet 10 mg (CANCELED)(Linked Group 1) 10 mg, Oral, EVERY 4 HOURS PRN, Starting on Mon02/22/11 at 1344, Until Lexi 02/24/11 at 1737, Pain, moderate pain, For Moderate pain. Do not exceed 15 mg in 4 hours. If pain not relieved, call provider., Routine 0344 (Given - Provider: Leonela Hartley RN)0932 (Given - Provider: Shavon Begum RN)1340 (Given - Provider: Shavon Begum RN)2024 (Given - Provider: Leonela Hartley RN) 0436 (Given - Provider: Leonela Hartley RN)0831 (Given - Provider: Jolly De Los Santos, RN)1442 (See Alternative - Provider: Jolly De Los Santos RN) OXYcodone (ROXICODONE) immediate release tablet 15 mg (CANCELED)(Linked Group 1) 15 mg, Oral, EVERY 4 HOURS PRN, Starting on Mon02/22/11 at 1344, Until Lexi 02/24/11 at 1737, Pain, severe pain, For severe pain. Do not exceed 15 mg in 4 hours. If pain not relieved, call provider., Routine 0344 (See Alternative - Provider: Leonela Hartley RN)0932 (See Alternative - Provider: Shavon Begum RN)1340 (See Alternative - Provider: Shavon Begum RN)2023 (See Alternative - Provider: Leonela Hartley RN) 043 (See Alternative - Provider: Leonela Hartley RN)0831 (See Alternative - Provider: Jolly De Los Santos RN)1442 (Given - Provider: Jolly De Los Santos RN) OXYcodone (ROXICODONE) immediate release tablet 5 mg(Linked Group 1) 5 mg, Oral, EVERY 4 HOURS PRN, Starting on Mon02/22/11 at 1344, Until Lexi 02/24/11 at 1737, Pain, mild pain, For Mild pain. Do not exceed 15 mg in 4 hours. If pain not relieved, call provider, Routine 0344 (See Alternative - Provider: Leonela Hartley RN)0932 (See Alternative - Provider: Shavon Begum RN)1340 (See Alternative - Provider: Shavon Begum RN)2023 (See Alternative - Provider: Leonela Hartley RN) 043 (See Alternative - Provider: Leonela Hartley RN)0831 (See Alternative - Provider: Jolly De Los Santos RN)1442 (See Alternative - Provider: Jolly De Los Santos RN) polyethylene glycol (MIRALAX) packet 17 g 17 g, Oral, DAILY PRN, Starting on Mon02/22/11 at 1900, Until Lexi 02/24/11 at 1737, Constipation, Administer if needed per patient's routine or if no bowel movement within 48 hours, Routine 0831 (Given - Provid er: Jolly De Los Santos RN) Linked Groups Order Group 1: OXYcodone (ROXICODONE) immediate release tablet 5 mgJump to med 5 mg, Oral, EVERY 4 HOURS PRN, Starting on Mon02/22/11 at 1344, Until Lexi 02/24/11 at 1737, Pain, mild pain, For Mild pain. Do not exceed 15 mg in 4 hours. If pain not relieved, call provider, Routine Or OXYcodone (ROXICODONE) immediate release tablet 10 mg (CANCELED)Jump to med 10 mg, Oral, EVERY 4 HOURS PRN, Starting on Mon02/22/11 at 1344, Until Lexi 02/24/11 at 1737, Pain, moderate pain, For Moderate pain. Do not exceed 15 mg in 4 hours. If pain not relieved, call provider., Routine Or OXYcodone (ROXICODONE) immediate release tablet 15 mg (CANCELED)Jump to med 15 mg, Oral, EVERY 4 HOURS PRN, Starting on Mon02/22/11 at 1344, Until Lexi 02/24/11 at 1737, Pain, severe pain, For severe pain. Do not exceed 15 mg in 4 hours. 

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
--- OUTSIDE RECORDS SUMMARY | 2023-10-06 00:30 | XMS_ITS | Encounter Summary ---
Author Organization [facility] Address [facility] [place] [address] Care Team Providers Care Mechanical Design Drafter Name Role Phone Martha Dempsey MD Primary Care Provider [phone] Encounter Details Date Type Department Care Team (Late st Contact Info) Description 03/15/2011 Anti-Coag Telephone [place] [phone] Javier Brown MD [facility] [place] [address] Left knee DJD Social History Tobacco Use [...] Progress Notes * Amalia Akins RN - 03/15/2011 2:53 PM EST Anticoagulation Therapy Nurse Visit Teo Arenas Date of 1955 Indication: DVT Prophylaxis Duration of Treatment: 28 days ends:03/22/11 Monitored by: Orthopaedics Therapeutic Range: 2.0-3.0 INR: 4.8 Warfarin dose: Increased x Decreased Maintained Comments: Pt instructed to not have any active physical therapy until INR under 3.4 Patient presents with no signs of bleeding [...] Associated Diagnosis Comments EXTERNAL LAB RESULTS Routine 03/15/2011 documented in this encounter Results * (ABNORMAL) External Lab Results (03/15/2011) POC INR 4.8(A) 0.9 - 1.1 Historical Provider CHEMISTRY ORDERAB LES documented in this encounter Visit Diagnoses Diagnosis Left knee DJD Osteoarthrosis, unspecified whether generalized or localized, lower leg documented in this encounter Care Teams Mechanical Design Drafter Relationship Specialty Start Date End Date Martha Dempsey MD [address] [place] [address] PCP - General 02/09/10 10/16/22 documented as of this encounter
--- OUTSIDE RECORDS SUMMARY | 2023-10-06 00:30 | XMS_ITS | Encounter Summary ---
Author Organization [facility] Address [facility] [place] [address] Care Team Providers Care Puppet Master Name Role Phone Martha Dempsey MD Primary Care Provider [phone] Reason for Visit * Reason Onset Date Comments Dysuria 02/16/2011 Encounter Details Date Type Department Care Team (Late st Contact Info) Description 02/16/2011 Telephone [place] [address] Javier Brown MD [facility] [place] [address] Dysuria Social History Tobacco Use Types Packs/Day Years [...] encounter Miscellaneous Notes * Telephone Encounter - Gale Bui RN - 02/16/2011 4:55 PM EST I just got over a cold and now I think I have a Urinary tract infection. I am scheduled to have a knee replacement on the 22 of February. Encouraged patient to see his PCP for a urine test and advised pt. That we may have to postpone hissurgery. Patient will call after he see's his PCP. documented in this encounter Plan of Treatment Not on file documented as of this encounter Visit Diagnoses Not on filedocumented in this encounter Care Teams Puppet Master Relationship Specialty Start Date End Date Martha Dempsey MD [address] [place] [address] PCP - General 02/09/10 10/16/22 documented as of this encounter
--- OUTSIDE RECORDS SUMMARY | 2023-10-06 00:30 | XMS_ITS | Encounter Summary ---
[facility] [address] Care Team Providers Care Automotive Sales Professional Name Role Phone Martha Dempsey MD Primary Care Provider [phone] Encounter Details Date Type Department Care Team (Late st Contact Info) Description 03/07/2011 Anti-Coag Telephone [place] [phone] Rebecca Roque RN Left knee DJD Social [...] Progress Notes * Rebecca Sandoval RN - 03/07/2011 1:45 PM EST Anticoagulation Therapy Nurse Visit Teo Arenas Date of 1955 Indication: DVT Prophylaxis Duration of Treatment: 28 days ends:03/22/11 Monitored by: Orthopaedics Therapeutic Range: 2.0-3.0 INR: 1.5 Warfarin dose: x Increased Decreased Maintained Comments: Patient presents with no signs of bleeding [...] Associated Diagnosis Comments EXTERNAL LAB RESULTS Routine 03/07/2011 documented in this encounter Results * (ABNORMAL) External Lab Results (03/07/2011) POC INR 1.5(Externa l Lab) 0.9 - 1.1 Historical Provider CHEMISTRY ORDERAB LES documented in this encounter Visit Diagnoses Diagnosis Left knee DJD Osteoarthrosis, unspecified whether generalized or localized, lower leg documented in this encounter Care Teams Automotive Sales Professional Relationship Specialty Start Date End Date Martha Dempsey MD [address] [place] [address] PCP - General 02/09/10 10/16/22 documented as of this encounter
--- OUTSIDE RECORDS SUMMARY | 2023-10-06 00:30 | XMS_ITS | Encounter Summary ---
Author Organization [facility] Address [facility] [place] [address] Care Team Providers Care Physician Coder Name Role Phone Martha Dempsey MD Primary Care Provider [phone] Encounter Details Date Type Department Care Team (Late st Contact Info) Description 02/02/2011 Anti-Coag Telephone [place] [phone] Javier Brown MD [facility] [place] [address] Social History Tobacco Use Types Packs/Day Years [...] Progress Notes * Amalia Akins RN - 02/02/2011 9:56 AM EST Patients pre-op urine test came back positive with bacteria. Called patient who reports he is not symptomatic. Did start bactrim ds bid x 10 days. Pt does follow up with urology for neurogenic bladder. documented in this encounter Plan of Treatment Not on file documented as of this encounter Visit Diagnoses Not on filedocumented in this encounter Care Teams Physician Coder Relationship Specialty Start Date End Date Martha Dempsey MD [address] [place] [address] PCP - General 02/09/10 10/16/22 documented as of this encounter
--- OUTSIDE RECORDS SUMMARY | 2023-10-06 00:30 | XMS_ITS | Encounter Summary ---
Author Organization [facility] [place] [address] Care Team Providers Care Press Officer Name Role Phone Martha Dempsey MD Primary Care Provider [phone] Encounter Details Date Type Department Care Team (Late st Contact Info) Description 06/21/2012 Orders [place] [phone] Amalia Lyons RN Left ankle pain (Primary Dx) Social History Tobacco Use Types Packs/Day Years [...] documented as of this encounter Results * XR ankle minimum 3 views (06/21/2012 12:37 PM EDT) Anatomical Region Laterality Modality Ankle N/A Radiographic Laurence ging 06/21/2012 12:3 7 PM EDT Narrative 06/21/2012 1:36 PM EDT Examination ANKLE MIN 3 VIEWS/LEFT Clinical History left ankle pain Comparison June 02, 2011. Technique Findings Unchanged healed and remodeled fracture at the distal 1/3 tibial shaft. ??The fracture alignment is unchanged. The intra-articular talar fracture line is obliterated. The talar dome remains slightly irregular related to healed fracture. ?? The tibiotalar joint space is irregular with osteophyte formation. Large number of osteophytes and heterotopic bone formation surround the medial malleolus and the ankle joint. No large ankle effusion. ?? The posterior subtalar joint is eccentrically narrowed. Impression ? 1. No change from last examination with healed tibial and talar fracture. ? 2. Osteoarthropathy of the tibiotalar joint ? 3. Multiple periarticular ossifications around the tibiotalar joint may represent any combinations of heterotopic bone formation, intraarticular bodies or osteophytes. Procedure Note Zuly Bryan MD - 06/21/2012 Examination ANKLE MIN 3 VIEWS/LEFT Clinical History left ankle pain Comparison June 02, 2011. Technique Findings Unchanged healed and remodeled fracture at the distal 1/3 tibial shaft.The fracture alignment is unchanged. The intra-articular talar fracture lineis obliterated. The talar dome remains slightly irregular related to healed fracture. The tibiotalar joint space is irregular with osteophyte formation. Largenumber of osteophytes and heterotopic bone formation surround the medialmalleolus and the ankle joint. No large ankle effusion. The posterior subtalar jointis eccentrically narrowed. Impression 1. No change from last examination with healed tibial and talarfracture. 2. Osteoarthropathy of the tibiotalar joint 3. Multiple periarticular ossifications around the tibiotalar jointmay represent any combinations of heterotopic bone formation, intraarticularbodies or osteophytes. Javier Brown MD IMG DX ORDERABLES documented in this encounter Visit Diagnoses Diagnosis Left ankle pain- Primary Pain in joint, ankle and foot Left ankle pain Pain in joint, ankle and foot documented in this encounter Care Teams Press Officer Relationship Specialty Start Date End Date Martha Dempsey MD [address] [place] [address] PCP - General 02/09/10 10/16/22 documented as of this encounter
--- OUTSIDE RECORDS SUMMARY | 2023-10-06 00:30 | XMS_ITS | Encounter Summary ---
[place] [address] Care Team Providers Care International Sourcing Manager Name Role Phone Martha Dempsey MD Primary Care Provider [phone] Encounter Details Date Type Department Care Team (Late st Contact Info) Description 03/11/2011 Anti-Coag Telephone [place] [phone] Tena Padilla, RN Social History Tobacco Use Types Packs/Day Years [...] on filedocumented in this encounter Care Teams International Sourcing Manager Relationship Specialty Start Date End Date Martha Dempsey MD [address] [place] [address] PCP - General 02/09/10 10/16/22 documented as of this encounter
--- OUTSIDE RECORDS SUMMARY | 2023-10-06 00:30 | XMS_ITS | Encounter Summary ---
Author Organization [facility] [address] Care Team Providers Care Storage Management Architect Name Role Phone Martha Dempsey MD Primary Care Provider [phone] Encounter Details Date Type Department Care Team (Late st Contact Info) Description 03/10/2011 Anti-Coag Telephone [place] [phone] Rebecca Roque RN Left knee DJD Social [...] Progress Notes * Rebecca Sandoval RN - 03/10/2011 11:35 AM EST Anticoagulation Therapy Nurse Visit Teo Arenas Date of 1955 Indication: DVT Prophylaxis Duration of Treatment: 28 days ends:03/22/11 Monitored by: Orthopaedics Therapeutic Range: 2.0-3.0 INR: 5.2 Warfarin dose: Increased x Decreased Maintained Comments: Patient presents with no [...] Associated Diagnosis Comments EXTERNAL LAB RESULTS Routine 03/10/2011 documented in this encounter Results * (ABNORMAL) External Lab Results (03/10/2011) POC INR 5.2(Externa l Lab) 0.9 - 1.1 Historical Provider CHEMISTRY ORDERAB LES documented in this encounter Visit Diagnoses Diagnosis Left knee DJD Osteoarthrosis, unspecified whether generalized or localized, lower leg documented in this encounter Care Teams Storage Management Architect Relationship Specialty Start Date End Date Martha Dempsey MD [address] [place] [address] PCP - General 02/09/10 10/16/22 documented as of this encounter
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
--- OUTSIDE RECORDS SUMMARY | 2023-10-06 00:30 | XMS_ITS | Encounter Summary ---
Author Organization [facility] [place] [address] Care Team Providers Care Bacteriologist Industrial Name Role Phone Martha Dempsey MD Primary Care Provider [phone] Encounter Details Date Type Department Care Team (Late st Contact Info) Description 05/07/2013 Orders [place] [address] Javier Brown MD [facility] [place] [address] H/O total knee replacement, left Social History Tobacco Use Types Packs/Day [...] as of this encounter Results * XR knee diagnostic 1 or 2 view (06/21/2013 10:23 AM EDT) Anatomical Region Laterality Modality Knee N/A Radiographic Laurence ging 06/21/2013 10:2 3 AM EDT Narrative 06/21/2013 10:46 AM EDT Examination KNEE 1 OR 2 VIEWS/LEFT Clinical History ANNL RCHCK L TKA Comparison June 21, 2012. Technique AP standing radiograph of both knees, lateral radiograph of the left knee. Findings Unchanged appearance of a constrained left total knee arthroplasty with asymmetric ??joint space, narrower medially, and wider laterally. ??Unchanged extensive heterotopic prosthetic along the posterior and lateral aspect of the left knee, and along the medial aspect of the medial femoral condyle. ??No periprosthetic fractures are seen. Unchanged heterotopic ossification along ??the medial and lateral femoral condyles on the right. Impression No interval change. Procedure Note Khris Card MD - 06/21/2013 Examination KNEE 1 OR 2 VIEWS/LEFT Clinical History ANNL RCHCK L TKA Comparison June 21, 2012. Technique AP standing radiograph of both knees, lateral radiograph of the left knee. Findings Unchanged appearance of a constrained left total knee arthroplasty with asymmetric joint space, narrower medially, and wider laterally.Unchanged extensive heterotopic prosthetic along the posterior and lateral aspect ofthe left knee, and along the medial aspect of the medial femoral condyle. No periprosthetic fractures are seen. Unchanged heterotopic ossification along the medial and lateral femoral condyles on the right. Impression No interval change. Javier Brown MD IMG DX ORDERABLES documented in this encounter Visit Diagnoses Diagnosis H/O total knee replacement, left H/O total knee replacement, left documented in this encounter Care Teams Bacteriologist Industrial Relationship Specialty Start Date End Date Martha Dempsey MD [address] [place] [address] PCP - General 02/09/10 10/16/22 documented as of this encounter
--- OUTSIDE RECORDS SUMMARY | 2023-10-06 00:30 | XMS_ITS | Encounter Summary ---
Author Organization [facility] [place] [address] Care Team Providers Care Pharmacy Grad Intern Name Role Phone Martha Dempsey MD Primary Care Provider [phone] Encounter Details Date Type Department Care Team (Latest Contact Info) Description 02/25/2011 Anti-Coag Telephone [place] [phone] Amalia Akins RN Left knee DJD (Primary Dx) Social History Tobacco Use Types [...] Progress Notes * Amalia Akins RN - 02/25/2011 3:24 PM EST Anticoagulation Therapy Nurse Visit Indication: DVT Prophylaxis Duration of Treatment: 28 days ends:03/22/11 Monitored by: Orthopaedics Therapeutic Range: 2.0-3.0 INR: 0.9 Warfarin dose: x Increased Decreased Maintained Comments: [...] Associated Diagnosis Comments EXTERNAL LAB RESULTS Routine 02/25/2011 documented in this encounter Results * (ABNORMAL) External Lab Results (02/25/2011) POC INR 0.9(A) 0.9 - 1.1 Historical Provider CHEMISTRY ORDERAB LES documented in this encounter Visit Diagnoses Diagnosis Left knee DJD- Primary Osteoarthrosis, unspecified whether generalized or localized, lower leg documented in this encounter Care Teams Pharmacy Grad Intern Relationship Specialty Start Date End Date Martha Dempsey MD [address] [place] [address] PCP - General 02/09/10 10/16/22 documented as of this encounter
--- OUTSIDE RECORDS SUMMARY | 2023-10-06 00:30 | XMS_ITS | Encounter Summary ---
Author Organization [facility] Address [facility] [place] [address] Care Team Providers Care Proof Passer Name Role Phone Martha Dempsey MD Primary Care Provider [phone] Encounter Details Date Type Department Care Team (Latest Contact Info) Description 06/21/2012 12:32 PM EDT - 06/21/2012 11:59 PM EDT Hospital Encounter XRay at [address] [place] [address] Left ankle pain Social History Tobacco Use Types Packs/Day Years [...] 1 Tablet(s) PO Three times daily 10/01/2009 OXYcodone (OXYCONTIN) 10 mg CR tablet Take 10 mg by mouth 3 times daily. 05/23/2014 OXYcodone (ROXICODONE) 5 mg immediate release tablet Take 1-3 tablets by mouth every 4 hours as needed for Pain. 60 tablet 0 02/24/2011 06/21/2013 pravastatin (PRAVACHOL) 10 mg tablet Take 20 mg by mouth daily. 05/23/2014 documented as of this encounter Plan of Treatment Not on file documented as of this encounter Procedures Procedure Name Priority Date/Time Associated Diagnosis Comments XR ANKLE MINIMUM 3 VIEWS Routine 06/21/2012 12:37 PM EDT Left ankle pain documented in this encounter Results * XR ankle minimum [...] this encounter Visit Diagnoses Diagnosis Left ankle pain Pain in joint, ankle and foot documented in this encounter Care Teams Proof Passer Relationship Specialty Start Date End Date Martha Dempsey MD [address] [place] [address] PCP - General 02/09/10 10/16/22 documented as of this encounter
--- OUTSIDE RECORDS SUMMARY | 2023-10-06 00:30 | XMS_ITS | Encounter Summary ---
Author Organization [facility] [place] [address] Care Team Providers Care Instructional Technology Facilitator Name Role Phone Martha Dempsey MD Primary Care Provider [phone] Encounter Details Date Type Department Care Team (Late st Contact Info) Description 03/04/2011 Anti-Coag Telephone [place] [phone] Tena Padilla RN Left knee DJD Social History Tobacco [...] as of this encounter Progress Notes * Tena Padilla RN - 03/04/2011 3:28 PM EST Anticoagulation Therapy Nurse Visit Indication: DVT Prophylaxis Duration of Treatment: 28 days ends:03/22/11 Monitored by: Orthopaedics Therapeutic Range: 2.0-3.0 INR: 1.3 Warfarin dose: x Increased Decreased Maintained Comments: [...] Procedure Name Priority Date/Time Associated Diagnosis Comments POCT INR Routine 03/04/2011 documented in this encounter Results * (ABNORMAL) POCT INR (03/04/2011) POC INR 1.3(A) 0.9 - 1.1 Tena Padilla RN POINT OF CARE TEST O RDERABLES documented in this encounter Visit Diagnoses Diagnosis Left knee DJD Osteoarthrosis, unspecified whether generalized or localized, lower leg documented in this encounter Care Teams Instructional Technology Facilitator Relationship Specialty Start Date End Date Martha Dempsey MD [address] [place] [address] PCP - General 02/09/10 10/16/22 documented as of this encounter
--- OUTSIDE RECORDS SUMMARY | 2023-10-06 00:30 | XMS_ITS | Encounter Summary ---
Author Organization [facility] Address [facility] [place] [address] Care Team Providers Care Rectangular Tank Cooper Name Role Phone Martha Dempsey MD Primary Care Provider [phone] Encounter Details Date Type Department Care Team (Latest Contact Info) Description 06/21/2013 9:54 AM EDT - 06/21/2013 11:59 PM EDT Hospital Encounter XRay at [address] [place] [address] H/O total knee replacement, left Social History [...] 1 Tablet(s) PO Three times daily 10/01/2009 oxyCODONE (OXYCONTIN) 10 mg CR tablet Take 10 mg by mouth every 12 hours. 5-10 mg as needed. 05/23/2014 OXYcodone (OXYCONTIN) 10 mg CR tablet Take 10 mg by mouth 3 times daily. 05/23/2014 pravastatin (PRAVACHOL) 10 mg tablet Take 20 mg by mouth daily. 05/23/2014 documented as of this encounter Plan of Treatment Not on file documented as of this encounter Procedures Procedure Name Priority Date/Time Associated Diagnosis Comments XR KNEE DIAGNOSTIC 1 OR 2 VIEW Routine 06/21/2013 10:23 AM EDT H/O total knee replacement, left documented in this encounter Results * XR knee diagnostic 1 or 2 view (06/21/2013 10:23 AM EDT) Anatomical Region Laterality Modality Knee N/A Radiographic Laurence ging 06/21/2013 10:2 3 AM EDT Narrative 06/21/2013 10:46 AM EDT Examination KNEE 1 OR 2 VIEWS/LEFT [facility] June 21, 2012. Technique [...] KNEE 1 OR 2 VIEWS/LEFT [facility] June 21, 2012. Technique [...] Diagnoses Diagnosis H/O total knee replacement, left documented in this encounter Care Teams Rectangular Tank Cooper Relationship Specialty Start Date End Date Martha Dempsey MD [address] [place] [address] PCP - General 02/09/10 10/16/22 documented as of this encounter
--- OUTSIDE RECORDS SUMMARY | 2023-10-06 00:30 | XMS_ITS | Encounter Summary ---
Author Organization [facility] Address [facility] [place] [address] Care Team Providers Care Flask Cleaner Name Role Phone Martha Dempsey MD Primary Care Provider [phone] Encounter Details Date Type Department Care Team (Latest Contact Info) Description 06/02/2011 11:59 AM EDT - 06/02/2011 11:59 PM EDT Hospital Encounter XRay at [address] [place] [address] DJD (degenerative joint disease), ankle and foot Social History Tobacco Use Types Packs/Day Years [...] Comments XR ANKLE MINIMUM 3 VIEWS Routine 06/02/2011 12:10 PM EDT DJD (degenerative joint disease), ankle and foot documented in this encounter Results * XR ankle minimum 3 views (06/02/2011 12:10 PM EDT) Anatomical Region Laterality Modality Ankle N/A Radiographic Laurence ging 06/02/2011 12:1 0 PM EDT Narrative 06/03/2011 3:48 PM EDT ANKLE, THREE VIEWS, 06/02/11: HISTORY: ??Varus ankle pain. TECHNIQUE: ??Three views of the left ankle. COMPARISON: ??Compared to a prior exam of 09/02/09. FINDINGS: ??The patient is status post fracture of the distal tibia with persistent bony deformity. ??Comparison to a film of 01/05/09 shows minimal interval change at this fracture site. There are still fracture lines present, and there is mild angulation seen. ??In the ankle itself, there is marked degenerative change with multiple medial fragments and bony demineralization. ?? Mortise appears preserved. ??Consider cross-sectional imaging for further detail. There is soft tissue swelling in the ankle, which is worse than on prior exam. ??Has there been a repeat injury? Procedure Note Татьяна Hoyt MD - 06/03/2011 ANKLE, THREE VIEWS, 06/02/11: HISTORY: Varus ankle pain. TECHNIQUE: Three views of the left ankle. COMPARISON: Compared to a prior exam of 09/02/09. FINDINGS: The patient is status post fracture of the distal tibia with persistent bony deformity. Comparison to a film of 01/05/09 shows minimal interval change at this fracture site. There are still fracture linespresent, and there is mild angulation seen. In the ankle itself, there is marked degenerative change with multiple medial fragments and bonydemineralization. Mortise appears preserved. Consider cross-sectional imaging for further detail. There is soft tissue swelling in the ankle, which is worse than on prior exam. Has there been a repeat injury? Javier Brown MD IMG DX ORDERABLES documented in this encounter Visit Diagnoses Diagnosis DJD (degenerative joint disease), ankle and foot Osteoarthrosis, unspecified whether generalized or localized, ankle and foot documented in this encounter Care Teams Flask Cleaner Relationship Specialty Start Date End Date Martha Dempsey MD [address] [place] [address] PCP - General 02/09/10 10/16/22 documented as of this encounter
--- OUTSIDE RECORDS SUMMARY | 2023-10-06 00:30 | XMS_ITS | Encounter Summary ---
Author Organization [facility] Address [facility] [place] [address] Care Team Providers Care Supervisor Area Name Role Phone Martha Dempsey MD Primary Care Provider [phone] Encounter Details Date Type Department Care Team (Late st Contact Info) Description 01/27/2011 2:06 PM EST - 01/27/2011 11:59 PM [facility] Hospital Encounter XRay at [address] [place] [address] Social History Tobacco Use Types Packs/Day Years [...] Take 20 mg by mouth daily. 05/23/2014 OXYcodone (ROXICODONE) 5 mg immediate release tablet Take 5 mg by mouth every 4 hours as needed. 02/24/2011 OXYcodone (OXYCONTIN) 10 mg CR tabletIndications:pa in Take 10 mg by mouth 3 times daily. Indications: Pain 02/24/2011 ASCORBIC ACID (VITAMIN C ORAL) 10/01/2009 02/24/2011 documented as of this encounter Plan of Treatment Not on file documented as of this encounter Visit Diagnoses Not on filedocumented in this encounter Care Teams Supervisor Area Relationship Specialty Start Date End Date Martha Dempsey MD [address] [place] [address] PCP - General 02/09/10 10/16/22 documented as of this encounter
--- OUTSIDE RECORDS SUMMARY | 2023-10-06 00:30 | XMS_ITS | Encounter Summary ---
Author [facility] [address] Care Team Providers Care Corporate Legal Assistant Name Role Phone Martha Dempsey MD Primary Care Provider [phone] Encounter Details Date Type Department Care Team (Late st Contact Info) Description 03/03/2011 Anti-Coag [place]phone [place] [phone] Rebecca Roque RN Left knee DJD Social [...] Progress Notes * Rebecca Sandoval RN - 03/03/2011 11:38 AM EST Anticoagulation Therapy Nurse Visit Indication: DVT Prophylaxis Duration of Treatment: 28 days ends:03/22/11 Monitored by: Orthopaedics Therapeutic Range: 2.0-3.0 INR: 5.3 Warfarin dose: Increased x Decreased Maintained Comments: MANUEL Ny pt to take coumadin in the evenings, not in the AM (he did not take it this am however) Patient presents with no signs of bleeding [...] Associated Diagnosis Comments EXTERNAL LAB RESULTS Routine 03/03/2011 documented in this encounter Results * (ABNORMAL) External Lab Results (03/03/2011) POC INR 5.3(EXTERNA L/ABN) 0.9 - 1.1 Historical Provider CHEMISTRY ORDERAB LES documented in this encounter Visit Diagnoses Diagnosis Left knee DJD Osteoarthrosis, unspecified whether generalized or localized, lower leg documented in this encounter Care Teams Corporate Legal Assistant Relationship Specialty Start Date End Date Martha Dempsey MD [address] [place] [address] PCP - General 02/09/10 10/16/22 documented as of this encounter
--- OUTSIDE RECORDS SUMMARY | 2023-10-06 00:30 | XMS_ITS | Encounter Summary ---
Author Organization [facility] Address [facility] [place] [address] Care Team Providers Care Winch Runner Name Role Phone Martha Dempsey MD Primary Care Provider [phone] Encounter Details Date Type Department Care Team (Late st Contact Info) Description 02/18/2011 Notes [place] [address] Javier Brown MD [facility] [place] [address] Social History Tobacco Use Types Packs/Day Years [...] Progress Notes * Amalia Akins RN - 02/18/2011 2:49 PM EST Patient called to report he did go to pcp for urinary symptoms, and he does not have an infection. documented in this encounter Plan of Treatment Not on file documented as of this encounter Visit Diagnoses Not on filedocumented in this encounter Care Teams Winch Runner Relationship Specialty Start Date End Date Martha Dempsey MD [address] [place], [place] [id number] PCP - General 02/09/10 10/16/22 documented as of this encounter
--- OUTSIDE RECORDS SUMMARY | 2023-10-06 00:30 | XMS_ITS | Encounter Summary ---
Author Organization [facility] Address [facility] [place] [address] Care Team Providers Care Splicing Technician Name Role Phone Martha Dempsey MD Primary Care Provider [phone] Encounter Details Date Type Department Care Team (Latest Contact Info) Description 02/02/2011 12:09 PM EST - 02/02/2011 11:59 PM [facility] Hospital Encounter [place] [address] CLINIC, Javier Lord MD [facility] DR [place] [address] Preop cardiovascular exam; Chest pain on exertion; Left knee DJD Discharge Disposition: Home Social [...] mouth daily as needed (constipation). 02/24/2011 04/07/2011 sulfamethoxazole-tri methoprim (BACTRIM DS) 800-160 mg per tablet Take by mouth 2 times daily. For for 10 days. 14 tablet 0 02/01/2011 02/24/2011 pravastatin (PRAVACHOL) 10 mg tablet Take 20 [...] Procedure Name Priority Date/Time Associated Diagnosis Comments NM PHARMACOLOGIC STRESS AND REST MYOCARDIAL PERFUSION Routine 02/02/2011 2:25 PM EST Chest pain on exertion Left knee DJD documented in this encounter Results * NM myocardial perfusion scan, pharmacologic (02/02/2011 2:25 PM EST) Anatomical Region Laterality Modality Other 02/02/2011 2:25 PM EST Impressions 02/03/2011 7:20 AM EST IMPRESSION: Normal study demonstrating no evidence for ischemia or scar and normal left ventricular function. ? Film and interpretation reviewed by the attending Narrative 02/03/2011 7:20 AM EST REGADENOSON (LEXISCAN) MYOCARDIAL PERFUSION STUDY, 02/02/11: ?? CLINICAL HISTORY: ??Recent episodes of chest pain. ??Preoperative evaluation prior to total knee arthroplasty. ?? TECHNIQUE: ?? During rest, 12 mCi of technetium-99m sestamibi were administered intravenously. ??Approximately 15 minutes later, SPECT images of the heart were obtained with reconstruction in the short, vertical long and horizontal long axes. ?? The patient then received regadenoson intravenously at a dose of 0.4 mg. ?? Twenty seconds later, 37 mCi of technetium-99m sestamibi were administered intravenously. ??Images of the heart were then again obtained with SPECT reconstruction. A low dose CT scan was acquired for the purpose of attenuation correction. ?? FINDING: ??The left ventricular chamber size appears within normal limits. ??No fixed or reversible perfusion defects are identified. ??Gated study shows normal wall motion and thickening in all regions. ??Calculated left ventricular ejection fraction is greater than 60%. ?? Procedure Note Toribio Barraza MD - 02/03/2011 REGADENOSON (LEXISCAN) MYOCARDIAL PERFUSION STUDY, 02/02/11: CLINICAL HISTORY: Recent episodes of chest pain. Preoperative evaluation prior to total knee arthroplasty. TECHNIQUE: During rest, 12 mCi of technetium-99m sestamibi wereadministered intravenously. Approximately 15 minutes later, SPECT images of the heartwere obtained with reconstruction in the short, vertical long and horizontallong axes. The patient then received regadenoson intravenously at a dose of 0.4 mg. Twenty seconds later, 37 mCi of technetium-99m sestamibi were administered intravenously. Images of the heart were then again obtained with SPECT reconstruction. A low dose CT scan was acquired for the purpose of attenuation correction. FINDING: The left ventricular chamber size appears within normal limits.No fixed or reversible perfusion defects are identified. Gated study showsnormal wall motion and thickening in all regions. Calculated left ventricular ejection fraction is greater than 60%. IMPRESSION IMPRESSION: Normal study demonstrating no evidence for ischemia or scar and normalleft ventricular function. Film and interpretation reviewed by the attending Javier Brown MD IMG NM ORDERABLES documented in this encounter Visit Diagnoses Diagnosis Preop cardiovascular exam Pre-operative cardiovascular examination Chest pain on exertion Chest pain, unspecified Left knee DJD Osteoarthrosis, unspecified whether generalized or localized, lower leg documented in this encounter Administered Medications Inactive Administered Medications - up to 3 most recent administrations Medication Order MAR Action Action Date Dose Rate Site regadenoson (LEXISCAN) injection 0.4 mg 0.4 mg, Intravenous, ONCE, 1 dose, On Mon02/02/11 at 1400, Routine Given 02/02/2011 1:30 PM EST 0.4 mg documented in this encounter Care Teams Splicing Technician Relationship Specialty Start Date End Date Martha Dempsey MD [address] [place] [address] PCP - General 02/09/10 10/16/22 documented as of this encounter
--- OUTSIDE RECORDS SUMMARY | 2023-10-06 00:30 | XMS_ITS | Encounter Summary ---
Author Organization [facility] Address [facility] [place] [address] Care Team Providers Care Chisel Worker Name Role Phone Martha Dempsey MD Primary Care Provider [phone] Reason for Visit * Reason Comments Left Knee Pain DOS 02/22/11 Left Ankle Pain Encounter Details Date Type Department Care Team (Late st Contact Info) Description 06/02/2011 12:45 PM EDT Office [place] [address] Javier Brown MD [facility] [place] [address] Delgado Cote PA [facility] [place] [address] History of total knee arthroplasty(left TKA 02/2011) (Primary Dx); Left ankle pain Discharge Disposition: Home Social History Tobacco Use [...] Sign Reading Time Taken Comments Blood Pressure 130/80 06/02/2011 1:18 PM EDT Pulse 70 06/02/2011 1:18 PM EDT Temperature - - Respiratory Rate - - Oxygen Saturation - - Inhaled Oxygen Concentration - - Weight 97.5 kg (215 lb) 06/02/2011 1:18 PM EDT Height 174 cm (5' 8.5) 06/02/2011 1:18 PM EDT Body Mass Index 32.22 06/02/2011 1:18 PM EDT documented in this encounter Progress Notes * Delgado Cote - 06/02/2011 1:41 PM EDT Subjective: Patient ID: Teo Arenas is a 56 y.o. male. Case Date: 02/22/2011 Procedure(s): ??TOTAL KNEE ARTHROPLASTY LEFT MODIFIER STABILIZED ROTATING PLATFORM DEPUY MODIFIER TC3 ROTATING PLATFORM DEPUY HPI This is a 56yo male here for left TKA followup. The knee is feeling fine, occasional discomfort. No swelling. Goes to therapy twice a week. Has a color change of blue to red to lower left foot/ankle. Feels better with AFO on and using one crutch. Currently 600mg TID of Neurontin for past year. Feels there is some decrease pain to ankle since last visit. Feels it is easier to walk now with TKA. Social history: single/ 3 children. 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 Hobbies boating. Past history of left tibia midshaft fracture in 1989. ROS Objective: Physical Exam 5'8 215lbs Has a full length lateral wedge to shoe and AFO. Ortho ExamlAppears comfortable. Left knee incision is well healed. Mild effusion. No warmth. Good patella mobility. I have made the following determinations: Post Op Left Knee Exam: Gait Abnormality: Antalgic Knee ROM: Extension:5 Flexion: 105 Alignment: 0-4 degrees Neutral Stability: A/P Translation <5mm Varus (lateral stability) <5mm Valgus (medial stability) <5mm Extension La degrees or less Patella Tracking: Normal Pulses Palpable: Left PT:Yes Left DP:Yes Motor/Sensory: Left Distal Motor: abnormal/foot drop(wears AFO) Distal Sensory: Abnormal Quadriceps Strength:4 LEFT FOOT/ANKLE EXAM: multiple scars well healed. Limited ankle motion. Insensate. No focal area ofhypersensitivity today. Pulses palpable to both DP and PT Neurologic Exam Assessment and Plan: S/TKA 2. 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 Brown. Discussed need to continue with AFO and crutch. Encourage patient to continue with knee ROM, strength. Will f/u in 9 months with xrays. May consider compression stockingto left leg. documented in this encounter Plan of Treatment Not on file documented as of this encounter Visit Diagnoses Diagnosis History of total knee arthroplasty(left TKA 02/2011)- Primary Knee joint replacement by other means Left ankle pain Pain in joint, ankle and foot documented in this encounter Care Teams Chisel Worker Relationship Specialty Start Date End Date Martha Dempsey MD [address] [place] [address] PCP - General 02/09/10 10/16/22 documented as of this encounter
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
--- OUTSIDE RECORDS SUMMARY | 2023-10-06 00:30 | XMS_ITS | Encounter Summary ---
Author Organization [facility] [place] [address] Care Team Providers Care Corporate Executive Chef Name Role Phone Martha Rios MD Primary Care Provider [phone] Reason for Referral * Consultation (Routine) - Closed by system - unspecified Specialty Diagnoses / Procedures Referred By Contac t Referred To Contact Diagnoses Left knee DJD Brenna Acevedo PA [facility] [place] [address] Referral ID Status Reason Start Date Expiration Date Visits Requested Visits Authorized [id number] Closed by system - unspecified Assume Subset of Care 02/24/2011 08/23/2011 1 1 Encounter Details Date Type Department Care Team (Latest Contact Info) Description 02/22/2011 11:39 AM EST - 02/24/2011 3:29 PM EST Hospital Encounter [address] [place] [address] Macrina Brown MD [facility] [place] [address] Left knee DJD Discharge Disposition: Home with VNA Social History Tobacco Use Types Packs/Day Years [...] Sign Reading Time Taken Comments Blood Pressure 118/68 02/23/2011 10:34 AM EST Pulse 84 02/23/2011 10:34 AM EST Temperature 36.3 ??C (97.3 ??F) 02/23/2011 10:[address] Respiratory Rate 16 02/23/2011 10:34 AM EST Oxygen Saturation 96% 02/23/2011 10:34 AM EST Inhaled Oxygen Concentration - - Weight [...] area. Recommendations: Dressing Changes/Skin Care: Apply Aloe Garden Plain Skin protectant twice a day and prn. [...] pillows lengthwise beneath legs while in bed. [facility] AIR bed 1. Use a single quilted [...] or equal to 30 degrees. Use Aloe [place] Plain Skin Conditioner #2 after baths for extra [...] flow sheet: Date notes INR Coumadin dose(mg) 02/22 Day of Surgery -- 5 mg 02/23 POD 1 1.1 5 mg + Lovenox 40 mg 02/24 D/C home POD 2 1.4 7.5 mg [...] The INR should be reported to the [facility] Ortho clinic at [phone], and you will be informed of any [...] a bowel movement. You can try an igyo-zgp-yxfrdzu medication, miralax if needed. 2. If you [...] 4. Call your orthopaedic surgeon- Dr. Brown (#[phone]) with any fever, chills, sweats, redness or discharge from the wounds. Misc: Remember that ICE and elevation are very important after surgery to help decrease swelling and control pain. Use ICE for 20-30 minutes at a time and keep your leg elevated as much as possible. Follow Up Appointments: Please arrive on March at 11:45 AM to Radiology 3T for x- rays prior to your follow up appointment with Dr. Brown. Your appointment with Dr. Brown is scheduled in Orthopedics 3C on March at 12:45 PM. * Attachments The following attachments cannot be sent through Care Everywhere. * ANTICOAGULANTS: AFTER YOUR VISIT (AUSTRIAN) documented in this encounter Medications at Time [...] Santos RN - 02/24/2011 2:59 PM EST [phone] Patient cleared to go home by PT/OT and MD's. Lovenox teaching completed, both patient and state understanding to injections and disposal of needles. IV discontinued, tolerated well. Patient will have VNA services, discharge is still not completed, will fax and call vna when completed. Report called to vna, no questions, they understand discharge instructions. * Macarena Elias OT - 02/24/2011 2:58 PM EST Occupational [...] KNEE ARTHROPLASTY performed by MACRINA BROWN at [facility] MAIN OR Social History: Patient lives with [...] evaluation Total timed interventions: 0 minutes Pager: [phone] MACARENA ELIAS OT 02/24/2011 Occupational Therapy Rehabilitation [...] team with any further questions or concerns. * Mckenzie Zheng - 02/24/2011 12:48 PM EST Physical Therapy Note Total Knee Arthroplasty Patient Profile: Pt. is a 55 y.o. y.o. male admitted on 02/22/2011 by Macrina Miranda MD for LTKA. 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 Precautions/Special Considerations: WBAT, per PA use pt existing [place] brace for comfort Post-operative course: uneventful Subjective: [...] treatment: 31 minutes MCKENZIE ZHENG, PT Pager: [phone] * Mamta Honeycutt MD - 02/24/2011 7:20 [...] Considerations: WBAT, per PA use pt existing [place] brace for comfort Post-operative course: uneventful Subjective: [...] treatment: 15 minutes MCKENZIE ZHENG, PT Pager: [phone] * Macrina Jean Baptiste MD - 02/23/2011 [...] or concerns MACRINA JEAN BAPTISTE MD, MD [id number] Addendum: Seen this afternoon. Pain 4/10. Still [...] - stabel [facility] documented in this encounter H&P Notes [...] area. Recommendations: Dressing Changes/Skin Care: Apply Aloe Garden Plain Skin protectant twice a day and prn. [...] pillows lengthwise beneath legs while in bed. [facility] AIR bed 1. Use a single quilted [...] or equal to 30 degrees. Use Aloe Garden Plain Skin Conditioner #2 after baths for extra [...] flow sheet: Date notes INR Coumadin dose(mg) 02/22 Day of Surgery -- 5 mg 12 POD 1 1.1 5 mg + Lovenox 40 mg 12 D/C home POD 2 1.4 7.5 mg [...] The INR should be reported to the [facility] Ortho clinic at [phone], and you will be informed of any [...] a bowel movement. You can try an ythy-enl-zspyjid medication, miralax if needed. 2. If you [...] 4. Call your orthopaedic surgeon- Dr. Brown (#[phone]) with any fever, chills, sweats, redness or discharge from the wounds. Misc: Remember that ICE and elevation are very important after surgery to help decrease swelling and control pain. Use ICE for 20-30 minutes at a time and keep your leg elevated as much as possible. Follow Up Appointments: Please arrive on March at 11:45 AM to Radiology 3T for x- rays prior to your follow up appointment with Dr. Brown. Your appointment with Dr. Brown is scheduled in Orthopedics 3C on March at 12:45 PM. General Instructions [...] area. Recommendations: Dressing Changes/Skin Care: Apply Aloe Garden Plain Skin protectant twice a day and prn. [...] pillows lengthwise beneath legs while in bed. [employer] AIR bed 6. Use a single quilted [...] or equal to 30 degrees. Use Aloe [place] Plain Skin Conditioner #2 after baths for extra dry skin. Future Appointments and Orders Future Appointments: Provider: Department: Dept Phone: Center: 04/07/2011 12:45 PM Macrina Brown MD [facility] [phone] None Joint Appt Health Question Three C Orth[facility] [phone] None Future Orders Please Complete By Expires REFERRAL TO ANTICOAGULATION MONITORING [[id number] Custom] Process Instructions: If no progress note charted, please enter Clinical details in comments. Scheduling Instructions: Comments: Please note patient is being bridged to INR greater than 1.7 with Lovenox 40 mg daily. After INR >1.7, continue on Coumadin only. Questions: Responses: Responsible Group [facility] Reason for referral Monitor INR and dose Coumadin Risk Factors: Next due INR 02/25/2011 INR Goal 2.0-3.0 Target End Date 03/23/2011 Referral to Home Health[[id number] CPT(R)] Process Instructions: Scheduling Instructions: Comments: [facility]. PHONE: [phone] FAX: [phone] DISCHARGE DOCUMENTATION FOR VNA SERVICES (INCLUDING THOSE PATIENTS WITH MEDICARE COVERAGE BEING DISCHARGED HOME WITH VNA SERVICES AND THOSE PATIENTS WITH MEDICARE COVERAGE WHO ARE BEING DISCHARGED HOME WITH HOSPICE SERVICES) Teo Arenas [address] [place] [phone] There are no phone numbers on file. Telephone Information: Cardiothoracic Icu Rn: In discussion with the attending physician, it is certified that this patient is under their care and that they, or a nurse practitioner, clinical nurse specialist or physician's assistant program director who is working directly with them, had [...] appropriate for home health services. HOME HEALTH AGENCY:[facility] Home care orders for Total Knee Replacements: 1.RN: Draw PT/INR as follows: PER MD ORDERS- Please START on Monday02/25/2011!! Thereafter, PT/INR: every Monday and PT/INR results to be called and faxed as follows Mon-Mon Ortho anticoagulation (Coumadin) clinic @ [facility]: ; Sat/Sun: if the PT/INR is drawn on the weekend, call the results to the Orthopedic Resident on callat [phone] for Coumadin dose Point of care testing [...] effort and are for medical reasons or uatsdin services of infrequently or of short duration when for other reasons) Please note that any additional orders needs or changes will need to be obtained from this patient's PCP: MARTHA RIOS MD [address] [address] All A agencies which cover the area of patient's residence have been reviewed, either verbally jhoana writing, and patient/family have chosen the indicated home health care agency for home services. Questions: Responses: Agency name and contact information [facility] Patient location post discharge home What services are requested Physical Therapy Registered Nurse Start date Responsible MD post discharge contact info Provider Contact Information: Primary Care Provider: MARTHA RIOS MD [phone] Hospital Attending: Macrina Brown MD Department of Orthopaedic Surgery For questions regarding this document or issues relating to this hospitalization on the Medical Service, please contact your inpatient physician through the [facility] Research And Development Technician . Issues afterhours and on weekends [...] area. Recommendations: Dressing Changes/Skin Care: Apply Aloe Garden Plain Skin protectant twice a day and prn. [...] pillows lengthwise beneath legs while in bed. [facility] AIR bed 1. Use a single quilted [...] or equal to 30 degrees. Use Aloe Garden Plain Skin Conditioner #2 after baths for extra dry skin. Follow-up: By a member of the wound care team on a weekly basis. If needed prior, please contact [facility] [phone]. Discussed plan with: RN: Patient's nurse * [...] was clear. No pain on palpation. Aloe Garden Plain Skin protectant was applied to the heel. [...] albumin/pre-albumin drawn to assess nutrition. Current bed: [facility] Assessment: The area to the left lateral heel is consistent with that of a resolved blister. The skin is calloused, intact and firm. The aloe vesta skin protectant should help in softening this area. Recommendations: Dressing Changes/Skin Care: Apply Aloe Garden Plain Skin protectant twice a day and prn. [...] pillows lengthwise beneath legs while in bed. [facility] bed 1. Use a single quilted chux [...] or equal to 30 degrees. Use Aloe Garden Plain Skin Conditioner #2 after baths for extra dry skin. Follow-up: By a member of the wound care team on a weekly basis. If needed prior, please contact [facility] [phone]. Discussed plan with: RN: Patient's nurse * [...] Patient reports tolerable pain with use of CENTRAL OFFICE FRAME WIRER, ambit pump and oral oxycodone. Problem: Trauma/Injury Risk (Adult, Obstetric) Goal: Trauma/Injury Risk: Absence of Trauma/Injury/Falls Patient is alert and oriented, using call prince appropriately to call for nursing assistance. * Op Note - Mamta Honeycutt MD - 02/22/2011 4:02 PM EST Patient Name: Teo Arenas : [id number] MR#: [id number] Case Date: 02/22/2011 Surgeon: Surgeon(s) and Role: [...] Operative Note Patient Name: Teo Arenas : [id number] MR#: [id number] Case Date: 02/22/2011 Surgeon: Surgeon(s) and Role: [...] Implant Name Type Inv. Item Serial No. Rubber Compounder Mixer Lot No. LRB No. Used Action CEMENT,BNE,CMW 1,GNTA,40GM ([id number]) - [id number] IMPLANTS CEMENT,BNE,CMW 1,GNTA,40GM ([id number]) [employer] - [id number] Left 1 Implanted PATELLA,RND SML,35MM ([id number]) (AUTOREQ) - [id number] IMPLANTS PATELLA,RND SML,35MM ([id number]) (AUTOREQ) [employer] - 3527 [id number] Left 1 Implanted COMPO,PFC SIGMA,TC3,FEM,LT,3 ([id number]) (AUTOREQ) - [id number] IMPLANTS COMPO,PFC SIGMA,TC3,FEM,LT,3 ([id number]) (AUTOREQ) [employer] - 3527 [id number] Left 1 Implanted COMPONENT,TIBL,3,69.6X45.8MM ([id number]) (AUTOREQ) - [id number] IMPLANTS COMPONENT,TIBL,3,69.6X45.8MM ([id number]) (AUTOREQ) [employer] - [id number] Left 1 Implanted INSERT,TIBL,TC3,R-P,SZ3,10.0 ([id number]) (AUTOREQ) - [id number] IMPLANTS INSERT,TIBL,TC3,R-P,SZ3,10.0 ([id number]) (AUTOREQ) [facility] - [id number] Left 1 Implanted Disposition: awakened from anesthesia, [...] Macrina Brown MD HEMATOLOGY ORDERABLE S EVITA LASSITERIUM * (ABNORMAL) Prothrombin Time (02/24/2011 4:22 AM EST) PT 17.8(H) 12.3 - 14.7 sec CERNER MILLENNIUM Comment: [facility] Transfusion Committee Guidelines: INR less than 2.0, [...] HEMATOLOGY ORDERABLE S CERNER MILLENNIUM * (ABNORMAL) Basic Metabolic Panel (non-fasting) (02/24/2011 4:22 AM EST) Glucose Lvl 104 60 - 199 mg/dL [...] Macrina Brown MD HEMATOLOGY ORDERABLE S CERNER YAWENNIUM * (ABNORMAL) DIFFERENTIAL, AUTOMATED (02/23/2011 5:04 AM [...] EST Macrina Brown MD HEMATOLOGY ORDERABLE S CERPANKAJ TIDWELLENNIUM * Prothrombin Time (02/23/2011 5:04 AM EST) PT 14.5 12.3 - 14.7 sec CERNER MILLENNIUM Comment: [facility] Transfusion Committee Guidelines: INR less than 2.0, PTT less than OR equal to 43.5 seconds, or Fibrinogen greater than or equal to 100 mg/dl indicate adequate procoagulant activity for hemostasis in patients without underlying bleeding disorders. INR 1.1 0.9 - 1.1 CERNER MILLENNIUM Blood specimen (specimen) 02/23/2011 5:04 AM EST 02/23/2011 5:10 AM EST Macrina Brown MD HEMATOLOGY ORDERABLE S Performing Organization Address City/[facility] Co de Phone Number CERPANKAJ TIDWELLENNIUM * Basic Metabolic Panel (non-fasting) (02/23/2011 5:04 [...] AM EST Macrina Brown MD CHEMISTRY ORDERABLES [facility] * (ABNORMAL) CBC (with Diff) (02/23/2011 5:04 [...] MILLENNIUM RDWCV 13.0 10.9 - 14.4 % [facility] MILLENNIUM MPV 9.0 9.0 - 12.0 fL [facility] MILLENNIUM Blood specimen (specimen) 02/23/2011 5:04 AM EST 02/23/2011 5:10 AM EST Macrina Brown MD HEMATOLOGY ORDERABLE S Performing Organization Address [facility] de Phone Number [facility] * APTT (02/22/2011 7:12 PM EST) PTT 34 25 - 37 sec [facility] Comment: Recommended therapeutic PTT range for full dose unfractionated heparin is 80-114 seconds. Blood specimen (specimen) 02/22/2011 7:12 PM EST 02/22/2011 7:23 PM EST Macrina Brown MD HEMATOLOGY ORDERABLE S Performing Organization Address [facility] Phone Number [facility] * Surgical Pathology Report (02/22/2011 4:13 PM EST) Surgical Pathology Report [id number] ? Location: [facility]; [facility]8; B The signing pathologist has (i) examined the [...] to be zelaya-pink synovium. Sections/Processi ng: ??(1-4) personal banking representative sections of articular cartilage; ?(5-6) personal banking representative sections of synovium. ?(R6, decal) ??aje/SHB [...] in rendering the final pathologic diagnosis. EVITA MILLWILNER 02/22/2011 4:13 PM EST Macrina Brown MD PATHOLOGY/CYTOLOGY O SUSI Performing Organization Address [facility] de Phone Number EVITA YAWOPALJASSI * Specimen to Pathology (surgical or derm) (02/22/2011 2:49 PM EST) AP Specimen 02/22/2011 2:49 PM EST 02/22/2011 2:49 PM EST Narrative CERPANKAJ MILLOPALIUM - 02/22/2011 2:49 PM EST Specimen requisition ordered. ??Separate Pathology report to follow Macrina Brown MD PATHOLOGY/CYTOLOGY O SUSI Performing Organization Address [facility] de Phone Number EVITA YAWWILNER documented in this encounter Visit Diagnoses Diagnosis Left knee DJD Osteoarthrosis, unspecified whether generalized or localized, lower leg documented in this encounter Administered Medications Inactive Administered Medications - up to 3 most recent administrations Medication Order MAR Action Action Date Dose Rate Site ceFAZolin (ANCEF) 1g in dextrose 5% 50mL 1,000 mg (1 g), Intravenous, EVERY 8 HOURS, 3 doses, First dose (after last reorder) on Mon02/23/11 at 0215, Last dose on Mon02/23/11 at 1815, Administer over 30 Minutes Given 02/23/2011 6:48 PM EST 1,000 mg 100 mL/hr Given 02/23/2011 9:32 AM EST 1,000 mg 100 mL/hr Given 02/23/2011 2:15 AM EST 1,000 mg 100 mL/hr DULoxetine (CYMBALTA) capsule 30 mg 30 mg, Oral, DAILY, First dose on Mon02/22/11 at 1930, Until Discontinued, Routine Given 02/23/2011 8:25 PM EST 30 mg Given 02/22/2011 9:55 PM EST 30 mg enoxaparin (LOVENOX) injection 40 mg 40 mg, Subcutaneous, EVERY 24 HOURS SCHEDULED (Daily), First dose on Mon02/22/11 at 1930, Until Discontinued, To begin at 9AM on POD #1, july d/c when INR >1.5, Routine Given 02/24/2011 8:31 AM EST 40 mg Right Lower Quadrant Given 02/23/2011 9:32 AM EST 40 mg gabapentin (NEURONTIN) capsule 300 mg 300 mg, Oral, 3 TIMES DAILY, First dose on Mon02/22/11 at 2100, Until Discontinued, Routine Given 02/24/2011 2:42 PM EST 300 mg Given 02/24/2011 8:32 AM EST 300 mg Given 02/23/2011 8:25 PM EST 300 mg HYDROmorphone (DILAUDID) 1 mg/mL CENTRAL OFFICE FRAME WIRER 30 mL Intravenous, CENTRAL OFFICE FRAME WIRER ONLY, Starting on Mon02/22/11 at 1630, Until Mon02/23/11 at 0553 New Syringe/Cartridge 02/22/2011 4:30 PM EST mL/hr oxybutynin (DITROPAN) tablet 5 mg 5 mg, Oral, 3 TIMES DAILY, First dose on Mon02/22/11 at 2100, Until Discontinued, Routine Given 02/24/2011 2:42 PM EST 5 mg Given 02/24/2011 8:32 AM EST 5 mg Given 02/23/2011 8:26 PM EST 5 mg OXYcodone (oxyCONTIN) CR tablet 10 mg 10 mg, Oral, EVERY 12 HOURS SCHEDULED (2 times per day), First dose on Mon02/22/11 at 2100, Until Discontinued Given 02/24/2011 8:32 AM EST 10 mg Given 02/23/2011 8:26 PM EST 10 mg Given 02/23/2011 9:32 AM EST 10 mg OXYcodone (ROXICODONE) immediate release tablet 10 mg 10 mg, Oral, EVERY 4 HOURS PRN, Starting on Mon02/22/11 at 1344, Until Lexi 02/24/11 at 1737, Pain, moderate pain, For Moderate pain. Do not exceed 15 mg in 4 hours. If pain not relieved, call provider., Routine Given 02/24/2011 8:31 AM EST 10 mg Given 02/24/2011 4:36 AM EST 10 mg Given 02/23/2011 8:24 PM EST 10 mg OXYcodone (ROXICODONE) immediate release tablet 15 mg 15 mg, Oral, EVERY 4 HOURS PRN, Starting on Mon02/22/11 at 1344, Until Lexi 02/24/11 at 1737, Pain, severe pain, For severe pain. Do not exceed 15 mg in 4 hours. If pain not relieved, call provider., Routine Given 02/24/2011 2:42 PM EST 15 mg polyethylene glycol (MIRALAX) packet 17 g 17 g, Oral, DAILY PRN, Starting on Mon02/22/11 at 1900, Until Lexi 02/24/11 at 1737, Constipation, Administer if needed per patient's routine or if no bowel movement within 48 hours, Routine Given 02/24/2011 8:31 AM EST 17 g ROpivacaine (NAROPIN) 2 mg/mL for AmbIT Perineural, CONTINUOUS, Starting on Mon02/22/11 at 1345, Until Mon02/24/11 at 1737 New Bag 02/22/2011 4:43 PM EST mL/hr senna-docusate (PERICOLACE) 8.6-50 mg per tablet 1-4 tablet 1-4 tablet, Oral, 2 TIMES DAILY, First dose on Mon02/22/11 at 2100, Until Discontinued, Start with 1 tablet or liquid equivalent orally twice daily and titrate up to achieve: 1. One bowel movement at least every 48 hours, AND 2. Without straining, Routine Given 02/24/2011 8:32 AM EST 2 tablets Given 02/23/2011 8:26 PM EST 2 tablets Given 02/23/2011 9:32 AM EST 2 tablets sodium chloride 0.9 % flush 5 mL 5 mL, Intravenous, EVERY 12 HOURS, First dose on Mon02/22/11 at 1930, Until Discontinued Given 02/24/2011 7:30 AM EST 5 mLs Given 02/23/2011 6:48 PM EST 5 mLs Given 02/23/2011 8:41 AM EST 5 mLs warfarin (COUMADIN) tablet 5 mg 5 mg, Oral, ONCE, 1 dose, On Mon02/22/11 at 1930, Routine Given 02/22/2011 9:59 PM EST 5 mg warfarin (COUMADIN) tablet 5 mg 5 mg, Oral, ONCE, 1 dose, On Mon02/23/11 at 1700, Routine Given 02/23/2011 4:45 PM EST 5 mg documented in this encounter Active and Recently [...] Leonela Hartley RN)0932 (Given - Provider: Shavon Begum, XANDER)1848 (Given - Provider: Shavon Begum RN) ceFAZolin [...] Discontinued, Routine 2154 (Given - Provider: Leonela Hartley, XANDER) 2024 (Given - Provider: Leonela Hartley RN) enoxaparin (LOVENOX) injection 40 mg 40 mg, Subcutaneous, EVERY 24 HOURS SCHEDULED (Daily), First dose on Mon02/22/11 at 1930, Until Discontinued, To begin at 9AM on POD #1, july d/c when INR >1.5, Routine 1929 (Not Given - Provider: Leonela Hartley RN [...] Begum RN)1644 (Given - Provider: Shavon Begum RN)2024 (Given [...] (Given - Provider: Jolly De Los Santos RN)1442 (Given - Provider: Jolly De Los Santos RN) OXYcodone (oxyCONTIN) CR tablet 10 mg (CANCELED) 10 mg, Oral, EVERY 12 HOURS SCHEDULED (2 times per day), First dose on Mon02/22/11 at 2100, Until Discontinued 2154 (Given - Provider: Leonela Hartley RN) 0932 (Given - Provider: Shavon Begum RN)2025 (Given - Provider: Leonela Hartley, XANDER) 0832 (Given - Provider: Jolly De Los Santos, XANDER) senna-docusate (PERICOLACE) 8.6-50 mg per tablet 1-4 tablet 1-4 tablet, Oral, 2 TIMES DAILY, First dose on Mon02/22/11 at 2100, Until Discontinued, Start with 1 tablet or [...] RN) 0841 (Given - Provider: Shavon Begum RN)1848 (Given - Provider: Shavon Begum RN) 0730 (Given - Provider: Jolly De Los Santos, XANDER) warfarin (COUMADIN) tablet 5 mg (COMPLETED) 5 mg, Oral, ONCE, 1 dose, On Mon02/22/11 at 1930, Routine 2159 (Given - Provider: Leonela Hartley, XANDER) warfarin (COUMADIN) tablet 5 mg (COMPLETED) 5 mg, Oral, ONCE, 1 dose, On Mon02/23/11 at 1700, Routine 1645 (Given - Provider: Shavon Begum RN) Continuous Medication Order 02/22/2011 02/23/2011 02/24/2011 HYDROmorphone (DILAUDID) 1 mg/mL CENTRAL OFFICE FRAME WIRER 30 mL (CANCELED) Intravenous, CENTRAL OFFICE FRAME WIRER ONLY, Starting on Mon02/22/11 at 1630, Until Mon02/23/11 at 0553 1630 (New Syringe/Cartridge - Provider: Lily Iyer RN) ROpivacaine (NAROPIN) 2 mg/mL for AmbIT (CANCELED) Perineural, CONTINUOUS, Starting on Mon02/22/11 at 1345, Until Lexi 02/24/11 at 1737 1643 (New Bag - Provider: Lily Iyer RN - Comment: Infusion started per dr. Jean [...] Begum RN)1340 (Given - Provider: Shavon Begum RN)2023 (Given - Provider: Leonela Hartley RN) 043 (Given - Provider: Leonela Hartley RN)0831 (Given - Provider: Jolly De Los Santos RN)1442 [...] Starting on Mon02/22/11 at 1344, Until Lexi 12/8/11 at 1737, Pain, mild pain, For Mild pain. Do not exceed 15 mg in 4 hours. If pain not relieved, call provider, Routine 0344 (See Alternative - Provider: Leonela Hartley, RN)0932 (See Alternative - Provider: Shavon Begum, RN)1340 (See Alternative - Provider: Shavon Begum, RN)2024 (See Alternative - Provider: Leonela Hartley, RN) 0436 (See Alternative - Provider: Leonela Hartley, RN)0831 (See Alternative - Provider: Jolly De Los Santos RN)1442 (See Alternative - Provider: Jolly De Los Santos, RN) polyethylene glycol (MIRALAX) packet 17 g 17 g, Oral, DAILY PRN, Starting on Mon02/22/11 at 1900, Until Lexi 12 at 1737, Constipation, Administer if needed per patient's routine or if no bowel movement within 48 hours, Routine 0831 (Given - Provid er: Jolly De Los Santos RN) Linked Groups Order Group 1: OXYcodone (ROXICODONE) immediate release tablet 5 mgJump to med 5 mg, Oral, EVERY 4 HOURS PRN, Starting on Mon02/22/11 at 1344, Until Lexi 12 at 1737, Pain, mild pain, For Mild pain. Do not exceed 15 mg in 4 hours. If pain not relieved, call provider, Routine Or OXYcodone (ROXICODONE) immediate release tablet 10 mg (CANCELED)Jump to med 10 mg, Oral, EVERY 4 HOURS PRN, Starting on Mon02/22/11 at 1344, Until Lexi 12 at 1737, Pain, moderate pain, For Moderate pain. Do not exceed 15 mg in 4 hours. If pain not relieved, call provider., Routine Or OXYcodone (ROXICODONE) immediate release tablet 15 mg (CANCELED)Jump to med 15 mg, Oral, EVERY 4 HOURS PRN, Starting on e 02/22/11 at 1344, Until Lexi 12/11 at 1737, Pain, severe pain, For severe pain. Do not exceed 15 mg in 4 hours. If pain not relieved, call provider., Routine documented in this encounter Care Teams Corporate Executive Chef Relationship Specialty Start Date End Date Martha Rios MD [address] [place] [address] PCP - General 02/09/10 10/16/22 documented as of this encounter
--- OUTSIDE RECORDS SUMMARY | 2023-10-06 00:30 | XMS_ITS | Encounter Summary ---
[place] [address] Care Team Providers Care Director Building Name Role Phone Martha Dempsey MD Primary Care Provider [phone] Encounter Details Date Type Department Care Team (Late st Contact Info) Description 03/16/2011 Orders [place] [id number] Amalia Akins, RN Social History Tobacco Use Types Packs/Day [...] on filedocumented in this encounter Care Teams Director Building Relationship Specialty Start Date End Date Martha Dempsey MD [address] [place] [address] PCP - General 02/09/10 10/16/22 documented as of this encounter
--- OUTSIDE RECORDS SUMMARY | 2023-10-06 00:30 | XMS_ITS | Encounter Summary ---
Author Organization [facility] [place] [address] Care Team Providers Care Ski Patrol Name Role Phone Martha Dempsey MD Primary Care Provider [phone] Encounter Details Date Type Department Care Team (Late st Contact Info) Description 03/16/2011 Anti-Coag Telephone [place] [phone] Amalia Akins RN Left knee DJD Social [...] Progress Notes * Amalia Akins RN - 03/16/2011 4:26 PM EST Due to difficulty with coumadin management, Dr. Brown wants to stop the patients coumadin and start asa 325mg bid until his appt on 04/07/11. The patient was informed of this plan and is in agreement. [facility] notified no further INR draws needed. documented in this encounter Plan of Treatment Not on file documented as of this encounter Visit Diagnoses Diagnosis Left knee DJD Osteoarthrosis, unspecified whether generalized or localized, lower leg documented in this encounter Care Teams Ski Patrol Relationship Specialty Start Date End Date Martha Dempsey MD [address] [place] [address] PCP - General 02/09/10 10/16/22 documented as of this encounter
--- OUTSIDE RECORDS SUMMARY | 2023-10-06 00:30 | XMS_ITS | Encounter Summary ---
Author Organization [facility] Address [facility] [place] [address] Care Team Providers Care Brush Maker Name Role Phone Martha Dempsey MD Primary Care Provider [phone] Encounter Details Date Type Department Care Team (Latest Contact Info) Description 06/21/2012 12:05 PM EDT - 06/21/2012 12:31 PM EDT Hospital Encounter XRay at [address] [place] [address] Knee joint replacement by other means Social History Tobacco Use Types Packs/Day Years [...] KNEE DIAGNOSTIC 1 OR 2 VIEW Routine 06/21/2012 12:27 PM EDT Knee joint replacement by other means documented in this encounter Results * XR knee diagnostic 1 or 2 view (06/21/2012 12:27 PM EDT) Anatomical Region Laterality Modality Knee N/A Radiographic Laurence ging 06/21/2012 12:2 7 PM EDT Narrative 06/21/2012 3:40 PM EDT Examination KNEE 1 OR 2 VIEWS/LEFT Clinical History left knee replacement; Comparison Left knee radiographs, 04/07/2011. Technique Frontal and lateral views of the left knee. ?? Findings Status post left total knee arthroplasty with constrained device. No new significant periprosthetic lucency or fracture. The degree of mild asymmetric of narrowing of the left tibiofemoral joint space medial greater than lateral, is similar to perhaps slightly increased since prior. Periarticular soft tissue calcifications are not significantly changed from the prior study. No significant joint effusion. Calcifications along the medial and lateral right femoral condyles are stable in appearance. Film and interpretation reviewed by the attending Procedure Note Yonny Batista MD - 06/22/2012 Examination KNEE 1 OR 2 VIEWS/LEFT Clinical History left knee replacement; Comparison Left knee radiographs, 04/07/2011. Technique Frontal and lateral views of the left knee. Findings Status post left total knee arthroplasty with constrained device. No new significant periprosthetic lucency or fracture. The degree of mildasymmetric of narrowing of the left tibiofemoral joint space medial greater thanlateral, is similar to perhaps slightly increased since prior. Periarticular softtissue calcifications are not significantly changed from the prior study. No significant joint effusion. Calcifications along the medial and lateralright femoral condyles are stable in appearance. Film and interpretation reviewed by the attending Javier Brown MD IMG DX ORDERABLES documented in this encounter Visit Diagnoses Diagnosis Knee joint replacement by other means documented in this encounter Care Teams Brush Maker Relationship Specialty Start Date End Date Martha Dempsey MD [address] [place] [address] PCP - General 02/09/10 10/16/22 documented as of this encounter
--- OUTSIDE RECORDS SUMMARY | 2023-10-06 00:30 | XMS_ITS | Encounter Summary ---
Author Organization [facility] [place] [address] Care Team Providers Care Printer Small Print Shop Name Role Phone Martha Dempsey MD Primary Care Provider [phone] Encounter Details Date Type Department Care Team (Late st Contact Info) Description 04/07/2011 Orders [place] [address] Javier Brown MD [facility] [place] [address] Social History Tobacco Use Types Packs/Day Years [...] Priority Date/Time Associated Diagnosis Comments XR KNEE STANDING ALIGNMENT Routine 04/07/2011 12:21 PM EST documented in this encounter Results * XR STANDING ALIGNMENT (04/07/2011 12:21 PM EST) Anatomical Region Laterality Modality N/A Radiographic Laurence ging 04/07/2011 12:2 1 PM EST Impressions 04/09/2011 5:43 PM EST IMPRESSION: ?? 1. ??Mild varus alignment on the right. ??Moderate varus alignment on the left. ?? Posttraumatic changes of bilateral lower legs. 2. ??Interval left total knee arthroplasty without evidence of complications. ?? Stable ossifications surrounding bilateral knees. Narrative 04/09/2011 5:43 PM EST STANDING KNEE ALIGNMENT AND KNEES: CLINICAL INDICATION: ??Left total knee arthroplasty postop followup. TECHNIQUE: ??Separate images of the pelvis, knees and feet were acquired in the AP projection with the patient standing. ??In addition to routine views of the knee, these images were stitched together to form a composite image of the pelvis and legs allowing for evaluation of lower extremity alignment in the weight bearing position. Bilateral AP and axial views of the knees. ??Lateral view of left knee. COMPARISON: ??October 11, 2010. FINDINGS: STANDING ALIGNMENT: ??[place] of gravitation runs through the medial tibial eminence on the right and through the most medial aspect of the tibial plateau on the left. ??Alignment of the pelvis is symmetric. ??Kqng-vm-kbyshtug lateral talar tilt on both sides. ??Posttraumatic changes of bilateral lower legs as indicated by a healed fracture of the left tibia and mpiml-gww-gxfep fixation of the right tibia. BOTH KNEES: ??Interval total left knee arthroplasty. ??Alignment is normal. ??No periprosthetic lucency that would indicate complications. ??Stable periarticular calcifications. ??No definite knee joint effusion. ??Diffuse ossifications surrounding the medial and lateral right femoral condyles are seen as before. ?? Mild femoropatellar joint narrowing at the lateral facet. Procedure Note Marium Rosario MD - 04/09/2011 STANDING KNEE ALIGNMENT AND KNEES: CLINICAL INDICATION: Left total knee arthroplasty postop followup. TECHNIQUE: Separate images of the pelvis, knees and feet were acquired inthe AP projection with the patient standing. In addition to routine views ofthe knee, these images were stitched together to form a composite image of the pelvis and legs allowing for evaluation of lower extremity alignment inthe weight bearing position. Bilateral AP and axial views of the knees. Lateral view of left knee. COMPARISON: October 11, 2010. FINDINGS: STANDING ALIGNMENT: [place] of gravitation runs through the medial tibial eminence on the right and through the most medial aspect of the tibialplateau on the left. Alignment of the pelvis is symmetric. Qooa-ek-kuigbsorgvijmtx talar tilt on both sides. Posttraumatic changes of bilateral lower legsas indicated by a healed fracture of the left tibia and sotut-npt-srxvbmdozligp of the right tibia. BOTH KNEES: Interval total left knee arthroplasty. Alignment is normal.No periprosthetic lucency that would indicate complications. Stableperiarticular calcifications. No definite knee joint effusion. Diffuse ossifications surrounding the medial and lateral right femoral condyles are seen asbefore. Mild femoropatellar joint narrowing at the lateral facet. IMPRESSION IMPRESSION: 1. Mild varus alignment on the right. Moderate varus alignment on theleft. Posttraumatic changes of bilateral lower legs. 2. Interval left total knee arthroplasty without evidence ofcomplications. Stable ossifications surrounding bilateral knees. Javier Brown MD IMG DX ORDERABLES documented in this encounter Visit Diagnoses Not on filedocumented in this encounter Care Teams Printer Small Print Shop Relationship Specialty Start Date End Date Martha Dempsey MD [address] [place] [address] PCP - General 02/09/10 10/16/22 documented as of this encounter
--- OUTSIDE RECORDS SUMMARY | 2023-10-06 00:30 | XMS_ITS | Encounter Summary ---
Author Organization [facility] [place] [address] Care Team Providers Care Lamp Assembler Name Role Phone Martha Dempsey MD Primary Care Provider [phone] Encounter Details Date Type Department Care Team (Late st Contact Info) Description 03/21/2012 9:30 AM EST [place] [phone] Neurogenic bladder, NOS (Primary Dx); Neurogenic bladder Social History Tobacco Use Types [...] Sign Reading Time Taken Comments Blood Pressure 142/87 03/21/2012 9:51 AM EST Pulse 88 03/21/2012 9:51 AM EST Temperature - - Respiratory Rate - - Oxygen Saturation - - Inhaled Oxygen Concentration - - Weight 90.3 kg (199 lb) 03/21/2012 9:51 AM EST Height - - Body Mass Index 29.82 06/02/2011 1:18 PM EDT documented in this encounter Patient Instructions * Patient Instructions* Tiffanie De Los Santos LPN - 03/21/2012 10:22 AM EST Return to [facility] in 2 years documented in this encounter Progress Notes * Shea Silva MD - 03/21/2012 9:52 AM EST Reason for Visit:Teo Arenas is a 56 y.o. male who is here for urodynamics and a discussion of treatment options. Teo has a history of a neurogenic bladder 2ary to a head and neck injury. Thisis A repeat study. OBJECTIVE: Well looking male in no acute distress. Vital signs: see flow sheet PVR: 20 cc measured when the urodynamic catheter was inserted, immediately after the patient had cathed. Dipstick Urinalysis: Negative URODYNAMICS/Injection of Contrast: The patient was filled with cystograffin at a rate of 50ml/min. via a 10 Fr urodynamic catheter in the urethra. 500 ml of high osmolar contrast was instilled. 100 ml were wasted. Cystogram: mGy:2.13 mGym: 0.0382 Fluoroscopic imaging at rest during bladder filling [...] feel he should cath at 500 cc. \ Bladder capacity: 600ml Pressure Flow: not done Pad EMG:not done [...] of this encounter Visit Diagnoses Diagnosis Neurogenic bladder, NOS- Primary Neurogenic bladder Neurogenic bladder, NOS documented in this encounter Administered Medications Inactive Administered Medications - up to 3 most recent administrations Medication Order MAR Action Action Date Dose Rate Site diatrizoate meglumine (HYPAQUE, CYSTOGRAFIN) urethral solution 300 mL 300 mL, Urethral, ONCE PRN, 1 dose, Starting on Mon03/21/12 at 1027, Until Mon03/21/12 at 1027, Per Protocol, Routine Given 03/21/2012 10:27 AM EST 500 mLs documented in this encounter Care Teams Lamp Assembler Relationship Specialty Start Date End Date Martha Dempsey MD [address] [place] [address] PCP - General 02/09/10 10/16/22 documented as of this encounter
--- OUTSIDE RECORDS SUMMARY | 2023-10-06 00:30 | XMS_ITS | Encounter Summary ---
Author Organization [facility] Address [facility] [place] [address] Care Team Providers Care Cost Accounting Analyst Name Role Phone Martha Dempsey MD Primary Care Provider [phone] Reason for Visit * Reason Onset Date Comments Follow-up 05/07/2013 Encounter Details Date Type Department Care Team (Late st Contact Info) Description 05/07/2013 Telephone [place] [address] Javier Brown MD [facility] [place] [address] Follow-up Social History Tobacco Use Types Packs/Day Years [...] encounter Miscellaneous Notes * Telephone Encounter - Neda Rojas - 05/07/2013 11:33 AM EST LMOM#1 for a follow-up appointment with Dr. Brown. documented in this encounter Plan of Treatment Not on file documented as of this encounter Visit Diagnoses Not on filedocumented in this encounter Care Teams Cost Accounting Analyst Relationship Specialty Start Date End Date Martha Dempsey MD [address] [place] [address] PCP - General 02/09/10 10/16/22 documented as of this encounter
--- OUTSIDE RECORDS SUMMARY | 2023-10-06 00:30 | XMS_ITS | Encounter Summary ---
Author Organization [facility] Address [facility] [place] [address] Care Team Providers Care Labor Relations Manager Name Role Phone Martha Dempsey MD Primary Care Provider [phone] Encounter Details Date Type Department Care Team (Late st Contact Info) Description 04/07/2011 11:53 AM EST - 04/07/2011 11:59 PM [facility] Hospital Encounter XRay at [address] [place] [address] Social History Tobacco Use Types Packs/Day Years [...] Priority Date/Time Associated Diagnosis Comments XR KNEE 4 OR MORE VIEWS Routine 04/07/2011 12:21 PM EST documented in this encounter Results * XR KNEE 4 OR MORE VIEWS (04/07/2011 12:21 PM EST) Anatomical Region Laterality Modality Knee Radiographic Laurence ging 04/07/2011 12:2 1 PM [...] COMPARISON: ??October 11, 2010. FINDINGS: STANDING ALIGNMENT: ??[place] of gravitation runs through the medial tibial eminence on the right and through the most medial aspect of the tibial plateau on the left. ??Alignment of the pelvis is symmetric. ??Sfmk-wb-srrxegcy lateral talar tilt on both sides. ??Posttraumatic changes of bilateral lower legs as indicated by a healed fracture of the left tibia and tnxpm-det-exvmv fixation of the right tibia. BOTH KNEES: [...] COMPARISON: October 11, 2010. FINDINGS: STANDING ALIGNMENT: [place] of gravitation runs through the medial tibial eminence on the right and through the most medial aspect of the tibialplateau on the left. Alignment of the pelvis is symmetric. Mqeh-du-vfentuhgzflxvsr talar tilt on both sides. Posttraumatic changes of bilateral lower legsas indicated by a healed fracture of the left tibia and mrimg-qos-gwdmwbqxvwkvh of the right tibia. BOTH KNEES: Interval [...] on filedocumented in this encounter Care Teams Labor Relations Manager Relationship Specialty Start Date End Date Martha Dempsey MD [address] [place] [address] PCP - General 02/09/10 10/16/22 documented as of this encounter
--- OUTSIDE RECORDS SUMMARY | 2023-10-06 00:31 | XMS_ITS | Encounter Summary ---
[place] [address] Care Team Providers Care Informatics Analyst Name Role Phone Martha Dempsey MD Primary Care Provider [phone] Encounter Details Date Type Department Care Team (Late st Contact Info) Description 10/08/2010 Abstract [place] [phone] Jessica Fernandez RN Social History Tobacco Use Types Packs/Day Years Used Date Smoking Tobacco: Never Assessed Sex and Gender Information Value Date Recorded Sex Assigned at Not on file Gender Identity Not on file Sexual Orientation Not on file documented as of this encounter Plan of Treatment Not on file documented as of this encounter Visit Diagnoses Not on filedocumented in this encounter Care Teams Informatics Analyst Relationship Specialty Start Date End Date Martha Dempsey MD [address] [place] [address] PCP - General 02/09/10 10/16/22 documented as of this encounter
--- OUTSIDE RECORDS SUMMARY | 2023-10-06 00:31 | XMS_ITS | Encounter Summary ---
Author Organization [facility] Address [place] [address] Care Team Providers Care Rn Surgery Icu Name Role Phone Martha Dempsey MD Primary Care Provider [phone] Encounter Details Date Type Department Care Team (Late st Contact Info) Description 08/09/2010 Orders [place] [address] Javier Brown MD [facility] [place] [address] Knee pain (Primary Dx) Social History Tobacco Use [...] XR knee diagnostic 1 or 2 view (10/11/2010 9:01 AM EDT) Anatomical Region Laterality Modality Knee N/A Radiographic Laurence ging 10/11/2010 9:01 AM EDT Impressions 10/12/2010 8:48 AM EDT IMPRESSION: ?? Osteoarthritis of both knees, mild with left medial joint space narrowing. Diffuse soft tissue ossifications related to old ligament injury. Narrative 10/12/2010 8:48 AM EDT LEFT KNEE, TWO VIEWS: TECHNIQUE: ??Standing AP image of both knees and lateral view of the left knee were obtained. COMPARISON STUDY: ??Radiographs of both knees from August 2009. HISTORY: ?? Left knee pain. FINDINGS: Diffuse soft tissue ossifications around medial and lateral right femoral condyles and left medial femoral condyle. Additional ossification in posterior soft tissues of the left knee. These likely are related to remote ligament injury, documented on 2008 MRI. ??The left medial knee joint space is narrowed and there are bilateral small osteophytes. ??No left knee effusion. Procedure Note Zuly Bryan MD - 10/12/2010 LEFT KNEE, TWO VIEWS: TECHNIQUE: Standing AP image of both knees and lateral view of the leftknee were obtained. COMPARISON STUDY: Radiographs of both knees from August 2009. HISTORY: Left knee pain. FINDINGS: Diffuse soft tissue ossifications around medial and lateralright femoral condyles and left medial femoral condyle. Additional ossificationin posterior soft tissues of the left knee. These likely are related toremote ligament injury, documented on 2008 MRI. The left medial knee joint spaceis narrowed and there are bilateral small osteophytes. No left kneeeffusion. IMPRESSION IMPRESSION: Osteoarthritis of both knees, mild with left medial joint spacenarrowing. Diffuse soft tissue ossifications related to old ligament injury. Javier Brown MD IMG DX ORDERABLES documented in this encounter Visit Diagnoses Diagnosis Knee pain- Primary Pain in joint, lower leg Knee pain Pain in joint, lower leg documented in this encounter Care Teams Rn Surgery Icu Relationship Specialty Start Date End Date Martha Dempsey MD [address] [place] [address] PCP - General 02/09/10 10/16/22 documented as of this encounter
--- OUTSIDE RECORDS SUMMARY | 2023-10-06 00:31 | XMS_ITS | Encounter Summary ---
Author Organization [facility] Address [facility] [place] [address] Care Team Providers Care Mercerizing Range Feeder Name Role Phone Martha Dempsey MD Primary Care Provider [phone] Encounter Details Date Type Department Care Team (Latest Contact Info) Description 01/27/2011 6:12 AM EST - 01/27/2011 11:59 PM [facility] Hospital [place] [address] Javier Brown MD [facility] [place] [address] Left knee DJD Discharge Disposition: Home Social [...] Procedure Name Priority Date/Time Associated Diagnosis Comments URINE CULTURE Routine 01/27/2011 2:38 PM EST Left knee DJD URINALYSIS WITH REFLEX CULTURE Routine 01/27/2011 2:32 PM EST DIFFERENTIAL, AUTOMATED Routine 01/27/2011 1:46 PM EST ABO/RH TYPING Routine 01/27/2011 1:46 PM EST PROTHROMBIN TIME Routine 01/27/2011 1:46 PM EST Left knee DJD CBC (WITH DIFF) Routine 01/27/2011 1:46 PM EST Left knee DJD ANTIBODY SCREEN Routine 01/27/2011 1:46 PM EST BASIC METABOLIC PANEL (NON-FASTING) Routine 01/27/2011 1:46 PM EST Left knee DJD documented in this encounter Results * Urine culture Clean Catch Urine (01/27/2011 2:38 PM EST) Urine Culture ? Patient Name: TEO BLANCO ? Ordered By: JAVIER BROWN ? MR#: [id number] ?LOC: ??4V ? /Sex: ??1955 (55 years), ? Male ? PROCEDURE: Urine Culture ?SOURCE: U CC ? COLLECTED: 01/27/2011 14:38 ? STARTED: 01/27/2011 14:38 ? FINAL REPORT ? Final Report ? Verified:01/30/20 11 10:38 ? Greater than 100,000 cfu/ml Citrobacter freundii complex ? PRELIMINARY REPORT ? Preliminary Report ? Verified:01/29/20 11 07:41 ? Greater than 100,000 cfu/ml Gram Negative Rods ? SUSCEPTIBILITY RESULTS ? Citrobacter freundii complex ?MARYJANE Interp ? Ampicillin ? R ? Ampicillin/Sulbac cordero ? S ? Aztreonam ?S ? Cefazolin ?R ? Cefoxitin ?I ? Ceftazidime ?S ? Ceftriaxone(1) ? S ? Cefuroxime ? S ? Ciprofloxacin ?S ? Doripenem ?S ? Gentamicin ? S ? Meropenem ?S ? Nitrofurantoin ? S ? Piperacillin/Tazo bactam ?S ? Trimethoprim/Sulf a ? S ? Tetracycline ? S ? Tobramycin ? S ? Patient: TEO BLANCO N ? MR#: [id number] ? S=Susceptible ??I=Intermediate ??R=Resistant ??NA=Not Applicable ? DDS=Dose dependent-suscept ible ??NS=Non-suscepti ble ? FOOTNOTES ? (1)This organism carries inducible Beta-lactamase. ??Monotherapy with ? Cephalosporins is not advised. ? [facility] Urine specimen obtained by clean catch procedure (specimen) 01/27/2011 2:38 PM EST 01/27/2011 2:38 PM EST Javier Brown MD MICROBIOLOGY - GENER AL ORDERABLES [facility] * (ABNORMAL) URINALYSIS WITH MICROSCOPIC (01/27/2011 2:32 PM EST) Glucose UA Negative Negative mg/dL [facility] Protein UA Negative mg/dL [facility] Bilirubin UA Negative Negative mg/dL [facility] Urobilinogen UA Normal mg/dL [facility] pH UA 5.0 5.0 - 8.0 [facility] Blood UA Negative mg/dL [facility] Ketones UA Negative mg/dL [facility] Nitrite UA Negative [facility] Leukocytes UA Trace(A) Neg [facility] Appearance UA Clear Clear [facility] Spec [place] UA 1.016 1.002 - 1.030 [facility] Color UA Yellow Yellow [facility] RBC UA <1 0 - 3 /HPF [facility] WBC UA 4(H) 0 - 3 /HPF [facility] WBCs Clumping Rare(A) None /HPF [facility] Bacteria UA Rare(A) None /HPF [facility] Squam Epith UA <1 <=4 /HPF [facility] Urine specimen (specimen) 01/27/2011 2:32 PM EST 01/27/2011 2:32 PM EST Javier Brown MD URINE ORDERABLES Performing Organization Address [facility]/ZIP Co de Phone Number CERNER YAWENNIUM * DIFFERENTIAL, AUTOMATED (01/27/2011 1:46 PM EST) Neutrophils % 49.8 34.0 - 71.0 % [facility] MILLENNIUM Neutr Abs (ANC) 3.34 1.50 - 6.30 x10(3)/mcL [facility] MILLENNI[facility] Lymphocytes % 36.8 19.0 - 53.0 % [facility] MILLENNIUM Lymphocytes Abs 2.5 1.0 - 3.6 x10(3)/mcL [facility] MILLENNIUM Monocytes % 5.8 4.0 - 13.0 % [facility] MILLENNIUM Monocyte Abs 0.4 0.2 - 1.0 x10(3)/mcL [facility] MILLENNI[facility] Eosinophils % 6.5 0.0 - 7.0 % [facility] MILLENNIUM Eosinophils Abs 0.4 0.0 - 0.5 x10(3)/mcL [facility] MILLENNIUM Basophils % 0.7 0.0 - 2.0 % [facility] MILLENNIUM Basophils Abs 0.1 0.0 - 0.2 x10(3)/mcL [facility] MILLENNIUM Immature Gran % 0.40 0.00 - 0.66 % [facility] MILLENNIUM Comment: Immature granulocytes(IG's)percentage and absolute count will include metamyelocytes, myelocytes, and promyelocytes. Blood smears from CBCs yielding IG's will be scanned manually for concordance. If this scan disagrees with the automated IG or if promyelocytes are noted, a manual differential will be performed. Mai Gran Abs 0.03 0.00 - 0.05 x10(3)/mcL [facility] MILLENNIUM Blood specimen (specimen) 01/27/2011 1:46 PM EST 01/27/2011 2:06 PM EST Jaiver Brown MD HEMATOLOGY ORDERABLE S EVITA YAWENNIUM * ANTIBODY SCREEN (01/27/2011 1:46 PM EST) Ab Screen Interp Negative C[facility]ER MILLENNIUM Expires at [id number] on: [id number] [facility]ILLENNI[facility] Blood specimen (specimen) 01/27/2011 1:46 PM EST 01/27/2011 2:06 PM EST Javier Brown MD BLOOD BANK LAB ORDER CLAUDIA Performing Organization Address [facility] de Phone Number CERPANKAJ TIDWELLENNIUM * ABO/RH TYPING (01/27/2011 1:46 PM EST) Pathologist [facility] Type O Pos [facility] Blood specimen (specimen) 01/27/2011 1:46 PM EST 01/27/2011 2:06 PM EST Javier Brown MD BLOOD BANK LAB ORDER CLAUDIA Performing Organization Address [facility] de Phone Number CERPANKAJ LASSITERIUM * Basic Metabolic Panel (non-fasting) (01/27/2011 1:46 PM EST) Pathologist [facility] Glucose Lvl 134 60 - 199 mg/dL CERNER MILLENNIUM Comment:Diabetes: >=200 mg/d L plus symptoms BUN 14 10 - 20 mg/dL CERNER MILLENNIUM Creatinine 0.91 0.80 - 1.50 mg/dL CERNER MILLENNIUM Sodium 139 135 - 145 mmol/L CERNER MILLENNIUM Potassium 3.5 3.5 - 5.0 mmol/L CERNER MILLENNIUM Comment: Please note: ??Patients with WBC >100,000 may have falsely elevated Potassium levels. ??For accurate Potassium quantification in these patients send serum separator tube (gold top) for subsequent determinations. ??Contact the Clinical Chemistry Laboratory if there are any questions. Chloride 103 98 - 107 mmol/L CERNER MILLENNIUM CO2 25 22 - 31 mmol/L CERNER MILLENNIUM Anion Gap 11 5 - 15 mmol/L CERNER MILLENNIUM Calcium 9.6 8.5 - 10.5 mg/dL CERNER MILLENNIUM Estimated [...] disease. References: http://nkdep.nih.gov/resources/NKDEP_Suggestn4Labs_0606_508.pdf http://www.kidney.org/professionals/kls/pdf/faq_gfr.pdf Blood specimen (specimen) 01/27/2011 1:46 PM EST 01/27/2011 2:06 PM EST Javier Brown MD CHEMISTRY ORDERABLES EVITA BURRELL * (ABNORMAL) CBC (with Diff) (01/27/2011 1:46 PM EST) WBC 6.7 4.0 - 10.0 x10(3)/mcL CERNER MILLENNIUM RBC 4.56(L) 4.63 - 6.08 x10(6)/mcL CERNER MILLENNIUM Hemoglobin 13.6(L) 13.7 - 17.5 gm/dL CERNER MILLENNIUM Hematocrit 40.3 40.0 - 51.0 % CERNER MILLENNIUM MCV 88.4 79.0 - 92.0 fL CERNER MILLENNIUM MCH 29.8 25.6 - 32.2 pg EVITA MILLENNIUM MCHC 33.7 32.0 - 36.5 gm/dL CERPANKAJ TIDWELLENNIUM Platelets 217 145 - 370 x10(3)/mcL CERPANKAJ MILLENNIUM RDWSD 41.6 35.0 - 46.0 fL EVITA MILLENNIUM RDWCV 13.0 10.9 - 14.4 % EVITA TIDWELLENNIUM MPV 9.6 9.0 - 12.0 fL EVITA TIDWELLENNIUM Blood specimen (specimen) 01/27/2011 1:46 PM EST 01/27/2011 2:06 PM EST Javier Brown MD HEMATOLOGY ORDERABLE S EVITA BURRELL * Prothrombin Time (01/27/2011 1:46 PM EST) PT 13.7 12.3 - 14.7 sec EVITA LASSITERIUM Comment: [facility] Transfusion Committee Guidelines: INR less than 2.0, PTT less than OR equal to 43.5 seconds, or Fibrinogen greater than or equal to 100 mg/dl indicate adequate procoagulant activity for hemostasis in patients without underlying bleeding disorders. INR 1.1 0.9 - 1.1 EVITA TIDWELLENNIUM Blood specimen (specimen) 01/27/2011 1:46 PM EST 01/27/2011 2:06 PM EST Javier Brown MD HEMATOLOGY ORDERABLE S EVITA BURRELL documented in this encounter Visit Diagnoses Diagnosis Left knee DJD Osteoarthrosis, unspecified whether generalized or localized, lower leg documented in this encounter Care Teams Mercerizing Range Feeder Relationship Specialty Start Date End Date Martha Dempsey MD [address] [place] [address] PCP - General 02/09/10 10/16/22 documented as of this encounter
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
--- OUTSIDE RECORDS SUMMARY | 2023-10-06 00:31 | XMS_ITS | Encounter Summary ---
Author Organization [facility] Address [facility] [place] [address] Care Team Providers Care Automation Tech Name Role Phone Martha Dempsey MD Primary Care Provider [phone] Encounter Details Date Type Department Care Team (Late st Contact Info) Description 10/11/2010 8:39 AM EDT - 10/11/2010 11:59 PM EDT Hospital Encounter XRay at [address] [place] [address] Knee pain Social History Tobacco Use Types Packs/Day [...] Sig Dispensed Refills Start Date End Date gabapentin (NEURONTIN) 600 mg tablet 300 MG = 1 Capsule(s), PO, Three times daily 10/01/2009 oxybutynin (DITROPAN) 5 mg tablet 5 MG = 1 Tablet(s) PO Three times daily 10/01/2009 OXYcodone (ROXICODONE) 5 mg immediate release tablet Take 5 mg by mouth every 4 hours as needed. 02/24/2011 OXYcodone (OXYCONTIN) 10 mg CR tabletIndications:pain Take 10 mg by mouth 3 times daily. Indications: Pain 02/24/2011 ASCORBIC ACID (VITAMIN C ORAL) 10/01/2009 02/24/2011 documented as of this encounter Plan of Treatment Not on file documented as of this encounter Procedures Procedure Name Priority Date/Time Associated Diagnosis Comments XR KNEE DIAGNOSTIC 1 OR 2 VIEW Routine 10/11/2010 9:01 AM EDT Knee pain documented in this encounter Results * [...] in this encounter Visit Diagnoses Diagnosis Knee pain Pain in joint, lower leg documented in this encounter Care Teams Automation Tech Relationship Specialty Start Date End Date Martha Dempsey MD [address] [place] [address] PCP - General 02/09/10 10/16/22 documented as of this encounter
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
--- OUTSIDE RECORDS SUMMARY | 2023-10-06 00:31 | XMS_ITS | Encounter Summary ---
Author Organization [facility] Address [facility] [place] [address] Care Team Providers Care Academy Director Name Role Phone Martha Dempsey MD Primary Care Provider [phone] Encounter Details Date Type Department Care Team (Late st Contact Info) Description 10/26/2010 Orders [place] [address] Macrina Brown MD [facility] [place] [address] Left knee DJD (Primary Dx); Chest pain on exertion Social History Tobacco Use Types Packs/Day Years [...] documented as of this encounter Results * NM myocardial perfusion [...] Film and interpretation reviewed by the attending Macrina Brown MD [facility] NM ORDERABLES * Urine culture Clean Catch Urine (01/27/2011 2:38 PM EST) Urine Culture ? Patient Name: TEO BLANCO ? Ordered By: MACRINA BROWN ? MR#: [id number] ?LOC: ??4V ? /Sex: ??1955 (55 years), [...] Tobramycin ? S ? Patient: TEO BLANCO ? MR#: [id number] ? S=Susceptible ??I=Intermediate ??R=Resistant ??NA=Not Applicable ? DDS=Dose dependent-suscept ible ??NS=Non-suscepti ble ? FOOTNOTES ? (1)This organism carries inducible Beta-lactamase. ??Monotherapy with ? Cephalosporins is not advised. ? EVITA BURRELL Urine specimen obtained by clean catch procedure (specimen) 01/27/2011 2:38 PM EST 01/27/2011 2:38 PM EST Macrina Brown MD MICROBIOLOGY - GENER AL ORDERABLES EVITA BURRELL * XR chest routine PA & lateral (01/27/2011 2:20 PM EST) Anatomical Region Laterality Modality Chest N/A Radiographic Laurence ging 01/27/2011 2:20 PM EST Impressions 01/28/2011 5:23 PM EST IMPRESSION: No active cardiopulmonary pathology identified. Narrative 01/28/2011 5:23 PM EST TWO VIEW CHEST: ?? INDICATION: ??Preoperative. TECHNIQUE: ??PA and lateral views of the chest are compared to 10/19/08. FINDINGS: No change in position of a proximal descending thoracic aortic endograft. ??With the exception of known left-based pulmonary nodules demonstrated on 02/16/09 CT, the lungs appear clear. ??The heart, mediastinum, jon, pulmonary vessels and pleural appear within normal limits. ?? Ludf-sh-iainoxgt vub-zu-zficc thoracic spine degenerative change. Procedure Note Mini Rodriguez MD - 01/28/2011 TWO VIEW CHEST: INDICATION: Preoperative. TECHNIQUE: PA and lateral views of the chest are compared to 10/19/08. FINDINGS: No change in position of a proximal descending thoracic aortic endograft. With the exception of known left-based pulmonary nodules demonstrated on 02/16/09 CT, the lungs appear clear. The heart,mediastinum, jon, pulmonary vessels and pleural appear within normal limits. Roql-ph-vndknygx bbh-sx-kmqyd thoracic spine degenerative change. IMPRESSION IMPRESSION: No active cardiopulmonary pathology identified. Macrina Brown MD IMG DX ORDERABLES * EKG 12 Lead (01/27/2011 1:57 PM EST) Ventricular rate 78 BPM MUSE SYSTEM Atrial Rate 78 BPM MUSE SYSTEM P-R Interval 150 ms MUSE SYSTEM QRS Duration 84 ms MUSE SYSTEM Q-T Interval 356 ms MUSE SYSTEM QTC Calculated (Bezet) 405 ms MUSE SYSTEM Calculated P [place] 53 degrees MUSE SYSTEM Calculated R [place] 42 degrees MUSE SYSTEM Calculated T [place] 46 degrees MUSE SYSTEM INTERPRETATION Normal sinus rhythm diffuse ??Nonspecific T wave abnormality Abnormal ECG When compared with ECG of 16-OCT-2008 00:22, Nonspecific T wave abnormality, worse in Lateral leads Confirmed by fellow MD Yo, Kristian ([id number]) on 01/28/2011 12:03:35 PM Confirmed by MD STEINBERG ARMIN ([id number]) on 01/28/2011 5:56:32 PM MUSE SYSTEM 01/27/2011 1:57 PM EST 01/28/2011 5:56 PM EST Macrina Brown MD ECG ORDERABLES Performing Organization Address [facility] de Phone Number MUSE SYSTEM * Prothrombin Time (01/27/2011 1:46 PM EST) PT 13.7 12.3 - 14.7 sec CERNER MILLENNIUM Comment: [facility] Transfusion Committee Guidelines: INR less than 2.0, PTT less than OR equal to 43.5 seconds, or Fibrinogen greater than or equal to 100 mg/dl indicate adequate procoagulant activity for hemostasis in patients without underlying bleeding disorders. INR 1.1 0.9 - 1.1 CERNER MILLENNIUM Blood specimen (specimen) 01/27/2011 1:46 PM EST 01/27/2011 2:06 PM EST Macrina Brown MD HEMATOLOGY ORDERABLE S Performing Organization Address [facility] Co de Phone Number CERNER MILLENNIUM * Basic Metabolic Panel (non-fasting) (01/27/2011 1:46 PM EST) Glucose Lvl 134 60 - 199 mg/dL [...] 1:46 PM EST 01/27/2011 2:06 PM EST Macrina Brown MD CHEMISTRY ORDERABLES EVITA BURRELL * (ABNORMAL) CBC (with Diff) (01/27/2011 1:46 PM EST) WBC 6.7 4.0 - 10.0 x10(3)/mcL CERNER MILLENNIUM RBC 4.56(L) 4.63 - 6.08 x10(6)/mcL CERNER MILLENNIUM Hemoglobin 13.6(L) 13.7 - 17.5 gm/dL CERNER MILLENNIUM Hematocrit 40.3 40.0 - 51.0 % CERNER MILLENNIUM MCV 88.4 79.0 - 92.0 fL CERNER MILLENNIUM MCH 29.8 25.6 - 32.2 pg CERNER MILLENNIUM MCHC 33.7 32.0 - 36.5 gm/dL CERNER MILLENNIUM Platelets 217 145 - 370 x10(3)/mcL CERNER MILLENNIUM RDWSD 41.6 35.0 - 46.0 fL CERNER MILLENNIUM RDWCV 13.0 10.9 - 14.4 % CERNER MILLENNIUM MPV 9.6 9.0 - 12.0 fL CERNER MILLENNIUM Blood specimen (specimen) 01/27/2011 1:46 PM EST 01/27/2011 2:06 PM EST Macrina Brown MD HEMATOLOGY ORDERABLE S EVITA BURRELL documented in this encounter Visit Diagnoses Diagnosis Left knee DJD- Primary Osteoarthrosis, unspecified whether generalized or localized, lower leg Chest pain on exertion Chest pain, unspecified Left knee DJD Osteoarthrosis, unspecified whether generalized or localized, lower leg Preop cardiovascular exam Pre-operative cardiovascular examination Chest pain on exertion Chest pain, unspecified Left knee DJD Osteoarthrosis, unspecified whether generalized or localized, lower leg documented in this encounter Care Teams Academy Director Relationship Specialty Start Date End Date Martha Dempsey MD [address] [place] [address] PCP - General 02/09/10 10/16/22 documented as of this encounter
--- OUTSIDE RECORDS SUMMARY | 2023-10-06 00:31 | XMS_ITS | Encounter Summary ---
Author Organization [facility] Address [facility] [place] [address] Care Team Providers Care Retort Engineer Name Role Phone Martha Dempsey MD Primary Care Provider [phone] Reason for Visit * Reason Comments Left Knee Pain Encounter Details Date Type Department Care Team (Late st Contact Info) Description 01/27/2011 7:45 AM EST Office [place] [address] [facility] [place] [address] Left knee DJD (Primary Dx) Discharge Disposition: Home Social History [...] Sign Reading Time Taken Comments Blood Pressure 140/84 01/27/2011 8:26 AM EST Pulse - - Temperature - - Respiratory Rate - - Oxygen Saturation - - Inhaled Oxygen Concentration - - Weight 91.2 kg (201 lb) 01/27/2011 8:26 AM EST Height 174 cm (5' 8.5) 01/27/2011 8:26 AM EST Body Mass Index 30.12 01/27/2011 8:26 AM EST documented in this encounter Progress Notes * Javier Brown MD - 01/27/2011 9:36 AM EST HISTORY OF PRESENT ILLNESS: Very pleasant 55 y.o. year-old male with severe osteoarthritis of the LEFT knee. I have seen the patient previously and the patient made the decision to proceed with left total knee arthroplasty. Please refer to my previous note for the full history. He is here for discussion. The patient reports that the pain has not changed and has actually gotten a bit worse. He reviewed the shared decision making video and is confident in the decision to go forward with total joint arthroplasty. He will be attending the [employer] Preop Education class with his sister today and has receivedthe TKA binder today. PHYSICAL EXAMINATION: Exam is previously documented in my note and is unchanged. Preop History and Physical to be completed by PCP on 01/28. I have made the following determinations: Knee Exam: Left Prior surgery on this joint: Yes Gait Abnormality: Antalgic Knee ROM: Extension:-5 Flexion: 120 Alignment: 0-4 degrees Varus Stability: A/P Translation <5mm Varus <5mm Valgus <5mm Extension La degrees or less Radiographic evidence of joint damage: [0= normal; 1=minimal ; 2= some osteophytes , some narrowing ; 3= moderate osteophytes, significantnarrowing, mild deformity; 4= large osteophytes, marked narrowing, obvious deformity]: 4= large osteophytes, marked narrowing, obvious deformity Patella Tracking: Normal Skin Integrity: Abnormal Pulses Palpable: Left PT:Yes Left DP:Yes Motor/Sensory: Left Distal Motor:Normal Distal Sensory: Normal Quadriceps Strength:5 LABORATORY DATA: pending DVT Risk Assessment Screening (TKR Doc flowsheet )reviewed: - Hx of DVT/ PE ? [x} No - Hypercoagulable State? 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 Of Bleeding disorder?[x} No - Hx of GIB? [x} No - Hx of Hemorrhagic stroke? [x} No - Currently on lifelong coumadin?[x} No - Unable to tolerate coumadin? [x} No ASSESSMENT/PLAN: A 55 y.o. year-old male who presents for preoperative appointment today. The risksand benefits of the procedure were outlined in detail including but not limited to bleeding ,infection ,blood clots, scar formation, patellar dislocation, persistent pain, stiffness, failure, wear or loosening of components, fracture, nerve palsy, injury to blood vessel, skin numbness, anesthetic risks or medical complications and need for additional surgery. Patient has upcoming appt with PCP for H&P. WiIl be going to pre-admission testing later today.Informed consent was signed in the clinic today. We discussed DNR status and the patient is a full code. We will plan to use coumadin for 4 weeks with a lovenox bridge postoperatively for DVT prophylaxis. We discussed the possible discharge scenarios including going home versus needing to go to a rehab facility. We will make that determination after seeing how well mobilization is progressing. I have personally evaluated the patient and agree with the above note as scribed by Amalia Akins RN. documented in this encounter Miscellaneous Notes * Miscellaneous - Simeon, Stock Broker Supervisor - 02/25/2011 3:50 PM EST * Miscellaneous - Simeon, Stock Broker Supervisor - 02/01/2011 4:40 PM EST * Miscellaneous - Simeon, Stock Broker Supervisor - 02/01/2011 2:51 PM EST documented in this encounter Plan of Treatment Not on file documented as of this encounter Visit Diagnoses Diagnosis Left knee DJD- Primary Osteoarthrosis, unspecified whether generalized or localized, lower leg documented in this encounter Care Teams Retort Engineer Relationship Specialty Start Date End Date Martha Dempsey MD [address] [place] [address] PCP - General 02/09/10 10/16/22 documented as of this encounter
--- OUTSIDE RECORDS SUMMARY | 2023-10-06 00:31 | XMS_ITS | Encounter Summary ---
Author Organization [facility] Address [facility] [place] [address] Care Team Providers Care Dispatch Associate Name Role Phone Martha Dempsey MD Primary Care Provider [phone] Encounter Details Date Type Department Care Team (Late st Contact Info) Description 12/15/2010 3:00 PM EDT [place] [address] Shea Silva MD [facility] [place] [address] Neurogenic bladder (Primary Dx) Discharge Disposition: Home Social History [...] as of this encounter Progress Notes * Shea Silva MD - 12/15/2010 3:02 PM EDT A note on another patient was copied onto this patient's chart. I have since removed it. This patient was seen for repeat UDS. He was last studied in early 2009. He is doing well on CIC which he does about 6 times per day. He has a sense of when he needs to cath. He is rarely wet in between cathing. He has had no significant UTIs. Objective: Alert, oriented. Abd: soft, nontender, no masses. : penis normal, testicles normal. UDS: See study - stable neurogenic bladder Imp: pt with a neurogenic bladder - doing well. Plan: continue to cath. Continue with oxybutynin tid. RTC 2 yr for repeat study- sooner if problems. documented in this encounter Procedure Notes * Provider, Scanning - 01/06/2011 11:29 AM EDTAssociated Order(s): SCAN DOC: UROLOGY documented in this encounter Plan of Treatment Not on file documented as of this encounter Procedures Procedure Name Priority Date/Time Associated Diagnosis Comments UROLOGY SCAN 01/06/2011 11:29 AM EDT documented in this encounter Results * SCAN DOC: UROLOGY (01/06/2011 11:29 AM EDT) Narrative 01/06/2011 11:29 AM EDT Procedure Note Provider, Scanning - 01/06/2011 11:29 AM EDT Scanning Provider MEDIA MGR SCAN EXT O RDR/RSLT documented in this encounter Visit Diagnoses Diagnosis Neurogenic bladder- Primary Neurogenic bladder, NOS documented in this encounter Care Teams Dispatch Associate Relationship Specialty Start Date End Date Martha Dempsey MD [address] [place] [address] PCP - General 02/09/10 10/16/22 documented as of this encounter
--- OUTSIDE RECORDS SUMMARY | 2023-10-06 00:31 | XMS_ITS | Encounter Summary ---
Author Organization [facility] [place] [address] Care Team Providers Care Video Clerk Name Role Phone LoboYen estrada Gentry COELLO Primary Care Provider [phone] Encounter Details Date Type Department Care Team (Late st Contact Info) Description 09/23/2008 [place] [phone] Kvng Charlton Jr., MD Social History Tobacco Use Types Packs/Day Years Used Date Smoking Tobacco: Never Assessed Sex and Gender Information Value Date Recorded Sex Assigned at Not on file Gender Identity Not on file Sexual Orientation Not on file documented as of this encounter Plan of Treatment Not on file documented as of this encounter Procedures Procedure Name Priority Date/Time Associated Diagnosis Comments SURGICAL PATHOLOGY REPORT Routine 09/23/2008 1:25 PM EDT documented in this encounter Results * Surgical Pathology Report (09/23/2008 1:25 PM EDT) Surgical Pathology Report [id number] ? Location: [facility]; [facility]; A The signing pathologist has (i) examined the relevant preparation(s) for the specimen(s) and (ii) rendered or confirmed the diagnosis(es). . ?Pathology Surgical Pathology Final Report Clinical Information Specimen Submitted: A - Small bowel; abdomen B - Additional bowel; abdomen Clinical History: None given Clinical Diagnosis: None given Gross Description A - Labeled/Fixative: ?Small bowel, fresh. Qty/Size/Weight: ? Single, 18.5 x 2.0 x 2.0 cm overall. Tissue Description: ?Not oriented segment of small bowel and attached ? yellow, focally hemorrhagic mesentery. ?? External architecture: ??The colon segment appears to be of uniform ? caliber along the entire length with no gross ? areas of stricture or other gross lesions. ?? Serosa: ? Congested, cheek-boles and smooth without gross ? lesions. ?? Mucosa: ? Boles with partially obscuring soft fecal matter. ? The mucosa has a normal pattern of folding ? without gross lesions. ??There is a central area ? of hemorrhage but no mucosal lesions grossly ? identified. ?? Wall Thickness: ? Averages 0.2 cm throughout the entire length. ?? Margins: ?Appear grossly viable. ?? LN: ? Within the mesenteric fat, vary from 0.2 cm to ? 0.4 cm and are red-brown. Sections/Processi ng: ? (A1) margins; (A2-A3) sections through the ? central area of mucosal hemorrhage; (A4-A5) five ? mesenteric lymph nodes. (R5) B - Labeled/Fixative: ?Additional bowel, fresh. Qty/Size/Weight: ? Single, 5.5 x 1.5 x 1.5 cm overall. Tissue Description: ?Not oriented bowel segment. ?? External architecture: ??Unremarkable with the bowel segment having a ? uniform caliber with no areas of stricture. ?? Serosa: ? Congested, boles without gross lesions. ?? Mucosa: ? Cheek-boles without gross lesions, having a normal ? pattern of mucosal folding without gross ? lesions. ?? Wall Thickness: ? Averages 0.2 cm along the entire bowel segment. ?? Margins: ?Grossly viable. ?? LN: ? Within the focally hemorrhagic mesenteric fat ? are yellow-brown lymph nodes, varying from ? 0.2 cm to 1.0 cm. Sections/Processi ng: ? (B1) margins; (B2-B3) signs and displays sales representative of mucosa; ? (B4) one trisected lymph node; (B5) three lymph ? nodes; (B6) two lymph nodes. ??(R6) yajaira/SHB Microscopic Description Slides reviewed, microscopic description not recorded. . Diagnosis CORRECTED REPORT (see Comment) A. Small bowel, resection: Segment of small bowel with mucosal congestion, focal mucosal hemorrhage and ischemic changes. One resection margin with mucosal ischemic changes, other margin is unremarkable. B. Small bowel, additional resection: Unremarkable segment of small bowel. CR-0 09/26/08 AAS 10/07/08 Verified by: ? Maria Luisa QUINTERO, Roni A ?Pathologist ?(Electronic Signature) The attending pathologist whose signature appears on this report has reviewed all diagnostic slides and has edited the gross and/or microscopic portion of the report in rendering the final pathologic diagnosis. Comment Correction Note: ?? This report is issued for the purpose of correcting the requesting provider. There are no other changes to the text of this report. Peggy Morales, 10/07/08 12:47 EVITA LASSITERIUM 09/23/2008 1:25 PM EDT Kvng Charlton Jr., MD PATHOLOGY/CYTOLOGY ORDERABLES EVITA BURRELL documented in this encounter Visit Diagnoses Not on filedocumented in this encounter Care Teams Video Clerk Relationship Specialty Start Date End Date Yen Diamond, OUMOU [address] [place] [address] PCP - General Family Medicine 10/17/22 documented as of this encounter
--- OUTSIDE RECORDS SUMMARY | 2023-10-06 00:31 | XMS_ITS | Encounter Summary ---
Author Organization [facility] [place] [address] Care Team Providers Care Balance And Hairspring Assembler Name Role Phone Martha Dempsey MD Primary Care Provider [phone] Encounter Details Date Type Department Care Team (Late st Contact Info) Description 01/27/2011 1:30 PM EST Clinical Support Same Day at [facility] [place] [phone] Left knee DJD Social History Tobacco Use [...] Sign Reading Time Taken Comments Blood Pressure - - Pulse 77 01/27/2011 1:09 PM EST Temperature - - Respiratory Rate - - Oxygen Saturation 96% 01/27/2011 1:09 PM EST Inhaled Oxygen Concentration - - Weight - - Height - - Body Mass Index - - documented in this encounter Progress Notes * David Resendiz RN - 01/27/2011 1:37 PM EST PAT questionnaire reviewed with patient while in Pre admission testing. Blood work and EKG done today and patient will go to radiology for a CXR following this appointment. documented in this encounter Plan of Treatment Not on file documented as of this encounter Procedures Procedure Name Priority Date/Time Associated Diagnosis Comments XR CHEST PA AND LATERAL Routine 01/27/2011 2:20 PM EST Left knee DJD EKG 12-LEAD Routine 01/27/2011 1:57 PM EST Left knee DJD documented in this encounter Results * XR chest routine PA & lateral [...] and pleural appear within normal limits. ?? Zfmc-cl-yxmsuljy wsw-ic-vwncf thoracic spine degenerative change. Procedure Note Mini [...] vessels and pleural appear within normal limits. Lsor-ik-zdvhnbiw dmm-ek-dfesc thoracic spine degenerative change. IMPRESSION IMPRESSION: No active cardiopulmonary pathology identified. Javier Brown MD IMG DX ORDERABLES * EKG 12 Lead (01/27/2011 1:57 PM EST) Ventricular rate 78 BPM MUSE SYSTEM Atrial Rate 78 BPM MUSE SYSTEM P-R Interval 150 ms MUSE SYSTEM QRS Duration 84 ms MUSE SYSTEM Q-T Interval 356 ms MUSE SYSTEM QTC Calculated (Bezet) 405 ms MUSE SYSTEM Calculated P [place] 53 degrees MUSE SYSTEM Calculated R [place] 42 degrees MUSE SYSTEM Calculated T [place] 46 degrees MUSE SYSTEM INTERPRETATION Normal sinus rhythm diffuse ??Nonspecific T wave abnormality Abnormal ECG When compared with ECG of 16-OCT-2008 00:22, Nonspecific T wave abnormality, worse in Lateral leads Confirmed by fellow MD Yo, Kristian ([id number]) on 01/28/2011 12:03:35 PM Confirmed by MD IDRIS, NOMI ([id number]) on 01/28/2011 5:56:32 PM MUSE SYSTEM 01/27/2011 1:57 PM EST 01/28/2011 5:56 PM EST Javier Brown MD ECG ORDERABLES MUSE SYSTEM documented in this encounter Visit Diagnoses Diagnosis Left knee DJD Osteoarthrosis, unspecified whether generalized or localized, lower leg documented in this encounter Care Teams Balance And Hairspring Assembler Relationship Specialty Start Date End Date Martha Dempsey MD [address] [place] [address] PCP - General 02/09/10 10/16/22 documented as of this encounter
--- OUTSIDE RECORDS SUMMARY | 2023-10-06 00:31 | XMS_ITS | Encounter Summary ---
Author Organization [place] [address] Care Team Providers Care Imaging Specialist Name Role Phone LoboYen estrada Gentry COELLO Primary Care Provider [phone] Encounter Details Date Type Department Care Team (Late st Contact Info) Description 09/23/2008 [place] [phone] Kvng Charlton Jr., MD Social History Tobacco [...] Associated Diagnosis Comments SURGICAL PATHOLOGY REPORT Routine 09/24/2008 11:22 AM EDT documented in this encounter Results * Surgical Pathology Report (09/24/2008 11:22 AM EDT) Surgical Pathology Report [id number] ? Location: [facility]; [facility]; A The signing pathologist has (i) examined the relevant preparation(s) for the specimen(s) and (ii) rendered or confirmed the diagnosis(es). . ?Pathology Surgical Pathology Final Report Clinical Information Specimen Submitted: A - Small bowel: Abdomen Clinical History: None given Clinical Diagnosis: None given Gross Description Labeled/Fixative: ? Small bowel, fresh. Qty/Size/Weight: ?Single, 3.5 x 3.0 x 1.0 cm. Tissue Description: ?? Annular portion of brown mucosa-lined rubbery soft ?tissue without gross lesions and with a 2.5 x 2.0 x 1.5-cm portion of yellow focally charred and focally hemorrhagic mesenteric fat. Sections/Processi ng: ??(1) margins; (2) agricultural sales representative mucosa. (R2) ??yajaira/SHB Microscopic Description Slides reviewed, microscopic description not recorded. Diagnosis Small bowel, resection: Viable segment of small bowel with congestion. CR-0 09/26/08 AAS 09/26/08 Verified by: ? Roni Glass MD ?Pathologist ?(Electronic Signature) The attending pathologist whose signature appears on this report has reviewed all diagnostic slides and has edited the gross and/or microscopic portion of the report in rendering the final pathologic diagnosis. EVITA BURRELL 09/24/2008 11:2 2 AM EDT Kvng Charlton Jr., MD PATHOLOGY/CYTOLOGY ORDERABLES Performing Organization Address City/State/[facility] Co nv Phone Number EVITA BURRELL documented in this encounter Visit Diagnoses Not on filedocumented in this encounter Care Teams Imaging Specialist Relationship Specialty Start Date End Date Yen Diamond APRN [address] [place] [address] PCP - General Family Medicine 10/17/22 documented as of this encounter
--- NOTE | 2023-10-06 08:35 | DI.CT_ITS ---
Exam(s) CT CHEST WO EXAM: CT CHEST WO CLINICAL HISTORY: Solitary pulmonary nodule, R91.1; 6-mo f/u TECHNIQUE: Imaging Protocol: Axial computed tomography images with coronal and sagittal reformatted images were created and reviewed CONTRAST MATERIAL: Intravenous: Omnipaque 350 Contrast volume:structured data ml. COMPARISON: CT CT ABDOMEN PELVIS WO from 10/12/[address] CHEST WO from 03/22/2023 FINDINGS: Exam is somewhat limited due to scanner malfunction. The scanner stopped multiple times during the e xamination. Pulmonary parenchyma: No consolidation. No dominant measurable mass. Stable 6 millimeter nodule supe rior segment right upper lobe associated with the fissure. Stable nodules associated with the right minor fissure. Stable 8 millimeter pleural-based nodule left lower lobe. Stable 6 millimeter nodule posterior left lower lobe. Stable 4 millimeter nodule left lung base. No suspicious pulmonary nodu les. Tracheobronchial tree: No bronchiectasis or mucous plugging. Mediastinum and Lilly: No dominant adenopathy or fluid collection. Pleura: No effusion. No pneumothorax. Heart: The heart is not dilated. Mild coronary artery calcifications are seen. Aorta: Stent at aortic arch again noted. Mild atherosclerotic changes. Upper abdomen: No acute findings. Bones: Degenerative changes in the spine. Soft tissues: Bilateral gynecomastia. IMPRESSION: Stable bilateral benign-appearing pulmonary nodules. Consider follow-up at 18-24 months. ([employer]isch[employer] r society guidelines.) RADIATION DOSE DELIVERED: Total DLP DATA REPOSITORY: All CT scans at this facility are submitted to the National Radiology Data Registry (NRDR) Dose Index Registry (DIR) with the [employer] (ACR). RADIATION OPTIMIZATION: All CT scans at this facility use at least one of these dose optimization te chniques: automated exposure control; mA and/or kV adjustment per patient size (includes targeted exa ms where dose is matched to clinical indication); or iterative reconstruction.
== END ==
PROVIDERS: PCP Nurse Practitioner Family; Visit Provider Nurse Practitioner Family
DX: K76.0 Fatty (change of) liver, not elsewhere classified (principal); R91.1 Solitary pulmonary nodule; R16.0 Hepatomegaly, not elsewhere classified
CPT/HCPCS: 71250; 76705

== ENCOUNTER 2024-01-05 13:13 | Emergency (ER) | payer OTHER, SELFPAY ==
[2024-01-05] VITALS (30 sets, daily range): BP systolic 118–158; BP diastolic 53–131; PULSE 89–112; RESP 12–25; TEMP 36.5; O2SAT 92–97
--- NOTE | 2024-01-05 13:00 | RT.EKG_ITS ---
APPROVED REPORT Exam: Resting ECG Reason for Exam: chest pain Patient Location: E HR:105 bpm ECG Measurements Heart Rate 105 AXIS OK 149 P 56 QRSd 75 QRS 36 QT 320 T 51 QTc 422 Conclusion Sinus tachycardia...rate> 99 Atrial premature complexes...SV complexes w/ short R-R intvls Physician: no STEMI
--- NOTE | 2024-01-05 13:15 | DI.RAD_ITS ---
Exam(s) XR PORTABLE CHEST AP EXAM: XR PORTABLE CHEST AP CLINICAL HISTORY: central chest pain. TECHNIQUE: 2D digital imaging was performed. COMPARISON: CR,XR XR PORTABLE CHEST AP from 01/31/2021 FINDINGS: Single AP portable view. Heart size is upper normal, unchanged. The mediastinum is not widened. There is an endovascular geri nt within the distal thoracic aortic arch and proximal descending thoracic aorta which is unchanged i n position. There is no mediastinal widening. No infiltrates nor pleural effusions. No pulmonary e mikal. No pneumothorax. No fractures. Lungs are clear. No infiltrates nor obvious pleural effusions. IMPRESSION: No acute pulmonary findings on this single AP portable view of the chest. Again noted is an aortic stent graft in the distal thoracic aortic arch and proximal descending thora cic aorta, unchanged in position DATA REPOSITORY: RADIATION DOSE DELIVERED:
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
[2024-01-05] MEDS: Pantoprazole 40 MG VIAL IVP (13:33)
[2024-01-05 13:42] LABS: Abs Immature Grans 0.03 10^3/uL (0.0-0.06); Absolute Basophil Count 0.04 10^3/uL (0.0-0.2); Absolute Eosinophil Count 0.26 10^3/uL (0.0-0.7); Absolute Lymphocyte Count 1.93 10^3/uL (1.2-3.4); Absolute Monocyte Count 0.93 10^3/uL (0.1-0.8); Absolute Neutrophil Count 7.25 10^3/uL (1.2-6.7); Basophils % 0.4 %; Eosinophils % 2.5 %; HCT 41.4 % (40.0-50.0); HGB 13.9 g/dL (13.5-17.5); Immature Grans % 0.3 %; Lymphocytes % 18.5 %; MCH 31.5 pg (27.0-33.0); MCHC 33.6 % (32.0-36.0); MCV 94 fL (80-95); MPV 8.6 fL (8.0-11.0); Monocytes % 8.9 %; Neutrophils % 69.4 %; Platelet Count 286 10^3/uL (130-400); RBC 4.41 10^6/uL (4.36-5.78); RDW 11.9 % (11.8-14.1); RDW-SD 41.1 fL; WBC 10.44 10^3/uL (4.4-10.8)
[2024-01-05 13:56] LABS: PTT Activated 33.6 sec (23.6-32.8); Prothrombin Time 10.2 sec (9.1-11.1)
[2024-01-05 14:05] LABS: ALT 30 U/L (16-63); AST 13 U/L (15-37); Albumin 3.8 g/dL (3.4-5.0); Alkaline Phosphatase 108 U/L (46-116); Anion Gap 8.1 mmol/L (3-11); BUN 12 mg/dL (7-18); Bilirubin, Total 0.35 mg/dL (0.2-1.0); CO2 30.9 mmol/L (21.0-32.0); CREATININE 0.9 mg/dL (0.70-1.30); Calcium 9.7 mg/dL (8.5-10.1); Chloride 100 mmol/L (98-107); Estimated GFR 94.19 (mL/min/1.73m2); Glucose 110 mg/dL (74-106); NT-proBNP 171 pg/mL (<300); Potassium 4.6 mmol/L (3.5-5.1); Sodium 139 mmol/L (136-145); Total Protein 8.7 g/dL (6.4-8.2); Troponin I 8 ng/L (<or=76)
--- NOTE | 2024-01-05 14:11 | DI.CT_ITS ---
Exam(s) CT THORAX ABD/PEL CTA EXAM: CT THORAX ABD/PEL CTA CLINICAL HISTORY: hx of aortic repair, now chest pain, eval dissecti. TECHNIQUE: Imaging Protocol: Axial computed tomography images with coronal and sagittal reformatted images were created and reviewed CONTRAST MATERIAL: Intravenous: Omnipaque 350 Contrast volume:100 ml Oral: None COMPARISON: CT CT ABDOMEN PELVIS WO from 10/12/[address] CHEST WO from 10/06/2023 FINDINGS: CHEST: AORTA: There is an endovascular stent in the distal thoracic aorta which extends from just distal to the take-off point of the left subclavian artery caudally for distance of approximately [address] ent is patent with no significant intra-stent stenosis.. There is no stenosis at the origin of the g reat vessels off the aortic arch, including the origin of the left subclavian artery. There is no ev idence of dissection flap within the thoracic aorta. The maximum diameter of the ascending thoracic aorta is within upper normal limits (3.7 cm). This appears unchanged from 10/06/2023 CT scan. The d iameter at the level the stent is 2.4 cm. The diameter of the descending thoracic aorta immediately below this stent is 2.5 cm. The diameter of the mid-distal thoracic aorta is minimally prominent, me asuring 2.7 cm maximum. The abdominal aorta is atherosclerotic and there is a somewhat hourglass shaped fusiform aneurysm wit h maximum diameter 3.1 cm which is distally just above the aortic bifurcation. They aortic bifurcati on is patent. The common iliac arteries are calcified but upper normal diameters. External iliac ar teries exhibit normal diameters as do the common femoral arteries. The internal iliac arteries exhib its some atherosclerotic involvement proximally on the right side but no prominent aneurysmal dilatat ion. CARDIAC: Heart size is normal. There is no pericardial effusion. LUNGS: There are no confluent infiltrates nor pleural effusions. No evidence of pulmonary edema. Ar e again noted 2 subpleural noncalcified nodules in the left lower lobe which remain unchanged. Are a lso a few small unchanged sub cm nodules in the right lung again noted. There are no new nodules and no pleural effusions. No new findings in the trachea and mainstem bronchi. No bronchiectasis MEDIASTINUM: There is no hilar adenopathy. Slightly enlarged subcarinal lymph node is unchanged. Pa rtially visualized thyroid appears unremarkable. OSSEOUS: There is degenerative change in both sternoclavicular joints, left slightly more than right. Mild degenerative change at the articulation between the manubrium and body of the sternum. No geri rnal fractures nor significant osseous lesions. ABDOMEN There is no ascites. LIVER: There are no focal hepatic lesions nor dilatation of intrahepatic ducts. GALLBLADDER/BILIARY: Cholelithiasis noted. There some gallstones on the dependent aspect of the wall near the neck. Gallbladder slightly distended but not edematous and there is no pericholecystic flu id. CBD diameter is minimally prominent but no obvious radiopaque calculi seen in the CBD PANCREAS: No evidence of pancreatic mass nor dilatation of the pancreatic duct. SPLEEN: Spleen is not enlarged. Somewhat in homogeneous enhancement in the spleen possibly related t o non-cystic lesions such as hemangiomas.. Difficult to compared to previous as these were noninfuse d studies. ADRENALS: There are no significant adrenal masses. KIDNEYS: No cysts evident. No calculi nor hydronephrosis. No solid renal masses. ABDOMINAL AORTA: See above LYMPH NODES: There is no retroperitoneal nor para-aortic adenopathy. No obvious mesenteric masses. ABDOMINAL WALL: Anterior abdominal wall small midline fat only containing hernia. Also small fat onl y containing umbilical hernia. Also fat containing bilateral inguinal hernias. Anterior left side o f the urinary bladder is at the level the left internal inguinal ring GI: There is a small bowel anastomosis in the right side of the abdomen. No obvious new significant findings at this level. No free air. No abscess. No true bowel obstruction. Moderate amount of fe jason material throughout the colon. PELVIS: LYMPH NODES: There is no intrapelvic nor inguinal adenopathy. GI: No evidence of appendicitis.No evidence of sigmoid diverticulitis. URINARY BLADDER: No calculi nor masses evident. The anterior left side of the urinary bladder extend s to the level of the left internal inguinal ring. Similar to previous. REPRODUCTIVE: Prostate size normal. Seminal vesicles unremarkable. OSSEOUS: No significant osseous lesions. L3-4 level fusion hardware in the lumbar spine evident. Posterior fusion rods and bilateral intraped icular screws at L3 and L4 levels.. Displaced left transverse process fracture of L2 unchanged from previous/chronic appearance.. IMPRESSION: 1. There is a 7 cm length patent stent in the distal aortic arch with proximal aspect starting 1 cm b elow the takeoff point of the patent left subclavian artery and extending caudally for distance of 7 cm in the proximal descending thoracic aorta. No evidence of intra stent stenosis and no evidence of aortic dissection nor pericardial effusion. 2. There is, however, atherosclerotic involvement of the abdominal aorta with hourglass shaped fusifo rm infrarenal abdominal aortic aneurysm which exhibits maximum diameter of 3.1 cm. There is some ath erosclerotic involvement of the common iliac arteries but without prominent aneurysmal dilatation of these vessels. No evidence of dissection.. 3. Bilateral lung nodules appear unchanged from prior studies listed above. No new lung nodules, inf iltrates, nor pleural effusions. 4. Cholelithiasis. There gallstones near the gallbladder neck region. There is mild distension of t he gallbladder but no obvious gallbladder wall edema nor pericholecystic fluid. CBD diameter is mini riccardo prominent. 5. Right-sided small bowel anastomosis noted. No evidence of bowel obstruction, free air, nor absce ss. Called by myself to ER physician 01/05/2024 3:40 p.m. RADIATION DOSE DELIVERED: 966.95mGy.cm Total DLP DATA REPOSITORY: All CT scans at this facility are submitted to the National Radiology Data Registry (NRDR) Dose Index Registry (DIR) with the [employer] (A[employer]). RADIATION OPTIMIZATION: All CT scans at this facility use at least one of these dose optimization te chniques: automated exposure control; mA and/or kV adjustment per patient size (includes targeted exa ms where dose is matched to clinical indication); or iterative reconstruction.
[2024-01-05] MEDS: Normal Saline - Diluent 50 ML VIAL IJ (14:43)
[2024-01-05] MEDS: Omnipaque 350 MG/ML 100 ML BTL IJ (14:44)
[2024-01-05] MEDS: Omnipaque 350 MG/ML 50 ML BTL 25 ML IJ (14:45)
[2024-01-05 14:53] LABS: Troponin I 7 ng/L (<or=76)
[2024-01-05] MEDS: Diclofenac 1% Gel 100 GM TUBE TP (16:06)
== END 2024-01-05 16:16 | disposition home or self-care (01) ==
PROVIDERS: Emergency Provider Student in an Organized Health Care Education/Training Program; PCP Nurse Practitioner Family
DX: R07.89 Other chest pain (principal); G47.33 Obstructive sleep apnea (adult) (pediatric); I10 Essential (primary) hypertension; Z79.82 Long term (current) use of aspirin; K92.1 Melena
CPT/HCPCS: 36415; 71275; 80053; 86850; 86900; 86901; 93005; 96374; 99285; 71045; 74174; 83880; 84484; 85025; 85610; 85730; 93010; 99284; J2470; J3490; Q9967

== ENCOUNTER 2024-03-25 16:46 | Outpatient (REF) | payer MEDICARE, SELFPAY ==
[2024-03-25 16:28] LABS: Abs Immature Grans 0.04 10^3/uL (0.0-0.06); Absolute Basophil Count 0.07 10^3/uL (0.0-0.2); Absolute Eosinophil Count 0.89 10^3/uL (0.0-0.7); Absolute Lymphocyte Count 2.52 10^3/uL (1.2-3.4); Absolute Monocyte Count 0.62 10^3/uL (0.1-0.8); Absolute Neutrophil Count 4.59 10^3/uL (1.2-6.7); Basophils % 0.8 %; Eosinophils % 10.2 %; HCT 42.2 % (40.0-50.0); HGB 13.6 g/dL (13.5-17.5); Immature Grans % 0.5 %; Lymphocytes % 28.9 %; MCH 30.7 pg (27.0-33.0); MCHC 32.2 % (32.0-36.0); MCV 95 fL (80-95); MPV 9.2 fL (8.0-11.0); Monocytes % 7.1 %; Neutrophils % 52.5 %; Platelet Count 298 10^3/uL (130-400); RBC 4.43 10^6/uL (4.36-5.78); RDW 12.7 % (11.8-14.1); RDW-SD 44.1 fL; WBC 8.73 10^3/uL (4.4-10.8)
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
--- OUTSIDE RECORDS SUMMARY | 2024-03-25 16:49 | XMS_ITS | Encounter Summary ---
Author Organization [facility] Address [address] [place] [address] Care Team Providers Care Redevelopment Manager Name Role Phone Unknown, Provider Primary Care Provider Unava ilable Encounter Details Date Type Department Care Team (Late st Contact Info) Description 02/02/2021 Lab Requisition [facility] Pathology & Laboratory Medicine - [facility] [address], [place] [id number] Outr Resulting Lab, Provider Social History Tobacco [...] 4th Generation Negative Negative 02/03/2021 9:25 EST [facility] Comment:If acute HIV-1 infec tion is suspected in a high risk patient, submit plasma specimen for HIV-1 RNA quantitation test. Blood VENOUS BLOOD / Unknown 02/02/2021 7:15 EST 02/02/2021 21:15 EST Narrative [facility] - 02/03/2021 9:25 EST Fourth Generation assay performed on the Siemens Centaur XPT. us Provider Outr Resulting Lab IMMUNOLOGY AND SEROL OGY ORDERABLES Final Result Performing Organization Address City/State/[facility] Co de Phone Number [facility] [address] [place] [address] documented in this encounter Visit Diagnoses Not on filedocumented in this encounter Care Teams Redevelopment Manager Relationship Specialty Start Date End Date Unknown, Provider, PCP - General 10/23/08 documented as of this encounter
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
--- OUTSIDE RECORDS SUMMARY | 2024-03-25 16:49 | XMS_ITS | Encounter Summary ---
Author Organization [facility] Address [address] [place] [address] Care Team Providers Care Grinding Room Supervisor Name Role Phone Unknown, Provider Primary Care Provider Unava ilable Encounter Details Date Type Department Care Team (Late st Contact Info) Description 02/02/2021 Lab Requisition [facility] Pathology & Laboratory Medicine - [facility] [address] [place] [address] Outr Resulting Lab, Provider Social History Tobacco [...] Surface Ag Negative Negative 02/04/20 9:50 EST [facility] Hep B Surface Ab, Quantitative <3.1 See Note mIU/mL 02/03/2021 9:50 EST [facility] Comment: Reference Range for Hep B Surface Ab, Quant: Positive: >= 10.0 mIU/mL Negative: ??< 10.0 mIU/mL Patient is presumed to not be immune to infection with Hepatitis B Virus. Hep B Surface Ab, Qualitative Negative See Note 02/03/2021 9:50 EST [facility] Comment: Reference Range for Hep B Surface Ab, Qual: Unvaccinated: ??Negative Vaccinated: ??Positive Hepatitis B Core Ab, Total Negative Negative 02/03/2021 9:50 EST [facility] Hep C Antibody Negative Negative 02/03/2021 9:50 EST [facility] Blood VENOUS BLOOD / Unknown 02/02/2021 7:15 EST 02/02/2021 21:15 EST us Provider Outr Resulting Lab CHEMISTRY & BLOOD GA S ORDERABLES Final Result [facility] [address] [place] [address] documented in this encounter Visit Diagnoses Not on filedocumented in this encounter Care Teams Grinding Room Supervisor Relationship Specialty Start Date End Date Unknown, Provider, PCP - General 10/23/08 documented as of this encounter
--- OUTSIDE RECORDS SUMMARY | 2024-03-25 16:49 | XMS_ITS | Encounter Summary ---
Author Organization [facility] Address [address] [place] [address] Care Team Providers Care Corporate Real Estate Manager Name Role Phone Unknown, Provider Primary Care Provider Unava ilable Encounter Details Date Type Department Care Team (Late st Contact Info) Description 01/13/2020 Lab Requisition [facility] Pathology & Laboratory Medicine - [facility] [address] [place], [place] [id number] Outr Resulting Lab, Provider Social History Tobacco [...] Unknown 01/13/2020 17:11 EDT 01/13/2020 20:52 EDT us Provider Outr Resulting Lab MICROBIOLOGY - GENER AL ORDERABLES Final Result [facility] [address] [place] [address] * COVID-19 TESTING (01/13/2020 17:11 EDT) COVID-19 rt-PCR Result Negative Negative 01/14/2020 0:17 EDT [facility] Comment: This test has not [...] history, and epidemiological information. Performed on the [employer] Fusion instrument Performing Lab [facility] Lab 01/14/2020 0:17 EDT [facility] Swab 01/13/2020 17:1 1 EDT 01/13/2020 20:52 EDT us Provider Outr Resulting Lab MICROBIOLOGY - GENER AL ORDERABLES Final Result [facility] [address] [place] [address] documented in this encounter Visit Diagnoses Not on filedocumented in this encounter Care Teams Corporate Real Estate Manager Relationship Specialty Start Date End Date Unknown, Provider, PCP - General 10/23/08 documented as of this encounter
--- OUTSIDE RECORDS SUMMARY | 2024-03-25 16:50 | XMS_ITS | Encounter Summary ---
Author Organization [facility] [place] [address] Care Team Providers Care Child Protective Services Social Worker Name Role Phone Martha Dempsey MD Primary Care Provider [phone] Encounter Details Date Type Department Care Team (Late st Contact Info) Description 10/12/2022 Ancillary Procedure Radiology Library at [facility] [place] [address] Yen Diamond APRN [address] [place] [address] Social History Tobacco Use Types Packs/Day Years [...] & Pelvis (10/12/2022 12:00 AM EDT) Narrative [facility] - 12/08/2022 3:03 PM EDT This exam is auto-finalizing. It's purpose is for storage only. Yen Diamond APRN IMG FILM LIBRARY ORDERABLES Performing Organization Address City/State/[facility] Co de Phone Number [place], [place] documented in this encounter Visit Diagnoses Not on filedocumented in this encounter Care Teams Child Protective Services Social Worker Relationship Specialty Start Date End Date Martha Dempsey MD [address] [place] [address] PCP - General 02/09/10 10/16/22 documented as of this encounter
--- OUTSIDE RECORDS SUMMARY | 2024-03-25 16:50 | XMS_ITS | Encounter Summary ---
Author [facility] [place] [address] Care Team Providers Care Lead Massage Therapist Name Role Phone Martha Dempsey MD Primary Care Provider [phone] Reason for Visit * Reason Comments Retinal Vein Occlusion Encounter Details Date Type Department Care Team (Latest Contact Info) Description 10/18/2018 1:00 PM EDT Office [place] [address] Constanza Toro MD BRVO and NVE s/p PRP OD (Dx [...] documented in this encounter Results * OCT [id number] EYES (10/18/2018 3:00 PM EDT) Anatomical Region [...] 06/2018) documented in this encounter Care Teams Lead Massage Therapist Relationship Specialty Start Date End Date Martha Dempsey MD [address] [place] [address] PCP - General 02/09/10 10/16/22 documented as of this encounter
--- OUTSIDE RECORDS SUMMARY | 2024-03-25 16:50 | XMS_ITS | Encounter Summary ---
Author Organization [facility] [place] [address] Care Team Providers Care Surfboard Maker Name Role Phone Yen Diamond APRN Primary Care Provider [phone] Reason for Referral * Consultation (Routine) - Closed Specialty Diagnoses / Procedures Referred By Contac t Referred To Contact Cardiology Diagnoses Ascending aorta dilation (StJ/LIT?) ABDOMINAL AORTIC ANEURYSM, RECENT CT MEASURES 3.1 X 2.9 CM. HTN,OBESE, DM2, VIT D INSUFF, MARCELO-SEVERE. Yen Diamond APRN [address] [place] [address] [facility] [address] [place] [id number] Referral ID Status Reason Start Date Expiration Date V isits Requested Visits Authorized [id number] Closed Consult, Test & Treat PCP Updated and/or Approved 10/20/2022 10/20/2023 1 1 Encounter Details Date Type Department Care Team (Latest Contact Info) Description 10/20/2022 Transcribe Orders eDH Incoming Referrals [phone] Yen Diamond APRN [address] [place], [place] [address] Ascending aorta dilation Social History Tobacco Use [...] ectasia documented in this encounter Care Teams Surfboard Maker Relationship Specialty Start Date End Date Yen Diamond APRN [address] [place] [address] PCP - General Family Medicine 10/17/22 documented as of this encounter
--- OUTSIDE RECORDS SUMMARY | 2024-03-25 16:50 | XMS_ITS | Encounter Summary ---
Author Organization [facility] [place] [address] Care Team Providers Care Catalog Librarian Name Role Phone Yen Diamond APRN Primary Care Provider [phone] Encounter Details Date Type Department Care Team [...] on filedocumented in this encounter Care Teams Catalog Librarian Relationship Specialty Start Date End Date Yen Diamond APRN [address] [place] [address] PCP - General Family Medicine 10/17/22 documented as of this encounter
--- OUTSIDE RECORDS SUMMARY | 2024-03-25 16:50 | XMS_ITS | Encounter Summary ---
[place] [address] Care Team Providers Care Steamfitter Supervisor Name Role Phone Yen Diamond APRN Primary Care Provider [phone] [phone] Encounter Details Date Type Department Care Team (Latest Contact Info) Description 05/05/2023 2:00 PM EST Laboratory Appointment Lab [address] [place] [id number] HERRERA (nonalcoholic steatohepatitis); Hepatic fibrosis Social History [...] PM EST HERRERA (nonalcoholic steatohepatitis) Hepatic fibrosis HEPATITIS C ANTIBODY Routine 05/05/2023 1:58 PM EST HERRERA (nonalcoholic steatohepatitis) Hepatic fibrosis IRON AND TIBC Routine 05/05/2023 1:58 PM EST HERRERA (nonalcoholic steatohepatitis) Hepatic fibrosis [id number] Routine 05/05/2023 1 :58 PM EST HERRERA (nonalcoholic steatohepatitis) Hepatic fibrosis MITOCHONDRIAL ANTIBODY, M2 Routine 05/05/2023 1:58 PM EST HERRERA (nonalcoholic steatohepatitis) Hepatic fibrosis TISSUE TRANSGLUTAMINASE, IGA Routine 05/05/2023 1:58 PM EST HERRERA (nonalcoholic steatohepatitis) Hepatic fibrosis HEPATITIS B CORE ANTIBODY, TOTAL Routine 05/05/2023 1:58 PM EST HERRERA (nonalcoholic steatohepatitis) Hepatic fibrosis SMOOTH MUSCLE ANTIBODY Routine 1:58 PM EST HERRERA (nonalcoholic steatohepatitis) Hepatic fibrosis HEPATITIS B SURFACE ANTIBODY Routine 05/05/2023 1:58 PM EST HERRERA (nonalcoholic steatohepatitis) Hepatic fibrosis HEPATITIS B SURFACE ANTIGEN Routine 05/05/2023 1:58 PM EST HERRERA (nonalcoholic steatohepatitis) Hepatic fibrosis PROTHROMBIN TIME Routine 05/05/2023 1:58 PM EST HERRERA (nonalcoholic steatohepatitis) Hepatic fibrosis CBC (WITH DIFF) Routine 05/05/2023 1:58 PM EST HERRERA (nonalcoholic steatohepatitis) Hepatic fibrosis HC DNA AB DS (YSLETA DEL SUR) Routine 05/05/2023 1:58 PM EST HERRERA (nonalcoholic steatohepatitis) Hepatic fibrosis IGG Routine 05/05/2023 1:58 PM EST HERRERA (nonalcoholic steatohepatitis) Hepatic fibrosis FERRITIN Routine 05/05/2023 1:58 PM EST HERRERA (nonalcoholic steatohepatitis) Hepatic fibrosis COMPREHENSIVE METABOLIC PANEL Routine 05/05/2023 1:58 PM EST HERRERA (nonalcoholic steatohepatitis) Hepatic fibrosis documented in this encounter Results * Differential, Automated (05/05/2023 1:58 PM EST) Neutrophil % 55.7 % [facility] Neutrophil Absolute 4.09 1.70 - 6.10 x10(3)/[facility] Lymph % 31.0 % [facility] Lymphocytes Abs 2.3 0.9 - 3.2 x10(3)/[facility] Monocyte % 8.2 % [facility] Monocyte Abs 0.6 0.3 - 0.9 x10(3)/[facility] Eos % 4.0 % [facility] Eosinophils Abs 0.3 0.0 - 0.4 x10(3)/[facility] Basophil % 0.7 % [facility] Baso Absolute 0.0 0.0 - 0.1 x10(3)/[facility] Immature Gran % 0.40 % [facility] Comment: Immature granulocytes(IG's)percentage and absolute count will include metamyelocytes, myelocytes, and promyelocytes. Blood smears from CBCs yielding IG's will be scanned manually for concordance. If this scan disagrees with the automated IG or if promyelocytes are noted, a manual differential will be performed. Immature Gran Absolute 0.03 0.00 - 0.04 x10(3)/[facility] Blood 05/05/2023 1:58 PM EST 05/05/2023 2:18 PM EST Narrative Resulting Agency Comment Spec In Lab Mayelin Perez LEATHER CARVER HEMATOLOGY ORDERAB LES [facility] [place] [address] * Hemogram (05/05/2023 1:58 PM EST) White Blood Cell 7.3 4.0 - 9.5 x10(3)/[facility] Red Blood Cell 4.68 4.58 - 5.54 x10(6)/[facility] Hemoglobin 14.4 13.7 - 16.5 g/dL [facility] Hematocrit 42.9 40.5 - 48.5 % [facility] Mean Cell Volume 91.7 82.9 - 93.1 fL [facility] Mean Cell Hemoglobin 30.8 27.5 - 32.1 pg [facility] Mean Cell Hemoglobin Concentration 33.6 32.0 - 35.7 g/dL [facility] Platelet 246 145 - 357 x10(3)/[facility] RDW Standard Deviation 41.8 36.0 - 45.0 fL [facility] RDW coefficient of variation 12.6 11.4 - 13.8 % [facility] Mean Platelet Volume 9.2 7.6 - 12.9 fL [facility] NRBC% auto 0.0 % [facility] NRBC Absolute 0.000 0.000 - 0.000 x10(3)/[facility] Blood 05/05/2023 1:58 PM EST 05/05/2023 2:18 PM EST Narrative Resulting Agency Comment Spec In Lab Mayelin Perez LEATHER CARVER HEMATOLOGY ORDERAB LES [facility] [place] [address] * (ABNORMAL) Comprehensive metabolic panel (non-fasting) (05/05/2023 1:58 PM EST) Glucose 85 65 - 199 mg/dL [facility] Comment:Diabetes: >=200 mg/d L plus symptoms Blood Urea Nitrogen 20 10 - 20 mg/dL [facility] Creatinine 0.78(L) 0.80 - 1.50 mg/dL [facility] Sodium 140 135 - 145 mmol/L [facility] Potassium 4.4 3.5 - 5.0 mmol/L [facility] Comment: Please note: ??Patients with WBC >100,000 may have falsely elevated Potassium levels. ??For accurate Potassium quantification in these patients send serum separator tube (gold top) for subsequent determinations. ??Contact the Clinical Chemistry Laboratory if there are any questions. Chloride 102 98 - 107 mmol/L [facility] Carbon Dioxide 27 22 - 31 mmol/L [facility] Anion Gap 11 5 - 15 mmol/L [facility] Calcium 10.4 8.5 - 10.5 mg/dL [facility] Protein, Total 8.1(H) 6.1 - 8.0 g/dL [facility] Albumin 4.8 3.2 - 5.2 g/dL [facility] Aspartate Aminotransferase 21 0 - 39 unit/L [facility] Alanine Aminotransferase 24 0 - 55 unit/L [facility] Alkaline Phosphatase 106 40 - 130 unit/L [facility] Bilirubin, Total <0.2(L) 0.2 - 1.3 mg/dL [facility] Est Glomerular Filtration Rate 98 >=60 mL/min/1. 73 m?? [facility] Comment: This patient's estimated GFR [...] Agency Comment Spec In Lab Mayelin N [place] LEATHER CARVER CHEMISTRY ORDERABL ES [facility] [place] [address] * Prothrombin Time (05/05/2023 1:58 PM EST) Prothrombin Time 12.1 9.4 - 12.5 sec [facility] International Normalization Ratio 1.1 [facility] Comment: An INR <2.0 indicates [...] Agency Comment Spec In Lab Mayelin Perez LEATHER CARVER HEMATOLOGY ORDERAB LES Performing Organization Address City/[facility] [place] [address] * A1AT Serum Concentration (05/05/2023 1:58 PM EST) A1AT 149 90 - 200 mg/dL [facility] Blood 05/05/2023 1:58 PM EST 05/05/2023 2:18 PM EST Narrative Resulting Agency Comment Spec In Lab Mayelin Perez LEATHER CARVER CHEMISTRY ORDERABL ES Performing Organization Address [facility] [place] [address] * WAQAS Antibody Screen (05/05/2023 1:58 PM EST) WAQAS Ab Screen Negative Negative [facility] Comment: This antinuclear antibody (WAQAS) screen is a qualitative test performed using a fluoroenzyme immunoassay on the Phadia 250 analyzer. This screen is designed to [...] performed by the Special Chemistry Laboratory at [facility] This change in testing location is associated with a change is testing method and reference intervals. Please review the results of this test in association with the posted reference intervals. dsDNA Ab 1.2 <=15.0 IU/mL [facility] Comment: <10 negative 10-15 equivocal >15 [...] performed by the Special Chemistry Laboratory at [facility] This change in testing location is associated with a change is testing method and reference intervals. Please review the results of this test in association with the posted reference intervals. Blood 05/05/2023 1:58 PM EST 05/08/2023 7:17 AM EST Narrative Resulting Agency Comment Spec In Lab Mayelin Perez OUMOU LAB SEND OUT ORDER CLAUDIA Performing Organization Address City/[facility]/ZIP Co de Phone Number [facility] [place] [address] * Smooth Muscle Antibody (05/05/2023 1:58 PM EST) Pathologist [facility] Sm Muscle Ab (JULY) Negative Negative [facility] Comment: Negative: No further testing will be performed ADDITIONAL INFORMATION This test was developed and its performance characteristics determined by [facility] in a manner consistent with CLIA requirements. This test has not been cleared or approved by the U.S. Food and Drug Administration. Test Performed by: [facility] [place] [address] Stock Clipper: Laron Perez M.D. Ph.D.; CLIA# [id number] Blood 05/05/2023 1:58 PM EST 05/08/2023 6:14 AM EST Narrative Resulting Agency Comment Spec In Lab Mayelin Kwabena Perez APRN LAB SEND OUT ORDER CLAUDIA Performing Organization Address [facility] Co de Phone Number [facility] [place] [address] * Ferritin (05/05/2023 1:58 PM EST) [facility] Ferritin 354 31 - 409 ng/mL [facility] Comment: Please note that as of 02/22/2023, the reference intervals for Ferritin have been updated. Blood 05/05/2023 1:58 PM EST 05/05/2023 2:18 PM EST Narrative Resulting Agency Comment Spec In Lab Mayelin Yuan Chris LEATHER CARVER CHEMISTRY ORDERABL ES Performing Organization Address [facility] Co de Phone Number [facility] [place] [address] * Hepatitis B Core Antibody, Total (05/05/2023 1:58 PM EST) Hepatitis B Core Antibody Negative Negative [facility] Blood 05/05/2023 1:58 PM EST 05/05/2023 2:18 PM EST Narrative Resulting Agency Comment Spec In Lab Mayelin Yuan Chris LEATHER CARVER CHEMISTRY ORDERABL ES Performing Organization Address [facility] de Phone Number [facility] [place] [address] * Hepatitis B Surface Antibody (05/05/2023 1:58 PM EST) Hepatitis B Surface Antibody, Quantitative <3.5 IU/L [facility] Comment: HepB Surface Ab Quant: Unvaccinated: < 8.5 IU/L Vaccinated: >= 11.5 IU/L Hepatitis B Surface Antibody Negative [facility] Comment: Patient is presumed to be not vaccinated or immune to HBV infection. Expected Results: Vaccinated: Positive Unvaccinated: Negative Blood 05/05/2023 1:58 PM EST 05/05/2023 2:18 PM EST Narrative Resulting Agency Comment Spec In Lab Mayelin N Chris LEATHER CARVER CHEMISTRY ORDERABL ES Performing Organization Address [facility] Co de Phone Number [facility] [place] [address] * Hepatitis B Surface Antigen (05/05/2023 1:58 PM EST) Hepatitis B Surface Antigen Negative Negative [facility] Blood 05/05/2023 1:58 PM EST 05/05/2023 2:18 PM EST Narrative Resulting Agency Comment Spec In Lab Mayelin Perez LEATHER CARVER CHEMISTRY ORDERABL ES Performing Organization Address City/[facility]/ZIP Co de Phone Number [facility] [place] [address] * Hepatitis C Antibody (05/05/2023 1:58 PM EST) Hepatitis C Antibody Negative Negative [facility] Blood 05/05/2023 1:58 PM EST 05/05/2023 2:18 PM EST Narrative Resulting Agency Comment Spec In Lab Mayelin Perez LEATHER CARVER CHEMISTRY ORDERABL ES Performing Organization Address [facility]/ZIP Co de Phone Number [facility] [place] [address] * IgG (05/05/2023 1:58 PM EST) Pathologist [facility] Immunoglobulin G 1,429 700 - 1,600 mg/dL [facility] Comment: Pediatric Reference Intervals obtained from the Caliper Reference Interval project. http://www.[employer].ca/caliperproject/index.html Blood 05/05/2023 1:58 PM EST 05/05/2023 2:18 PM EST Narrative Resulting Agency Comment Spec In Lab Mayelin Perez LEATHER CARVER CHEMISTRY ORDERABL ES Performing Organization Address [facility] Co de Phone Number [facility] [place] [address] * (ABNORMAL) Iron and TIBC (05/05/2023 1:58 PM EST) Iron 69 45 - 160 mcg/dL [facility] TIBC 358 250 - 450 mcg/dL [facility] Iron Saturation 19(L) 20 - 50 % [facility] Blood 05/05/2023 1:58 PM EST 05/05/2023 2:18 PM EST Narrative Resulting Agency Comment Spec In Lab Mayelin Kwabena Perez LEATHER CARVER CHEMISTRY ORDERABL ES Performing Organization Address [facility] Co de Phone Number [facility] [place] [address] * Mitochondrial Antibody, M2 (05/05/2023 1:58 PM EST) Mitochon Ab (MAY) <0.1 <0.1 (Negative) U [facility] Comment: Test Performed by: [facility] [address] [place] [address] Stock Clipper: Laron Perez M.D. Ph.D.; CLIA# [id number] Blood 05/05/2023 1:58 PM EST 05/08/2023 6:14 AM EST Narrative Resulting Agency Comment Spec In Lab Mayelin Perez APRN LAB SEND OUT ORDER CLAUDIA Performing Organization Address City/[facility]/ZIP Co de Phone Number [facility] [place] [address] * Tissue transglutaminase, IgA (05/05/2023 1:58 PM EST) TTG IgA Ab 0.6 <=10.0 u/ml [facility] Comment: Negative: ??<7 units/mL Indeterminate: 7-10 units/mL Positive: ??>10 units/mL Blood 05/05/2023 1:58 PM EST 05/08/2023 7:17 AM EST Narrative Resulting Agency Comment Spec In Lab Mayelin Perez APRN IMMUNOLOGY ORDERAB LES Performing Organization Address City/[facility]/ZIP Co de Phone Number [facility] [place] [address] documented in this encounter Visit Diagnoses Diagnosis HERRERA (nonalcoholic steatohepatitis) Other chronic nonalcoholic liver disease Hepatic fibrosis Cirrhosis of liver without mention of alcohol documented in this encounter Care Teams Steamfitter Supervisor Relationship Specialty Start Date End Date Yen Diamond APRN [address] [place] [address] PCP - General Family Medicine 10/17/22 documented as of this encounter
--- OUTSIDE RECORDS SUMMARY | 2024-03-25 16:50 | XMS_ITS | Encounter Summary ---
[place] [address] Care Team Providers Care Rn New Grad Name Role Phone Yen Diamond APRN Primary Care Provider [phone] [phone] Reason for Referral * Consultation (Routine) - Closed Specialty Diagnoses / Procedures Referred By Contmichael t Referred To Contact Gastroenterology Diagnoses Chronic cutaneous venous stasis ulcer Fatty liver Elevated alkaline phosphatase level liver- fatty liver elevated alkaline phosphatase Yen Diamond APRN [address] [place] [address] [facility] [address] [address] Referral ID Status Reason Start Date Expiration Date V isits Requested Visits Authorized [id number] Closed Consult, Test & Treat PCP Updated and/or Approved 10/18/2022 10/18/2023 12 12 Encounter Details Date Type Department Care Team (Latest Contact Info) Description 10/18/2022 Transcribe Orders eDH Incoming Referrals [phone] Yen Diamond APRN [address] [place], [place] [id number] Chronic cutaneous venous stasis ulcer; Fatty liver; [...] levels documented in this encounter Care Teams Rn New Grad Relationship Specialty Start Date End Date Yen Diamond APRN [address] [place] [address] PCP - General Family Medicine 10/17/22 documented as of this encounter
--- OUTSIDE RECORDS SUMMARY | 2024-03-25 16:50 | XMS_ITS | Encounter Summary ---
Author Organization [facility] [place] [address] Care Team Providers Care Football Coach Name Role Phone Yen Diamond APRN Primary Care Provider [phone] [phone] Reason for Referral * Diagnostic Test (Routine) - Closed Specialty Diagnoses / Procedures Referred By Samina t Referred To Contact Radiology Diagnoses Infrarenal abdominal aortic aneurysm (AAA) without rupture Procedures CT Angiogram Abdomen & Pelvis w Contrast (Generic) Tisha Cardona MD [facility] [place] [address] [facility] [place] [address] Referral ID Status Reason Start Date Expiration Date V isits Requested Visits Authorized [id number] Closed Specialty Service Requested 12/08/2022 06/07/2024 1 1 Reason for Visit * Consultation (Routine) - Closed Specialty Diagnoses / Procedures Referred By Contac t Referred To Contact Vascular Surgery Diagnoses Abdominal aortic aneurysm (AAA) without rupture, unspecified part ROUTINE, , IMAGING IN CHART Yen Diamond APRN [address] [place] [address] [facility] Vascular S[place] [address] [place] [address] Referral ID Status Reason Start Date Expiration Date V isits Requested Visits Authorized [id number] Closed Consult, Test & Treat PCP Updated and/or Approved 10/25/2022 10/25/2023 1 1 Encounter Details Date Type Department Care Team (Late st Contact Info) Description 12/06/2022 3:30 PM EDT Office Visit Vascular Surgery at [facility] [place] [address] Tisha Cardona MD [facility] [place] [address] Infrarenal abdominal aortic aneurysm (AAA) without rupture [...] documented in this encounter Progress Notes * Tisah Cardona MD - 12/06/2022 3:30 PM EDT Images from the original note were not included. [facility] [place] [address] Name: Teo Arenas Date: 12/06/2022 Time: 3:16 PM Primary Care Provider: Yen Diamond APRN Referring Provider: Yen Diamond APRN [address] [place] [address] Chief Complaint: AAA History of Present Illness: [...] KNEE ARTHROPLASTY performed by MACRINA ARGUELLES at [facility] MAIN OR RETINAL LASER SURGERY Right 08/03/2018 [...] of Vascular Surgery [place] [address] e: [email or web address] o: [phone] F: [phone] 12/06/2022 3:16 PM documented in this encounter [...] who have questions please contact the health small animal caretaker that requested your imaging first. ? Electronically signed by: Helena Ortiz MD, [facility] ([phone]), at 02/24/2023 4:36 PM Narrative 02/24/2023 4:36 [...] administration of contrast. Administered 71.0 ml of [id number] mg/ml. Maximum intensity projection (MIP) were reformatted. [...] narrowing L3-4. There is disc space narrowing [id number] and L1-L2. There is multilevel degenerative disc [...] patients who have questions please contactthe health small animal caretaker that requested your imaging first. Electronically signed by: Helena Ortiz MD, [facility]([phone]), at 02/24/2023 4:36 PM Tisha Cardona MD IM CT ORDERABLES * Creatinine (02/24/2023 12:49 PM EST) Creatinine 0.80 0.80 - 1.50 mg/dL [facility] Est Glomerular Filtration Rate 98 >=60 mL/min/1. 73 m?? [facility] Comment: This patient's estimated GFR [...] In Lab Tisha Cardona MD CHEMISTRY ORDERABLES [facility] [place] [address] documented in this encounter Visit Diagnoses Diagnosis Infrarenal abdominal aortic aneurysm (AAA) without rupture Infrarenal abdominal aortic aneurysm (AAA) without rupture documented in this encounter Care Teams Football Coach Relationship Specialty Start Date End Date Yen Diamond APRN [address] [place] [address] PCP - General Family Medicine 10/17/22 documented as of this encounter
--- OUTSIDE RECORDS SUMMARY | 2024-03-25 16:50 | XMS_ITS | Encounter Summary ---
Author Organization [facility] [place] [address] Care Team Providers Care Granite Fabricator Name Role Phone Lobo Yenjaskaran Rinaldi APRN Primary Care Provider [phone] Reason for Referral * Diagnostic Test (Routine) - Closed Specialty Diagnoses / Procedures Referred By Contac t Referred To Contact Radiology Diagnoses Infrarenal abdominal aortic aneurysm (AAA) without rupture Procedures CT Angiogram Abdomen & Pelvis w Contrast (Generic) Tisha Cardona MD [facility] [place] [address] [facility] [address] Referral ID Status Reason Start Date Expiration Date V isits Requested Visits Authorized [id number] Closed Specialty Service Requested 12/08/2022 06/07/2024 1 1 Reason for Visit * Diagnostic Test (Routine) - Closed Specialty Diagnoses / Procedures Referred By Contac t Referred To Contact Radiology Diagnoses Infrarenal abdominal aortic aneurysm (AAA) without rupture Procedures CT Angiogram Abdomen & Pelvis w Contrast (Generic) Tisha Cardona MD [facility] [place] [address] [facility] [place] [address] Referral ID Status Reason Start Date Expiration Date V isits Requested Visits Authorized [id number] Closed Specialty Service Requested 12/08/2022 06/07/2024 1 1 Encounter Details Date Type Department Care Team (Latest Contact Info) Description 02/24/2023 12:59 PM EST - 02/24/2023 11:59 PM EST Hospital [place] [address] Tisha Cardona MD [facility] [place] [address] Infrarenal abdominal aortic aneurysm (AAA) without rupture [...] who have questions please contact the health resident care director that requested your imaging first. ? Narrative [...] administration of contrast. Administered 71.0 ml of RTCBERUPW775.00 mg/ml. Maximum intensity projection (MIP) were reformatted. [...] narrowing L3-4. There is disc space narrowing [id number] and L1-L2. There is multilevel degenerative disc [...] patients who have questions please contactthe health resident care director that requested your imaging first. Electronically signed by: Helena Ortiz MD, [facility]([phone]), at 02/24/2023 4:36 PM Tisha Cardona MD IM CT ORDERABLES documented [...] mLs documented in this encounter Care Teams Granite Fabricator Relationship Specialty Start Date End Date Yen Diamond APRN [address] [place] [address] PCP - General Family Medicine 10/17/22 documented as of this encounter
--- OUTSIDE RECORDS SUMMARY | 2024-03-25 16:50 | XMS_ITS | Encounter Summary ---
[facility] [place] [address] Care Team Providers Care Furnace Room Supervisor Name Role Phone Martha Dempsey MD Primary Care Provider [phone] Reason for Visit * Reason Comments Retinal Vein Occlusion Encounter Details Date Type Department Care Team (Latest Contact Info) Description 02/19/2019 2:00 PM EST Office [place] [address] Constanza Toro MD BR[facility] and NVE s/p [...] 06/2018) documented in this encounter Care Teams Furnace Room Supervisor Relationship Specialty Start Date End Date Martha Dempsey MD [address] [place] [address] PCP - General 02/09/10 10/16/22 documented as of this encounter
--- OUTSIDE RECORDS SUMMARY | 2024-03-25 16:50 | XMS_ITS | Encounter Summary ---
Author Organization [facility] Address [facility] [place] [address] Care Team Providers Care Otr Tanker Truck Driver Name Role Phone Martha Dempsey MD Primary Care Provider [phone] Reason for Visit * Reason Comments Retinal Vein Occlusion BR[facility] OD * Consultation (Urgent) - Closed Specialty Diagnoses / Procedures Referred By Samina t Referred To Contact Ophthalmology Diagnoses BR[facility] Jadyn Alberto, OD [address] [place] [address] [place] [address] Referral ID Status Reason Start Date Expiration Date V isits Requested Visits Authorized [id number] Closed Consult, Test & Treat 06/22/2018 06/22/2019 1 1 Encounter Details Date Type Department Care Team (Late st Contact Info) Description 06/28/2018 1:00 PM EDT Office [place] [address] Constanza Toro MD 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
--- OUTSIDE RECORDS SUMMARY | 2024-03-25 16:50 | XMS_ITS | Encounter Summary ---
[facility] [place] [address] Care Team Providers Care Seed Potato Arranger Name Role Phone Martha Dempsey MD Primary Care Provider [phone] Reason for Visit * Reason Comments Retinal Vein Occlusion Encounter Details Date Type Department Care Team (Latest Contact Info) Description 05/13/2020 2:45 PM EST [place] [address] Constanza Toro MD BRVO and NVE s/p [...] 06/2018) documented in this encounter Care Teams Seed Potato Arranger Relationship Specialty Start Date End Date Martha Dempsey MD [address] [place] [address] PCP - General 02/09/10 10/16/22 documented as of this encounter
--- OUTSIDE RECORDS SUMMARY | 2024-03-25 16:50 | XMS_ITS | Encounter Summary ---
Author Organization [facility] Address [address] [place] [id number] Care Team Providers Care Wholesale Representative Name Role Phone Unknown, Provider Primary Care Provider Unava ilable Encounter Details Date Type Department Care Team (Latest Contact Info) Description 10/23/2008 15:22 EDT - 11/12/2008 13:20 EDT Hospital Encounter [facility] Rehabilitation Therapy Unit Level 1 [address] [place] [address] Valerie Burton MD [address] [place] [address] Social History Tobacco Use Types [...] on 2008, plus the discharge summary from [facility] from the same date for other [...] transfer was recommended. This was obtained at [place] and he will proceed there today. Discharge [...] Mcginnis MD A - sb Job ID: [id number] Document ID: [id number] cc: All Galicia MD [facility]* Ortho Trauma Service at [facility]* Neurosurgery Service at [facility]* documented in this encounter Discharge Instructions * Discharge Instructions* Valerie Burton MD - 10/29/2008 12:16 EDT documented in this encounter Medications at Time of Discharge acetaminophen (TYLENOL) 500 mg tablet Take 1-2 Tabs by mouth 4 times daily as needed for Pain. 0 0 11/12/2008 aluminum & magnesium hydroxide-simethi cone (MYLANTA-DS) 400-400-40 mg/5 mL suspension Take 30 [...] of this encounter Ordered Prescriptions Prescription Sig Dispense Quantity Refills Last Filled Start Date End Date warfarin (COUMADIN) 1 mg tablet Take 7 [...] meals. 0 0 11/12/2008 aluminum & magnesium hydroxide-simethic one (MYLANTA-DS) 400-400-40 mg/5 mL suspension Take 30 mL by mouth every 4 hours as needed. 0 0 11/12/2008 acetaminophen (TYLENOL) 500 mg tablet Take 1-2 Tabs by mouth 4 times daily as needed for Pain. 0 0 11/12/2008 documented in this encounter Progress Notes * Inpatient, Physician - 11/20/2008 1131 EDT * Inpatient, Physician - 11/20/2008 1131 EDT * Mali Ford RN - 11/12/2008 1439 EDT Pt tolerated bowel program well this AM. Mod soft form stool. Transferred to [facility] via [facility] at 1315. Pt premedicated with 15mg oxy Ir, and 1000 mg acetaminophen. * Glo Quinones CSW - 11/12/2008 1052 EDT 11/12/08 Social Work D/C Note: Patient and family have accepted offer of a swing bed at [facility]; [facility] scheduled for pickup at 1 PM. In order for [facility], the paperwork located in [...] P: Weekly weights Continue with diet per COLLEGE COUNSELOR recs (has not advanced past Dysphagia III since admit) D/C pre-albumin Continue to monitor po intake * Danica Guerrero OT - 11/12/2008 0814 EDT Occupational Therapy Contact Note Site: Inpatient Rehab Pt. Scheduled for d/c to a subacute facility to [facility]. Discharge plan changed, d/c notes written 11/10/08 [...] Patient scheduled to leave today to the [facility]- Discharge Notes all written lateyesterday. This transfer was cancelled by the facility. Therefore I will resume seeing him tomorrow, QD 30-60 min given Subacute level, until precautions are lifted and he can participate in full PT program. YARA JOHNSON, PT 11/11/2008 4:55 PM * Glo Quinones CSW - 11/11/2008 1357 EDT 11/11/08 Social Work: Pako with [facility] called this AM to [...] * Leonela Mulligan - 11/11/2008 1221 EDT Director Of Philanthropy Note Code Code: Pastoral Care Visit with f/u Director Of Philanthropy Note Raquel Tradition: Mandaeism ( ) Raquel Community: [facility] Reason for visit: Regular Visit [...] later observed asleep. Excited about trasfer to [facility] * Oracio Rahman MD - [...] Rahman MD A - mt Job ID: [id number] Document ID: [id number] cc: * Yvon Mcginnis MD - 11/11/2008 [...] Mcginnis MD P - jr Job ID: [id number] Document ID: [id number] cc: * Yara Johnson, PT - 11/10/2008 9245 EDT Rehab Therapies Physical Therapy Discontinue Note [...] response. He was transported by [facility] to [facility]. He was noted to have instability of [...] been put on the rims for better blacking machine operator, but he could also get gloves for better blacking machine operator as well. He has some weakness and [...] Treatment Provided Today: Treatment Times Treatment Time: 8571-6243 (11/10/081329) Treatment Duration: 90 (11/10/081329) Scheduled Treatment Time: 30 (11/08/081029) Vital Signs Vital Signs: Stable VS with interventions (10/26/081299) Pulse: pre supine: 79 post sitting in w/c: 82 (10/26/08 1300) BP: pre supine: 127/78 post sittin/70 (10/26/081299) [...] L to include hip abd, attempted QS (11/10/08 1100) Range of Motion: Bilateral hip ROM (11/07/08 143) Endurance training: Played ball this afternoon w/ beach ball sitting up in w/c (10/30/08 1400) Other Exercise: Inspirometer (11/07/08 1000) Therapeutic Activities Bed Mobility: n/a (11/08/08 1030) Transfers: Ceiling lift (11/07/08 1430) Ambulation: n/a (11/07/08 1430) Stairs: n/a (11/06/08 1100) Other Therapeutic Activity: Taken to radiology to get xrays-PT assisted electronics technician with positioning for new xrays- then back in room applied new 3 D boots to bilateral LE's. (11/10/08 133) Gait Training Ambulation: n/a (11/08/08 1030) Neuromuscular Re-education Motor Control: continues to show slightly better muscle contractions RLE>LLE (11/06/08 1100) Other Neuromuscular Education: cotx w/OT to work on Swarm.-Impaired sensation to dull and pin prick LLE (11/06/08 133) Wheelchair Training Wheelchair Mobility: Propelling on the unit in reclining w/c w/ bilateral LE's>100-200' (11/07/08 1000) Wheelchair Parts Management: cues to remember the brakes when he stops, especially outside on uneven terrain.Dependent w/ LE leg rests (11/07/08 1000) Other Wheelchair Training: discussed gloves for better blacking machine operator down the road (10/30/08 1100) Other Training or Therapies Home Management: Discussed vendor choice: Pt. feels it is [id number] or [facility]. OT to f/u with dgtr. to confirm. Educ. pt. and wilmererMargarito, re: rehab goals, plan of care, d/c planning, healing process. Pt./family issued SCI pt. education binder. (10/27/08 1100) Other: Bilateral casts removed from BLE's- (11/10/08 1100) Patient Education Topics Patient Education Topics: Other (comment) (Discussed discharge issues w/ pt and brothmiranda Margarito re' return) (11/10/081329) Other :patient education topics [...] addressed when he returns toRehab Discharge plan: [facility] Recommended follow-up services:Skilled [...] 4:52 PM * Leonela Han - 11/10/2008 5982 EDT Rehabilitation Therapies Occupational Therapy Encounter Note [...] Treatment Duration Scheduled Treatment Time 11/10/08 1400 8393-7931 0 30 No data found. No data [...] * Leonela Mulligan - 11/10/2008 1237 EDT Director Of Philanthropy Note Code Code: Pastoral Care Visit with f/u Director Of Philanthropy Note Raquel Tradition: Mandaeism ( ) Raquel Community: [facility] Reason for visit: Regular Visit [...] goals. Treatment session today: Scheduled time duration: 5507-3674- pt. only seen x30 mins due to refusal for out of bed activity Therapeutic Activity- Right Grasp- 40.1# Left 66# Lateral Pinch- right-11 left- 18# Tip ofawk-gmdco-1# Left-13# 3 jaw lifnx-qjkhr-9# left-12# Pt. Refused any out of bed [...] raised toilet seat, shower chair, and ramp. Detention Goals: Cartoonist Special Effects Goal Timeframe Cartoonist Special Effects Goal Timeframe: 7-10 days (10/24/081499) Grooming Teeth [...] unit kitchen to fix cold drink/snack supervision (11/07/081299) Communication Device Use Phone: Pt. will be able to dial phone number for calling card as a measure of increase cognition (ongoing) Mental Functions Orientation: Pt. will be alert and oriented x3 (goal met) (10/31/08999) Attention: Pt. will play wii for 30 mins as a measure of increase attention to one task (11/07/081299) Initiation: Pt. will initate self-care tasks with [...] Rehabilitation Recommended follow up services: Home Health TARSHA GUERRERO OT 11/10/2008 11:38 AM * Brenna [...] Rahman MD A - aquilino Job ID: [id number] Document ID: [id number] cc: * Yvon Mcginnis MD - 11/10/2008 [...] MD - Yvon Mcginnis MD A - [facility] Job ID: [id number] Document ID: [id number] cc: * Diana Martinez RN - 11/09/2008 1450 EDT Dry dressing placed over G-tube site. Area draining brownish colored drainage. * Leonela Mulligan - 11/09/2008 1125 EDT Director Of Philanthropy Note Code Code: Pastoral Care Visit no f/u Director Of Philanthropy Note Raquel Tradition: Mandaeism ( ) Raquel Community: [facility] Reason for visit: Regular Visit Assessment Services Provided Services Provided Care Level: Level 1 - Meeting & Greeting Only Continued Spiritual Care?: yes Plan Plan Plan: Follow as needed Comments: Volunteer visit Notes Leonela Mulligan 11/09/2008 11:25 AM * Brenna Alvarado RN - 11/09/2008 0414 EDT Awake off and on though the night. Reports always had this problem but is worse since his accident.Reports pain 0-3/10 and refusing offers for pain medicine when pain reported. 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 Turning self side to [...] Rosa MD A - mlw Job ID: [id number] Document ID: [id number] cc: * Concepcion Flores, PT - 11/08/2008 1535 EDT PT Encounter Note Site: Inpatient Rehab Subjective: I don't know what you do about the braces. She takes them off when she massages me. Objective/Examination: As noted: Patient Treatment Times in the past 12 hrs: Treatment Time Treatment Duration Scheduled Treatment Time 11/08/08 1030 [id number] 30 30 No data found. Patient Pain [...] Treatment Duration Scheduled Treatment Time 11/08/08 1400 0164-5216 15 mins 30 mins Pt. Not seen x15 mins. Due to pt. Refusal. Patient Pain & Tenderness in the past 12 hrs: Pain & Tenderness Location Frequency Quality Intensity Alleviating Factors Aggravating Factors 11/08/08 1400 Yes Buttocks Re-position in bed Numb - movement static Patient Therapeutic Activities in the past 12 hrs: Other Therapeutic Activity 11/08/08 1400 Pt. declined any out of bed therapy due to feeling numb. Patient Cognition in the past 12 hrs: Problem Solving 11/08/08 1400 Pt. had difficulty calling daughter on phone. [...] Rosa MD P - jm Job ID: [id number] Document ID: [id number] cc: * Kathya Narvaez - 11/07/2008 2317 EDT A&Ox3,declined needs for [...] Patient's brother, Margarito was in touch with [facility] and was told that they could take him on Monday, 11/10. I confirmed this with Pako, Produce Runner. Dr. Montanez will be the following physician. Patient is not having to go to [facility] on 11/10 for f/u. I scheduled [facility] for12 noon on Monday but [facility]. I reported above to patient's daughter Bev martin call Medicaid office on Monday to see if I can get [facility] expedited. She is to have interviewwith them for Monday AM. I will f/u on Monday after talking to Medicaid office. i alerted Haydee Rodriguez, my supervisor scouring pads of this as patient has no income. Paperwork will be Put on chart on Monday. * Mali Ford RN - 11/07/2008 9650 EDT Pt Maryjane-armstrong tube removed by this AM. Pt tolerated well. Encourage pt to eat protein items off tray first. Pt drank Prostat in orange juice after tube removal. Requested prn pain meds x1 with good effect. * Juan Bernard - 11/07/2008 1431 EDT Recreation Therapy Contact Note Site: Inpatient Rehab Patient scheduled but not seen from 5557-0307 due to MD removing his feeding tube [...] sessions. Treatment session today: Scheduled time duration: 9688-2091 Therapeutic Exercise- Pt. Tolerated up in w/c [...] To be d/c 11/11/08 to subacute facility. Cartoonist Special Effects Goals: Cartoonist Special Effects Goal Timeframe Cartoonist Special Effects Goal Timeframe: 7-10 days (10/24/08 1500) Grooming- [...] DANICA GUERRERO OT 11/07/2008 1:19 PM * Yara Johnson, PT - 11/07/2008 3383 EDT Rehab Therapies Physical Therapy Progress Note Site: Inpatient Rehab Subjective: I have so much to do at home.If I get closer it will be better so I can make plans with my director of business continuity. Problem: Major multitrauma-Impaired mobility Objective/Examination: This Progress [...] Treatment Provided Today: Treatment Times Treatment Time: 4939-7376 (11/07/08 1430) Treatment Duration: 30 (11/07/08 1430) Scheduled Treatment Time: 10:00-11:00 (11/07/08 1000) Vital Signs Vital Signs: Stable VS with interventions (10/26/08 1300) Pulse: pre supine: 79 post sitting in w/c: 82 (10/26/08 1300) BP: pre supine: 127/78 post sittin/70 (10/26/08 1300) Activity Level: w/c mobility (10/26/08 1300) Response to activity: fatigue with w/c mobility (10/26/08 1300) Pain & Tenderness Pain & Tenderness: Yes (11/07/081429) Location: All OVER (11/07/081429) Frequency: intermittent (11/07/081429) Quality: achey (11/07/081429) Intensity: 3-6/10 (11/07/081429) Alleviating Factors: resting and pain meds (11/07/081429) Aggravating Factors: moving in and out of bed (11/07/081429) Therapeutic Exercise Exercises: gentle AAROM (11/07/081429) Range of Motion: Bilateral hip ROM (11/07/081429) Endurance training: Played ball this afternoon w/ beach ball sitting up in w/c (10/30/08 1400) Other Exercise: Inspirometer (11/07/08 1000) Therapeutic Activities Bed Mobility: rolling side to side w/ assist to move legs side to side (11/07/081429) Transfers: Ceiling lift (11/07/08 143) Ambulation: n/a (11/07/08 143) Stairs: n/a (11/06/08 1100) Other Therapeutic Activity: Wheeled into the Dining room and got himself some ice water at the ice machine independently- used cup perez on the w/c for support (11/03/08 1100) Gait Training Ambulation: n/a (11/07/08 143) Neuromuscular Re-education Motor Control: continues to show slightly better muscle contractions RLE>LLE (11/06/08 1100) Other Neuromuscular Education: cotx w/OT to work on Swarm.-Impaired sensation to dull and pin prick LLE (11/06/08 1330) Wheelchair Training Wheelchair Mobility: Propelling on the unit in reclining w/c w/ bilateral LE's>100-200' (11/07/08 1000) Wheelchair Parts Management: cues to remember the brakes when he stops, especially outside on uneven terrain.Dependent w/ LE leg rests (11/07/08 1000) Other Wheelchair Training: discussed gloves for better blacking machine operator down the road (10/30/08 1100) Other Training or Therapies Home Management: Discussed vendor choice: Pt. feels it is [facility]. OT to f/u with dgtr. to confirm. Educ. pt. and brother, Margarito, re: rehab goals, plan of care, d/c planning, healing process. Pt./family issued SCI pt. education binder. (10/27/08 1100) Patient Education Topics Patient Education Topics: Protocol/Precautions;Safety (11/07/081429) Other :patient education topics : Other (comment) (11/07/081429) Education Method: Verbal;Handout (11/07/081429) Taught to: Patient;Family [...] Therapy to be provided by PT or TERRAZZO SUPERVISOR Duration: 3 more days Treatment Intervention: Therapeutic [...] Rahman MD P - jm Job ID: [id number] Document ID: [id number] cc: * Yvon Mcginnis MD - 11/07/2008 [...] Mcginnis MD A - mlw Job ID: [id number] Document ID: [id number] cc: * Yara Johnson, PT - 11/06/2008 1634 EDT PT Encounter Note Site: Inpatient Rehab Subjective: It feels good to sit in the w/c without the front of that brace. You have no idea! Objective/Examination: UPDATE: Dr Mcginnis has talked to the Mr Arenas's Ortho team and Spine team at [facility]. Mr Arenas does not need to go to the [facility] appointmentt on Monday. We will remove the casts here on Monday, x-ray both lower leg fx sites, and then put him in Bilateral 3 D boots. We will forward the films to [facility]. Spine has advised us that he can now sit in the w/c without TLSO- just need to wear the TLSO for the transfer. Patient Treatment Times in the past 12 hrs: Treatment Time Treatment Duration Scheduled Treatment Time 11/06/08 1100 11:00-12:00 60 - No data found. Patient Pain & Tenderness in the past 12 hrs: Pain & Tenderness Location Frequency Quality Intensity Alleviating Factors Aggravating Factors 11/06/08 1100 Yes LBP and R side rib pain intermittent varies, but generally achey and numb 4-6 rest in bed moving out of bed, and sitting up w/ TLSO Patient Therapeutic Exercise in the past 12 hrs: Exercises Range of Motion Endurance training Other Exercise 11/06/08 1100 gentle AAROM BLE's - - Inspirometer-now up to 1500 ml x 5 w/ good technique Patient Therapeutic Activities in the past 12 hrs: Bed Mobility Transfers Ambulation Stairs Other Therapeutic Activity 11/06/08 1100 rolls side to side w/ 1 person assist (max) w/ LE's and at hip dependent ceiling lifttransfers n/a n/a - No data found. Patient Neuromuscular Re-education in the past 12 hrs: Motor Control Balance Coordination Other Neuromuscular Education 11/06/08 1330 - - - cotx w/OT to work on RAYNA scale.-Impaired sensation to dull and pin prick LLE 11/06/08 1100 continues to show slightly better muscle contractions RLE>LLE - - - No data found. Patient Wheelchair Training in the past 12 hrs: Wheelchair Mobility Wheelchair Parts Management Other Wheelchair Training 11/06/08 1100 Propelling on the unit in reclining w/c w/ bilateral LE's>100-200' cues to remember the brakes when he stops, especially outside on uneven terrain.Dependent w/ LE leg rests - No data found. Patient Patient Education Topics in the past 12 hrs: Patient Education Topics Other :patient education topics Education Method Taught to Barriers to Learning Patient Outcomes 11/06/08 1100 Transfer Training;Positioning;Nature of injury Home Program Verbal;Handout;Demonstration [...] Treatment Duration Scheduled Treatment Time 11/06/08 1528 0515-7420 [id number] co tx 30 mins 30 mins 11/06/08 1500 3230-7834 60 mins 60 mins Patient Therapeutic Exercise in the past 12 hrs: Exercises Other Exercise 11/06/08 1500 Pt. completed fine motor exercises manipulating small screws on board . Pt. able to complete with mild fatigue 9 hole peg test - Right-38 seconds, Left-26 seconds Liner Man strength- right 37.1 Left-65.7# Tip pinch-right 4# [...] indicated by 9 hole peg test and blacking machine operator/pinch strength. Plan/Intervention: Plan for next treatment session: [...] Rahman MD A - ananth Job ID: [id number] Document ID: [id number] cc: * Yvon Mcginnis MD - 11/06/2008 [...] We are looking to get him to [facility] subacute rehab facility next week. Yvon Mcginnis MD - Yvon Mcginnis MD A - mukul Job ID: [id number] Document ID: [id number] cc: * Rachael Sawyer - 11/05/2008 2209 [...] Treatment Duration Scheduled Treatment Time 11/05/08 1400 3334-7615 30 - 11/05/08 1100 11:30-1215 45 - [...] training Other Exercise 11/05/08 1400 gentle PROM LLE AAROM RLE - - IS 11/05/08 1100 gentle PROM LLE AAROM RLE - - IS Patient Therapeutic [...] final decision re' appts in [facility] next week. Dr Ward to call [facility] to talk to his physicians to see whether he needs to go there for the follow up... Plan/Intervention: Plan for next treatment session: Continue to do daily ther exer BLE's, w/c mobility, pressure reliefs and IS YARA JOHNSON, PT 11/05/2008 5:02 PM * Leonela Mulligan - 11/05/2008 1550 EDT Director Of Philanthropy Note Code Code: Pastoral Care Visit no f/u Director Of Philanthropy Note Raquel Tradition: Mandaeism ( ) Raquel Community: [facility] Reason for visit: Regular Visit [...] Treatment Duration Scheduled Treatment Time 11/05/08 1200 0623-9272 30 mins 30 mins Patient Therapeutic Exercise [...] 1151 EDT Social Work: Spoke with the Produce Runner at [facility], whoreports they are doing no admissions for the next few days and/or until further notice. Patient hasbeen clinically accepted; patient will not be admitted before his follow up appointments at [facility] early next week. CELSO Babin * [...] MD - Yvon Mcginnis MD A - mukul Job ID: [id number] Document ID: [id number] cc: * Yvon Mcginnis MD - 11/04/2008 [...] MD - Yvon Mcginnis MD A - mukul Job ID: [id number] Document ID: [id number] cc: * Yara Johnson, PT - 11/03/2008 1710 EDT PT Encounter Note Site: Inpatient Rehab Subjective: I just want to know more about the [facility] appointments next week. I don't know anything! Objective/Examination: Patient Treatment Times in the past 12 hrs: Treatment Time Treatment Duration Scheduled Treatment Time 11/03/08 1400 3049-9341 45 - 11/03/08 1100 6289-1013 30 - No data found. Patient Pain [...] same - - IS reminded 11/03/08 1100 gentle PROM LLE, AAROM RLE - - IS encouraged Patient Therapeutic [...] will need to connect w/ [facility] re' follow up appts and when spineprecautions and splints can be removed. Plan/Intervention: Plan for next treatment session: Continue daily exercise, PROM LLE, SCI education , w/c mobility skills YARA JOHNSON, STEPHANIE 11/03/2008 5:10 PM * Joseluis Bedoya - 11/03/2008 1542 EDT [facility] CLINICAL RECORD PSYCHOLOGICAL SERVICES - TREATMENT NOTE [...] program. PROVIDER. Robin Bedoya, Ph.D. Pager # [phone]. * Luz Roberts, OT - 11/03/2008 4950 EDT Rehabilitation Therapies Occupational Therapy Encounter Note Site: Inpatient Rehab Subjective: I couldn't do this the other day. regarding writing with L hand Objective: Patient Treatment Times in the past 12 hrs: Treatment Time Treatment Duration Scheduled Treatment Time 11/03/08 144 0018-9436 30 30 11/03/08899 900-1000 60 mins 60 [...] Preparation Safety Procedures Instruction in use of: 11/03/08 0900 Pt washed face and completed oral care [...] Mcginnis MD A - mlw Job ID: [id number] Document ID: [id number] cc: * Damaris Garcia RN - 11/02/2008 [...] for Coumadin dosing for DVT prophylaxis. Valerie Burton MD - Valerie Burton MD A - mlw Job ID: [id number] Document ID: [id number] cc: * Robyn Pope RN - 11/01/2008 2309 EDT Pt had trouble settling down this [...] Scheduled Treatment Time 11/01/08 1400 - 0 6634-7937 Team communication: w/ OT re: precautions for dependent logrolling and concern re: pressure relief in bed Assessment/Evaluation: Nothing to assess Plan/Intervention: Continue per Plan of Care MALI CALDERON, PT 11/01/2008 4:05 PM * Damaris Garcia RN - 11/01/2008 1441 EDT Pt A&Ox3. Denied pain at breakfast. Pt later c/o 08/27 pain @ 1345 and administered 1000mg Tylenol [...] lifted to commode.Moderate soft @ 1430. * Luz Roberts, OT - 11/01/2008 1211 EDT Rehabilitation Therapies [...] Burton MD P - mlw Job ID: [id number] Document ID: [id number] cc: * Yara Johnson, PT - 10/31/2008 4641 EDT Rehab Therapies Physical Therapy Progress Note [...] Treatment Provided Today: Treatment Times Treatment Time: 9941-4687 (10/31/081399) Treatment Duration: 60 (10/31/081399) Scheduled Treatment [...] meds, repostioning, resting in bed without brace (10/31/08 1100) Aggravating Factors: sitting up in w/c in theTLSO (10/31/08 1100) Therapeutic Exercise Exercises: sitting up in reclining w/c -theraband exer's, bicep curls- 4 lbs on left/2 1/2 on right10 x each (10/31/08 1400) Range of Motion: leg ROM limited to hips only, due to B ACL braces locked in extension, and casted ankles bilaterally (10/25/08 1200) Endurance training: Played ball this afternoon w/ beach ball sitting up in w/c (10/30/081399) Other Exercise: IS 500-750 ml x 5, cues on technique (10/30/081099) Therapeutic Activities Bed Mobility: 1-2 person assist w/ repositioning in bed and rolling side to side (10/31/081399) Transfers: dependent ceiling lift transfers w/ 1-2 person assist (10/31/081399) Ambulation: n/a (10/31/081399) Stairs: n/a (10/25/08 1200) Other Therapeutic Activity: [...] w/ tubing on the rims for better blacking machine operator (10/31/08 1400) Wheelchair Parts Management: dependent w/ elevating legrests, cues w/ brakes w/ brake extensions (10/31/081399) Other Wheelchair Training: discussed gloves for better blacking machine operator down the road (10/30/081099) Other Training or Therapies Home Management: Discussed vendor choice: Pt. feels it is Jenni Juan. OT to f/u with dgtr. to confirm. Educ. pt. and brother, Margarito, re: rehab goals, plan of care, d/c planning, healing process. Pt./family issued SCI pt. education binder. (10/27/081099) Patient Education Topics Patient Education Topics: Nature of injury (10/31/081399) Other :patient education topics : Positioning (10/31/081399) Education Method: Verbal;Handout (10/31/081099) Taught to: Patient (10/31/081399) Barriers to Learning: [...] home mobility equipment.with mod assist Partially met w/ Margarito assisting with ceiling lift transfers The [...] Therapy to be provided by PT or TERRAZZO SUPERVISOR Intensity: 30 minutes/session and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 Valerie Burton MD CHEMISTRY & BLOOD GAS ORDERA BLES Final Result Performing Organization Address [facility] Co de Phone Number [facility] [address] [place] [address] * (ABNORMAL) GLUCOSE, GLUCOMETER (10/24/2008 21:39 EDT) Glucose, Fingerstick 104(H) 70 - 100 mg/dl [facility] Proof Press Operator ID [id number] Test Performed by Nursing Services [facility] 10/24/2008 21:3 9 EDT 10/24/2008 22:12 EDT us Valerie Burton MD CHEMISTRY & BLOOD GAS ORDERA BLES Final Result Performing Organization Address [facility] de Phone Number [facility] [address] [place] [address] * GLUCOSE, GLUCOMETER (10/24/2008 16:45 EDT) Glucose, Fingerstick 97 70 - 100 mg/dl [facility] Proof Press Operator ID [id number] Test Performed by Nursing Services [facility] 10/24/2008 16:4 5 EDT 10/24/2008 16:57 EDT us Valerie Burton MD CHEMISTRY & BLOOD GAS ORDERA BLES Final Result Performing Organization Address [facility] de Phone Number [facility] [address] [place] [address] * (ABNORMAL) GLUCOSE, GLUCOMETER (10/24/2008 13:55 EDT) Glucose, Fingerstick 130(H) 70 - 100 mg/dl [facility] Proof Press Operator ID [id number] Test Performed by Nursing Services [facility] 10/24/2008 13:5 5 EDT 10/24/2008 16:47 EDT us Valerie Burton MD CHEMISTRY & BLOOD GAS ORDERA BLES Final Result Performing Organization Address [facility] Co de Phone Number [facility] [address] [place] [address] * INPATIENT ADD-ON (10/24/2008 11:10 EDT) Tests to be added 25 (OH) Vit.D2D3 [facility] Number for problems [id number] [facility] Accession number [id number] [facility] 10/24/2008 11:1 0 EDT 10/24/2008 11:16 EDT us Valerie Burton MD HEMATOLOGY & PF4 ORDERABLES Final Result Performing Organization Address [facility] de Phone Number [facility] [address] [place] [address] * (ABNORMAL) GLUCOSE, GLUCOMETER (10/24/2008 7:56 EDT) Pathologist [facility] [place] Glucose, Fingerstick 123(H) 70 - 100 mg/dl [facility] Proof Press Operator ID [id number] Test Performed by Nursing Services [facility] 10/24/2008 7:56 EDT 10/24/2008 8:09 EDT us Valerie Burton MD CHEMISTRY & BLOOD GAS ORDERA BLES Final Result Performing Organization Address [facility] de Phone Number [facility] [address] [place] [address] * (ABNORMAL) 25 [place] VITAMIN D2 D3 (10/24/2008 6:10 EDT) 25-Hydroxy D2 4.1Unit: ng/mL [facility] 25-Hydroxy D3 15Unit: ng/mL PR [facility] 25-Hydroxy D Total 19Unit: ng/mL Interpretatio n: 10-24 (mild to moderate deficiency) ? -- REFERENCE VALUE -- ? 25-HYDROXY D TOTAL (D2+D3) ? Optimum levels in the normal ? population are 25-80 ? Performed or Referred by: [facility] Dpt of Lab Med and Path, [address] ? [place] [address], Lab Dir: Hiram Fonseca III, ? MD ?(L) [facility] 10/24/2008 6:10 EDT 10/24/2008 6:51 EDT us Oracio Rahman MD CHEMISTRY & BLOOD GAS ORD ERABLES Final Result [facility] [address] [place] [address] * (ABNORMAL) URINE MICROSCOPIC ONLY (10/24/2008 6:10 EDT) WBC, UA 10 to 50 0 - 5 /HPF [facility] RBC, UA 5 to 10 0 - 5 /HPF [facility] Squam Epithel, UA Few(A) NS /HPF [facility] Renal Epithel, UA None seen NS /HPF [facility] Bacteria, UA Rare(A) NS /HPF [facility] Crystals, UA 1 to 10 /HPF [facility] Comment:Calcium Oxalate Hyaline Casts, UA Rare Hyaline /LPF [facility] Comment Microscopic results are unreliable on urines unrefrig >2hrs or refrig >8hrs. Performed at [facility], [place], [place] [facility] Mucus, UA Present [facility] 10/24/2008 6:10 EDT 10/24/2008 7:30 EDT Oracio Rahman MD URINALYSIS ORDERABLES Fin al Result Performing Organization Address [facility] Co de Phone Number [facility] [address] [place] [address] * (ABNORMAL) HEMAGRAM (10/24/2008 6:10 EDT) WBC 6.78 4.0 - 10.4 K/cmm [facility] RBC 3.52(L) 4.36 - 5.78 M/cmm [facility] Hemoglobin 10.2(L) 13.8 - 17.3 gm/dl [facility] HCT 31.1(L) 39.5 - 50.2 % [facility] MCV 88 81 - 95 fl [facility] MCH 29.0 27.6 - 33.0 pg [facility] MCHC 32.8 32.8 - 36.4 gm/dl [facility] PLT 526(H) 141 - 320 K/cmm [facility] RDW-CV 15.1(H) 11.8 - 14.1 % [facility] Blood specimen (specimen) 10/24/2008 6:10 EDT 10/24/2008 6:51 EDT Oracio Rahman MD HEMATOLOGY & PF4 ORDERABL ES Final Result Performing Organization Address [facility] Co de Phone Number [facility] [address] [place] [address] * CALCIUM (10/24/2008 6:10 EDT) Calcium 8.9 8.5 - 10.5 mg/dl [facility] Calculated Calcium 10.2 8.5 - 10.5 mg/dl [facility] Blood specimen (specimen) 10/24/2008 6:10 EDT 10/24/2008 6:51 EDT Oracio Rahman MD CHEMISTRY & BLOOD GAS ORD ERABLES Final Result Performing Organization Address City/[facility]/ZIP Co de Phone Number [facility] [address] [place] [address] * (ABNORMAL) GLUCOSE, SERUM (10/24/2008 6:10 EDT) Glucose, Serum 135(H) 70 - 100 mg/dl [facility] Blood specimen (specimen) 10/24/2008 6:10 EDT 10/24/2008 6:51 EDT Oracio Rahman MD CHEMISTRY & BLOOD GAS ORD ERABLES Final Result Performing Organization Address [facility] de Phone Number [facility] [address] [place] [address] * (ABNORMAL) CREATININE (10/24/2008 6:10 EDT) Creatinine 0.56(L) 0.7 - 1.5 mg/dl [facility] GFR, Calculated >60 ml/min/1.7 3m2 [facility] Blood specimen (specimen) 10/24/2008 6:10 EDT 10/24/2008 6:51 EDT Oracio Rahman MD CHEMISTRY & BLOOD GAS ORD ERABLES Final Result Performing Organization Address [facility] Co de Phone Number [facility] [address] [place] [address] * BUN (10/24/2008 6:10 EDT) BUN 18 10 - 26 mg/dl [facility] Blood specimen (specimen) 10/24/2008 6:10 EDT 10/24/2008 6:51 EDT Oracio Rahman MD CHEMISTRY & BLOOD GAS ORD ERABLES Final Result Performing Organization Address [facility] de Phone Number [facility] [address] [place] [address] * (ABNORMAL) ELECTROLYTES (10/24/2008 6:10 EDT) Sodium 134(L) 136 - 145 mEq/L [facility] Potassium 4.5 3.5 - 5.0 mEq/L [facility] Chloride 95(L) 96 - 110 mEq/L [facility] CO2 31 24 - 32 mEq/L [facility] Blood specimen (specimen) 10/24/2008 6:10 EDT 10/24/2008 6:51 EDT Oracio Rahman MD CHEMISTRY & BLOOD GAS ORD ERABLES Final Result Performing Organization Address [facility] de Phone Number [facility] [address] [place] [address] * (ABNORMAL) PHOSPHORUS (10/24/2008 6:10 EDT) Phosphorus 4.9(H) 2.5 - 4.5 mg/dl [facility] Blood specimen (specimen) 10/24/2008 6:10 EDT 10/24/2008 6:51 EDT Oracio Rahman MD CHEMISTRY & BLOOD GAS ORD ERABLES Final Result Performing Organization Address [facility] de Phone Number [facility] [address] [place] [address] * MAGNESIUM (10/24/2008 6:10 EDT) Magnesium 1.8 1.7 - 2.8 mg/dl [facility] Blood specimen (specimen) 10/24/2008 6:10 EDT 10/24/2008 6:51 EDT Oracio Rahman MD CHEMISTRY & BLOOD GAS ORD ERABLES Final Result Performing Organization Address [facility] Co de Phone Number [facility] [address] [place] [address] * PREALBUMIN (10/24/2008 6:10 EDT) Prealbumin 21 18 - 38 mg/dl [facility] Blood specimen (specimen) 10/24/2008 6:10 EDT 10/24/2008 6:51 EDT Oracio Rahman MD CHEMISTRY & BLOOD GAS ORD ERABLES Final Result Performing Organization Address [facility] de Phone Number [facility] [address] [place] [address] * (ABNORMAL) GLUCOSE, GLUCOMETER (10/23/2008 20:59 EDT) Glucose, Fingerstick 130(H) 70 - 100 mg/dl [facility] Proof Press Operator ID [id number] Test Performed by Nursing Services [facility] 10/23/2008 20:5 9 EDT 10/23/2008 22:24 EDT Valerie Burton MD CHEMISTRY & BLOOD GAS ORDERA BLES Final Result Performing Organization Address [facility] de Phone Number [facility] [address] [place] [address] * (ABNORMAL) GLUCOSE, GLUCOMETER (10/23/2008 17:00 EDT) Glucose, Fingerstick 117(H) 70 - 100 mg/dl [facility] Proof Press Operator ID [id number] Test Performed by Nursing Services [facility] 10/23/2008 17:0 0 EDT 10/23/2008 17:11 EDT Valerie Burton MD CHEMISTRY & BLOOD GAS ORDERA BLES Final Result [facility] [address] [place] [address] documented in this encounter Visit Diagnoses Diagnosis [...] on Mon10/23/08 at 1615, Until Discontinued, Routine Given 11/12/2008 [...] (2 times per day), First dose on [facility] 10/25/08 at 2100, Until Discontinued, Routine Given 10/26/2008 9:00 EDT 10 mg Given 10/25/2008 21:00 EDT 10 mg oxycodone (OXYCONTIN) CR tablet 10 mg 10 mg, oral, EVERY 12 HOURS (2 times per day), 1 dose, First dose on [place] 10/26/08 at 1000, Routine Given 10/26/2008 1 1:25 EDT 10 mg oxycodone (OXYCONTIN) CR tablet 20 mg 20 mg, oral, EVERY 12 HOURS (2 times per day), First dose (after last modification) on [place] 10/26/08 at 2100, Until Discontinued, Routine Given 10/31/2008 [...] mg/5 mL solution 1 dose, Starting on [place] 10/23/08 at 1606, Until [facility] 10/23/08 at 2016 oxycodone (ROXICODONE) immediate release tablet [...] on Mon11/02/08 at 2100, Until Discontinued, Routine Given 11/11/2008 21:00 EDT 7 5 mg Given 11/10/2008 20:17 EDT 75 mg Given 11/09/2008 21:00 EDT 75 mg warfarin (COUMADIN) tablet 4 mg 4 mg, oral, AT BEDTIME, First dose on Mon10/28/08 at 2100, Until Discontinued, Routine Given 10/31/2008 [...] may reflect changes made after this encounter. trazodone (DESYREL) 50 mg tablet Take 50 [...] RN) 0821 (Given - Provider: Nereida Kern, XANDER)1240 (Given - Provider: Nereida Kern, XANDER)1700 (Given - Provider: Tiffanie Hoang, XANDER) 0815 (Given - Provider: Mali Ford, XANDER)1259 (Given - Provider: Mali Ford, XANDER) bacitracin Zinc 500 unit/g ointment (CANCELED) topical (top), 2 TIMES DAILY, First dose on [place] 10/23/08 at 2100, Until Discontinued 0900 (Given - Provider: Ino Terry)2014 (Given - Provider: Abelardo Byrd RN) 0821 (Given - Provider: Nereida Kern, XANDER)2100 (Given - Provider: Tiffanie Hoang, XANDER) 0815 (Given - Provider: Mali Ford, XANEDR) Cholecalciferol (Vitamin D3) tablet 5,000 Units 5,000 Units, oral, DAILY, First dose on 10/27/08 at 1700, Until Discontinued, Routine 1708 (Given - Provider: Abelardo Byrd RN) 1700 (Given - Provider: Tiffanie Hoang XANDER) enoxaparin (LOVENOX) injection 40 mg 40 mg, subcutaneous, AT BEDTIME, First dose (after last modification) on Mon10/28/08 at 2100, Until Discontinued, Routine 2013 (Given - Provider: Abelardo Byrd RN) 2100 (Given - Provider: Tiffanie Hoang, XANDER) gabapentin (NEURONTIN) capsule 300 mg (CANCELED) 300 mg, oral, 3 TIMES DAILY, First dose on Mon10/23/08 at 1615, Until Discontinued, Routine 09 (Given - Provider: Ino Terry)1400 (Given - Provider: Ino Terry)2014 (Given - Provider: Abelardo Byrd RN) 08 (Given - Provider: Nereida Kern RN)141 (Given - Provider: Nereida Kern RN)2099 (Given - Provider: Tiffanie Hoang, XANDER) 0815 (Given - Provider: Mali Ford, XANDER) lisinopril (PRINIVIL, ZESTRIL) tablet 2.5 mg 2.5 mg, oral, DAILY, First dose (after last modification) on Mon11/07/08 at 0900, Until Discontinued, Routine 09 (Given - Provider: Ino Terry) 0822 (Given - Provider: Nereida Kern RN) 0815 (Given - Provider: Mali Ford, XANDER) metoprolol (LOPRESSOR) tablet 50 mg 50 mg, oral, 2 TIMES DAILY, First dose on Mon10/23/08 at 2100, Until Discontinued, Routine 09 (Given - Provider: Ino Terry)2015 (Given - Provider: Abelardo Byrd RN) 08 (Given - Provider: Nereida Kern RN)2099 (Given - Provider: Tiffanie Hoang RN) 0815 (Given - Provider: Mali Ford, XANDER) miconazole (MICOTIN) 2 % cream (CANCELED) topical (top), 2 TIMES DAILY, First dose on Mon10/23/08 at 2100, Until Discontinued 0900 (Given - Provider: Ino Terry)2016 (Given - Provider: Abelardo Byrd RN) 0822 (Given - Provider: Nereida Kern RN)2099 (Given - Provider: Tiffanie Hoang RN) 0815 (Given - Provider: Mali Ford, XANDER) Multivitamins with Minerals tablet 1 Tab (CANCELED) 1 Tablet, oral, DAILY, First dose on Mon10/23/08 at 1615, Until Discontinued, Routine 0900 (Given - Provider: Ino Terry) 0822 (Given - Provider: Nereida Kern RN) 0815 (Given - Provider: Mali Ford, XANDER) oxycodone (OXYCONTIN) CR tablet 30 mg 30 mg, oral, EVERY 12 HOURS (2 times per day), First dose (after last modification) on Mon10/31/08 at 1800, Until Discontinued, Routine 0717 (Given - Provider: Brenna Alvarado, XANDER)1708 (Given - Provider: Abelardo Byrd RN) 0455 (Canceled Entry - Provider: Brenna Alvarado RN)0457 (Given - Provider: Brenna Alvarado, XANDER)1800 (Given - Provider: Tiffanie Hoang RN) 0600 (Given - Provider: Saritha Romo) trazodone [...] Alvarado RN) 1318 (Given - Provider: Mali Ford, XANDER) aluminum & magnesium hydroxide-simethicone (MYLANTA-DS) 400-400-40 mg/5 mL suspension 30 mL 30 mL, oral, EVERY 4 HOURS PRN, Starting on Mon10/23/08 at 1551, Until Mon11/12/08 at 1644, Indigestion, Routine bisacodyl (DULCOLAX) suppository 10 mg 10 mg, rectal, DAILY PRN, Starting on Mon10/23/08 at 1551, Until Mon11/12/08 at 1644, Constipation, Routine 0923 (Given - Provider: Ino Terry) docusate sodium (COLACE) capsule 200 mg 200 mg, oral, 2 TIMES DAILY PRN, Starting on Mon10/23/08 at 1551, Until Mon11/12/08 at 1644, Constipation, Routine oxycodone (ROXICODONE) immediate release tablet 5-15 mg 5-15 mg, oral, EVERY 3 HOURS PRN, Starting on Mon10/24/08 at 1053, Until Mon11/12/08 at 1644, Pain, Routine 0055 (Given - Provider: Brenna Alvarado, XANDER)0454 (Given - Provider: Brenna Alvarado, XANDER)1240 (Given - Provider: Nereida Kern, XANDER)1553 (Given - Provider: Tiffanie Hoang, XANDER)2317 (Given - Provider: Tiffanie Hoang, XANDER) 1318 (Given - Provider: Mali Ford, XANDER) senna (SENOKOT) tablet 1-3 Tab 1-3 Tablet, oral, DAILY PRN, Starting on Mon10/23/08 at 1551, [...] Date PT EVALUATION AND TREAT 1 10/23/2008 COLLEGE COUNSELOR Count Last Ordered Date First Orde red Date COLLEGE COUNSELOR CLINICAL SWALLOW EVALUATION AND TREAT 1 10/23/2008 COLLEGE COUNSELOR COMMUNICATION EVALUATION AND TREAT 1 Admission Count Last Ordered Date First Orde red Date NOTIFY PPS OF DISCHARGE COMPLETE 1 11/13/19 09 NOTIFY PPS OF ROOM CHANGE COMPLETE 3 200810/30/2008 ADMIT TO INPATIENT 1 10/23/2008 ADMITTING CONDITION 1 10/23/2008 NON-TEACHING SERVICE 1 10/23/2008 Precaution Count Last Ordered Date First Orde red Date ORTHOPEDIC SPINAL PRECAUTIONS 1 11/06/2008 PRECAUTIONS: SURGERY/BRACE 1 10/23/2008 Consult to Social Work Count Last Ordered Date First Ordered Date CONSULT SOCIAL WORK 1 10/23/2008 documented in this encounter Care Teams Wholesale Representative Relationship Specialty Start Date End Date Unknown, Provider, PCP - General 10/23/08 documented as of this encounter
--- OUTSIDE RECORDS SUMMARY | 2024-03-25 16:50 | XMS_ITS | Encounter Summary ---
Author Organization [facility] [place] [address] Care Team Providers Care Billing Machine Operator Name Role Phone Yen Diamond APRN Primary Care Provider [phone] Encounter Details Date Type Department Care Team [...] on filedocumented in this encounter Care Teams Billing Machine Operator Relationship Specialty Start Date End Date Yen Diamond APRN [address] [place] [address] PCP - General Family Medicine 10/17/22 documented as of this encounter
--- OUTSIDE RECORDS SUMMARY | 2024-03-25 16:50 | XMS_ITS | Encounter Summary ---
Author Organization [facility] Address [facility] [place] [address] Care Team Providers Care Shim Plug Cutter Name Role Phone LoboYen APRN Primary Care Provider [phone] Reason for Referral * Diagnostic Test (Routine) - Closed Specialty Diagnoses / Procedures Referred By Contac t Referred To Contact Diagnoses Abdominal aortic aneurysm (AAA) without rupture, unspecified part Procedures AAA Duplex, Complete/Bilateral Tisha Cardona MD [facility] [place] [address] [facility] [address] [address] Referral ID Status Reason Start Date Expiration Date V isits Requested Visits Authorized [id number] Closed Specialty Service Requested 03/24/2023 03/23/2024 1 1 Encounter Details Date Type Department Care Team (Late st Contact Info) Description 02/24/2023 3:30 PM EST Office Visit [place] [address] Tisha Cardona MD [facility] [place] [address] Abdominal aortic aneurysm (AAA) without rupture, unspecified [...] from the original note were not included. [facility] [place] [id number] Name: Teo Arenas Date: 02/24/2023 Time: 3:21 [...] KNEE ARTHROPLASTY performed by MACRINA ARGUELLES at [facility] MAIN OR RETINAL LASER SURGERY Right [...] of Vascular Surgery [facility] [place] [address] e: [email or web address] o: [phone] F: [phone] 02/24/2023 3:21 PM documented in this encounter Plan of Treatment Not on file documented as of this encounter Visit Diagnoses Diagnosis Abdominal aortic aneurysm (AAA) without rupture, unspecified part documented in this encounter Care Teams Shim Plug Cutter Relationship Specialty Start Date End Date Yen Diamond APRN [address] [place] [address] PCP - General Family Medicine 10/17/22 documented as of this encounter
--- OUTSIDE RECORDS SUMMARY | 2024-03-25 16:50 | XMS_ITS | Encounter Summary ---
Author Organization [facility] [place] [address] Care Team Providers Care Campus President Name Role Phone Martha Dempsey MD Primary Care Provider [phone] Reason for Visit * Reason Comments Procedure PRP for BRVO OD Encounter Details Date Type Department Care Team (Latest Contact Info) Description 08/03/2018 12:15 PM EDT Procedure [place] [address] Constanza Toro MD Branch retinal vein occlusion of right eye [...] neovascularization documented in this encounter Care Teams Campus President Relationship Specialty Start Date End Date Martha Dempsey MD [address] [place] [address] PCP - General 02/09/10 10/16/22 documented as of this encounter
--- OUTSIDE RECORDS SUMMARY | 2024-03-25 16:50 | XMS_ITS | Encounter Summary ---
[place] [address] Care Team Providers Care Microwave Supervisor Name Role Phone Yen Diamond APRN Primary Care Provider [phone] Reason for Referral * Consultation (Routine) - Canceled Specialty Diagnoses / Procedures Referred By Samina t Referred To Contact Vascular Surgery Diagnoses Fatty liver Elevated alkaline phosphatase level Ascending aorta dilation Yen Diamond APRN [address] [place] [address] [facility] [address] [place] [address] Referral ID Status Reason Start Date Expiration Date Visits Requested Visits Authorized [id number] Canceled Consult, Test & Treat PCP Updated and/or Approved 10/17/2022 10/17/2023 12 12 Encounter Details Date Type Department Care Team (Latest Contact Info) Description 10/17/2022 Transcribe Orders eDH Incoming Referrals [phone] Yen Diamond APRN [address] [place] [address] Fatty liver; Elevated alkaline phosphatase [...] ectasia documented in this encounter Care Teams Microwave Supervisor Relationship Specialty Start Date End Date Yen Diamond APRN [address] [place] [address] PCP - General Family Medicine 10/17/22 documented as of this encounter
--- OUTSIDE RECORDS SUMMARY | 2024-03-25 16:50 | XMS_ITS | Encounter Summary ---
Author Organization [facility] [place] [address] Care Team Providers Care Preventive Medicine Officer Name Role Phone Martha Dempsey MD Primary Care Provider [phone] Reason for Visit * Reason Comments Retinal Vein Occlusion BRVO OD (stable) Encounter Details Date Type Department Care Team (Latest Contact Info) Description 07/26/2018 12:30 PM EDT Office [place] [address] Constanza Toro MD Branch retinal vein occlusion [...] Toro MD OPHTHALMOLOGY SERVICES ORDERABLES * OCT [id number]-[id number] EYES (07/26/2018 1:45 PM EDT) Anatomical Region [...] degeneration documented in this encounter Care Teams Preventive Medicine Officer Relationship Specialty Start Date End Date Martha Dempsey MD [address] [place] [address] PCP - General 02/09/10 10/16/22 documented as of this encounter
--- OUTSIDE RECORDS SUMMARY | 2024-03-25 16:50 | XMS_ITS | Encounter Summary ---
Author Organization [facility] [place] [address] Care Team Providers Care Goldsmith Apprentice Name Role Phone Martha Dempsey MD Primary Care Provider [phone] Encounter Details Date Type Department Care Team (Late st Contact Info) Description 05/23/2014 1:00 PM EST Office [place] [id number] Neurogenic bladder Social History Tobacco Use Types [...] NOS documented in this encounter Care Teams Goldsmith Apprentice Relationship Specialty Start Date End Date Martha Dempsey MD [address] [place] [address] PCP - General 02/09/10 10/16/22 documented as of this encounter
--- OUTSIDE RECORDS SUMMARY | 2024-03-25 16:50 | XMS_ITS | Encounter Summary ---
Author Organization [facility] Address [facility] [place] [address] Care Team Providers Care In Home Sales Consultant Name Role Phone Martha Dempsey MD Primary Care Provider [phone] Encounter Details Date Type Department Care Team (Late st Contact Info) Description 08/23/2016 4:30 PM EDT - 08/23/2016 11:59 PM EDT Hospital Encounter XRay at [address] [place] [address] Shea Asencio APRN [facility] [place] [address] S/P left knee arthroscopy Discharge Disposition: Home [...] status documented in this encounter Care Teams In Home Sales Consultant Relationship Specialty Start Date End Date Martha Dempsey MD [address] [place] [address] PCP - General 02/09/10 10/16/22 documented as of this encounter
--- OUTSIDE RECORDS SUMMARY | 2024-03-25 16:50 | XMS_ITS | Encounter Summary ---
Author Organization [facility] Address [facility] [place] [address] Care Team Providers Care Dry Cell And Battery Assembler Name Role Phone Martha Dempsey MD Primary Care Provider [phone] Encounter Details Date Type Department Care Team (Late st Contact Info) Description 07/04/2016 2:20 PM EDT [place] [address] Shea Silva MD [facility] [place] [address] Neurogenic bladder Social History Tobacco Use Types [...] NOS documented in this encounter Care Teams Dry Cell And Battery Assembler Relationship Specialty Start Date End Date Martha Dempsey MD [address] [place] [address] PCP - General 02/09/10 10/16/22 documented as of this encounter
--- OUTSIDE RECORDS SUMMARY | 2024-03-25 16:50 | XMS_ITS | Encounter Summary ---
Author Organization [place] [address] Care Team Providers Care Weigher And Charger Name Role Phone Martha Dempsey MD Primary Care Provider [phone] Reason for Visit * Reason Comments Retinal Vein Occlusion Encounter Details Date Type Department Care Team (Late st Contact Info) Description 09/04/2018 1:15 PM EDT Office [place] [address] Constanza Toro MD BRVO and NVE s/p [...] documented in this encounter Results * OCT Plahzi-FC-[id number] EYES (09/04/2018 2:34 PM EDT) Anatomical Region [...] 06/2018) documented in this encounter Care Teams Weigher And Charger Relationship Specialty Start Date End Date Martha Dempsey MD [address] [place] [address] PCP - General 02/09/10 10/16/22 documented as of this encounter
--- OUTSIDE RECORDS SUMMARY | 2024-03-25 16:50 | XMS_ITS | Encounter Summary ---
Author Organization [facility] Address [facility] [place] [address] Care Team Providers Care Pile Driver Name Role Phone Martha Dempsey MD Primary Care Provider Encounter Details Date Type Department Care Team (Latest Contact Info) Description 06/21/2013 9:54 AM EDT - 06/21/2013 11:59 PM EDT Hospital Encounter XRay at [address] [place] [address] H/O total knee replacement, left Social History [...] KNEE 1 OR 2 VIEWS/LEFT [facility] June 21, 2012. Technique [...] KNEE 1 OR 2 VIEWS/LEFT [facility] June 21, 2012. Technique [...] left documented in this encounter Care Teams Pile Driver Relationship Specialty Start Date End Date Martha Dempsey MD [address] [place] [address] PCP - General 02/09/10 10/16/22 documented as of this encounter
--- OUTSIDE RECORDS SUMMARY | 2024-03-25 16:50 | XMS_ITS | Encounter Summary ---
Author Organization [facility] Address [facility] [place] [address] Care Team Providers Care Health Management Consultant Name Role Phone Yen Diamond APRN Primary Care Provider [phone] Reason for Visit * Consultation (Routine) - Closed Specialty Diagnoses / Procedures Referred By Samina donahue Referred To Contact Gastroenterology Diagnoses Chronic cutaneous venous stasis ulcer Fatty liver Elevated alkaline phosphatase level liver- fatty liver elevated alkaline phosphatase Yen Diamond APRN [address] [place] [address] [facility] [address] Referral ID Status Reason Start Date Expiration Date V isits Requested Visits Authorized [id number] Closed Consult, Test & Treat PCP Updated and/or Approved 10/18/2022 10/18/2023 12 12 Encounter Details Date Type Department Care Team (Late st Contact Info) Description 05/05/2023 1:00 PM EST Office [place] [address] [facility] [place] [address] HERRERA (nonalcoholic steatohepatitis); Hepatic fibrosis [...] Vitals: 05/05/23 1259 BP: 147/73 BP Location ([facility]): Right arm Patient Position: Sitting BP Cuff Sizes: Large Adult (32-43 cm) Pulse: 76 Weight: 105.7 kg (233 lb) Height: 175.3 cm (5' 9) Body mass index is 34.41 kg/m??. Alert, and oriented. Easily converses with this technical publications writer. Comfortable wob in ra. Skin and [...] ruq pain, CBD 1.2 cm-? If from skilled nursing opioid use. IMPRESSION/PLAN: Teo Arenas is a [...] but do wonder if he has had fpc/chronic elevation of liver tests. He has several [...] APRN MSN Section of Gastroenterology [place] [address] Cc: Yen Diamond APRN documented in this encounter Procedure Notes * Mayelin Perez APRN - 05/05/2023 1:00 PM ESTAssociated Order(s): FIBROSCAN Procedure(s): FIBROSCAN Pre-Procedure Diagnose(s): HERRERA (nonalcoholic steatohepatitis); Hepatic fibrosis [facility] Liver Fibrosis Assessment Report Indication: Elevated LFTs Performed by: Mayelin Perez APRN Procedure: Vibration Controlled Transient Elastography (VCTE) or Fibroscan Ralston Protocol: Patient's identity, procedure and site were [...] Procedure Name Priority Date/Time Associated Diagnosis Comments [id number] Routine 05/05/2023 1:00 PM EST HERRERA (nonalcoholic steatohepatitis) Hepatic fibrosis documented in this encounter Results * Tissue transglutaminase, IgA (05/05/2023 1:58 PM EST) TTG IgA Ab 0.6 <=10.0 u/ml [facility] Comment: Negative: ??<7 units/mL Indeterminate: 7-10 units/mL Positive: ??>10 units/mL Blood 05/05/2023 1:58 PM EST 05/08/2023 7:17 AM EST Narrative Resulting Agency Comment Spec In Lab Mayelin Perez MACHINE LACER IMMUNOLOGY ORDERAB LES [facility] [address] * Mitochondrial Antibody, M2 (05/05/2023 1:58 PM EST) Mitochon Ab (JULY) <0.1 <0.1 (Negative) U [facility] Comment: Test Performed by: [facility] - [address] [address] B2B Sales Executive: Laron Perez M.D. Ph.D.; CLIA# [id number] Blood 05/05/2023 1:58 PM EST 05/08/2023 6:14 AM EST Narrative Resulting Agency Comment Spec In Lab Mayelin Fonsecaan MACHINE LACER LAB SEND OUT ORDER CLAUDIA Performing Organization Address [facility]/ZIP Co de Phone Number [facility] [address] * (ABNORMAL) Iron and TIBC (05/05/2023 1:58 PM EST) Iron 69 45 - 160 mcg/dL [facility] TIBC 358 250 - 450 mcg/dL [facility] Iron Saturation 19(L) 20 - 50 % [facility] Blood 05/05/2023 1:58 PM EST 05/05/2023 2:18 PM EST Narrative Resulting Agency Comment Spec In Lab Mayelin Yuan Chris MACHINE LACER CHEMISTRY ORDERABL ES Performing Organization Address [facility] Co de Phone Number [facility] [address] * IgG (05/05/2023 1:58 PM EST) Immunoglobulin G 1,429 700 - 1,600 mg/dL [facility] Comment: Pediatric Reference Intervals obtained from the Caliper Reference Interval project. http://www.[employer].ca/caliperproject/index.html Blood 05/05/2023 1:58 PM EST 05/05/2023 2:18 PM EST Narrative Resulting Agency Comment Spec In Lab Mayelin Yuan Chris MACHINE LACER CHEMISTRY ORDERABL ES Performing Organization Address [facility] Co de Phone Number [facility] [address] * Hepatitis C Antibody (05/05/2023 1:58 PM EST) Hepatitis C Antibody Negative Negative [facility] Blood 05/05/2023 1:58 PM EST 05/05/2023 2:18 PM EST Narrative Resulting Agency Comment Spec In Lab Mayelin Kwabena Perez MACHINE LACER CHEMISTRY ORDERABL ES Performing Organization Address [facility] Co de Phone Number [facility] [address] * Hepatitis B Surface Antigen (05/05/2023 1:58 PM EST) Hepatitis B Surface Antigen Negative Negative [facility] Blood 05/05/2023 1:58 PM EST 05/05/2023 2:18 PM EST Narrative Resulting Agency Comment Spec In Lab Mayelin Perez MACHINE LACER CHEMISTRY ORDERABL ES Performing Organization Address [facility] Co de Phone Number [facility] [address] * Hepatitis B Surface Antibody (05/05/2023 1:58 PM EST) Hepatitis B Surface Antibody, Quantitative <3.5 IU/L [facility] Comment: HepB Surface Ab Quant: Unvaccinated: < 8.5 IU/L Vaccinated: >= 11.5 IU/L Hepatitis B Surface Antibody Negative [facility] Comment: Patient is presumed to be not vaccinated or immune to HBV infection. Expected Results: Vaccinated: Positive Unvaccinated: Negative Blood 05/05/2023 1:58 PM EST 05/05/2023 2:18 PM EST Narrative Resulting Agency Comment Spec In Lab Mayelin Perez MACHINE LACER CHEMISTRY ORDERABL ES Performing Organization Address [facility] Co de Phone Number [facility] [address] * Hepatitis B Core Antibody, Total (05/05/2023 1:58 PM EST) Hepatitis B Core Antibody Negative Negative [facility] Blood 05/05/2023 1:58 PM EST 05/05/2023 2:18 PM EST Narrative Resulting Agency Comment Spec In Lab Mayelin Perez MACHINE LACER CHEMISTRY ORDERABL ES Performing Organization Address [facility] Co de Phone Number [facility] [address] * Ferritin (05/05/2023 1:58 PM EST) Ferritin 354 31 - 409 ng/mL [facility] Comment: Please note that as of 02/22/2023, the reference intervals for Ferritin have been updated. Blood 05/05/2023 1:58 PM EST 05/05/2023 2:18 PM EST Narrative Resulting Agency Comment Spec In Lab Mayelin Perez APRN CHEMISTRY ORDERABL ES Performing Organization Address [facility] Co de Phone Number [facility] [address] * Smooth Muscle Antibody (05/05/2023 1:58 PM EST) Sm Muscle Ab (JULY) Negative Negative [facility] Comment: Negative: No further testing will be performed ADDITIONAL INFORMATION This test was developed and its performance characteristics determined by [facility] in a manner consistent with CLIA requirements. This test has not been cleared or approved by the U.S. Food and Drug Administration. Test Performed by: [facility] - [id number] [place] [address] B2B Sales Executive: Laron Perez M.D. Ph.D.; CLIA# [id number] Blood 05/05/2023 1:58 PM EST 05/08/2023 6:14 AM EST Narrative Resulting Agency Comment Spec In Lab Mayelin Perez APRN LAB SEND OUT ORDER CLAUDIA Performing Organization Address [facility] Co de Phone Number [facility] [address] * WAQAS Antibody Screen (05/05/2023 1:58 PM EST) WAQAS Ab Screen Negative Negative [facility] Comment: This antinuclear antibody (WAQAS) screen is a qualitative test performed using a fluoroenzyme immunoassay on the BioAxone Therapeutic 250 analyzer. This screen is designed to [...] performed by the Special Chemistry Laboratory at [facility] This change in testing location is associated with a change is testing method and reference intervals. Please review the results of this test in association with the posted reference intervals. dsDNA Ab 1.2 <=15.0 IU/mL [facility] Comment: <10 negative 10-15 equivocal >15 positive This dsDNA antibody result was generated using a fluoroenzyme immunoassay on the BioAxone Therapeutic 250 analyzer. This quantitative test is designed to detect IgG antibodies directed against double stranded DNA in human serum. The presence of antibodies that recognize dsDNA is a highly specific marker for systemic lupus erythematosus. Please note that as of 01/11/2022 that this testing is performed by the [facility] at [facility] This change in testing location is associated with a change is testing method and reference intervals. Please review the results of this test in association with the posted reference intervals. Blood 05/05/2023 1:58 PM EST 05/08/2023 7:17 AM EST Narrative Resulting Agency Comment Spec In Lab Mayelin Perez APRN LAB SEND OUT ORDER CLAUDIA Performing Organization Address [facility] de Phone Number [facility] [address] * A1AT Serum Concentration (05/05/2023 1:58 PM EST) A1AT 149 90 - 200 mg/dL [facility] Blood 05/05/2023 1:58 PM EST 05/05/2023 2:18 PM EST Narrative Resulting Agency Comment Spec In Lab Mayelin Perez APRN CHEMISTRY ORDERABL ES Performing Organization Address [facility] de Phone Number [facility] [address] * Prothrombin Time (05/05/2023 1:58 PM EST) Prothrombin Time 12.1 9.4 - 12.5 sec [facility] International Normalization Ratio 1.1 [facility] Comment: An INR <2.0 indicates adequate [...] Agency Comment Spec In Lab Mayelin Perez MACHINE LACER HEMATOLOGY ORDERAB LES [facility] [address] * (ABNORMAL) Comprehensive metabolic panel (non-fasting) (05/05/2023 1:58 PM EST) Glucose 85 65 - 199 mg/dL [facility] Comment:Diabetes: >=200 mg/d L plus symptoms Blood Urea Nitrogen 20 10 - 20 mg/dL [facility] Creatinine 0.78(L) 0.80 - 1.50 mg/dL [facility] Sodium 140 135 - 145 mmol/L [facility] Potassium 4.4 3.5 - 5.0 mmol/L [facility] Comment: Please note: ??Patients with WBC >100,000 may have falsely elevated Potassium levels. ??For accurate Potassium quantification in these patients send serum separator tube (gold top) for subsequent determinations. ??Contact the Clinical Chemistry Laboratory if there are any questions. Chloride 102 98 - 107 mmol/L [facility] Carbon Dioxide 27 22 - 31 mmol/L [facility] Anion Gap 11 5 - 15 mmol/L [facility] Calcium 10.4 8.5 - 10.5 mg/dL [facility] Protein, Total 8.1(H) 6.1 - 8.0 g/dL [facility] Albumin 4.8 3.2 - 5.2 g/dL [facility] Aspartate Aminotransferase 21 0 - 39 unit/L [facility] Alanine Aminotransferase 24 0 - 55 unit/L [facility] Alkaline Phosphatase 106 40 - 130 unit/L [facility] Bilirubin, Total <0.2(L) 0.2 - 1.3 mg/dL [facility] Est Glomerular Filtration Rate 98 >=60 mL/min/1. 73 m?? [facility] Comment: This patient's estimated GFR was [...] Lab Mayelin Perez APRN CHEMISTRY ORDERABL ES Performing Organization Address City/State/[facility] Co de Phone Number [facility] [place] [address] * [id number] (05/05/2023 1:00 PM EST) Narrative Mayelin Perez APRN - 05/05/2023 1:00 PM EST Mayelin Perez APRN ? 05/05/2023 ??2:03 PM [facility] Liver Fibrosis Assessment Report Indication: ?? Elevated LFTs Performed by: ??Mayelin Perez APRN Procedure: Vibration Controlled Transient Elastography (VCTE) or Fibroscan Ralston Protocol: Patient's identity, procedure and site were [...] alcohol documented in this encounter Care Teams Health Management Consultant Relationship Specialty Start Date End Date Yen Diamond APRN [address] [place] [address] PCP - General Family Medicine 10/17/22 documented as of this encounter
--- OUTSIDE RECORDS SUMMARY | 2024-03-25 16:50 | XMS_ITS | Encounter Summary ---
Author Organization [facility] [place] [address] Care Team Providers Care Commodity Director Name Role Phone Yen Diamond APRN Primary Care Provider [phone] Encounter Details Date Type Department Care Team [...] on filedocumented in this encounter Care Teams Commodity Director Relationship Specialty Start Date End Date Yen Diamond APRN [address] [place] [address] PCP - General Family Medicine 10/17/22 documented as of this encounter
--- OUTSIDE RECORDS SUMMARY | 2024-03-25 16:50 | XMS_ITS | Clinical Summary ---
Author Organization [facility] Address [facility] [place] [address] Care Team Providers Care Fire Technician Name Role Phone Yen Diamond APRN Primary Care Provider [phone] Allergies No known active allergies Medications Medication [...] year) with FIT yearly 1955 Sigmoidoscopy 1955 Tetanus/Diphtheria/Pertussis Vaccines (1 - Tdap) 1976 Pneumoccocal Vaccine: 65+ (1 of 1 - PCV) 2007 Zoster vaccine (1 of 2) 2007 Advance Directive 2012 Covid-19 Vaccine (1 - 2023-2 5 season) 2023 Influenza (Flu) vaccine (1 o f 1 - Influenza standard series) 11/19/2023 Diabetes Screening (HgbA1C o r Glucose) 05/05/2026 05/05/2023, 02/24/2011, 02/23/2011, Additional history exists AAA Screen Completed 02/24/2023 Hepatitis C Screening Completed 05/05/2023 Medical Devices Implanted Type Area Principal Cyber Engineer Device Identifier Shelf Expiration Date Model / Serial / Lot Cement,Bne,Cmw 1,Gnta,40gm ([id number]) - [id number] Implanted:Qty: 1 on 02/22/[address] [facility] IMPLANTS DO NOT USE Depuy Learning And Development Officer - [id number] 0 / / [id number] Patella,Rnd Sml,35mm ([id number]) (Autoreq) - [id number] Implanted:Qty: 1 on 02/22/[address] [facility] IMPLANTS DO NOT USE Depuy Learning And Development Officer - 3527 [id number] / / [id number] Grandy,Pfc Sigma,Tc3,Fem, Lt,3 ([id number]) (Autoreq) - [id number] Implanted:Qty: 1 on 02/22/[address] [facility] IMPLANTS DO NOT USE Depuy Learning And Development Officer - 3527 [id number] / / [id number] Component,Tibl ,3,69.6x45.8mm ([id number]) (Autoreq) - [id number] Implanted:Qty: 1 on 02/22/[address] [facility] IMPLANTS DO NOT USE Depuy Learning And Development Officer - 3527 0 / / [id number] Insert,Tibl,Tc 3,R-P,Sz3,10.0 ([id number]) (Autoreq) - [id number] Implanted:Qty: 1 on 02/22/[address] [facility] IMPLANTS MEDICAL - [id number] / / [id number] Procedures Procedure Name Priority Date/Time Associated Diagnosis Comments CT SCAN (SCAN) 01/05/2024 12:00 AM EDT HEPATITIS C ANTIBODY Routine 05/05/2023 1:58 PM EST HERRERA (nonalcoholic steatohepatitis) Hepatic fibrosis COMPREHENSIVE METABOLIC PANEL Routine 05/05/2023 1:58 PM EST HERRERA (nonalcoholic steatohepatitis) Hepatic fibrosis CT ANGIOGRAM ABDOMEN AND PELVIS W CONTRAST Routine 02/24/2023 1:38 PM EST Infrarenal abdominal aortic aneurysm (AAA) without rupture from Last 3 Months or Most Recently Relevant to Health Maintenance Results * Scan Doc: CT Scan (01/05/2024 12:00 AM EDT) Anatomical Region Laterality Modality Other Narrative 01/05/2024 12:00 AM EDT Ordered by an unspecified provider. Scanning Provider MEDIA MGR SCAN EXT O RDR/RSLT * Hepatitis C Antibody (05/05/2023 1:58 PM EST) Hepatitis C Antibody Negative Negative [facility] Blood 05/05/2023 1:58 PM EST 05/05/2023 2:18 PM EST Narrative Resulting Agency Comment Spec In Lab Mayelin Perez GOVERNMENT RELATIONS MANAGER CHEMISTRY ORDERABL ES [facility] [place] [address] * (ABNORMAL) Comprehensive metabolic panel (non-fasting) (05/05/2023 1:58 PM EST) Glucose 85 65 - 199 mg/dL [facility] Comment:Diabetes: >=200 mg/d L plus symptoms Blood Urea Nitrogen 20 10 - 20 mg/dL [facility] Creatinine 0.78(L) 0.80 - 1.50 mg/dL [facility] Sodium 140 135 - 145 mmol/L [facility] Potassium 4.4 3.5 - 5.0 mmol/L [facility] Comment: Please note: ??Patients with WBC >100,000 may have falsely elevated Potassium levels. ??For accurate Potassium quantification in these patients send serum separator tube (gold top) for subsequent determinations. ??Contact the Clinical Chemistry Laboratory if there are any questions. Chloride 102 98 - 107 mmol/L [facility] Carbon Dioxide 27 22 - 31 mmol/L [facility] Anion Gap 11 5 - 15 mmol/L [facility] Calcium 10.4 8.5 - 10.5 mg/dL [facility] Protein, Total 8.1(H) 6.1 - 8.0 g/dL [facility] Albumin 4.8 3.2 - 5.2 g/dL [facility] Aspartate Aminotransferase 21 0 - 39 unit/L [facility] Alanine Aminotransferase 24 0 - 55 unit/L [facility] Alkaline Phosphatase 106 40 - 130 unit/L [facility] Bilirubin, Total <0.2(L) 0.2 - 1.3 mg/dL [facility] Est Glomerular Filtration Rate 98 >=60 mL/min/1. 73 m?? [facility] Comment: This patient's estimated [...] Lab Mayelin Perez APRN CHEMISTRY ORDERABL ES [facility] [place] [address] * CT Angiogram Abdomen & Pelvis w [...] who have questions please contact the health district manager primary care sales that requested your imaging first. ? Electronically signed by: Helena Ortiz MD, [facility] ([phone]), at 02/24/2023 4:36 PM Narrative 02/24/2023 4:36 [...] administration of contrast. Administered 71.0 ml of ESQXFAYPI970.00 mg/ml. Maximum intensity projection (MIP) were reformatted. [...] narrowing L3-4. There is disc space narrowing [id number] and L1-L2. There is multilevel degenerative disc [...] patients who have questions please contactthe health district manager primary care sales that requested your imaging first. Electronically signed by: Helena Ortiz MD, [facility]([phone]), at 02/24/2023 4:36 PM Tisha Cardona MD [...] is based on Patients wishes. Care Teams Fire Technician Relationship Specialty Start Date End Date Yen Diamond APRN [address] [place] [address] PCP - General Family Medicine 10/17/22
--- OUTSIDE RECORDS SUMMARY | 2024-03-25 16:50 | XMS_ITS | Encounter Summary ---
Author Organization [facility] Address [facility] [place] [address] Care Team Providers Care Federal Court Of Appeals Law Clerk Name Role Phone Martha Dempsey MD Primary Care Provider [phone] Encounter Details Date Type Department Care Team (Latest Contact Info) Description 07/13/2015 12:35 PM EDT - 07/13/2015 11:59 PM EDT Hospital Encounter XRay at [address] [place] [address] Javier Brown MD [facility] [place] [address] History of total knee arthroplasty, left Discharge [...] findings, Wilber Jensen at 07/13/2015 5:19 PM Javier Brown MD IMG DX ORDERABLES documented in this encounter Visit Diagnoses Diagnosis History of total knee arthroplasty, left documented in this encounter Care Teams Federal Court Of [employer] Law Clerk Relationship Specialty Start Date End Date Martha Dempsey MD [address] [place] [address] PCP - General 02/09/10 10/16/22 documented as of this encounter
--- OUTSIDE RECORDS SUMMARY | 2024-03-25 16:50 | XMS_ITS | Encounter Summary ---
Author Organization [facility] Address [facility] [place] [address] Care Team Providers Care Otr Refrigerated Cdl Truck Driver Name Role Phone Martha Dempsey MD Primary Care Provider [phone] Reason for Visit * Reason Comments Aftercare Of Tjr Left TKA 02/22/11 Encounter Details Date Type Department Care Team (Late st Contact Info) Description 08/23/2016 5:30 PM EDT [place] [address] Shea Asencio APRN [facility] DR [place] [address] History of total knee arthroplasty, left Social [...] encounter Progress Notes * Elif Shea S, [employer] BI CONSULTANT - 08/23/2016 5:30 PM EDT Arthroplasty/Orthopaedic History: [...] infections or hospitalizations. Continues to ambulate with [place] crutches and use an AFO for left-sided [...] subsidence, loosening, or periprosthetic complication. Questionnaire Responses: [facility] Surgical Postop Visit 06/21/2013 PROMIS-10 General Health [...] left documented in this encounter Care Teams Otr Refrigerated Cdl Truck Driver Relationship Specialty Start Date End Date Martha Dempsey MD [address] [place] [address] PCP - General 02/09/10 10/16/22 documented as of this encounter
--- OUTSIDE RECORDS SUMMARY | 2024-03-25 16:50 | XMS_ITS | Encounter Summary ---
[place] [address] Care Team Providers Care Tail Ripper Name Role Phone Lobo Yenjaskaran Rinaldi APRN Primary Care Provider [phone] Encounter Details Date Type Department Care Team (Latest Contact Info) Description 02/24/2023 1:00 PM EST Laboratory Appointment Lab [address] [place] [address] Infrarenal abdominal aortic aneurysm (AAA) without rupture [...] Procedure Name Priority Date/Time Associated Diagnosis Comments CREATININE Routine 02/24/2023 12:49 PM EST Infrarenal abdominal aortic aneurysm (AAA) without rupture documented in this encounter Results * Creatinine (02/24/2023 12:49 PM EST) Creatinine 0.80 0.80 - 1.50 mg/dL [facility] Est Glomerular Filtration Rate 98 >=60 mL/min/1. 73 m?? [facility] Comment: This patient's estimated GFR was [...] Cardona MD CHEMISTRY ORDERABLES Performing Organization Address City/State/[facility] Co de Phone Number [facility] [place] [address] documented in this encounter Visit Diagnoses Diagnosis Infrarenal abdominal aortic aneurysm (AAA) without rupture documented in this encounter Care Teams Tail Ripper Relationship Specialty Start Date End Date Yen Diamond APRN [address] [place] [address] PCP - General Family Medicine 10/17/22 documented as of this encounter
--- OUTSIDE RECORDS SUMMARY | 2024-03-25 16:50 | XMS_ITS | Encounter Summary ---
[place] [address] Care Team Providers Care Reconstructive Surgeon Name Role Phone Yen Diamond APRN Primary Care Provider [phone] Reason for Referral * Consultation (Routine) - Closed Specialty Diagnoses / Procedures Referred By Contac t Referred To Contact Vascular Surgery Diagnoses Abdominal aortic aneurysm (AAA) without rupture, unspecified part ROUTINE, MD, IMAGING IN CHART Yen Diamond APRN [address] [place] [address] [facility] Vascular Surg [address] [place] [address] Referral ID Status Reason Start Date Expiration Date V isits Requested Visits Authorized [id number] Closed Consult, Test & Treat PCP Updated and/or Approved 10/25/2022 10/25/2023 1 1 Encounter Details Date Type Department Care Team (Latest Contact Info) Description 10/25/2022 Transcribe Orders eDH Incoming Referrals [phone] Yen Diamond APRN [address] [place] [address] Abdominal aortic aneurysm (AAA) without [...] part documented in this encounter Care Teams Reconstructive Surgeon Relationship Specialty Start Date End Date Yen Diamond, ROUTE SALES SPECIALIST [address] [place] [address] PCP - General Family Medicine 10/17/22 documented as of this encounter
--- OUTSIDE RECORDS SUMMARY | 2024-03-25 16:50 | XMS_ITS | Encounter Summary ---
Author Organization [facility] [place] [address] Care Team Providers Care Activities Specialist Name Role Phone Martha Dempsey MD Primary Care Provider [phone] Encounter Details Date Type Department Care Team (Latest Contact Info) Description 07/04/2016 1:00 PM EDT Procedure [place] [address] Preop cardiovascular exam; Neurogenic bladder Social History [...] above listed procedure and interpreted the findings. General Office Clerk imaging was saved. Complex Cystometrogram: The detrusor [...] NOS documented in this encounter Care Teams Activities Specialist Relationship Specialty Start Date End Date Matrha Dempsey MD [address] [place] [address] PCP - General 02/09/10 10/16/22 documented as of this encounter
--- OUTSIDE RECORDS SUMMARY | 2024-03-25 16:50 | XMS_ITS | Encounter Summary ---
Author Organization [facility] [place] [address] Care Team Providers Care Hospital Television Rental Clerk Name Role Phone Martha Dempsey MD Primary Care Provider [phone] Reason for Visit * Reason Onset Date Comments Bumped Appointment 02/14/2020 Encounter Details Date Type Department Care Team (Late st Contact Info) Description 02/14/2020 Telephone [place] [address] Constanza Toro MD Bumped Appointment Social History Tobacco Use Types [...] DM due to COVID restrictions. Please offer 05/13 open times documented in this encounter Plan of Treatment Not on file documented as of this encounter Visit Diagnoses Not on filedocumented in this encounter Care Teams Hospital Television Rental Clerk Relationship Specialty Start Date End Date Martha Dempsey MD [address] [place] [address] PCP - General 02/09/10 10/16/22 documented as of this encounter
--- OUTSIDE RECORDS SUMMARY | 2024-03-25 16:50 | XMS_ITS | Encounter Summary ---
Author Organization [facility] Address [facility] [place] [address] Care Team Providers Care Command Post Superintendent Name Role Phone Martha Dempsey MD Primary Care Provider [phone] Reason for Visit * Reason Comments Aftercare Of Tjr Left TKA02/22/11 Encounter Details Date Type Department Care Team (Late st Contact Info) Description 07/13/2015 1:30 PM EDT Office [place] [address] Shea Asencio APRN [facility] DR [place] [address] History of total knee arthroplasty, left Social [...] this encounter Progress Notes * Shea Taylor, LOG HAULER - 07/13/2015 1:52 PM EDT Teo Arenas [...] of his joint. He does ambulate with [place] crutches secondary to chronic posttraumatic ankle DJD [...] appears stated age and cooperative Gait: Antalgic-utilizes egyptian crutches and wears AFO on LLE. Skin: [...] left documented in this encounter Care Teams Command Post Superintendent Relationship Specialty Start Date End Date Martha Dempsey MD [address] [place] [address] PCP - General 02/09/10 10/16/22 documented as of this encounter
--- OUTSIDE RECORDS SUMMARY | 2024-03-25 16:50 | XMS_ITS | Encounter Summary ---
Author Organization [facility] [place] [address] Care Team Providers Care Supervisor Chlorine Liquefaction Name Role Phone Martha Dempsey MD Primary Care Provider [phone] Encounter Details Date Type Department Care Team (Late st Contact Info) Description 04/28/2022 Ancillary Procedure Radiology Library at [facility] [place] [place] [address] Yen Diamond APRN [address] [place] [address] Social History Tobacco Use Types Packs/Day Years [...] Ultrasound Study (04/28/2022 12:00 AM EST) Narrative [facility] - 12/08/2022 3:02 PM EDT This exam is auto-finalizing. It's purpose is for storage only. Yen H Lobo VP CUSTOMER DEVELOPMENT IMG FILM LIBRARY ORDERABLES DH [place], [place] documented in this encounter Visit Diagnoses Not on filedocumented in this encounter Care Teams Supervisor Chlorine Liquefaction Relationship Specialty Start Date End Date Martha Dempsey MD [address] [place] [address] PCP - General 02/09/10 10/16/22 documented as of this encounter
--- OUTSIDE RECORDS SUMMARY | 2024-03-25 16:50 | XMS_ITS | Encounter Summary ---
Author Organization [facility] [place] [address] Care Team Providers Care Corrections Cadet Name Role Phone Martha Dempsey MD Primary Care Provider [phone] Encounter Details Date Type Department Care Team (Late st Contact Info) Description 02/24/2022 Telephone [place] [address] Clinic, Dr Brown Team None Social History [...] on filedocumented in this encounter Care Teams Corrections Cadet Relationship Specialty Start Date End Date Martha Dempsey MD [address] [place] [address] PCP - General 02/09/10 10/16/22 documented as of this encounter
--- OUTSIDE RECORDS SUMMARY | 2024-03-25 16:51 | XMS_ITS | Encounter Summary ---
Author Organization [facility] Address [facility] Jacqueline chance [place] [id number] Care Team Providers Care Regional Transfer Liaison Name Role Phone Martha Dempsey MD Primary Care Provider [phone] Reason for Referral * Physical Therapy (Routine) - Complete - Patient Will Schedule External Appt Specialty Diagnoses / Procedures Referred By Contac t Referred To Contact Physical Therapy Diagnoses Knee joint replacement by other means Javier Brown MD [facility] [place] [address] Referral ID Status Reason Start Date Expiration Date Visits Requested Visits Authorized [id number] Complete - Patient Will Schedule External Appt Evaluate and Treat 04/07/2011 10/04/2011 12 12 Reason for Visit * Reason Comments Aftercare Of Tjr L TKA 02/22/11 Encounter Details Date Type Department Care Team (Late st Contact Info) Description 04/07/2011 12:45 PM EST Office Visit [place] [address] Javier Brown MD [facility] ORTHOPAEDIC [place] [address] Knee joint replacement by other means (Primary [...] Patient Name: Teo Arenas : 1955 MR#: [id number] Case Date: 02/22/11 Surgeon: Francis Brown Procedure: [...] of infection. Teo has been ambulating with [place] crutches and AFO on LLE and working [...] foot documented in this encounter Care Teams Regional Transfer Liaison Relationship Specialty Start Date End Date Martha Dempsey MD [address] [place] [address] PCP - General 02/09/10 10/16/22 documented as of this encounter
--- OUTSIDE RECORDS SUMMARY | 2024-03-25 16:51 | XMS_ITS | Encounter Summary ---
Author Organization [facility] [place] [address] Care Team Providers Care Television Receiver Analyzer Name Role Phone Martha Dempsey MD Primary Care Provider [phone] Encounter Details Date Type Department Care Team (Late st Contact Info) Description 03/21/2012 9:30 AM EST [place] [address] Neurogenic bladder, NOS (Primary Dx); Neurogenic bladder [...] - 03/21/2012 10:22 AM EST Return to [facility] in 2 years documented in this encounter [...] mLs documented in this encounter Care Teams Television Receiver Analyzer Relationship Specialty Start Date End Date Martha Demspey MD [address] [place] [address] PCP - General 02/09/10 10/16/22 documented as of this encounter
--- OUTSIDE RECORDS SUMMARY | 2024-03-25 16:51 | XMS_ITS | Encounter Summary ---
Author Organization [facility] Address [facility] [place] [address] Care Team Providers Care Companion Caregiver Name Role Phone Martha Dempsey MD Primary Care Provider [phone] Encounter Details Date Type Department Care Team (Late st Contact Info) Description 02/22/2011 1:45 PM EST Anesthesia [place] [address] Lina, Francisco Phillips MD [facility] [place] [address] Shantell Brito PA Anesthesia Record Procedure Summary Procedure Name Responsible Anesthesiologist Anesthesia Start Time Anesthesia Stop Time TOTAL KNEE ARTHROPLASTY (WRVU 19.6) (Left: Knee) Sites, Francisco Phillips MD 02/22/11 1345 02/22/11 1602 Events Date [...] Mallory RN 11/15/21 1715 by Darron Schneider Catheter 02/22/11; indwelling double lumen catheter; latex; [...] OR Notes * Anesthesia Postprocedure Evaluation - Francisco Mills MD - 02/23/2011 10:54 AM EST Patient: [...] gown Laterality: left Ultrasound Guidance: live and [id number]-[id number] Skin Medication lidocaine 1% 2 ml Injection [...] he reports without SOB) (-) pacemaker, past GA, CAD and CABG/stent ECG reviewed Rhythm: regular [...] on filedocumented in this encounter Care Teams Companion Caregiver Relationship Specialty Start Date End Date Martha Dempsey MD [address] [place] [address] PCP - General 02/09/10 10/16/22 documented as of this encounter
--- OUTSIDE RECORDS SUMMARY | 2024-03-25 16:51 | XMS_ITS | Encounter Summary ---
Author Organization [facility] Address [facility] [place] [address] Care Team Providers Care Metal Work Duct Installer Name Role Phone Martha Dempsey MD Primary Care Provider [phone] Encounter Details Date Type Department Care Team (Latest Contact Info) Description 06/02/2011 11:59 AM EDT - 06/02/2011 11:59 PM EDT Hospital Encounter XRay at [address] [place] [address] DJD (degenerative joint disease), ankle and foot [...] foot documented in this encounter Care Teams Metal Work Duct Installer Relationship Specialty Start Date End Date Martha Dempsey MD [address] [place] [address] PCP - General 02/09/10 10/16/22 documented as of this encounter
--- OUTSIDE RECORDS SUMMARY | 2024-03-25 16:51 | XMS_ITS | Encounter Summary ---
Author Organization [facility] Address [facility] [place] [address] Care Team Providers Care Dead Mail Checker Name Role Phone Martha Dempsey MD Primary Care Provider [phone] Reason for Visit * Reason Comments Left Knee Pain Encounter Details Date Type Department Care Team (Late st Contact Info) Description 06/21/2013 10:20 AM EDT Office [place] [address] Javier Brown MD [facility] [place] [address] Left knee DJD Discharge Disposition: Home Social [...] NAME: Teo Arenas AGE: 58 y.o. MR#: [id number] DATE OF VISIT: 06/21/2013 SURGERY DATE: 10/16/2008 [...] patient's gait is slow antalgic assisted with Caret crutches. The patient is without any significant [...] leg documented in this encounter Care Teams Dead Mail Checker Relationship Specialty Start Date End Date Martha Dempsey MD [address] [place] [address] PCP - General 02/09/10 10/16/22 documented as of this encounter
--- OUTSIDE RECORDS SUMMARY | 2024-03-25 16:51 | XMS_ITS | Encounter Summary ---
Author Organization [facility] [place] [address] Care Team Providers Care Engine Wiper Name Role Phone Martha Dempsey MD Primary Care Provider [phone] Encounter Details Date Type Department Care Team (Late st Contact Info) Description 02/28/2011 Anti-Coag Telephone [place] [address] Rebecca Roque RN Left knee DJD Social [...] Results * (ABNORMAL) External Lab Results (02/28/2011) INR, POC 1.4(Externa l Lab) 0.9 - 1.1 Historical Provider CHEMISTRY ORDERAB LES documented in this encounter Visit Diagnoses Diagnosis Left knee DJD Osteoarthrosis, unspecified whether generalized or localized, lower leg documented in this encounter Care Teams Engine Wiper Relationship Specialty Start Date End Date Martha Dempsey MD [address] [place] [address] PCP - General 02/09/10 10/16/22 documented as of this encounter
--- OUTSIDE RECORDS SUMMARY | 2024-03-25 16:51 | XMS_ITS | Encounter Summary ---
Author Organization [facility] Address [facility] [place] [address] Care Team Providers Care Wire Rope Sling Maker Name Role Phone Martha Dempsey MD Primary Care Provider [phone] Encounter Details Date Type Department Care Team (Latest Contact Info) Description 02/02/2011 12:09 PM EST - 02/02/2011 11:59 PM [facility] Hospital Encounter [place] [address] CLINIC, Javier Lord MD [facility] [place] [address] Preop cardiovascular exam; Chest pain on exertion; [...] mg documented in this encounter Care Teams Wire Rope Sling Maker Relationship Specialty Start Date End Date Martah Dempsey MD [address] [place] [address] PCP - General 02/09/10 10/16/22 documented as of this encounter
--- OUTSIDE RECORDS SUMMARY | 2024-03-25 16:51 | XMS_ITS | Encounter Summary ---
[place] [address] Care Team Providers Care Mussel Opener Name Role Phone Martha Dempsey MD Primary Care Provider [phone] Encounter Details Date Type Department Care Team (Late st Contact Info) Description 03/11/2011 Anti-Coag Telephone [place] [phone] Tena Padilla, RN Social History Tobacco Use [...] on filedocumented in this encounter Care Teams Mussel Opener Relationship Specialty Start Date End Date Martha Dempsey MD [address] [place] [address] PCP - General 02/09/10 10/16/22 documented as of this encounter
--- OUTSIDE RECORDS SUMMARY | 2024-03-25 16:51 | XMS_ITS | Encounter Summary ---
Author Organization [facility] [place] [address] Care Team Providers Care Aluminum Pourer Name Role Phone Martha Dempsey MD Primary Care Provider [phone] Encounter Details Date Type Department Care Team (Late st Contact Info) Description 03/07/2011 Anti-Coag Telephone [place] [phone] Rebecca Roque RN Left knee DJD Social [...] Results * (ABNORMAL) External Lab Results (03/07/2011) INR, POC 1.5(Externa l Lab) 0.9 - 1.1 Historical Provider CHEMISTRY ORDERAB LES documented in this encounter Visit Diagnoses Diagnosis Left knee DJD Osteoarthrosis, unspecified whether generalized or localized, lower leg documented in this encounter Care Teams Aluminum Pourer Relationship Specialty Start Date End Date Martha Dempsey MD [address] [place] [address] PCP - General 02/09/10 10/16/22 documented as of this encounter
--- OUTSIDE RECORDS SUMMARY | 2024-03-25 16:51 | XMS_ITS | Encounter Summary ---
Author Organization [facility] Address [facility] [place] [address] Care Team Providers Care Grade Tamper Name Role Phone Martha Dempsey MD Primary Care Provider [phone] Encounter Details Date Type Department Care Team (Late st Contact Info) Description 02/18/2011 Notes [place] [address] Javier Brown MD [facility] [place] [address] Social History Tobacco Use Types Packs/Day Years [...] on filedocumented in this encounter Care Teams Grade Tamper Relationship Specialty Start Date End Date Martha Dempsey MD [address] [place], [place] [id number] PCP - General 02/09/10 10/16/22 documented as of this encounter
--- OUTSIDE RECORDS SUMMARY | 2024-03-25 16:51 | XMS_ITS | Encounter Summary ---
Author Organization [facility] Address [facility] [place] [address] Care Team Providers Care Caustic Preparer Name Role Phone Martha Dempsey MD Primary Care Provider [phone] Encounter Details Date Type Department Care Team (Late st Contact Info) Description 03/11/2011 Anti-Coag Telephone [place] [phone] Javier Brown MD [facility] [place] [address] Left knee DJD Social History Tobacco Use [...] Results * (ABNORMAL) External Lab Results (03/11/2011) INR, POC 1.2(A) 0.9 - 1.1 Historical Provider CHEMISTRY ORDERAB LES documented in this encounter Visit Diagnoses Diagnosis Left knee DJD Osteoarthrosis, unspecified whether generalized or localized, lower leg documented in this encounter Care Teams Caustic Preparer Relationship Specialty Start Date End Date Martha Dempsey MD [address] [place] [address] PCP - General 02/09/10 10/16/22 documented as of this encounter
--- OUTSIDE RECORDS SUMMARY | 2024-03-25 16:51 | XMS_ITS | Encounter Summary ---
Author Organization [facility] Address [facility] [place] [address] Care Team Providers Care Unit Aide Tech Name Role Phone Martha Rios MD Primary Care Provider [phone] Reason for Referral * Consultation (Routine) - Closed by system - unspecified Specialty Diagnoses / Procedures Referred By Contac t Referred To Contact Diagnoses Left knee DJD Brenna Acevedo PA [facility] [place] [address] Referral ID Status Reason Start Date Expiration Date Visits Requested Visits Authorized [id number] Closed by system - unspecified Assume Subset of Care 02/24/2011 08/23/2011 1 1 Encounter Details Date Type Department Care Team (Latest Contact Info) Description 02/22/2011 11:39 AM EST - 02/24/2011 3:29 PM EST Hospital Encounter 3 [place] [address] Macrina Brown MD [facility] [place] [address] Left knee DJD Discharge Disposition: Home with [...] area. Recommendations: Dressing Changes/Skin Care: Apply Aloe Buckner Skin protectant twice a day and prn. [...] pillows lengthwise beneath legs while in bed. [employer] AIR bed 1. Use a single quilted [...] or equal to 30 degrees. Use Aloe Buckner Skin Conditioner #2 after baths for extra [...] The INR should be reported to [place] [facility] [place] at [phone], and you will be informed of any [...] a bowel movement. You can try an otgb-khv-rktebeu medication, miralax if needed. 2. If you [...] 4. Call your orthopaedic surgeon- Dr. Brown (#[phone]) with any fever, chills, sweats, redness or [...] Care Everywhere. * ANTICOAGULANTS: AFTER YOUR VISIT (CZECH) documented in this encounter Medications at Time [...] Santos RN - 02/24/2011 2:59 PM EST [phone] Patient cleared to go home by PT/OT [...] KNEE ARTHROPLASTY performed by MACRINA BROWN at [facility] MAIN OR Social History: Patient [...] evaluation Total timed interventions: 0 minutes Pager: [phone] MACARENA ELIAS OT 02/24/2011 Occupational Therapy Rehabilitation Department A * Stan Schuster MD - 02/24/2011 12:54 [...] y.o. y.o. male admitted on 02/22/[address] Brown,Macrina Ward MD for LTKA. 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 Precautions/Special Considerations: WBAT, per PA use pt existing Jack brace for comfort Post-operative course: uneventful Subjective: [...] minutes Total timed treatment: 31 minutes MCKENZIE ZHENG PT Pager: [phone] * Mamta Honeycutt MD - 02/24/2011 7:20 [...] Considerations: WBAT, per PA use pt existing Jack brace for comfort Post-operative course: uneventful Subjective: [...] treatment: 15 minutes MCKENZIE ZHENG, PT Pager: [phone] * Macrina Jean Baptiste MD - 02/23/2011 [...] or concerns MACRINA JEAN BAPTISTE MD, MD 4084 Addendum: Seen this afternoon. Pain 4/10. Still [...] - stabel and ready for transfer to [facility] floor documented in this encounter H&P [...] area. Recommendations: Dressing Changes/Skin Care: Apply Aloe Buckner Skin protectant twice a day and prn. [...] pillows lengthwise beneath legs while in bed. [facility] AIR bed 1. Use a single [...] or equal to 30 degrees. Use Aloe Buckner Skin Conditioner #2 after baths for extra [...] The INR should be reported to the [facility] [place] at [phone], and you will be informed of any [...] a bowel movement. You can try an vfsr-rhr-tgohwry medication, miralax if needed. 2. If you [...] 4. Call your orthopaedic surgeon- Dr. Brown (#[phone]) with any fever, chills, sweats, redness or [...] area. Recommendations: Dressing Changes/Skin Care: Apply Aloe Buckner Skin protectant twice a day and prn. [...] pillows lengthwise beneath legs while in bed. [facility] AIR bed 6. Use a single quilted [...] or equal to 30 degrees. Use Aloe Buckner Skin Conditioner #2 after baths for extra dry skin. Future Appointments and Orders Future Appointments: Provider: Department: Dept Phone: Center: 04/07/2011 12:45 PM Macrina Brown MD [facility] [phone] None Joint Appt Health Question Three C [facility] [phone] None Future Orders Please Complete By Expires REFERRAL TO ANTICOAGULATION MONITORING [[id number] Custom] Process Instructions: If no progress note [...] Target End Date 03/23/2011 Referral to Home Health[[id number] CPT(R)] Process Instructions: Scheduling Instructions: Comments: [facility] PHONE: [phone] FAX: [phone] DISCHARGE DOCUMENTATION FOR VNA SERVICES (INCLUDING THOSE PATIENTS WITH MEDICARE COVERAGE BEING DISCHARGED HOME WITH VNA SERVICES AND THOSE PATIENTS WITH MEDICARE COVERAGE WHO ARE BEING DISCHARGED HOME WITH HOSPICE SERVICES) Teo Arenas [address] [place] [phone] There are no phone numbers on file. Telephone Information: Testing Analyst: In discussion with the attending physician, it is certified that this patient is under their care and that they, or a nurse practitioner, clinical nurse specialist or physician's porcelain buildup assistant who is working directly with them, had [...] appropriate for home health services. [facility] HEALTH AGENCY:[facility] Home care orders for Total Knee Replacements: 1.RN: Draw PT/INR as follows: PER MD ORDERS- Please START on Monday02/25/2011!! Thereafter, PT/INR: every Monday and PT/INR results to be called and faxed as follows Mon-Mon Ortho anticoagulation (Coumad[place]) [place] [facility]: ; Sat/Sun: if the PT/INR is drawn on the weekend, call the results to the Orthopedic Resident on callat [phone] for Coumadin dose Point of care testing [...] effort and are for medical reasons or methodist services of infrequently or of short duration when for other reasons) Please note that any additional orders needs or changes will need to be obtained from this patient's PCP: MARTHA RIOS MD [address] [facility] [address] All A agencies which cover the area of patient's residence have been reviewed, either verbally jhoana writing, and patient/family have chosen the indicated home health care agency for home services. Questions: Responses: Agency name and contact information [facility] Patient location post discharge home What services are requested Physical Therapy Registered Nurse Start date Responsible MD post discharge contact info Provider Contact Information: Primary Care Provider: MARTHA RIOS MD [phone] Hospital Attending: Macrina Brown MD Department of Orthopaedic Surgery For questions regarding this document or issues relating to this hospitalization on the Medical Service, please contact your inpatient physician through the [facility] [place] Consultant . Issues afterhours and on weekends will [...] area. Recommendations: Dressing Changes/Skin Care: Apply Aloe Buckner Skin protectant twice a day and prn. [...] pillows lengthwise beneath legs while in bed. [employer] AIR bed 1. Use a single quilted [...] or equal to 30 degrees. Use Aloe Buckner Skin Conditioner #2 after baths for extra dry skin. Follow-up: By a member of the wound care team on a weekly basis. If needed prior, please contact [facility] [phone]. Discussed plan with: RN: Patient's nurse * [...] was clear. No pain on palpation. Aloe Buckner Skin protectant was applied to the heel. [...] albumin/pre-albumin drawn to assess nutrition. Current bed: [facility] Assessment: The area to the left lateral heel is consistent with that of a resolved blister. The skin is calloused, intact and firm. The aloe vesta skin protectant should help in softening this area. Recommendations: Dressing Changes/Skin Care: Apply Aloe Buckner Skin protectant twice a day and prn. [...] pillows lengthwise beneath legs while in bed. [facility] bed 1. Use a single quilted chux [...] or equal to 30 degrees. Use Aloe Buckner Skin Conditioner #2 after baths for extra dry skin. Follow-up: By a member of the wound care team on a weekly basis. If needed prior, please contact [facility] [phone]. Discussed plan with: RN: Patient's nurse * [...] Patient reports tolerable pain with use of STAVE LOG RIPSAW OPERATOR, ambit pump and oral oxycodone. Problem: Trauma/Injury Risk (Adult, Obstetric) Goal: Trauma/Injury Risk: Absence of Trauma/Injury/Falls Patient is alert and oriented, using call prince appropriately to call for nursing assistance. * Op Note - Mamta Honeycutt MD - 02/22/2011 4:02 PM EST Patient Name: Teo Arenas : [id number] MR#: [id number] Case Date: 02/22/2011 Surgeon: Surgeon(s) and Role: [...] Operative Note Patient Name: Teo Arenas : [id number] MR#: [id number] Case Date: 02/22/2011 Surgeon: Surgeon(s) and Role: [...] Implant Name Type Inv. Item Serial No. Librarian Assistant Lot No. LRB No. Used Action CEMENT,BNE,CMW 1,GNTA,40GM ([id number]) - [id number] IMPLANTS CEMENT,BNE,CMW 1,GNTA,40GM ([id number]) Depuy Supervisor Force Adjustment - [id number] Left 1 Implanted PATELLA,RND SML,35MM ([id number]) (AUTOREQ) - [id number] IMPLANTS PATELLA,RND SML,35MM ([id number]) (AUTOREQ) Depuy Supervisor Force Adjustment - 3527 [id number] Left 1 Implanted COMPO,PFC SIGMA,TC3,FEM,LT,3 ([id number]) (AUTOREQ) - [id number] IMPLANTS COMPO,PFC SIGMA,TC3,FEM,LT,3 ([id number]) (AUTOREQ) Depuy Supervisor Force Adjustment - [id number] Left 1 Implanted COMPONENT,TIBL,3,69.6X45.8MM ([id number]) (AUTOREQ) - [id number] IMPLANTS COMPONENT,TIBL,3,69.6X45.8MM ([id number]) (AUTOREQ) Depuy Supervisor Force Adjustment - 3527 [id number] Left 1 Implanted INSERT,TIBL,TC3,R-P,SZ3,10.0 ([id number]) (AUTOREQ) - [id number] IMPLANTS INSERT,TIBL,TC3,R-P,SZ3,10.0 ([id number]) (AUTOREQ) [facility] - [id number] Left 1 Implanted Disposition: awakened from anesthesia, [...] 02/24/2011 4:22 AM EST BASIC METABOLIC PANEL Routine 02/24/2011 4:22 AM EST DIFFERENTIAL, AUTOMATED Routine 02/23/2011 5:04 AM EST PROTHROMBIN TIME Routine 02/23/2011 5:04 AM EST CBC (WITH DIFF) Routine 02/23/2011 5:04 AM EST BASIC METABOLIC PANEL Routine 02/23/2011 5:04 AM EST APTT STAT [...] (ABNORMAL) DIFFERENTIAL, AUTOMATED (02/24/2011 4:22 AM EST) Neutrophil % 60.6 34.0 - 71.0 % CERNER MILLENNIUM Neutrophil Absolute 6.50(H) 1.50 - 6.30 x10(3)/mc L CERNER MILLENNIUM Lymph % 27.9 19.0 - 53.0 % CERNER MILLENNIUM Lymphocytes Abs 3.0 1.0 - 3.6 x10(3)/mc L CERNER MILLENNIUM Monocyte % 9.0 4.0 - 13.0 % CERNER MILLENNIUM Monocyte Abs 1.0 0.2 - 1.0 x10(3)/mc L CERNER MILLENNIUM Eos % 1.9 0.0 - 7.0 % CERNER MILLENNIUM Eosinophils Abs 0.2 0.0 - 0.5 x10(3)/mc L CERNER MILLENNIUM Basophil % 0.3 0.0 - 2.0 % CERNER MILLENNIUM Baso Absolute 0.0 0.0 - 0.2 x10(3)/mc L CERNER [...] performed. Immature Gran Absolute 0.03 0.00 - 0.05 x10(3)/mc L CERNER MILLENNIUM Blood specimen (specimen) 02/24/2011 4:22 AM EST 02/24/2011 4:35 AM EST Macrina Brown MD HEMATOLOGY ORDERABLE S EVITA LASSITERIUM * (ABNORMAL) Prothrombin Time (02/24/2011 4:22 AM EST) Prothrombin Time 17.8(H) 12.3 - 14.7 sec CERNER MILLENNIUM Comment: [facility] Transfusion Committee Guidelines: INR less than 2.0, PTT less than OR equal to 43.5 seconds, or Fibrinogen greater than or equal to 100 mg/dl indicate adequate procoagulant activity for hemostasis in patients without underlying bleeding disorders. International Normalization Ratio 1.4(H) 0.9 - 1.1 CERNER MILLENNIUM Blood specimen (specimen) 02/24/2011 4:22 AM EST 02/24/2011 4:35 AM EST Macrina Brown MD HEMATOLOGY ORDERABLE S CERNER MILLENNIUM * (ABNORMAL) Basic Metabolic Panel (non-fasting) (02/24/2011 4:22 AM EST) Glucose 104 60 - 199 mg/dL CERNER MILLENNIUM Comment:Diabetes: >=200 mg/d L plus symptoms Blood Urea Nitrogen 17 10 - 20 mg/dL CERNER MILLENNIUM [...] 102 98 - 107 mmol/L CERNER MILLENNIUM Carbon Dioxide 25 22 - 31 mmol/L CERNER MILLENNIUM Anion Gap 11 5 - 15 mmol/L CERNER MILLENNIUM Calcium 8.4(L) 8.5 - 10.5 mg/dL CERNER MILLENNIUM Est Glomerular Filtration Rate >60 >=60 CERNER MILLENNIUM Comment: The National [...] CBC (with Diff) (02/24/2011 4:22 AM EST) White Blood Cell 10.7(H) 4.0 - 10.0 x10(3)/mc L CERNER MILLENNIUM Red Blood Cell 3.29(L) 4.63 - 6.08 x10(6)/mc L CERNER MILLENNIUM Hemoglobin 10.0(L) 13.7 - 17.5 gm/dL CERNER MILLENNIUM Hematocrit 29.1(L) 40.0 - 51.0 % CERNER MILLENNIUM Mean Cell Volume 88.4 79.0 - 92.0 fL CERNER MILLENNIUM Mean Cell Hemoglobin 30.4 25.6 - 32.2 pg CERNER MILLENNIUM Mean Cell Hemoglobin Concentration 34.4 32.0 - 36.5 gm/dL CERNER MILLENNIUM Platelet 177 145 - 370 x10(3)/mc L CERNER MILLENNIUM RDW Standard Deviation 43.0 35.0 - 46.0 fL CERNER MILLENNIUM RDW coefficient of variation 13.3 10.9 - 14.4 % CERNER MILLENNIUM Mean Platelet Volume 9.1 9.0 - 12.0 fL CERNER MILLENNIUM Blood specimen (specimen) 02/24/2011 4:22 AM EST 02/24/2011 4:35 AM EST Macrina Brown MD HEMATOLOGY ORDERABLE S CERNER MILLENNIUM * (ABNORMAL) DIFFERENTIAL, AUTOMATED (02/23/2011 5:04 AM EST) Neutrophil % 83.3(H) 34.0 - 71.0 % CERNER MILLENNIUM Neutrophil Absolute 9.63(H) 1.50 - 6.30 x10(3)/mc L CERNER MILLENNIUM Lymph % 11.9(L) 19.0 - 53.0 % CERNER MILLENNIUM Lymphocytes Abs 1.4 1.0 - 3.6 x10(3)/mc L CERNER MILLENNIUM Monocyte % 4.5 4.0 - 13.0 % CERNER MILLENNIUM Monocyte Abs 0.5 0.2 - 1.0 x10(3)/mc L CERNER MILLENNIUM Eos % 0.0 0.0 - 7.0 % CERNER MILLENNIUM Eosinophils Abs 0.0 0.0 - 0.5 x10(3)/mc L CERNER MILLENNIUM Basophil % 0.1 0.0 - 2.0 % CERNER MILLENNIUM Baso Absolute 0.0 0.0 - 0.2 x10(3)/mc L CERNER [...] differential will be performed. Immature Gran Absolute 0.02 0.00 - 0.05 x10(3)/mc L CERNER MILLENNIUM Blood specimen (specimen) 02/23/2011 5:04 AM EST 02/23/2011 5:10 AM EST Macrina Brown MD HEMATOLOGY ORDERABLE S CERPANKAJ TIDWELLENNIUM * Prothrombin Time (02/23/2011 5:04 AM EST) Prothrombin Time 14.5 12.3 - 14.7 sec CERNER MILLENNIUM Comment: [facility] Transfusion Committee Guidelines: INR less than 2.0, PTT less than OR equal to 43.5 seconds, or Fibrinogen greater than or equal to 100 mg/dl indicate adequate procoagulant activity for hemostasis in patients without underlying bleeding disorders. International Normalization Ratio 1.1 0.9 - 1.1 CERNER MILLENNIUM Blood specimen (specimen) 02/23/2011 5:04 AM EST 02/23/2011 5:10 AM EST Macrina Brown MD HEMATOLOGY ORDERABLE S CERNER MILLENNIUM * Basic Metabolic Panel (non-fasting) (02/23/2011 5:04 AM EST) Glucose 130 60 - 199 mg/dL CERNER MILLENNIUM Comment:Diabetes: >=200 mg/d L plus symptoms Blood Urea Nitrogen 16 10 - 20 mg/dL CERNER MILLENNIUM [...] 101 98 - 107 mmol/L CERNER MILLENNIUM Carbon Dioxide 24 22 - 31 mmol/L CERNER MILLENNIUM Anion Gap 11 5 - 15 mmol/L CERNER MILLENNIUM Calcium 8.6 8.5 - 10.5 mg/dL CERNER MILLENNIUM Est Glomerular Filtration Rate >60 >=60 CERNER MILLENNIUM Comment: The National [...] AM EST Macrina Brown MD CHEMISTRY ORDERABLES [facility] * (ABNORMAL) CBC (with Diff) (02/23/2011 5:04 AM EST) White Blood Cell 11.6(H) 4.0 - 10.0 x10(3)/mc L CERNER MILLENNIUM Red Blood Cell 3.65(L) 4.63 - 6.08 x10(6)/mc L CERNER MILLENNIUM Hemoglobin 10.9(L) 13.7 - 17.5 gm/dL CERNER MILLENNIUM Hematocrit 32.1(L) 40.0 - 51.0 % CERNER MILLENNIUM Mean Cell Volume 87.9 79.0 - 92.0 fL CERNER MILLENNIUM Mean Cell Hemoglobin 29.9 25.6 - 32.2 pg CERNER MILLENNIUM Mean Cell Hemoglobin Concentration 34.0 32.0 - 36.5 gm/dL CERNER MILLENNIUM Platelet 185 145 - 370 x10(3)/mc L [facility] RDW Standard Deviation 41.9 35.0 - 46.0 fL CERNER MILLENNIUM RDW coefficient of variation 13.0 10.9 - 14.4 % CERNER MILLENNIUM Mean Platelet Volume 9.0 9.0 - 12.0 fL CERNER MILLENNIUM Blood specimen (specimen) 02/23/2011 5:04 AM EST 02/23/2011 5:10 AM EST Macrina Brown MD HEMATOLOGY ORDERABLE S Performing Organization Address [facility] de Phone Number [facility] * APTT (02/22/2011 7:12 PM EST) Partial Thromboplastin Time 34 25 - 37 sec [facility] Comment: Recommended therapeutic PTT range for full dose unfractionated heparin is 80-114 seconds. Blood specimen (specimen) 02/22/2011 7:12 PM EST 02/22/2011 7:23 PM EST Macrina Brown MD HEMATOLOGY ORDERABLE S Performing Organization Address [facility] de Phone Number [facility] * Surgical Pathology Report (02/22/2011 4:13 PM EST) Surgical Pathology Report [id number] ? Location: [facility]; [facility]; B The signing pathologist has (i) examined [...] to be zelaya-pink synovium. Sections/Processi ng: ??(1-4) traveling representative sections of articular cartilage; ?(5-6) traveling representative sections of synovium. ?(R6, decal) ??aje/SHB Microscopic Description Slides reviewed, microscopic description not recorded. Diagnosis Bone and soft tissue, left knee, resection: ?? Normal articular cartilage, bone (fragments). ?? Pericapuslar fibromuscular adipose with degenerative change. 02/25/11 CCB 02/25/11 Verified by: ? Juan F WYNNE, Alejandra Aguirre ?Pathologist ?(Electronic Signature) The attending pathologist whose signature appears on this report has reviewed all diagnostic slides and has edited the gross and/or microscopic portion of the report in rendering the final pathologic diagnosis. EVITA YAWWILNER 02/22/2011 4:13 PM EST Macrina Brown MD PATHOLOGY/CYTOLOGY O SUSI Performing Organization Address [facility] de Phone Number [facility] * Specimen to Pathology (surgical or derm) (02/22/2011 2:49 PM EST) AP Specimen 02/22/2011 2:49 PM EST 02/22/2011 2:49 PM EST Narrative EVITA BURRELL - 02/22/2011 2:49 PM EST Specimen requisition ordered. ??Separate Pathology report to follow Macrina Brown MD PATHOLOGY/CYTOLOGY O SUSI Performing Organization Address [facility]/State/ZIP Co de Phone Number EVITA BURRELL documented in this [...] EST 300 mg HYDROmorphone (DILAUDID) 1 mg/mL STAVE LOG RIPSAW OPERATOR 30 mL Intravenous, STAVE LOG RIPSAW OPERATOR ONLY, Starting on Mon02/22/11 at 1630, Until [...] ROpivacaine (NAROPIN) 2 mg/mL for AmbIT Perineural, Laterality: Left, Infusion Site: femoral, Basal Flow Rate (mL/hr): : 4 mL/hr, STAVE LOG RIPSAW OPERATOR Bolus Amt: 4 mL, STAVE LOG RIPSAW OPERATOR Bolus Frequency: 60 minutes, 1 Hour Dose Limit: : 12 mL New Bag 02/22/2011 4:43 PM EST mL/hr [...] Routine 2154 (Given - Provider: Leonela Hartley, RN) 2024 (Given - Provider: Leonela Hartley [...] 2154 (Given - Provider: Leonela Hartley, XANDER) 0932 (Given - Provider: Shavon Begum RN)164 (Given - Provider: Shavon Begum RN)2025 (Given [...] 0730 (Given - Provider: Jolly De Los Santos RN) warfarin (COUMADIN) tablet 5 mg (COMPLETED) 5 mg, Oral, ONCE, 1 dose, On Mon02/22/11 at 1930, Routine 215 (Given - Provider: Leonela Hartley RN) warfarin (COUMADIN) tablet 5 mg (COMPLETED) 5 mg, Oral, ONCE, 1 dose, On Mon02/23/11 at 1700, Routine 1645 (Given - Provider: Shavon Begum RN) Continuous Medication Order 02/22/2011 02/23/2011 02/24/2011 HYDROmorphone (DILAUDID) 1 mg/mL STAVE LOG RIPSAW OPERATOR 30 mL (CANCELED) Intravenous, STAVE LOG RIPSAW OPERATOR ONLY, Starting on Mon02/22/11 at 1630, Until Mon02/23/11 at 0553 1630 (New Syringe/Cartridge - Provider: Lily Iyer RN) ROpivacaine (NAROPIN) 2 mg/mL for AmbIT (CANCELED) Perineural, Laterality: Left, Infusion Site: femoral, Basal Flow Rate (mL/hr): : 4 mL/hr, STAVE LOG RIPSAW OPERATOR Bolus Amt: 4 mL, STAVE LOG RIPSAW OPERATOR Bolus Frequency: 60 minutes, 1 Hour Dose Limit: : 12 mL 1643 (New Bag - Provider: Lily Iyer [...] RN)2023 (Given - Provider: Leonela Hartley RN) 0436 [...] (See Alternative - Provider: Leonela Hartley RN) 0436 (See Alternative - Provider: Leonela Hartley RN)0831 [...] RN)1340 (See Alternative - Provider: Shavon Begum RN)2024 (See Alternative - Provider: Leonela Hartley, [...] 1344, Until Lexi 12 at 1737, Pain, severe pain, For severe pain. Do not exceed 15 mg in 4 hours. If pain not relieved, call provider., Routine documented in this encounter Care Teams Unit Aide Tech Relationship Specialty Start Date End Date Martha Rios MD [address] [place] [address] PCP - General 02/09/10 10/16/22 documented as of this encounter
--- OUTSIDE RECORDS SUMMARY | 2024-03-25 16:51 | XMS_ITS | Encounter Summary ---
Author Organization [facility] Address [facility] [place] [address] Care Team Providers Care Billboard Erector Helper Name Role Phone Martha Dempsey MD Primary Care Provider [phone] Encounter Details Date Type Department Care Team (Late st Contact Info) Description 04/07/2011 11:53 AM EST - 04/07/2011 11:59 PM [facility] Hospital Encounter XRay at [address] [place] [address] Social History Tobacco Use Types Packs/Day Years [...] COMPARISON: ??October 11, 2010. FINDINGS: STANDING ALIGNMENT: ??[place] of gravitation runs through the medial tibial eminence on the right and through the most medial aspect of the tibial plateau on the left. ??Alignment of the pelvis is symmetric. ??Oxjl-ck-ftsavdze lateral talar tilt on both sides. ??Posttraumatic changes of bilateral lower legs as indicated by a healed fracture of the left tibia and auwgm-pyg-pbfcy fixation of the right tibia. BOTH KNEES: [...] COMPARISON: October 11, 2010. FINDINGS: STANDING ALIGNMENT: [place] of gravitation runs through the medial tibial eminence on the right and through the most medial aspect of the tibialplateau on the left. Alignment of the pelvis is symmetric. Exfq-st-qncegmxsgbfwvjb talar tilt on both sides. Posttraumatic changes of bilateral lower legsas indicated by a healed fracture of the left tibia and oslsm-iyl-fzqglepzwnjqt of the right tibia. BOTH KNEES: Interval [...] on filedocumented in this encounter Care Teams Billboard Erector Helper Relationship Specialty Start Date End Date Martha Dempsey MD [address] [place] [address] PCP - General 02/09/10 10/16/22 documented as of this encounter
--- OUTSIDE RECORDS SUMMARY | 2024-03-25 16:51 | XMS_ITS | Encounter Summary ---
Author Organization [facility] Address [facility] [place] [address] Care Team Providers Care Crane Operator Name Role Phone Martha Rios MD Primary Care Provider [phone] Encounter Details Date Type Department Care Team (Late st Contact Info) Description 02/22/2011 1:27 PM EST - 02/22/2011 4:25 PM EST Surgery [place] [address] Macrina Brown MD [facility] [place] [address] TOTAL KNEE ARTHROPLASTY (WRVU 19.6) Social History [...] area. Recommendations: Dressing Changes/Skin Care: Apply Aloe [place] Skin protectant twice a day and prn. [...] pillows lengthwise beneath legs while in bed. [facility] AIR bed 1. Use a single quilted [...] or equal to 30 degrees. Use Aloe [place] Skin Conditioner #2 after baths for extra [...] The INR should be reported to the [facility] Ortho clinic at [phone], and you will be informed of any [...] a bowel movement. You can try an sozz-nnz-vqwgmgw medication, miralax if needed. 2. If you [...] 4. Call your orthopaedic surgeon- Dr. Brown (#[phone]) with any fever, chills, sweats, redness or [...] Care Everywhere. * ANTICOAGULANTS: AFTER YOUR VISIT (ZAMBIAN) documented in this encounter Medications at Time [...] Santos RN - 02/24/2011 2:59 PM EST [phone] Patient cleared to go home by PT/OT [...] KNEE ARTHROPLASTY performed by MACRINA BROWN at [facility] MAIN OR Social History: Patient lives with [...] evaluation Total timed interventions: 0 minutes Pager: [phone] MACARENA ELIAS OT 02/24/2011 Occupational Therapy Rehabilitation [...] Considerations: WBAT, per PA use pt existing [place] brace for comfort Post-operative course: uneventful Subjective: [...] treatment: 31 minutes MCKENZIE ZHENG, PT Pager: [phone] * Mamta Honeycutt MD - 02/24/2011 7:20 [...] Considerations: WBAT, per PA use pt existing [place] brace for comfort Post-operative course: uneventful Subjective: [...] treatment: 15 minutes MCKENZIE ZHENG, PT Pager: [phone] * Macrina Jean Baptiste MD - 02/23/2011 [...] or concerns MACRINA JEAN BAPTISTE MD, MD 8942 Addendum: Seen this afternoon. Pain 4/10. Still [...] - stabel and ready for transfer to [facility] floor documented in this encounter H&P [...] area. Recommendations: Dressing Changes/Skin Care: Apply Aloe [place] Skin protectant twice a day and prn. [...] pillows lengthwise beneath legs while in bed. [facility] AIR bed 1. Use a single quilted [...] or equal to 30 degrees. Use Aloe [place] Skin Conditioner #2 after baths for extra [...] The INR should be reported to the [facility] Ortho clinic at [phone], and you will be informed of any [...] a bowel movement. You can try an lxia-flr-cveafvg medication, miralax if needed. 2. If you [...] 4. Call your orthopaedic surgeon- Dr. Brown (#[phone]) with any fever, chills, sweats, redness or [...] area. Recommendations: Dressing Changes/Skin Care: Apply Aloe [place] Skin protectant twice a day and prn. [...] pillows lengthwise beneath legs while in bed. [facility] AIR bed 6. Use a single quilted [...] or equal to 30 degrees. Use Aloe [place] Skin Conditioner #2 after baths for extra dry skin. Future Appointments and Orders Future Appointments: Provider: Department: Dept Phone: Center: 04/07/2011 12:45 PM Macrina Brown MD [facility] [phone] None Joint Appt Health Question Three C [facility] [phone] None Future Orders Please Complete By Expires REFERRAL TO ANTICOAGULATION MONITORING [[id number] Custom] Process Instructions: If no progress note [...] Target End Date 03/23/2011 Referral to Home Health[CRY1997 CPT(R)] Process Instructions: Scheduling Instructions: Comments: [facility] [employer]. PHONE: [phone] FAX: [phone] DISCHARGE DOCUMENTATION FOR VNA SERVICES (INCLUDING THOSE PATIENTS WITH MEDICARE COVERAGE BEING DISCHARGED HOME WITH VNA SERVICES AND THOSE PATIENTS WITH MEDICARE COVERAGE WHO ARE BEING DISCHARGED HOME WITH HOSPICE SERVICES) Teo Arenas [address] [place] [phone] There are no phone numbers on file. Telephone Information: Printing Screen Assembler: In discussion with the attending physician, it is certified that this patient is under their care and that they, or a nurse practitioner, clinical nurse specialist or physician's nurses assistant who is working directly with them, [...] appropriate for home health services. HOME HEALTH AGENCY:[facility] Home care orders for Total Knee Replacements: 1.RN: Draw PT/INR as follows: PER MD ORDERS- Please START on Monday02/25/2011!! Thereafter, PT/INR: every Monday and PT/INR results to be called and faxed as follows Mon-Mon Ortho anticoagulation (Coumadin) clinic @ [facility]: ; Sat/Sun: if the PT/INR is drawn on the weekend, call the results to the Orthopedic Resident on callat [phone] for Coumadin dose Point of care testing [...] effort and are for medical reasons or sabianism services of infrequently or of short duration when for other reasons) Please note that any additional orders needs or changes will need to be obtained from this patient's PCP: MARTHA RIOS MD [address] [place] [phone] All A agencies which cover the area of patient's residence have been reviewed, either verbally jhoana writing, and patient/family have chosen the indicated home health care agency for home services. Questions: Responses: Agency name and contact information [facility] Patient location post discharge home What services are requested Physical Therapy Registered Nurse Start date Responsible MD post discharge contact info Provider Contact Information: Primary Care Provider: MARTHA RIOS MD [phone] Hospital Attending: Macrina Brown MD Department of Orthopaedic Surgery For questions regarding this document or issues relating to this hospitalization on the Medical Service, please contact your inpatient physician through the [facility] Glove Wrapper . Issues afterhours and on weekends will [...] area. Recommendations: Dressing Changes/Skin Care: Apply Aloe [place] Skin protectant twice a day and prn. [...] pillows lengthwise beneath legs while in bed. [facility] AIR bed 1. Use a single quilted [...] or equal to 30 degrees. Use Aloe [place] Skin Conditioner #2 after baths for extra dry skin. Follow-up: By a member of the wound care team on a weekly basis. If needed prior, please contact [facility] [phone]. Discussed plan with: RN: Patient's nurse * [...] was clear. No pain on palpation. Aloe [place] Skin protectant was applied to the heel. [...] albumin/pre-albumin drawn to assess nutrition. Current bed: [facility] AIR Assessment: The area to the left lateral heel is consistent with that of a resolved blister. The skin is calloused, intact and firm. The aloe [place] skin protectant should help in softening this area. Recommendations: Dressing Changes/Skin Care: Apply Aloe [place] Skin protectant twice a day and prn. [...] pillows lengthwise beneath legs while in bed. [facility] AIR bed 1. Use a single [...] or equal to 30 degrees. Use Aloe [place] Skin Conditioner #2 after baths for extra dry skin. Follow-up: By a member of the wound care team on a weekly basis. If needed prior, please contact [facility] [phone]. Discussed plan with: RN: Patient's nurse * [...] Patient reports tolerable pain with use of COIN MACHINE ASSEMBLER, ambit pump and oral oxycodone. Problem: Trauma/Injury Risk (Adult, Obstetric) Goal: Trauma/Injury Risk: Absence of Trauma/Injury/Falls Patient is alert and oriented, using call prince appropriately to call for nursing assistance. * Op Note - Mamta Honeycutt MD - 02/22/2011 4:02 PM EST Patient Name: Teo Arenas : [id number] MR#: [id number] Case Date: 02/22/2011 Surgeon: Surgeon(s) and Role: [...] EST Brief Operative Note Patient Name: Teo Arneas : [id number] MR#: [id number] Case Date: 02/22/2011 Surgeon: Surgeon(s) and Role: [...] Implant Name Type Inv. Item Serial No. Environmental Health Technologist Lot No. LRB No. Used Action CEMENT,BNE,CMW 1,GNTA,40GM ([id number]) - [id number] IMPLANTS CEMENT,BNE,CMW 1,GNTA,40GM ([id number]) Depuy Machine Rope Maker - [id number] Left 1 Implanted PATELLA,RND SML,35MM ([id number]) (AUTOREQ) - [id number] IMPLANTS PATELLA,RND SML,35MM ([id number]) (AUTOREQ) Depuy Machine Rope Maker - 3527 [id number] Left 1 Implanted COMPO,PFC SIGMA,TC3,FEM,LT,3 ([id number]) (AUTOREQ) - [id number] IMPLANTS COMPO,PFC SIGMA,TC3,FEM,LT,3 ([id number]) (AUTOREQ) Depuy Machine Rope Maker - [id number] Left 1 Implanted COMPONENT,TIBL,3,69.6X45.8MM ([id number]) (AUTOREQ) - [id number] IMPLANTS COMPONENT,TIBL,3,69.6X45.8MM ([id number]) (AUTOREQ) [employer] - [id number] Left 1 Implanted INSERT,TIBL,TC3,R-P,SZ3,10.0 ([id number]) (AUTOREQ) - [id number] IMPLANTS INSERT,TIBL,TC3,R-P,SZ3,10.0 ([id number]) (AUTOREQ) [facility] - [id number] Left 1 Implanted Disposition: awakened from anesthesia, [...] MD HEMATOLOGY ORDERABLE S Performing Organization Address City/[facility] Co de Phone Number EVITA TIDWELLENNIUM * (ABNORMAL) Prothrombin Time (02/24/2011 4:22 AM EST) Prothrombin Time 17.8(H) 12.3 - 14.7 sec CERNER MILLENNIUM Comment: [facility] Transfusion Committee Guidelines: INR less than 2.0, [...] MD HEMATOLOGY ORDERABLE S Performing Organization Address City/State/[facility] Co de Phone Number EVITA TIDWELLENNIUM * (ABNORMAL) Basic Metabolic Panel (non-fasting) (02/24/2011 4:22 AM EST) [facility] Glucose 104 60 - 199 mg/dL CERNER [...] MD HEMATOLOGY ORDERABLE S EVITA LASSITERIUM * Prothrombin Time (02/23/2011 5:04 AM EST) Prothrombin Time 14.5 12.3 - 14.7 sec CERNER MILLENNIUM Comment: [facility] Transfusion Committee Guidelines: INR less than 2.0, [...] CERNER MILLENNIUM * (ABNORMAL) CBC (with Diff) (02/23/2011 5:04 [...] Platelet 185 145 - 370 x10(3)/mc L CERNER MILLENNIUM RDW Standard Deviation 41.9 35.0 - 46.0 fL CERNER MILLENNIUM RDW coefficient of variation 13.0 10.9 - 14.4 % CERNER MILLENNIUM Mean Platelet Volume 9.0 9.0 - 12.0 fL CERNER MILLENNIUM Blood specimen (specimen) 02/23/2011 5:04 AM EST 02/23/2011 5:10 AM EST Macrina Brown MD HEMATOLOGY ORDERABLE S Performing Organization Address [facility] Co de Phone Number EVITA BURRELL * APTT (02/22/2011 7:12 PM EST) Partial Thromboplastin Time 34 25 - 37 sec [facility] [employer] Comment: Recommended therapeutic PTT range for full dose unfractionated heparin is 80-114 seconds. Blood specimen (specimen) 02/22/2011 7:12 PM EST 02/22/2011 7:23 PM EST Macrina Brown MD HEMATOLOGY ORDERABLE S Performing Organization Address [facility] Co de Phone Number EVITA BURRELL * Surgical Pathology Report (02/22/2011 4:13 PM EST) Pathologist [facility] Surgical Pathology Report [id number] ? Location: [facility]; 0318; B The signing pathologist has (i) examined [...] to be zelaya-pink synovium. Sections/Processi ng: ??(1-4) textiles sales representative sections of articular cartilage; ?(5-6) textiles sales representative sections of synovium. ?(R6, decal) ??aje/SHB [...] MD PATHOLOGY/CYTOLOGY O SUSI Performing Organization Address [facility] de Phone Number EVITA TIDWELLPlayerProJASSI * Specimen to Pathology (surgical or derm) (02/22/2011 2:49 PM EST) AP Specimen 02/22/2011 2:49 PM EST 02/22/2011 2:49 PM EST Narrative CERPANKAJ MILLENNIUM - 02/22/2011 2:49 PM EST Specimen requisition ordered. ??Separate Pathology report to follow Macrina Brown MD PATHOLOGY/CYTOLOGY O RDJESSICA Performing Organization Address [facility] de Phone Number EVITA LASSITERfarmflo documented in this encounter Visit Diagnoses Not on filedocumented in this encounter Administered Medications Inactive Administered Medications - up to 3 most recent administrations Medication Order MAR Action Action Date Dose Rate Site ceFAZolin (ANCEF) 2g in dextrose 5% 100mL 2 g, Intravenous, ONCE, 1 dose, On 02/22/11 at 1230, Administer over 30 Minutes, To [...] on Mon02/22/11 at 2100, Until Discontinued, Routine 215 (Given - Provider: Leonela Hartley RN) 0932 (Given - Provider: Shavon Begum RN)1645 (Given - Provider: Shavon Begum RN)2024 (Given - Provider: Leonela Hartley RN) 0832 (Given - Provider: Jolly De Los Santos, XANDER)1442 (Given - Provider: Jolly De Los Santos [...] 02/22/2011 02/23/2011 02/24/2011 HYDROmorphone (DILAUDID) 1 mg/mL COIN MACHINE ASSEMBLER 30 mL (CANCELED) Intravenous, COIN MACHINE ASSEMBLER ONLY, Starting on Mon02/22/11 at 1630, Until Mon02/23/11 at 0553 1630 (New Syringe/Cartridge - Provider: Lily Iyer RN) ROpivacaine (NAROPIN) 2 mg/mL for AmbIT (CANCELED) Perineural, Laterality: Left, Infusion Site: femoral, Basal Flow Rate (mL/hr): : 4 mL/hr, COIN MACHINE ASSEMBLER Bolus Amt: 4 mL, COIN MACHINE ASSEMBLER Bolus Frequency: 60 minutes, 1 Hour Dose [...] Begum RN)1340 (Given - Provider: Shavon Begum RN)202 (Given - Provider: Leonela Hartley RN) 0436 [...] Routine documented in this encounter Care Teams Crane Operator Relationship Specialty Start Date End Date Martha Rios MD [address] [place] [address] PCP - General 02/09/10 10/16/22 documented as of this encounter
--- OUTSIDE RECORDS SUMMARY | 2024-03-25 16:51 | XMS_ITS | Encounter Summary ---
Author Organization [facility] Address [facility] [place] [address] Care Team Providers Care Glass Laminating Operator Name Role Phone Martha Dempsey MD Primary Care Provider [phone] Encounter Details Date Type Department Care Team (Late st Contact Info) Description 03/15/2011 Anti-Coag Telephone [place] [phone] Javier Brown MD [facility] [place] [address] Left knee DJD Social History Tobacco Use [...] Results * (ABNORMAL) External Lab Results (03/15/2011) INR, POC 4.8(A) 0.9 - 1.1 Historical Provider CHEMISTRY ORDERAB LES documented in this encounter Visit Diagnoses Diagnosis Left knee DJD Osteoarthrosis, unspecified whether generalized or localized, lower leg documented in this encounter Care Teams Glass Laminating Operator Relationship Specialty Start Date End Date Martha Dempsey MD [address] [place] [address] PCP - General 02/09/10 10/16/22 documented as of this encounter
--- OUTSIDE RECORDS SUMMARY | 2024-03-25 16:51 | XMS_ITS | Encounter Summary ---
Author Organization [facility] [place] [address] Care Team Providers Care Mrb Engineer Name Role Phone Martha Dempsey MD Primary Care Provider [phone] Encounter Details Date Type Department Care Team (Late st Contact Info) Description 06/21/2012 Orders [place] [address] Amalia Lyons RN Left ankle pain (Primary [...] foot documented in this encounter Care Teams Mrb Engineer Relationship Specialty Start Date End Date Martha Dempsey MD [address] [place] [address] PCP - General 02/09/10 10/16/22 documented as of this encounter
--- OUTSIDE RECORDS SUMMARY | 2024-03-25 16:51 | XMS_ITS | Encounter Summary ---
Author [place] [address] Care Team Providers Care Fiberglass Auto Body Repairer Name Role Phone Martha Dempsey MD Primary Care Provider [phone] Encounter Details Date Type Department Care Team (Late st Contact Info) Description 03/10/2011 Anti-Coag Telephone Visit [place] [address] Rebecca Roque RN Left knee DJD Social [...] Results * (ABNORMAL) External Lab Results (03/10/2011) INR, POC 5.2(Externa l Lab) 0.9 - 1.1 Historical Provider CHEMISTRY ORDERAB LES documented in this encounter Visit Diagnoses Diagnosis Left knee DJD Osteoarthrosis, unspecified whether generalized or localized, lower leg documented in this encounter Care Teams Fiberglass Auto Body Repairer Relationship Specialty Start Date End Date Martha Dempsey MD [address] [place] [address] PCP - General 02/09/10 10/16/22 documented as of this encounter
--- OUTSIDE RECORDS SUMMARY | 2024-03-25 16:51 | XMS_ITS | Encounter Summary ---
Author Organization [facility] [place] [address] Care Team Providers Care Heel Gummer Name Role Phone Martha Dempsey MD Primary Care Provider [phone] Encounter Details Date Type Department Care Team (Late st Contact Info) Description 05/07/2013 Orders [place] [address] Javier Brown MD [facility] [place] [address] H/O total knee replacement, left Social History [...] left documented in this encounter Care Teams Heel Gummer Relationship Specialty Start Date End Date Martha Dempsey MD [address] [place] [address] PCP - General 02/09/10 10/16/22 documented as of this encounter
--- OUTSIDE RECORDS SUMMARY | 2024-03-25 16:51 | XMS_ITS | Encounter Summary ---
Author Organization [facility] Address [facility] [place] [address] Care Team Providers Care Nurse Transitional Name Role Phone Martha Dempsey MD Primary Care Provider Encounter Details Date Type Department Care Team (Late st Contact Info) Description 01/27/2011 2:06 PM EST - 01/27/2011 11:59 PM [facility] Hospital Encounter XRay at [address] [place] [address] Social History Tobacco Use Types Packs/Day Years [...] on filedocumented in this encounter Care Teams Nurse Transitional Relationship Specialty Start Date End Date Martha Dempsey MD [address] [place] [address] PCP - General 02/09/10 10/16/22 documented as of this encounter
--- OUTSIDE RECORDS SUMMARY | 2024-03-25 16:51 | XMS_ITS | Encounter Summary ---
Author [facility] [place] [address] Care Team Providers Care Jetting Machine Operator Name Role Phone Martha Dempsey MD Primary Care Provider [phone] Encounter Details Date Type Department Care Team (Latest Contact Info) Description 02/25/2011 Anti-Coag Telephone [place] [address] Amalia Akins RN Left knee DJD (Primary [...] Results * (ABNORMAL) External Lab Results (02/25/2011) INR, POC 0.9(A) 0.9 - 1.1 Historical Provider CHEMISTRY ORDERAB LES documented in this encounter Visit Diagnoses Diagnosis Left knee DJD- Primary Osteoarthrosis, unspecified whether generalized or localized, lower leg documented in this encounter Care Teams Jetting Machine Operator Relationship Specialty Start Date End Date Martha Dempsey MD [address] [place] [address] PCP - General 02/09/10 10/16/22 documented as of this encounter
--- OUTSIDE RECORDS SUMMARY | 2024-03-25 16:51 | XMS_ITS | Encounter Summary ---
Author Organization [facility] Address [facility] [place] [address] Care Team Providers Care Waistline Joiner Overlock Name Role Phone Martha Dempsey MD Primary Care Provider [phone] Encounter Details Date Type Department Care Team (Latest Contact Info) Description 06/21/2012 12:05 PM EDT - 06/21/2012 12:31 PM EDT Hospital Encounter XRay at [address] [place] [address] Knee joint replacement by other means Social [...] means documented in this encounter Care Teams Waistline Joiner Overlock Relationship Specialty Start Date End Date Martha Dempsey MD [address] [place] [address] PCP - General 02/09/10 10/16/22 documented as of this encounter
--- OUTSIDE RECORDS SUMMARY | 2024-03-25 16:51 | XMS_ITS | Encounter Summary ---
Author Organization [facility] Address [facility] [place] [address] Care Team Providers Care Cast Iron Dipper Name Role Phone Martha Dempsey MD Primary Care Provider Reason for Visit * Reason Onset Date Comments Dysuria 02/16/2011 Encounter Details Date Type Department Care Team (Late st Contact Info) Description 02/16/2011 Telephone [place] [address] Javier Brown MD [facility] [place] [address] Dysuria Social History Tobacco Use Types Packs/Day [...] on filedocumented in this encounter Care Teams Cast Iron Dipper Relationship Specialty Start Date End Date Martha Dempsey MD [address] [place] [address] PCP - General 02/09/10 10/16/22 documented as of this encounter
--- OUTSIDE RECORDS SUMMARY | 2024-03-25 16:51 | XMS_ITS | Encounter Summary ---
[facility] [place] [address] Care Team Providers Care Power System Electrical Engineer Name Role Phone Martha Dempsey MD Primary Care Provider [phone] Encounter Details Date Type Department Care Team (Late st Contact Info) Description 03/03/2011 Anti-Coag Telephone [place] [address] Rebecca Roque RN Left knee DJD Social [...] Results * (ABNORMAL) External Lab Results (03/03/2011) INR, POC 5.3(EXTERNA L/ABN) 0.9 - 1.1 Historical Provider CHEMISTRY ORDERAB LES documented in this encounter Visit Diagnoses Diagnosis Left knee DJD Osteoarthrosis, unspecified whether generalized or localized, lower leg documented in this encounter Care Teams Power System Electrical Engineer Relationship Specialty Start Date End Date Martha Dempsey MD [address] [place] [address] PCP - General 02/09/10 10/16/22 documented as of this encounter
--- OUTSIDE RECORDS SUMMARY | 2024-03-25 16:51 | XMS_ITS | Encounter Summary ---
Author Organization [facility] Address [facility] [place] [address] Care Team Providers Care Block Breaker Name Role Phone Martha Dempsey MD Primary Care Provider [phone] Encounter Details Date Type Department Care Team (Latest Contact Info) Description 06/21/2012 12:32 PM EDT - 06/21/2012 11:59 PM EDT Hospital Encounter XRay at [address] [place] [address] Left ankle pain Social History Tobacco Use [...] foot documented in this encounter Care Teams Block Breaker Relationship Specialty Start Date End Date Martha Dempsey MD [address] [place] [address] PCP - General 02/09/10 10/16/22 documented as of this encounter
--- OUTSIDE RECORDS SUMMARY | 2024-03-25 16:51 | XMS_ITS | Encounter Summary ---
[place] [address] Care Team Providers Care Senior Operator Name Role Phone Martha Dempsey MD Primary Care Provider [phone] Encounter Details Date Type Department Care Team (Late st Contact Info) Description 03/16/2011 Orders [place] [address] Amalia Akins, RN Social History Tobacco Use [...] on filedocumented in this encounter Care Teams Senior Operator Relationship Specialty Start Date End Date Martha Dempsey MD [address] [place] [address] PCP - General 02/09/10 10/16/22 documented as of this encounter
--- OUTSIDE RECORDS SUMMARY | 2024-03-25 16:51 | XMS_ITS | Encounter Summary ---
Author Organization [facility] [place] [address] Care Team Providers Care Dietary Assistant Name Role Phone Martha Dempsey MD Primary Care Provider [phone] Encounter Details Date Type Department Care Team (Late st Contact Info) Description 04/07/2011 Orders [place] [address] Javier Brown MD [facility] [place] [address] Social History Tobacco Use Types Packs/Day Years [...] COMPARISON: ??October 11, 2010. FINDINGS: STANDING ALIGNMENT: ??Minden of gravitation runs through the medial tibial eminence on the right and through the most medial aspect of the tibial plateau on the left. ??Alignment of the pelvis is symmetric. ??Wxmn-nl-ihlntedl lateral talar tilt on both sides. ??Posttraumatic changes of bilateral lower legs as indicated by a healed fracture of the left tibia and lpoth-ace-tpjqd fixation of the right tibia. BOTH KNEES: [...] COMPARISON: October 11, 2010. FINDINGS: STANDING ALIGNMENT: [place] of gravitation runs through the medial tibial eminence on the right and through the most medial aspect of the tibialplateau on the left. Alignment of the pelvis is symmetric. Hzoy-hh-zqpcjdzndxsmmcq talar tilt on both sides. Posttraumatic changes of bilateral lower legsas indicated by a healed fracture of the left tibia and pbljt-cje-wjvdcaioxfaom of the right tibia. BOTH KNEES: Interval [...] on filedocumented in this encounter Care Teams Dietary Assistant Relationship Specialty Start Date End Date Martha Dempsey MD [address] [place] [address] PCP - General 02/09/10 10/16/22 documented as of this encounter
--- OUTSIDE RECORDS SUMMARY | 2024-03-25 16:51 | XMS_ITS | Encounter Summary ---
Author Organization Formerly [facility] Address [facility] [place] [address] Care Team Providers Care Electric Wirer Name Role Phone Martha Dempsey MD Primary Care Provider [phone] Reason for Visit * Reason Comments Left Knee Pain DOS 02/22/11 Left Ankle Pain Encounter Details Date Type Department Care Team (Late st Contact Info) Description 06/02/2011 12:45 PM EDT Office Visit [place] [address] Javier Brown MD [facility] [place] [address] Delgado Cote PA [facility] [place] [address] History of total knee arthroplasty(left TKA 02/2011) [...] single/ 3 children. 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 Hobbies boating. Past history [...] foot documented in this encounter Care Teams Electric Wirer Relationship Specialty Start Date End Date Martha Dempsey MD [address] [place] [address] PCP - General 02/09/10 10/16/22 documented as of this encounter
--- OUTSIDE RECORDS SUMMARY | 2024-03-25 16:51 | XMS_ITS | Encounter Summary ---
Author Organization [facility] Address [place] [address] Care Team Providers Care Continuity Director Name Role Phone Martha Dempsey MD Primary Care Provider [phone] Reason for Visit * Reason Comments Aftercare Of Tjr S/P LEFT TKA DOS 02/22/11 Left Ankle Pain Encounter Details Date Type Department Care Team (Late st Contact Info) Description 06/21/2012 1:00 PM EDT Office Visit [place] [address] Javier Brown MD [facility] [place] [address] Kyle Andrade, [place] [address] Left foot drop (Primary Dx); History of [...] NAME: Teo Arenas AGE: 57 y.o. MR#: [id number] DATE OF VISIT: 06/21/2012 SURGERY DATE: 10/16/2008 [...] patient's gait is slow antalgic assisted with [employer] crutches. The patient is without any significant [...] foot documented in this encounter Care Teams Continuity Director Relationship Specialty Start Date End Date Martha Dempsey MD [address] [place] [address] PCP - General 02/09/10 10/16/22 documented as of this encounter
--- OUTSIDE RECORDS SUMMARY | 2024-03-25 16:51 | XMS_ITS | Encounter Summary ---
Author Organization [facility] Address [facility] [place] [address] Care Team Providers Care Program Coordinator Executive Education Name Role Phone Martha Dempsey MD Primary Care Provider Encounter Details Date Type Department Care Team (Late st Contact Info) Description 02/02/2011 Anti-Coag [place]phone [place] [address] Javier Brown MD [facility] [place] [address] Social History Tobacco Use Types Packs/Day Years [...] on filedocumented in this encounter Care Teams Program Coordinator Executive Education Relationship Specialty Start Date End Date Martha Dempsey MD [address] [place] [address] PCP - General 02/09/10 10/16/22 documented as of this encounter
--- OUTSIDE RECORDS SUMMARY | 2024-03-25 16:51 | XMS_ITS | Encounter Summary ---
Author [facility] [place] [address] Care Team Providers Care Shop Router Name Role Phone Martha Dempsey MD Primary Care Provider [phone] Encounter Details Date Type Department Care Team (Late st Contact Info) Description 03/04/2011 Anti-Coag [place]phone [place] [address] Tena Padilla RN Left knee DJD Social [...] encounter Results * (ABNORMAL) POCT INR (03/04/2011) INR, POC 1.3(A) 0.9 - 1.1 Tena Padilla RN POINT OF CARE TEST O RDERABLES documented in this encounter Visit Diagnoses Diagnosis Left knee DJD Osteoarthrosis, unspecified whether generalized or localized, lower leg documented in this encounter Care Teams Shop Router Relationship Specialty Start Date End Date Martha Dempsey MD [address] [place] [address] PCP - General 02/09/10 10/16/22 documented as of this encounter
--- OUTSIDE RECORDS SUMMARY | 2024-03-25 16:51 | XMS_ITS | Encounter Summary ---
Author Organization [facility] [place] [address] Care Team Providers Care Hand Former Helper Name Role Phone Martha Dempsey MD Primary Care Provider [phone] Encounter Details Date Type Department Care Team (Late st Contact Info) Description 03/16/2011 Anti-Coag Telephone [place] [address] Amalia Akins RN Left knee DJD Social [...] leg documented in this encounter Care Teams Hand Former Helper Relationship Specialty Start Date End Date Martha Dempsey MD [address] [place] [address] PCP - General 02/09/10 10/16/22 documented as of this encounter
--- OUTSIDE RECORDS SUMMARY | 2024-03-25 16:51 | XMS_ITS | Encounter Summary ---
Author Organization [facility] Address [facility] [place] [address] Care Team Providers Care Strip Feeder Name Role Phone Martha Dempsey MD Primary Care Provider [phone] Reason for Visit * Reason Onset Date Comments Medication Refill 02/01/2011 Encounter Details Date Type Department Care Team (Late st Contact Info) Description 02/01/2011 [place] [address] Javier Brown MD [facility] [place] [address] Social History Tobacco Use Types Packs/Day Years [...] on filedocumented in this encounter Care Teams Strip Feeder Relationship Specialty Start Date End Date Martha Dempsey MD [address] [place] [address] PCP - General 02/09/10 10/16/22 documented as of this encounter
--- OUTSIDE RECORDS SUMMARY | 2024-03-25 16:51 | XMS_ITS | Encounter Summary ---
Author Organization [facility] [place] [address] Care Team Providers Care Gasoline Tester Name Role Phone Martha Dempsey MD Primary Care Provider [phone] Encounter Details Date Type Department Care Team (Late st Contact Info) Description 03/04/2011 Anti-Coag Telephone Visit [place] [address] Amalia Akins RN Left knee [...] Results * (ABNORMAL) External Lab Results (03/04/2011) INR, POC 1.3(A) 0.9 - 1.1 Historical Provider CHEMISTRY ORDERAB LES documented in this encounter Visit Diagnoses Diagnosis Left knee DJD Osteoarthrosis, unspecified whether generalized or localized, lower leg documented in this encounter Care Teams Gasoline Tester Relationship Specialty Start Date End Date Martha Dempsey MD [address] [place] [address] PCP - General 02/09/10 10/16/22 documented as of this encounter
--- OUTSIDE RECORDS SUMMARY | 2024-03-25 16:51 | XMS_ITS | Encounter Summary ---
Author Organization [facility] Address [facility] [place] [address] Care Team Providers Care Computerized Machine Fabric Cutter Name Role Phone Martha Dempsey MD Primary Care Provider [phone] Reason for Visit * Reason Onset Date Comments Follow-up 05/07/2013 Encounter Details Date Type Department Care Team (Late st Contact Info) Description 05/07/2013 [place] [address] Javier Brown MD [facility] [place] [address] Follow-up Social History Tobacco Use Types Packs/Day [...] on filedocumented in this encounter Care Teams Computerized Machine Fabric Cutter Relationship Specialty Start Date End Date Martha Dempsey MD [address] [place] [address] PCP - General 02/09/10 10/16/22 documented as of this encounter
--- OUTSIDE RECORDS SUMMARY | 2024-03-25 16:52 | XMS_ITS | Encounter Summary ---
Author Organization [facility] Address [facility] [place] [address] Care Team Providers Care Piper Installer Name Role Phone Martha Dempsey MD Primary Care Provider [phone] Encounter Details Date Type Department Care Team (Late st Contact Info) Description 12/15/2010 3:00 PM EDT [place] [address] Shea Silva MD [facility] [place] [address] Neurogenic bladder (Primary Dx) Discharge Disposition: Home [...] NOS documented in this encounter Care Teams Piper Installer Relationship Specialty Start Date End Date Martha Dempsey MD [address] [place] [address] PCP - General 02/09/10 10/16/22 documented as of this encounter
--- OUTSIDE RECORDS SUMMARY | 2024-03-25 16:52 | XMS_ITS | Encounter Summary ---
Author Organization [facility] [place] [address] Care Team Providers Care Cctv Technician Name Role Phone LoboYen estrada Gentry COELLO Primary Care Provider [phone] Encounter Details Date Type Department Care Team (Late st Contact Info) Description 09/23/2008 [place] [address] Kvng Charlton Jr., MD Social History Tobacco [...] 11:22 AM EDT) Surgical Pathology Report [id number] ? Location: [facility]; [facility]; A The signing pathologist has (i) examined [...] mesenteric fat. Sections/Processi ng: ??(1) margins; (2) field support representative mucosa. (R2) ??yajaira/SHB Microscopic Description Slides [...] Jr., MD PATHOLOGY/CYTOLOGY ORDERABLES Performing Organization Address City/State/[facility] Co or Phone Number EVITA BURRELL documented in this encounter Visit Diagnoses Not on filedocumented in this encounter Care Teams Cctv Technician Relationship Specialty Start Date End Date Yen Diamond APRN [address] [place] [address] PCP - General Family Medicine 10/17/22 documented as of this encounter
--- OUTSIDE RECORDS SUMMARY | 2024-03-25 16:52 | XMS_ITS | Encounter Summary ---
Author Organization [facility] [place] [address] Care Team Providers Care Overhauler Helper Name Role Phone Martha Dempsey MD Primary Care Provider [phone] Reason for Visit * Reason Comments Follow-up Encounter Details Date Type Department Care Team (Late st Contact Info) Description 12/15/2010 1:00 PM EDT Office [place] [address] Neurogenic bladder (Primary Dx) Social History Tobacco [...] 12/15/2010 1:34 PM EDT MARTHA DEMPSEY MD. [phone] documented in this encounter Plan of Treatment Not on file documented as of this encounter Visit Diagnoses Diagnosis Neurogenic bladder- Primary Neurogenic bladder, NOS documented in this encounter Care Teams Overhauler Helper Relationship Specialty Start Date End Date Martha Dempsey MD [address] [place] [address] PCP - General 02/09/10 10/16/22 documented as of this encounter
--- OUTSIDE RECORDS SUMMARY | 2024-03-25 16:52 | XMS_ITS | Encounter Summary ---
Author Organization [facility] Address [facility] [place] [address] Care Team Providers Care Coreroom Foundry Laborer Name Role Phone Martha Dempsey MD Primary Care Provider [phone] Encounter Details Date Type Department Care Team (Late st Contact Info) Description 08/09/2010 Orders [place] [address] Javier Brown MD [facility] [place] [address] Knee pain (Primary Dx) Social History Tobacco [...] leg documented in this encounter Care Teams Coreroom Foundry Laborer Relationship Specialty Start Date End Date Martha Dempsey MD [address] [place] [address] PCP - General 02/09/10 10/16/22 documented as of this encounter
--- OUTSIDE RECORDS SUMMARY | 2024-03-25 16:52 | XMS_ITS | Encounter Summary ---
Author Organization [facility] Address [facility] [place] [address] Care Team Providers Care Land Agent Name Role Phone Martha Dempsey MD Primary Care Provider [phone] Reason for Visit * Reason Comments Left Knee Pain Encounter Details Date Type Department Care Team (Late st Contact Info) Description 01/27/2011 7:45 AM EST [place] [address] Javier Brown MD [facility] [place] [address] Left knee DJD (Primary Dx) Discharge Disposition: [...] encounter Miscellaneous Notes * Miscellaneous - Simeon, Electrical Assembly Supervisor - 02/25/2011 3:50 PM EST * Miscellaneous - Simeon, Electrical Assembly Supervisor - 02/01/2011 4:40 PM EST * Miscellaneous - Simeon, Electrical Assembly Supervisor - 02/01/2011 2:51 PM EST documented in this encounter Plan of Treatment Not on file documented as of this encounter Visit Diagnoses Diagnosis Left knee DJD- Primary Osteoarthrosis, unspecified whether generalized or localized, lower leg documented in this encounter Care Teams Land Agent Relationship Specialty Start Date End Date Martha Dempsey MD [address] [place] [address] PCP - General 02/09/10 10/16/22 documented as of this encounter
--- OUTSIDE RECORDS SUMMARY | 2024-03-25 16:52 | XMS_ITS | Encounter Summary ---
Author Organization [facility] Address [facility] [place] [address] Care Team Providers Care Director Of Property Management Name Role Phone Martha Dempsey MD Primary Care Provider [phone] Encounter Details Date Type Department Care Team (Late st Contact Info) Description 10/26/2010 Orders [place] [address] Macrina Brown MD [facility] [place] [address] Left knee DJD (Primary Dx); Chest pain [...] reviewed by the attending Macrina Brown MD [facility] [place] ORDERABLES * Urine culture Clean Catch Urine (01/27/2011 2:38 PM EST) Urine Culture ? Patient Name: TEO BLANCO ? Ordered By: MACRINA BROWN ? MR#: [id number] ?LOC: ??4V ? /Sex: ??1955 (55 years), [...] S ? Patient: TEO BLANCO ? MR#: [id number] ? S=Susceptible ??I=Intermediate ??R=Resistant ??NA=Not Applicable ? DDS=Dose dependent-suscept ible ??NS=Non-suscepti ble ? FOOTNOTES ? (1)This organism carries inducible Beta-lactamase. ??Monotherapy with ? Cephalosporins is not advised. ? EVITA BURRELL Urine specimen obtained by clean catch procedure (specimen) 01/27/2011 2:38 PM EST 01/27/2011 2:38 PM EST Macrian Brown MD MICROBIOLOGY - GENER AL ORDERABLES [...] and pleural appear within normal limits. ?? Tyyd-pg-zudnmukd bli-fm-zidew thoracic spine degenerative change. Procedure Note Mini [...] vessels and pleural appear within normal limits. Bsjp-sm-yejnjkfk jeh-xz-zgwem thoracic spine degenerative change. IMPRESSION IMPRESSION: No [...] (Bezet) 405 ms MUSE SYSTEM Calculated P [place] 53 degrees MUSE SYSTEM Calculated R [place] 42 degrees MUSE SYSTEM Calculated T [place] 46 degrees MUSE SYSTEM INTERPRETATION Normal sinus rhythm diffuse ??Nonspecific T wave abnormality Abnormal ECG When compared with ECG of 16-OCT-2008 00:22, Nonspecific T wave abnormality, worse in Lateral leads Confirmed by fellow MD Yo, Kristian ([id number]) on 01/28/2011 12:03:35 PM Confirmed by MD IDRIS, NOMI ([id number]) on 01/28/2011 5:56:32 PM MUSE SYSTEM 01/27/2011 1:57 PM EST 01/28/2011 5:56 PM EST Macrina Brown MD ECG ORDERABLES MUSE SYSTEM * Prothrombin Time (01/27/2011 1:46 PM EST) Prothrombin Time 13.7 12.3 - 14.7 sec CERNER MILLENNIUM Comment: [facility] Transfusion Committee Guidelines: INR less than [...] Macrina Brown MD HEMATOLOGY ORDERABLE S CERNER LydiaENNIUM * Basic Metabolic Panel (non-fasting) (01/27/2011 1:46 PM EST) Glucose 134 60 - 199 mg/dL CERNER MILLENNIUM Comment:Diabetes: >=200 mg/d L plus symptoms Blood Urea Nitrogen 14 10 - 20 mg/dL CERNER MILLENNIUM [...] 103 98 - 107 mmol/L CERNER MILLENNIUM Carbon Dioxide 25 22 - 31 mmol/L CERNER MILLENNIUM Anion Gap 11 5 - 15 mmol/L CERNER MILLENNIUM Calcium 9.6 8.5 - 10.5 mg/dL CERNER MILLENNIUM Est [...] PM EST Macrina Brown MD CHEMISTRY ORDERABLES [facility] * (ABNORMAL) CBC (with Diff) (01/27/2011 1:46 PM EST) White Blood Cell 6.7 4.0 - 10.0 x10(3)/mc L CERNER MILLENNIUM Red Blood Cell 4.56(L) 4.63 - 6.08 x10(6)/mc L CERNER MILLENNIUM Hemoglobin 13.6(L) 13.7 - 17.5 gm/dL CERNER MILLENNIUM Hematocrit 40.3 40.0 - 51.0 % CERNER MILLENNIUM Mean Cell Volume 88.4 79.0 - 92.0 fL CERNER MILLENNIUM Mean Cell Hemoglobin 29.8 25.6 - 32.2 pg CERNER MILLENNIUM Mean Cell Hemoglobin Concentration 33.7 32.0 - 36.5 gm/dL CERNER MILLENNIUM Platelet 217 145 - 370 x10(3)/mc L CERNER MILLENNIUM RDW Standard Deviation 41.6 35.0 - 46.0 fL CERNER MILLENNIUM RDW coefficient of variation 13.0 10.9 - 14.4 % CERNER MILLENNIUM Mean Platelet Volume 9.6 9.0 - 12.0 fL CERNER MILLENNIUM [...] leg documented in this encounter Care Teams Director Of Property Management Relationship Specialty Start Date End Date Martha Dempsey MD [address] [place] [address] PCP - General 02/09/10 10/16/22 documented as of this encounter
--- OUTSIDE RECORDS SUMMARY | 2024-03-25 16:52 | XMS_ITS | Encounter Summary ---
Author Organization [facility] Address [facility] [place] [address] Care Team Providers Care Integration Software Engineer Name Role Phone Martha Dempsey MD Primary Care Provider [phone] Encounter Details Date Type Department Care Team (Latest Contact Info) Description 01/27/2011 6:12 AM EST - 01/27/2011 11:59 PM [facility] Hospital [place] [address] Javier Brown MD [facility] [place] [address] Left knee DJD Discharge Disposition: Home Social [...] 01/27/2011 1:46 PM EST BASIC METABOLIC PANEL Routine 01/27/2011 1:46 PM EST Left knee DJD documented in this encounter Results * Urine culture Clean Catch Urine (01/27/2011 2:38 PM EST) Urine Culture ? Patient Name: TEO BLANCO ? Ordered By: JAVIER BROWN ? MR#: [id number] ?LOC: ??4V ? /Sex: ??1955 (55 years), [...] ? Patient: TEO BLANCO N ? MR#: [id number] ? S=Susceptible ??I=Intermediate ??R=Resistant ??NA=Not Applicable ? DDS=Dose dependent-suscept ible ??NS=Non-suscepti ble ? FOOTNOTES ? (1)This organism carries inducible Beta-lactamase. ??Monotherapy with ? Cephalosporins is not advised. ? CERNER MILLENNIUM Urine specimen obtained by clean catch procedure (specimen) 01/27/2011 2:38 PM EST 01/27/2011 2:38 PM EST Javier Brown MD MICROBIOLOGY - GENER AL ORDERABLES CERNER MILLENNIUM * (ABNORMAL) URINALYSIS WITH MICROSCOPIC (01/27/2011 2:32 PM EST) Glucose, Urine Dipstick Negative Negative mg/dL CERNER MILLENNIUM Protein, Urine Dipstick Negative mg/dL CERNER MILLENNIUM Bilirubin, Urine Dipstick Negative Negative mg/dL CERNER MILLENNIUM Urobilinogen, Urine Dipstick Normal mg/dL CERNER MILLENNIUM pH, Urn (dipstick) 5.0 5.0 - 8.0 CERNER MILLENNIUM Blood, Urine Dipstick Negative mg/dL CERNER MILLENNIUM Ketone, Urine Dipstick Negative mg/dL CERNER MILLENNIUM Nitrite, Urine Dipstick Negative CERNER MILLENNIUM Leukocytes, Urine Dipstick Trace(A) Neg CERNER MILLENNIUM Appearance, Urine Dipstick Clear Clear CERNER MILLENNIUM Specific [place] Urine Automated 1.016 1.002 - 1.030 CERNER MILLENNIUM Color, Urine Dipstick Yellow Yellow CERNER MILLENNIUM RBC, Urine <1 0 - 3 /HPF CERNER MILLENNIUM WBC, Urine 4(H) 0 - 3 /HPF CERNER MILLENNIUM WBC Clumps, Urine Rare(A) None /HPF CERNER MILLENNIUM Bacteria, Urine Rare(A) None /HPF CERNER MILLENNIUM Squamous Epithelial Cells, Urine <1 <=4 /HPF CERNER MILLENNIUM Urine specimen (specimen) 01/27/2011 2:32 PM EST 01/27/2011 2:32 PM EST Javier Brown MD URINE ORDERABLES CERNER MILLENNIUM * DIFFERENTIAL, AUTOMATED (01/27/2011 1:46 PM EST) Neutrophil % 49.8 34.0 - 71.0 % CERNER MILLENNIUM Neutrophil Absolute 3.34 1.50 - 6.30 x10(3)/mcL CERNER MILLENNIUM Lymph % 36.8 19.0 - 53.0 % CERNER MILLENNIUM Lymphocytes Abs 2.5 1.0 - 3.6 x10(3)/mcL CERNER MILLENNIUM Monocyte % 5.8 4.0 - 13.0 % CERNER MILLENNIUM Monocyte Abs 0.4 0.2 - 1.0 x10(3)/mcL CERNER MILLENNIUM Eos % 6.5 0.0 - 7.0 % CERNER MILLENNIUM Eosinophils Abs 0.4 0.0 - 0.5 x10(3)/mcL CERNER MILLENNIUM Basophil % 0.7 0.0 - 2.0 % CERNER MILLENNIUM Baso Absolute 0.1 0.0 - 0.2 x10(3)/mcL CERNER MILLENNIUM [...] Immature Gran Absolute 0.03 0.00 - 0.05 x10(3)/mcL CERNER MILLENNIUM Blood specimen (specimen) 01/27/2011 1:46 PM EST 01/27/2011 2:06 PM EST Javier Brown MD HEMATOLOGY ORDERABLE S CERPANKAJ LASSITERIUM * ANTIBODY SCREEN (01/27/2011 1:46 PM EST) Ab Screen Interp Negative CERNER MILLENNIUM Expires at [id number] on: [id number] CERNER MILLENNIUM Blood specimen (specimen) 01/27/2011 1:46 PM EST 01/27/2011 2:06 PM EST Javier Brown MD BLOOD BANK LAB ORDER CLAUDIA Performing Organization Address City/[facility] Co de Phone Number EVITA LASSITERIUM * ABO/RH TYPING (01/27/2011 1:46 PM EST) ABORH Type O Pos CERNER MILLENNIUM Blood specimen (specimen) 01/27/2011 1:46 PM EST 01/27/2011 2:06 PM EST Javier Brown MD BLOOD BANK LAB ORDER CLAUDIA Performing Organization Address City/[facility] Co de Phone Number EVITA LASSITERIUM * Basic Metabolic Panel (non-fasting) (01/27/2011 [...] EST Javier Brown MD CHEMISTRY ORDERABLES EVITA LASSITERIUM * (ABNORMAL) CBC (with Diff) (01/27/2011 1:46 [...] EST Javier Brown MD HEMATOLOGY ORDERABLE S Performing Organization Address City/[facility] Co de Phone Number EVITA BURRELL * Prothrombin Time (01/27/2011 1:46 PM EST) Prothrombin Time 13.7 12.3 - 14.7 sec CERNER MILLENNIUM Comment: [facility] Transfusion Committee Guidelines: INR less [...] EST Javier Brown MD HEMATOLOGY ORDERABLE S Performing Organization Address City/[facility] Co de Phone Number EVITA BURRELL documented in this encounter Visit Diagnoses Diagnosis Left knee DJD Osteoarthrosis, unspecified whether generalized or localized, lower leg documented in this encounter Care Teams Integration Software Engineer Relationship Specialty Start Date End Date Martha Dempsey MD [address] [place] [address] PCP - General 02/09/10 10/16/22 documented as of this encounter
--- OUTSIDE RECORDS SUMMARY | 2024-03-25 16:52 | XMS_ITS | Encounter Summary ---
[place] [address] Care Team Providers Care Site Engineer Name Role Phone Martha Dempsey MD Primary Care Provider [phone] Encounter Details Date Type Department Care Team (Late st Contact Info) Description 10/08/2010 [place] [id number] Jessica Fernandez, RN Social History Tobacco Use Types Packs/Day Years Used Date Smoking Tobacco: Never Assessed Sex and Gender Information Value Date Recorded Sex Assigned at Not on file Gender Identity Not on file Sexual Orientation Not on file documented as of this encounter Plan of Treatment Not on file documented as of this encounter Visit Diagnoses Not on filedocumented in this encounter Care Teams Site Engineer Relationship Specialty Start Date End Date Martha Dempsey MD [address] [place] [address] PCP - General 02/09/10 10/16/22 documented as of this encounter
--- OUTSIDE RECORDS SUMMARY | 2024-03-25 16:52 | XMS_ITS | Encounter Summary ---
Author Organization [facility] Address [facility] [place] [address] Care Team Providers Care Eyewear Consultant Name Role Phone Martha Dempsey MD Primary Care Provider [phone] Encounter Details Date Type Department Care Team (Late st Contact Info) Description 10/11/2010 8:39 AM EDT - 10/11/2010 11:59 PM EDT Hospital Encounter XRay at [address] [place] [address] Knee pain Social History Tobacco Use Types [...] leg documented in this encounter Care Teams Eyewear Consultant Relationship Specialty Start Date End Date Martha Dempsey MD [address] [place] [address] PCP - General 02/09/10 10/16/22 documented as of this encounter
--- OUTSIDE RECORDS SUMMARY | 2024-03-25 16:52 | XMS_ITS | Encounter Summary ---
Author Organization [facility] [place] [place] [address] Care Team Providers Care Frontload Driver Name Role Phone Martha Dempsey MD Primary Care Provider [phone] Encounter Details Date Type Department Care Team (Late st Contact Info) Description 01/27/2011 1:30 PM EST Clinical Support Same Day at [facility] [place] [phone] Left knee DJD Social History Tobacco Use [...] and pleural appear within normal limits. ?? Idoe-zk-michaojo mfr-fm-silyy thoracic spine degenerative change. Procedure Note Mini [...] vessels and pleural appear within normal limits. Hppy-ne-ewwipxno ivz-jg-feglf thoracic spine degenerative change. IMPRESSION IMPRESSION: No [...] (Bezet) 405 ms MUSE SYSTEM Calculated P [place] 53 degrees MUSE SYSTEM Calculated R [place] 42 degrees MUSE SYSTEM Calculated T [place] 46 degrees MUSE SYSTEM INTERPRETATION Normal sinus rhythm diffuse ??Nonspecific T wave abnormality Abnormal ECG When compared with ECG of 16-OCT-2008 00:22, Nonspecific T wave abnormality, worse in Lateral leads Confirmed by fellow MD Yo, Kristian ([id number]) on 01/28/2011 12:03:35 PM Confirmed by MD IDRIS, NOMI ([id number]) on 01/28/2011 5:56:32 PM MUSE SYSTEM 01/27/2011 1:57 PM EST 01/28/2011 5:56 PM EST Javier Brown MD ECG ORDERABLES MUSE SYSTEM documented in this encounter Visit Diagnoses Diagnosis Left knee DJD Osteoarthrosis, unspecified whether generalized or localized, lower leg documented in this encounter Care Teams Frontload Driver Relationship Specialty Start Date End Date Martha Dempsey MD [address] [place] [address] PCP - General 02/09/10 10/16/22 documented as of this encounter
--- OUTSIDE RECORDS SUMMARY | 2024-03-25 16:52 | XMS_ITS | Encounter Summary ---
Author Organization [facility] [place] [address] Care Team Providers Care Piece Presser Name Role Phone LoboYen estrada Gentry COELLO Primary Care Provider [phone] Encounter Details Date Type Department Care Team (Late st Contact Info) Description 09/23/2008 [place] [phone] Kvng Charlton Jr., MD Social History Tobacco [...] 1:25 PM EDT) Surgical Pathology Report [id number] ? Location: [facility]; [facility] [place]; A The signing pathologist has (i) examined [...] cm. Sections/Processi ng: ? (B1) margins; (B2-B3) operations representative of mucosa; ? (B4) one trisected [...] on filedocumented in this encounter Care Teams Piece Presser Relationship Specialty Start Date End Date Yen Diamond, OUMOU [address] [place] [address] PCP - General Family Medicine 10/17/22 documented as of this encounter
--- OUTSIDE RECORDS SUMMARY | 2024-03-25 16:52 | XMS_ITS | Encounter Summary ---
Author Organization [facility] Address [facility] [place] [address] Care Team Providers Care Mandolin Repair Person Name Role Phone Martha Dempsey MD Primary Care Provider [phone] Reason for Visit * Reason Comments Left Knee Pain Encounter Details Date Type Department Care Team (Late st Contact Info) Description 10/11/2010 9:15 AM EDT Follow-[place] [address] Javier Brown MD [facility] [place] [address] Knee pain (Primary Dx) Discharge Disposition: Home [...] - 10/11/2010 8:45 AM EDT Welcome to [email or web address], your secure online access to your electronic medical record at [facility]. Using [email or web address] you will be able to send messages to your providers, view your test results, renew prescriptions, schedule appointments, and much more. Follow these instructions to enter your personal [email or web address] account for the first time: 1. Start your internet browser. Go to [email or web address] and click on the [email or web address] link. 2. Click SIGN UP NOW to go to the NEW MEMBER SIGN UP page. 3. Enter your [email or web address] Access Code exactly as it appears below. (You will not need this access code after you have completed the sign-up process.) ?? Your [email or web address] Access Code: [email or web address] ?? Expires: 11/25/10 08:45 AM ?? IMPORTANT: This Access Code will on the above mentioned date. If you do not sign up before this date, you will need to request a new Access Code number. 4. Enter your Date of (mm/dd/yyyy) and zip code click SUBMIT to go to the next page. 5. Create a [email or web address] identification (ID). This will be your [email or web address] login ID and cannot be changed, so [...] know when new information is available in [email or web address]. 9. Click SIGN UP to complete the process. You can now view your electronic medical record. If you have any questions about [email or web address] or your Access Code, please call for [place], for [place] or for [place]. If you need technical support, please e-mail [email or web address]. Remember, my[employer]-H is NOT for urgent [...] brother. 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
[2024-03-25 16:59] LABS: Hemoglobin A1C 6.5 % (<5.7)
[2024-03-25 17:16] LABS: ALT 25 U/L (16-63); AST 19 U/L (15-37); Alkaline Phosphatase 129 U/L (46-116); Anion Gap 11.7 mmol/L (3-11); BUN 29 mg/dL (7-18); Bilirubin, Total 0.19 mg/dL (0.2-1.0); CO2 26.3 mmol/L (21.0-32.0); CREATININE 1.2 mg/dL (0.70-1.30); Calcium 10.1 mg/dL (8.5-10.1); Calculated LDL 94 mg/dL (<100); Chloride 103 mmol/L (98-107); Cholesterol 176 mg/dL (<200); Glucose 115 mg/dL (74-106); HDL Cholesterol 40 mg/dL (40-60); Potassium 4.4 mmol/L (3.5-5.1); Sodium 141 mmol/L (136-145); Total Protein 8.1 g/dL (6.4-8.2); Triglyceride 214 mg/dL (<150); Vitamin D 25 Total 33.7 ng/mL (30-100)
== END 2024-03-25 16:47 | disposition home or self-care (01) ==
LOC: NCHCN 16:46
PROVIDERS: PCP Nurse Practitioner Family; Visit Provider Nurse Practitioner Family
DX: I10 Essential (primary) hypertension (principal); E11.9 Type 2 diabetes mellitus without complications; K76.0 Fatty (change of) liver, not elsewhere classified; E55.9 Vitamin D deficiency, unspecified
CPT/HCPCS: 80053; 80061; 82306; 83036; 85025

== ENCOUNTER 2024-05-22 15:27 | Inpatient (IN) | payer MEDICARE, SELFPAY ==
[2024-05-22 15:35] VITALS: BP 158/95; PULSE 96; RESP 20; TEMP 36.8; O2SAT 95
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
--- NOTE | 2024-05-22 16:15 | DI.RAD_ITS ---
Exam(s) XR PORTABLE CHEST AP EXAM: XR PORTABLE CHEST AP CLINICAL HISTORY: fever TECHNIQUE: 2D digital imaging was performed. COMPARISON: CR XR PORTABLE CHEST AP from 01/05/2024 FINDINGS: Exam is limited by suboptimal pulmonary inflation. The right chest is partially colon from view. LUNGS: Grossly clear. No pleural abnormality seen. HEART: Normal size. AORTA: Stent in descending aorta. BONES: Unremarkable for age. Soft tissues: Unremarkable. IMPRESSION: Limited exam. No acute findings. DATA REPOSITORY: RADIATION DOSE DELIVERED:
--- NOTE | 2024-05-22 16:15 | DI.RAD_ITS ---
Exam(s) XR FOOT LT COMPLETE EXAM: XR FOOT LT COMPLETE CLINICAL HISTORY: L great toe avulsion/laceration. TECHNIQUE: 2D digital imaging was performed. Three views. COMPARISON: CR XR FOOT LT COMPLETE from 01/16/2020 MR MR LOWER EXTREMITY LT WO/W from 09/14/2020 FINDINGS: Exam is limited by a large amount of gauze overlying the great toe. BONES: No acute fracture is present. No bony destructive lesion is seen. JOINTS: No dislocation present. SOFT TISSUE: Dorsal swelling. No foreign body or abnormal gas collection. IMPRESSION: Limited exam. No gross evidence of an acute abnormality. DATA REPOSITORY: RADIATION DOSE DELIVERED:
[2024-05-22] MEDS: LORazepam 2 MG/ML VIAL 1 MG IVP (16:41)
[2024-05-22 16:42] LABS: Abs Immature Grans 0.03 10^3/uL (0.0-0.06); Absolute Basophil Count 0.06 10^3/uL (0.0-0.2); Absolute Eosinophil Count 0.03 10^3/uL (0.0-0.7); Absolute Lymphocyte Count 1.39 10^3/uL (1.2-3.4); Absolute Monocyte Count 0.69 10^3/uL (0.1-0.8); Absolute Neutrophil Count 7.54 10^3/uL (1.2-6.7); Basophils % 0.6 %; Eosinophils % 0.3 %; HGB 14.1 g/dL (13.5-17.5); Immature Grans % 0.3 %; Lymphocytes % 14.3 %; MCH 30.3 pg (27.0-33.0); MCHC 32.8 % (32.0-36.0); MCV 93 fL (80-95); MPV 8.4 fL (8.0-11.0); Monocytes % 7.1 %; Neutrophils % 77.4 %; Platelet Count 260 10^3/uL (130-400); RBC 4.65 10^6/uL (4.36-5.78); RDW 12.1 % (11.8-14.1); RDW-SD 41.5 fL; WBC 9.74 10^3/uL (4.4-10.8)
[2024-05-22 16:43] LABS: Lactate 3.2 mmol/L (<or=2.0)
[2024-05-22] MEDS: Ketorolac 15 MG/ML VIAL IVP (16:43)
[2024-05-22] MEDS: ACETAMINOPHEN 1,000 MG/100 ML BAG 400 MG IVPB (16:46)
[2024-05-22] MEDS: cefTRIAXone 2 GM/50 ML BAG IVPB (16:47)
[2024-05-22] MEDS: Normal Saline 1,000 ML 1000 ML IV (16:49)
[2024-05-22] MEDS: HYDROmorphone 2 MG/ML SYR 0.5 MG IVP ×2 (16:58→17:27)
[2024-05-22 16:59] LABS: ALT 35 U/L (16-63); AST 22 U/L (15-37); Albumin 4.4 g/dL (3.4-5.0); Alkaline Phosphatase 129 U/L (46-116); BUN 18 mg/dL (7-18); Bilirubin, Total 0.36 mg/dL (0.2-1.0); CREATININE 1.1 mg/dL (0.70-1.30); Calcium 9.9 mg/dL (8.5-10.1); Chloride 103 mmol/L (98-107); Estimated GFR 73.58 (mL/min/1.73m2); Glucose 117 mg/dL (74-106); Potassium 4.3 mmol/L (3.5-5.1); Sodium 143 mmol/L (136-145)
--- NOTE | 2024-05-22 17:00 | DI.CT_ITS ---
Exam(s) CT LOWER EXTREMITY LT W EXAM: CT LOWER EXTREMITY LT W CLINICAL HISTORY: venous phase, suspect vascular pathology. TECHNIQUE: Imaging Protocol: Axial computed tomography images with coronal and sagittal reformatted images were created and reviewed. CONTRAST MATERIAL: Intravenous: Omnipaque 350 Contrast volume:100 contrast route:IV - Oral: No COMPARISON: No exams were available for comparison FINDINGS: Images are submitted for interpretation. ARTERIAL: The partially included distal aspect of the abdominal aorta exhibits prominent size measuring 3.1 cm. There is calcified plaque but no occlusion at this level nor at the aortic bifurcation. Submitted images only contain the left hemipelvis. The left common iliac artery is heavily calcified but not e nlarged. There is moderate atherosclerotic disease. There does appear to be a moderate stenosis at the junction of the left common and external iliac arteries. The left external iliac artery exhibits normal diameter. The left common femoral artery is also patent. The left SFA artery is patent in the thigh to the distal SFA level but nondiagnostic in Zackery's royer l and upper popliteal artery due to motion artifact and artifact from the ipsilateral knee arthroplas ty. Below this level there appears to be three-vessel runoff in the calf. VENOUS: There is no evidence of intraluminal thrombus within the left common and external iliac veins nor wit hin the left common femoral vein. The left SFV appears patent. SOFT TISSUES: Motion artifact. There is no evidence of mass nor abscess in the visualized lower extremity. Left kne e arthroplasty noted. There does appear to be a knee joint effusion. IMPRESSION: Limited study with findings as above. RADIATION DOSE DELIVERED: 784.12mGy.cm Total DLP DATA REPOSITORY: All CT scans at this facility are submitted to the National Radiology Data Registry (NRDR) Dose Index Registry (DIR) with the [employer] (A[employer]). RADIATION OPTIMIZATION: All CT scans at this facility use at least one of these dose optimization te chniques: automated exposure control; mA and/or kV adjustment per patient size (includes targeted exa ms where dose is matched to clinical indication); or iterative reconstruction.
--- NOTE | 2024-05-22 17:00 | DI.RAD_ITS ---
Exam(s) XR ANKLE LT COMPLETE EXAM: XR ANKLE LT COMPLETE CLINICAL HISTORY: L ankle deformity TECHNIQUE: 2D digital imaging was performed. Three views. COMPARISON: MR MR LOWER EXTREMITY LT WO/W from 09/14/2020 CR,XR XR HEEL LT OS CALCIS from 01/31/[address] THORAX ABD/PEL CTA from 01/05/[address] LOWER EXTREMITY LT CTA from 05/22/2024 FINDINGS: Exam is limited by chronic bony deformities and limited mobility. BONES: No acute fracture is present. There is an old distal tibial fracture. No bony destructive le patel is seen. JOINTS:There is severe narrowing of the tibiotalar joint space and prominent periarticular spurring. There is some remodeling of the distal tibia as well as talar dome. SOFT TISSUE: Normal. IMPRESSION: Limited exam. No gross evidence of an acute abnormality. DATA REPOSITORY: RADIATION DOSE DELIVERED:
[2024-05-22 17:02] LABS: Troponin I 12 ng/L (<or=76)
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
[2024-05-22] MEDS: Omnipaque 350 MG/ML 100 ML BTL IJ (17:39)
--- NOTE | 2024-05-22 19:00 | RT.EKG_ITS ---
APPROVED REPORT Exam: Resting ECG Reason for Exam: baseline/QTc check Patient Location: E HR:91 bpm ECG Measurements Heart Rate 91 AXIS ME 146 P 42 QRSd 81 QRS 38 QT 371 T 56 QTc 457 Conclusion Sinus rhythm...normal P axis, V-rate 60- 99 Sinus Rhythm. When compared to prior 01/05/24 decreased heart rate is noted. WD
--- NOTE | 2024-05-22 19:06 | NUR.NOTE ---
Nursing Note: pt standing in room leaning on the door, pt told by this nurse to stop pushing the door with his body because the door will pop out and he will fall, the pt began to yell I'm pissing the pt bandage is bleeding through and he will not follow directions, he is speaking inappropriate comments to the staff. pt continues to stand and then lean on the doors.
[2024-05-22] MEDS: Haloperidol 5 MG/ML VIAL 2 MG IVP (19:29)
--- NOTE | 2024-05-22 19:30 | DI.VRAD_ITS ---
PROCEDURE INFORMATION: Exam: CTA Left Lower Extremity With Contrast Exam date and time: 05/22/2024 17:35 Age: 69 years old Clinical indication: Other: L leg pain TECHNIQUE: Imaging protocol: Computed tomographic angiography of the left lower extremity with contrast. Radiation optimization: All CT scans at this facility use at least one of these dose optimization techniques: automated exposure control; mA and/or kV adjustment per patient size (includes targeted exams where dose is matched to clinical indication); or iterative reconstruction. Contrast material: OMNI 350; Contrast volume: 100 ml; Contrast route: INTRAVENOUS (IV); COMPARISON: MR LOWER EXTREMITY LT WO/W 09/14/2020 14:51 FINDINGS: Aorta: Infrarenal aortic dilation partially imaged measuring up to about 34 mm. Left lower extremity arteries: Visualized left iliac arteries, SFA patent to the level of the distal SFA, nondiagnostic at the level of the adductor hiatus and upper popliteal artery due to motion artifact and streak artifact from the knee arthroplasty. Below the knee there is a patent three-vessel runoff in the proximal calf, predominantly dominant anterior and posterior tibial arteries, which are patent to the level of the hindfoot. Peroneal artery is diminutive. Dorsalis pedis and plantar arteries are grossly patent allowing for motion. Bones/joints: Left total knee arthroplasty is grossly anatomic allowing for motion. Chronic at least moderate degenerative changes in the hindfoot. Motion artifact. No gross displaced fracture. Soft tissues: Fatty replacement of left lower extremity musculature greater than expected for the patient's age. Severe below the knee. Soft tissue swelling about the hindfoot more pronounced laterally. Motion artifact in the foot. Other findings: Motion in the left lower extremity. IMPRESSION: No acute appearing arterial pathology allowing for motion. Patent three-vessel runoff to the level of the ankle, patent dorsalis pedis and plantar arteries. Nondiagnostic distal SFA and popliteal artery as above. Dictated and Authenticated by: Dejah Min MD. Orderin Corinna Greenfield MD
[2024-05-22 19:43] LABS: Bilirubin Negative (Negative); Blood Moderate (Negative); Clarity Clear (Clear); Glucose Negative (Negative); Ketones Negative (Negative); Leukocyte Esterase Trace (Negative); Nitrite Positive (Negative); Urobilinogen 0.2 mg/dL (Up to 0.2)
[2024-05-22 19:46] LABS: COVID-19 PCR Negative (Negative); Influenza A PCR Negative (Negative); Influenza B PCR Negative (Negative); RSV PCR Negative (Negative)
[2024-05-22 20:00] LABS: Bacteria Negative HPF (Negative); C & S Indicated? No/Sq. Contamination; Casts Negative LPF (Negative); Crystals Negative HPF (Negative); Epithelial Cells Moderate HPF (Negative); Mucus Negative (Negative)
[2024-05-22 20:06] LABS: Source Nasopharynx
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
[2024-05-22 20:40] VITALS: BP 168/79; PULSE 78; RESP 20; TEMP 37.1; O2SAT 99
--- NOTE | 2024-05-22 20:47 | NUR.NOTE ---
Nursing Note: pt removed his dressing on his foot, bed alarm in place, pt does not listen to the alarm and continues to move and lean over the side rails, the pt has been informed not to put his upper body over the side rails. this nurse has been in the pts room several times within a short time period
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
[2024-05-22 21:55] VITALS: BP 171/78; PULSE 78; RESP 20; TEMP 36.9; O2SAT 95
[2024-05-22 22:00] VITALS: BP 171/78; PULSE 78; RESP 20; TEMP 36.9; O2SAT 95
[2024-05-22] MEDS: Gabapentin 600 MG TAB 1200 MG PO (22:54)
[2024-05-23] MEDS: HYDROmorphone 2 MG/ML SYR 0.5 MG IVP (00:02)
[2024-05-23] MEDS: LORazepam 2 MG/ML VIAL 0.5 MG IVP (01:57)
[2024-05-23] MEDS: oxyCODONE 10 MG TAB PO (01:58)
[2024-05-23] MEDS: Normal Saline Flush 10 ML SYR (06:13)
[2024-05-23 08:19] VITALS: BP 136/84; PULSE 96; RESP 18; TEMP 37; O2SAT 97
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
[2024-05-23] MEDS: Aspirin 81 MG CHEW PO (09:53)
[2024-05-23] MEDS: Gabapentin 600 MG TAB PO (09:53)
[2024-05-23] MEDS: Lisinopril 10 MG TAB 30 MG PO (09:53)
[2024-05-23] MEDS: MORPHine CR 15 MG TABCR PO (09:53)
[2024-05-23] MEDS: DULoxetine 30 MG CAP PO (09:53)
--- NOTE | 2024-05-23 12:23 | W.NUTRFU ---
Date of service: 05/23/24 Time of Service: 12:23 Nutrition Note NOTE: PT being treated for UTI and degloving of big toe on left foot. class I obesity per current BMI - last A1c was 6.5% which is consistent with Dx for diabetes. no DM meds at home. fasting glucose 117 yesterday. ordered for regular diet takes MVI, vitamin D, vitamin D at home. Dishcarge anticipated for later today. No significant nutrition intervention planned at this time. Pt made aware of outpatient nutrition services should glucose mgt become more of a concern or would like guidance with weight loss. Time Spent in Nutritional Counseling and Treatment: 5 min
[2024-05-23] MEDS: cefTRIAXone 1 GM/50 ML BAG IVPB (13:10)
[2024-05-23] MEDS: Normal Saline Flush 10 ML SYR IVP (13:46)
[2024-05-23 15:31] VITALS: BP 106/64; PULSE 89; RESP 18; TEMP 36.6; O2SAT 98
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
--- NOTE | 2024-05-23 16:25 | NUR.NOTE ---
patient AxOx4 throughout shift, VSS, denies pain, pt has been straight cathing self with 16F straight cath, dsg changed to L toe with xeroform and kerlix, supplies given to patient for discharge. He reports himself and dtr can manage dsg change at home. Patient was visualized walking in room and hallway with L ankle brace and orthotic shoe to make sure L toe dsg wouldn't impeded walking. Pt did well with this and he feels safe to return home. Pt will go with PO abx. Pending d/c education until dtr is present. All belongings packed up, PIV removed. Bed low/locked, call prince in reach. Nursing Note:
--- NOTE | 2024-05-23 17:36 | NUR.NOTE ---
pt and dtr given dc instructions including f/u appointments, medications/prescriptions, wound care instructions and s/s to report to ED for. Pt has all belongings ,PIVs removed, going with dtr to home and ambulating out. Nursing Note:
== END 2024-05-23 18:03 | disposition home or self-care (01) | DRG 690 ==
LOC: ER 21:11 → MS 21:55
PROVIDERS: Admitting Provider General Practice; Emergency Provider Physician Assistant; PCP Nurse Practitioner Family; Visit Provider General Practice
DX: N39.0 Urinary tract infection, site not specified; S91.202A Unspecified open wound of left great toe with damage to nail, initial encounter; R41.82 Altered mental status, unspecified; G89.29 Other chronic pain; Z79.899 Other long term (current) drug therapy; G47.33 Obstructive sleep apnea (adult) (pediatric); I51.7 Cardiomegaly; M21.372 Foot drop, left foot; E11.42 Type 2 diabetes mellitus with diabetic polyneuropathy; E66.9 Obesity, unspecified; E78.00 Pure hypercholesterolemia, unspecified; I10 Essential (primary) hypertension; Z95.828 Presence of other vascular implants and grafts; Z87.891 Personal history of nicotine dependence; N31.9 Neuromuscular dysfunction of bladder, unspecified; E78.5 Hyperlipidemia, unspecified; R45.1 Restlessness and agitation; E55.9 Vitamin D deficiency, unspecified; Z68.33 Body mass index [BMI] 33.0-33.9, adult
CPT/HCPCS: 00123; 36415; 80053; 87040; 87077; 87637; 93005; 96365; 96367; 96375; 99223; 99285; 71045; 73610; 73630; 73701; 81003; 81015; 83605; 83735; 84484; 85025; 87086; 87186; 93010; 99222; 99239; J0131; J0696; J1171; J1630; J1885; J2060; J3490

== ENCOUNTER 2024-06-17 14:22 | Emergency (ER) | payer MEDICARE, SELFPAY ==
[2024-06-17 14:28] VITALS: BP 160/90; PULSE 99; RESP 16; TEMP 36.8; O2SAT 98
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
[2024-06-17 16:32] LABS: Abs Immature Grans 0.03 10^3/uL (0.0-0.06); Absolute Basophil Count 0.06 10^3/uL (0.0-0.2); Absolute Eosinophil Count 0.03 10^3/uL (0.0-0.7); Absolute Lymphocyte Count 1.82 10^3/uL (1.2-3.4); Absolute Monocyte Count 0.93 10^3/uL (0.1-0.8); Absolute Neutrophil Count 8.76 10^3/uL (1.2-6.7); Basophils % 0.5 %; Eosinophils % 0.3 %; HGB 14.1 g/dL (13.5-17.5); Immature Grans % 0.3 %; Lymphocytes % 15.6 %; MCH 30.8 pg (27.0-33.0); MCHC 33.6 % (32.0-36.0); MCV 92 fL (80-95); MPV 8.7 fL (8.0-11.0); Neutrophils % 75.3 %; Platelet Count 288 10^3/uL (130-400); RBC 4.58 10^6/uL (4.36-5.78); RDW 12.4 % (11.8-14.1); WBC 11.64 10^3/uL (4.4-10.8)
[2024-06-17 16:58] LABS: ALT 44 U/L (16-63); AST 42 U/L (15-37); Albumin 4.8 g/dL (3.4-5.0); Alkaline Phosphatase 124 U/L (46-116); Anion Gap 15.4 mmol/L (3-11); BUN 24 mg/dL (7-18); Bilirubin, Total 0.6 mg/dL (0.2-1.0); CO2 24.6 mmol/L (21.0-32.0); Calcium 10.4 mg/dL (8.5-10.1); Chloride 105 mmol/L (98-107); Estimated GFR 82.49 (mL/min/1.73m2); Glucose 120 mg/dL (74-106); Potassium 4.3 mmol/L (3.5-5.1); Sodium 145 mmol/L (136-145); Total Protein 8.6 g/dL (6.4-8.2)
[2024-06-17 17:27] VITALS: BP 160/60; PULSE 99; RESP 16; O2SAT 95
== END 2024-06-17 17:31 | disposition home or self-care (01) ==
PROVIDERS: Emergency Provider Physician Assistant; PCP Nurse Practitioner Family
DX: S00.11XA Contusion of right eyelid and periocular area, initial encounter (principal); E11.9 Type 2 diabetes mellitus without complications; I10 Essential (primary) hypertension; E78.5 Hyperlipidemia, unspecified; Z79.01 Long term (current) use of anticoagulants; Z79.84 Long term (current) use of oral hypoglycemic drugs; W18.39XA Other fall on same level, initial encounter; Y93.89 Activity, other specified; Y92.018 Other place in single-family (private) house as the place of occurrence of the external cause; Z87.891 Personal history of nicotine dependence
CPT/HCPCS: 80053; 99285; 70450; 70486; 85025; 99284

== ENCOUNTER → 2024-06-24 14:44 | Outpatient (BNVA) | payer MEDICARE, SELFPAY | PROVIDERS: PCP Nurse Practitioner Family; Referring Provider Nurse Practitioner Family; Visit Provider Nurse Practitioner Gerontology | DX: N31.9 Neuromuscular dysfunction of bladder, unspecified (principal); R25.8 Other abnormal involuntary movements; N39.0 Urinary tract infection, site not specified; R39.9 Unspecified symptoms and signs involving the genitourinary system; B95.2 Enterococcus as the cause of diseases classified elsewhere | CPT/HCPCS: 51798; 81003; 99214 ==

== ENCOUNTER 2024-06-24 15:26 | Outpatient (REF) | payer MEDICARE, SELFPAY | END 2024-06-24 15:27 | disposition home or self-care (01) | LOC: LBN 15:26 | PROVIDERS: PCP Nurse Practitioner Family; Visit Provider Nurse Practitioner Gerontology | DX: N39.0 Urinary tract infection, site not specified (principal); R39.9 Unspecified symptoms and signs involving the genitourinary system; N31.9 Neuromuscular dysfunction of bladder, unspecified; R25.8 Other abnormal involuntary movements | CPT/HCPCS: 87077; 83036; 87086; 87186 ==

== ENCOUNTER 2024-06-24 15:30 | Emergency (ER) | payer MEDICARE, SELFPAY ==
[2024-06-24] VITALS (26 sets, daily range): BP systolic 113–155; BP diastolic 66–119; PULSE 84–115; RESP 11–27; TEMP 36.8; O2SAT 91–97
--- NOTE | 2024-06-24 16:00 | RT.EKG_ITS ---
APPROVED REPORT Exam: Resting ECG Reason for Exam: lightheadedness Patient Location: E HR:88 bpm ECG Measurements Heart Rate 88 AXIS NM 135 P 16 QRSd 89 QRS 37 QT 349 T 68 QTc 422 Conclusion Sinus rhythm, rate 88 No interval abnormalities No STEMI No significant change from priors
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
[2024-06-24 16:48] LABS: Abs Immature Grans 0.02 10^3/uL (0.0-0.06); Absolute Basophil Count 0.07 10^3/uL (0.0-0.2); Absolute Lymphocyte Count 2.14 10^3/uL (1.2-3.4); Absolute Monocyte Count 0.72 10^3/uL (0.1-0.8); Basophils % 0.8 %; Eosinophils % 1.1 %; HCT 41.4 % (40.0-50.0); HGB 13.4 g/dL (13.5-17.5); Immature Grans % 0.2 %; Lymphocytes % 23.9 %; MCH 30.7 pg (27.0-33.0); MCHC 32.4 % (32.0-36.0); MCV 95 fL (80-95); MPV 8.9 fL (8.0-11.0); Platelet Count 319 10^3/uL (130-400); RBC 4.37 10^6/uL (4.36-5.78); RDW 12.9 % (11.8-14.1); RDW-SD 44.6 fL; WBC 8.95 10^3/uL (4.4-10.8)
[2024-06-24 17:06] LABS: ALT 43 U/L (16-63); AST 25 U/L (15-37); Albumin 4.6 g/dL (3.4-5.0); Alkaline Phosphatase 118 U/L (46-116); Anion Gap 7.8 mmol/L (3-11); BUN 28 mg/dL (7-18); Bilirubin, Total 0.5 mg/dL (0.2-1.0); CO2 28.2 mmol/L (21.0-32.0); CREATININE 1.1 mg/dL (0.70-1.30); Calcium 10.4 mg/dL (8.5-10.1); Chloride 106 mmol/L (98-107); Estimated GFR 73.58 (mL/min/1.73m2); Glucose 107 mg/dL (74-106); Magnesium 2.5 mg/dL; Potassium 4.3 mmol/L (3.5-5.1); Sodium 142 mmol/L (136-145); Total Protein 8.8 g/dL (6.4-8.2); Troponin I 10 ng/L (<or=76)
--- NOTE | 2024-06-24 17:08 | DI.CT_ITS ---
Exam(s) CT HEAD WO EXAM: CT HEAD WO CLINICAL HISTORY: lightheaded, near syncope. TECHNIQUE: Imaging Protocol: Axial computed tomography images with coronal and sagittal reformatted images were created and reviewed COMPARISON: CT CT HEAD FACIAL WO from 06/17/2024 FINDINGS: Ventricles and Extra axial spaces: Normal in size and morphology for the patient's age. Hemorrhage: None. Cerebral parenchyma: Normal. Midline shift: None. Brainstem/Cerebellum: Normal. Calvarium: Normal. Visualized Paranasal sinuses/Mastoids: No air-fluid levels are seen in the sinuses. The mastoid air cells are hypoplastic. There again seen postsurgical changes in the right infraorbital region. Soft Tissues: Unremarkable. IMPRESSION: No acute intracranial process. RADIATION DOSE DELIVERED: 963.48mGy.cm Total DLP DATA REPOSITORY: All CT scans at this facility are submitted to the National Radiology Data Registry (NRDR) Dose Index Registry (DIR) with the [employer] (ACR). RADIATION OPTIMIZATION: All CT scans at this facility use at least one of these dose optimization te chniques: automated exposure control; mA and/or kV adjustment per patient size (includes targeted exa ms where dose is matched to clinical indication); or iterative reconstruction.
[2024-06-24 18:50] LABS: Troponin I 11 ng/L (<or=76)
[2024-06-24 19:07] LABS: Bilirubin Negative (Negative); Blood Negative (Negative); Clarity Clear (Clear); Glucose Negative (Negative); Ketones Trace mg/dL (Negative); Leukocyte Esterase Trace (Negative); Nitrite Negative (Negative); Specific Gravity 1.025 (1.005-1.025); Urobilinogen 0.2 mg/dL (Up to 0.2); pH 5.5 (5-8)
[2024-06-24 19:18] LABS: Epithelial Cells Moderate HPF (Negative); RBC Negative HPF (0-2)
[2024-06-24 19:19] LABS: Bacteria Negative HPF (Negative); C & S Indicated? No/Sq. Contamination; Casts Negative LPF (Negative); Crystals Negative HPF (Negative); Mucus Moderate (Negative)
[2024-06-25 08:12] LABS: Hemoglobin A1C 6.1 % (<5.7)
[2024-06-26 16:24] LABS: Albumin 58.8 % (55.8-66.1); Albumin g/dL 5.1 g/dL (3.6-5.2); Comment (See Note); Total Protein 8.6 g/dL (6.3-8.2)
[2024-08-05 08:15] LABS: Immunotyping, Serum (See Note)
== END 2024-06-24 19:52 | disposition home or self-care (01) ==
PROVIDERS: Emergency Provider Emergency Medicine; PCP Nurse Practitioner Family
DX: R42 Dizziness and giddiness (principal); E11.9 Type 2 diabetes mellitus without complications
CPT/HCPCS: 36415; 80053; 93005; 99284; 70450; 81003; 81015; 83036; 83735; 84165; 84484; 85025; 86320; 93010

== ENCOUNTER 2024-10-05 04:45 | Emergency (ER) | payer MEDICARE, SELFPAY ==
[2024-10-05] VITALS (9 sets, daily range): BP systolic 110–157; BP diastolic 45–87; PULSE 74–86; RESP 15–20; TEMP 36.4; O2SAT 92–98
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
[2024-10-05] MEDS: Ketorolac 15 MG/ML VIAL IM (05:14)
[2024-10-05] MEDS: oxyCODONE 10 MG TAB PO (05:15)
[2024-10-05] MEDS: Acetaminophen 500 MG TAB 1000 MG PO (05:15)
== END 2024-10-05 05:48 | disposition home or self-care (01) ==
PROVIDERS: Emergency Provider Student in an Organized Health Care Education/Training Program; PCP Nurse Practitioner Family
DX: M79.605 Pain in left leg (principal)
CPT/HCPCS: 99283; 99284; 96372; J1885

== ENCOUNTER 2024-10-08 01:52 | Outpatient (CLI) | payer MEDICARE, SELFPAY ==
--- NOTE | 2024-10-08 | DI.CT_ITS ---
Exam(s) CT CHEST WO EXAM: CT CHEST WO CLINICAL HISTORY: SOLITARY PULM NODULE R91.1. TECHNIQUE: Imaging protocol: Axial computed tomography images were obtained and coronal and sagittal reformatted images were created and reviewed. Lung Computer Aided Detection (CAD) was utilized. COMPARISON: CT CT CHEST WO from 03/22/[address] THORAX ABD/PEL CTA from 01/05/2024 FINDINGS: Tracheobronchial tree: Patent where visualized. No bronchiectasis is present. Pulmonary parenchyma: There are 3 stable pulmonary nodules in the left lower lobe. The largest is subpleural in location and measures 7 mm (series 2, image 90). There are stable nodules associated with the right minor fissure. The largest measures 5-6 mm (series 2, image 66). There is a stable nodule associated with the superior aspect of the right major fissure. There are no new pulmonary nodules. There is pleural and parenchymal scarring. No focal consolidating infiltrates are seen. Mediastinum and Lilly: No dominant adenopathy or fluid collection. The esophagus is unremarkable. Thyroid gland: Unremarkable. Pleura: No effusion or pneumothorax. Heart: The heart is not dilated. Two vessel coronary artery calcifications are present. No pericardial effusion. Aorta: The ascending thoracic aorta measures 4.1 x 3.8 cm. Atherosclerotic calcifications are present. There is a stent again seen in the thoracic aortic arch and descending thoracic aorta. Upper abdomen: Cholelithiasis. Lymph nodes: Within normal limits. Soft tissues: Bilateral gynecomastia. Bones:Within normal limits for the patient's age. IMPRESSION: 1. Stable pulmonary nodules. No new pulmonary nodules. 2. No acute pulmonary process. 3. The ascending thoracic aorta measures 4.1 x 3.8 cm. 4. Cholelithiasis. RADIATION DOSE DELIVERED: 199.45mGy.cm Total DLP 199.45mGy.cm Total DLP DATA REPOSITORY: All CT scans at this facility are submitted to the National Radiology Data Registry (NRDR) Dose Index Registry (DIR) with the [employer] (ACR). RADIATION OPTIMIZATION: All CT scans at this facility use at least one of these dose optimization techniques: automated exposure control; mA and/or kV adjustment per patient size (includes targeted exams where dose is matched to clinical indication); or iterative reconstruction.
== END 2024-10-08 02:12 ==
PROVIDERS: PCP Nurse Practitioner Family; Visit Provider Nurse Practitioner Family
DX: R91.1 Solitary pulmonary nodule (principal); K80.80 Other cholelithiasis without obstruction
CPT/HCPCS: 71250

== ENCOUNTER → 2024-10-10 13:25 | Outpatient (BNVA) | payer MEDICARE, SELFPAY | PROVIDERS: PCP Nurse Practitioner Family; Referring Provider Nurse Practitioner Family; Visit Provider Nurse Practitioner Adult Health | DX: R41.3 Other amnesia (principal); I10 Essential (primary) hypertension | CPT/HCPCS: 99215; G2212 ==

== ENCOUNTER 2024-10-11 12:52 | Emergency (ER) | payer MEDICARE, SELFPAY ==
[2024-10-11 12:56] VITALS: BP 137/78; PULSE 94; RESP 16; TEMP 36.4; O2SAT 94
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
[2024-10-11 14:12] VITALS: BP 139/76; PULSE 81; RESP 18; TEMP 36.4; O2SAT 99
[2024-10-11] MEDS: Lidocaine 1% Multi-Dose W/EPI 1/100,000 50 ML VIAL (15:35)
== END 2024-10-11 15:36 | disposition home or self-care (01) ==
PROVIDERS: Emergency Provider Emergency Medicine; PCP Nurse Practitioner Family
DX: S01.81XA Laceration without foreign body of other part of head, initial encounter (principal); Y04.8XXA Assault by other bodily force, initial encounter
CPT/HCPCS: 12011; J2004

== ENCOUNTER 2024-10-21 12:07 | Emergency (ER) | payer MEDICARE, SELFPAY ==
[2024-10-21 12:13] VITALS: BP 124/73; PULSE 89; RESP 16; TEMP 36.6; O2SAT 97
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
== END 2024-10-21 13:26 | disposition home or self-care (01) ==
PROVIDERS: Emergency Provider Emergency Medicine Emergency Medical Services; PCP Nurse Practitioner Family
DX: Z48.02 Encounter for removal of sutures (principal)

== ENCOUNTER 2024-11-01 15:04 | Outpatient (CLI) | payer MEDICARE, SELFPAY ==
--- NOTE | 2024-11-01 06:45 | DI.MRI_ITS ---
Exam(s) MR BRAIN WO EXAM: MR BRAIN WO CLINICAL HISTORY: altered cognition, multiple head injuries,MEMORY IMPAIRMENT,R41.3 TECHNIQUE: Multiplanar multisequence MRI of the brain was performed. COMPARISON: CT CT HEAD FACIAL WO from 06/17/[address] HEAD WO from 06/24/2024 FINDINGS: VENTRICLES AND EXTRA AXIAL SPACES: Normal in size and morphology for the patient's age. MIDLINE SHIFT: None. CEREBRAL PARENCHYMA: No focus of restricted diffusion to suggest acute infarct. No space-occupying lesion identified. There are few foci of hyperintense signal seen in the white matter consistent with chronic microvascular ischemic disease. HEMORRHAGE: None. BRAINSTEM/CEREBELLUM: Normal. CALVARIUM: Normal. VISUALIZED PARANASAL SINUSES/MASTOIDS:There is mucosal thickening in the ethmoid air cells bilaterally and the right maxillary sinus. [facility] [place]: Normal flow void. PITUITARY GLAND: Unremarkable. OTHER FINDINGS: There is a midline posterior nasopharyngeal mass measuring 1.2 x 0.9 cm. It is hyperintense on T1 and hypointense on T2 weighted images. Differential considerations include benign lesion such as a dermoid cyst or an atypical Tornwaldt cyst. IMPRESSION: 1. No acute intracranial process. 2. No evidence of intracranial hemorrhage. 3. Mild paranasal sinusitis. DATA REPOSITORY:
== END 2024-11-01 15:24 ==
LOC: DI 15:04
PROVIDERS: PCP Nurse Practitioner Family; Visit Provider Nurse Practitioner Adult Health
DX: R41.3 Other amnesia (principal); J34.89 Other specified disorders of nose and nasal sinuses
CPT/HCPCS: 70551

== ENCOUNTER 2024-12-02 06:34 | Outpatient (CLI) | payer MEDICARE, SELFPAY ==
[2024-12-02 13:06] LABS: TSH (W/Ref FT4) 1.12 uIU/mL (0.36-3.74); Vitamin B12 434 pg/mL (193-986)
== END 2024-12-02 06:35 | disposition home or self-care (01) ==
LOC: LBO 12-03 06:34
PROVIDERS: PCP Nurse Practitioner Family; Visit Provider Nurse Practitioner Adult Health
DX: R41.3 Other amnesia (principal)
CPT/HCPCS: 36415; 82607; 84443

== ENCOUNTER 2024-12-23 09:37 | Outpatient (CLI) | payer MEDICARE, SELFPAY ==
[2024-12-23 09:53] VITALS: BP 130/79; PULSE 87; RESP 18; TEMP 37.1; O2SAT 96
--- NOTE | 2024-12-23 10:46 | PDOC.PAIN ---
Date of service: 12/23/24 Time of Service: 11:15 Pain Managment Procedure Note Procedure Note Procedure Note: Preoperative diagnosis: 1. Left peroneal neuropathy G57.32 2.? Chronic pain syndrome Postoperative diagnosis: 1. Left peroneal neuropathy G57.32 2.? Chronic pain syndrome LEFT sided ultrasound guided peroneall? nerve block Surgeon: Patrick Mayfield MD Anesthesia: Local Sedation: none Complications: None EBL: <1ml COMMENT: PAIN 5/10 Description of procedure: The patient was met in the preoperative area.? A discussion of the risk benefits and alternatives ensued.? Informed sent was obtained and surgical hal was placed over the left lower extremity.? The patient was then brought to the procedure area and placed in the prone position on the fluoroscopy table.? The skin overlying the left lower posterior knee groin and was then widely prepped and draped in normal fashion with chlorhexidine skin prep.? Utilizing ultrasound guidance the Left sided peroneal nerve was then identified lateral to the vastus medialis .? The skin was anesthetized with 2 mL of 1% lidocaine.? Through the anesthetized tissue was passed a 21-gauge 100mm Pajunk needle advanced under ultrasound guidance until the proper needle position was obtained.? Again under direct ultrasound guidance a total of 6 mL of 0.5% bupivacaine with 40 mg depomedrol was injected circumferentially around the nerve.? The needle was then withdrawn and a sterile bandage dressing was placed over the needle insertion site.? The patient was brought to the recovery area and monitored post procedurally with no immediate post-procedural complications noted.? The patient was subsequently discharged home in satisfactory stable condition with postprocedural instructions and follow-up appoint provided Plan: f/u PRN COMMENT: PAIN 0 /10. If this lasts for months then it could be repeated as needed otherwise I think the original plan of [facility] for either spinal cord stimulator or peripheral nerve stimulator makes sense. Originally I have referred the patient for spinal cord stimulator to but if this does give him good temporary relief I think a peripheral stimulator at the sciatic nerve would be reasonable option. Coding Conscious Sedation used for procedure: No CPT Codes: GELA; Other Peripheral, Superior Cluneal, Sural, Coccygeal - 52902 ([id number] ~G) Ultrasound - 40730 ([id number] ~G) Additional Codes: Date of Service (19182) Date of service: 12/23/24 Diagnoses: Left peroneal neuropathy G57.32
[2024-12-23] MEDS: Nerve Block Tray 1 EACH MC (11:17)
[2024-12-23] MEDS: Bupivacaine 0.5% Pres-Free 10 ML VIAL IJ (11:17)
[2024-12-23] MEDS: methylPREDNISolone ACETATE 40 MG/ML VIAL IJ (11:18)
[2024-12-23 11:21] VITALS: PULSE 78; O2SAT 96
== END 2024-12-23 09:38 | disposition home or self-care (01) ==
LOC: PC 09:38
PROVIDERS: PCP Nurse Practitioner Family; Visit Provider Anesthesiology Pain Medicine
DX: G57.32 Lesion of lateral popliteal nerve, left lower limb (principal); G89.4 Chronic pain syndrome
CPT/HCPCS: 64450; J0665; J1010

== ENCOUNTER → 2024-12-30 13:32 | Outpatient (BNVA) | payer MEDICARE, SELFPAY | PROVIDERS: PCP Nurse Practitioner Family; Referring Provider Nurse Practitioner Family; Visit Provider Nurse Practitioner Adult Health | DX: R41.3 Other amnesia (principal) | CPT/HCPCS: 99215 ==

== ENCOUNTER 2025-01-05 18:18 | Emergency (ER) | payer MEDICARE, SELFPAY ==
[2025-01-05 18:22] VITALS: BP 108/76; PULSE 102; RESP 16; TEMP 36.7; O2SAT 96
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
[2025-01-05 19:01] LABS: Abs Immature Grans 0.03 10^3/uL (0.0-0.06); HCT 42.9 % (40.0-50.0); HGB 14.3 g/dL (13.5-17.5); Immature Grans % 0.3 %; MCH 31.0 pg (27.0-33.0); MCHC 33.3 % (32.0-36.0); MCV 93 fL (80-95); MPV 9.0 fL (8.0-11.0); Platelet Count 169 10^3/uL (130-400); RBC 4.61 10^6/uL (4.36-5.78); RDW 11.9 % (11.8-14.1); RDW-SD 41.1 fL; WBC 10.45 10^3/uL (4.4-10.8)
[2025-01-05] MEDS: HYDROmorphone 2 MG/ML SYR 1 MG IVP (19:01)
[2025-01-05 19:08] LABS: ALT 40 U/L (16-63); AST 19 U/L (15-37); Albumin 4.0 g/dL (3.4-5.0); Alkaline Phosphatase 119 U/L (46-116); Anion Gap 10.7 mmol/L (3-11); BUN 30 mg/dL (7-18); Bilirubin, Total 0.6 mg/dL (0.2-1.0); CO2 30.3 mmol/L (21.0-32.0); Calcium 9.0 mg/dL (8.5-10.1); Chloride 97 mmol/L (98-107); Estimated GFR 73.58 (mL/min/1.73m2); Glucose 109 mg/dL (74-106); Magnesium 2.2 mg/dL (1.8-2.4); Potassium 4.2 mmol/L (3.5-5.1); Sodium 138 mmol/L (136-145); Total Protein 8.6 g/dL (6.4-8.2)
[2025-01-05] MEDS: ACETAMINOPHEN 1,000 MG/100 ML BAG 400 MG IVPB (19:09)
[2025-01-05] MEDS: Pregabalin 25 MG CAP PO (19:22)
[2025-01-05] MEDS: Pregabalin 25 MG CAP 50 MG PO (20:32)
[2025-01-05 20:38] VITALS: BP 125/66; PULSE 89; RESP 16; TEMP 36.9; O2SAT 96
== END 2025-01-05 20:43 ==
PROVIDERS: Emergency Provider Emergency Medicine; PCP Nurse Practitioner Family
DX: G57.32 Lesion of lateral popliteal nerve, left lower limb (principal)
CPT/HCPCS: 99284 ×2; 96375; 80053; 96365; 83735; 85025; J0131; J1171

== ENCOUNTER 2025-02-18 08:27 | Emergency (ER) | payer MEDICARE, SELFPAY ==
[2025-02-18 08:46] VITALS: BP 105/62; PULSE 92; RESP 18; TEMP 36.6; O2SAT 95
--- NOTE | 2025-02-18 09:00 | DI.RAD_ITS ---
Exam(s) XR FOOT LT COMPLETE EXAM: XR FOOT LT COMPLETE CLINICAL HISTORY: left lateral foot injury. TECHNIQUE: 2D digital imaging was performed. COMPARISON: CR XR FOOT LT COMPLETE from 05/22/2024 FINDINGS: 3 views There is no evidence acute fracture in the lateral aspect of the foot, as per request. No metatarsal fractures nor phalangeal fractures. There are moderate degenerative changes in the great toe metatarsophalangeal joint. Lisfranc joint appears intact. More proximally there are significant degenerative changes the in the ankle- tibiotalar joint and abnormal appearance of the talus which is probably chronic but cannot exclude a superimposed fracture at this level in the hindfoot. IMPRESSION: Abnormal ankle/hindfoot findings as described above. If clinically indicated further study with CT can be performed. There are no fractures evident in the lateral aspect of the foot which is apparently area of clinical tenderness. DATA REPOSITORY: RADIATION DOSE DELIVERED:
[2025-02-18 11:28] VITALS: BP 95/65; PULSE 84; RESP 16; O2SAT 96
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
== END 2025-02-18 11:36 | disposition home or self-care (01) ==
PROVIDERS: Emergency Provider Physician Assistant; PCP Nurse Practitioner Family
DX: S91.312A Laceration without foreign body, left foot, initial encounter (principal); E11.9 Type 2 diabetes mellitus without complications; E78.5 Hyperlipidemia, unspecified; I10 Essential (primary) hypertension; Z79.82 Long term (current) use of aspirin; Z79.85 Long-term (current) use of injectable non-insulin antidiabetic drugs; X58.XXXA Exposure to other specified factors, initial encounter
CPT/HCPCS: 99283; 73630

== ENCOUNTER → 2025-02-26 08:46 | Outpatient (BNVA) | payer MEDICARE, SELFPAY | PROVIDERS: PCP Nurse Practitioner Family; Referring Provider Nurse Practitioner Family; Visit Provider Podiatrist | DX: L97.322 Non-pressure chronic ulcer of left ankle with fat layer exposed (principal); L97.522 Non-pressure chronic ulcer of other part of left foot with fat layer exposed; L03.116 Cellulitis of left lower limb; M25.372 Other instability, left ankle; M21.172 Varus deformity, not elsewhere classified, left ankle | CPT/HCPCS: 99214; 11042 ==

== ENCOUNTER → 2025-02-26 09:51 | Outpatient (CLI) | payer MEDICARE, SELFPAY ==
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
== END ==
LOC: DI 09:51
PROVIDERS: PCP Nurse Practitioner Family; Visit Provider Podiatrist
DX: L97.322 Non-pressure chronic ulcer of left ankle with fat layer exposed (principal); L97.522 Non-pressure chronic ulcer of other part of left foot with fat layer exposed; M25.372 Other instability, left ankle; M21.172 Varus deformity, not elsewhere classified, left ankle; M19.072 Primary osteoarthritis, left ankle and foot
CPT/HCPCS: 73610; 73650

== ENCOUNTER 2025-02-26 10:07 | Outpatient (REF) | payer MEDICARE, SELFPAY | END 2025-02-26 10:08 | disposition home or self-care (01) | LOC: LBN 10:07 | PROVIDERS: PCP Nurse Practitioner Family; Visit Provider Podiatrist | DX: S81.802A Unspecified open wound, left lower leg, initial encounter (principal); L97.529 Non-pressure chronic ulcer of other part of left foot with unspecified severity | CPT/HCPCS: 87077; 87070; 87075; 87186; 87205 ==

== ENCOUNTER → 2025-03-18 14:31 | Outpatient (BNVA) | payer MEDICARE, SELFPAY | PROVIDERS: PCP Nurse Practitioner Family; Referring Provider Nurse Practitioner Family; Visit Provider Podiatrist | DX: L97.322 Non-pressure chronic ulcer of left ankle with fat layer exposed (principal); L97.522 Non-pressure chronic ulcer of other part of left foot with fat layer exposed; L03.116 Cellulitis of left lower limb; M25.372 Other instability, left ankle; M21.172 Varus deformity, not elsewhere classified, left ankle | CPT/HCPCS: 11042 ==